=== PATIENT | male | born 1975 | race Caucasian/White ===

== ENCOUNTER 2020-05-19 11:57 | Inpatient (IN) | payer BC, OTHER ==
[~2020-05-19] VITALS: Ht 190.5 cm; Wt 108.8 kg
[2020-05-19 12:13] LABS: BASOPHILS # (AUTO) 0.1 10^3/uL (0.0-0.1); BASOPHILS % (AUTO) 1 % (0-10); EOSINOPHILS # (AUTO) 0.4 10^3/uL (0.0-0.3); EOSINOPHILS % (AUTO) 5 % (0-10); HEMATOCRIT 46 % (40-54); HEMOGLOBIN 15.9 G/DL (13.3-17.7); LYMPHOCYTES # (AUTO) 1.7 X 10^3 (1.0-4.0); LYMPHOCYTES % (AUTO) 18 % (12-44); MEAN CORPUSCULAR HEMOGLOBIN 30 PG (25-34); MEAN CORPUSCULAR HGB CONC 35 G/DL (32-36); MEAN CORPUSCULAR VOLUME 85 FL (80-99); MEAN PLATELET VOLUME 10.4 FL (7.4-10.4); MONOCYTES # (AUTO) 0.7 X 10^3 (0.0-1.0); MONOCYTES % (AUTO) 8 % (0-12); NEUTROPHILS # (AUTO) 6.2 X 10^3 (1.8-7.8); NEUTROPHILS % (AUTO) 68 % (42-75); PLATELET COUNT 309 10^3/uL (130-400); WHITE BLOOD COUNT 9.2 10^3/uL (4.3-11.0)
[2020-05-19 12:22] LABS: PROTHROMBIN TIME PATIENT 12.9 SEC (12.2-14.7)
--- NOTE | 2020-05-19 12:26 | Diagnostic Imaging Report ---
EXAMINATION: CT head without contrast. TECHNIQUE: Multiple contiguous axial images were obtained through the brain without the use of intravenous contrast. All CT scans use one or more of the following dose optimizing techniques: automated exposure control, MA and/or KvP adjustment based on a patient size and exam type, or iterative reconstruction. HISTORY: Left-sided weakness. Concern for stroke. COMPARISON: None available. FINDINGS: No large acute territorial ischemia, mass, or hemorrhage. No midline shift or mass effect. The ventricles, cortical sulci, and basilar cisterns are patent and unremarkable. The orbits are normal. Paranasal sinuses are normal. Mastoid air cells are clear. No soft tissue abnormality is seen. No osseus lesions or fractures are seen. IMPRESSION: 1. No large acute territorial ischemia, mass, or hemorrhage. 2. Pansinusitis. Dictated by: Dictated on workstation # [id number]
[2020-05-19 12:32] LABS: SODIUM 139 MMOL/L (135-145)
[2020-05-19 12:33] LABS: ALANINE AMINOTRANSFERASE 34 U/L (0-55); ALBUMIN 4.5 GM/DL (3.2-4.5); ALKALINE PHOSPHATASE 112 U/L (40-136); BILIRUBIN,TOTAL 0.4 MG/DL (0.1-1.0); BUN/CREATININE RATIO 10; CALCIUM 9.3 MG/DL (8.5-10.1); CARBON DIOXIDE 27 MMOL/L (21-32); CHLORIDE 104 MMOL/L (98-107); CREATININE SERUM 0.94 MG/DL (0.60-1.30); GFR ESTIMATED > 60; GLUCOSE 88 MG/DL (70-105); POTASSIUM 3.8 MMOL/L (3.6-5.0); TOTAL PROTEIN 7.6 GM/DL (6.4-8.2)
[2020-05-19] MEDS ORDERED: cloNIDine 0.2 MG (CATAPRES) TAB PO ONE (12:45)
--- NOTE | 2020-05-19 12:45 | Diagnostic Imaging Report ---
EXAMINATION: Chest radiograph, portable AP view. DATE: 05/19/2020 12:38 PM INDICATION: 44-year-old male, chest pain. COMPARISON: None. FINDINGS: Heart size and mediastinal contours are unremarkable. There is no identified pneumothorax. There is no large pleural effusion. There is no identified focal airspace consolidation. IMPRESSION: No identified acute cardiopulmonary abnormality. Dictated by: Dictated on workstation # [id number]
[2020-05-19] MEDS ORDERED: ASPIRIN 81 MG CHEW (CHILDREN'S ASA) PO ONE (14:00)
--- NOTE | 2020-05-19 14:08 | ED General ---
General Chief Complaint: Neuro-Stroke Like Symptoms Stated Complaint: STOKE-LIKE SYMPTOMS Nursing Triage Note: Patient reports sudden onset of left arm and leg tingling and weakness, bilateral lip numbness and tingling, headache, and difficulty swallowing at 10:30 am this morning. He reports he had one previous episode with similar symptoms in February 2020 that lasted approximately 5 minutes and resolved. Nursing Sepsis Screen: No Definite Risk Source of Information: Patient History of Present Illness Date Seen by Provider: May 19, 2020 Time Seen by Provider: 12:00 Initial Comments Patient is a 44-year-old male who is currently on Dr. Does not participated in primary care in over 20 years who presents with strokelike symptoms. Patient states he woke up this morning between 930 and 10 AM with tingling to his face, around his lips, and to his left upper and left lower extremity. He reports loss of fine motor control to his left arm. He does report ataxia and some difficulty swallowing. No change of vision, speech, or extremity weakness. Reports mild mild frontal headache with recent sinus infection symptoms. He denies chest pain palpitations, shortness of breath. No abdominal pain, nausea or vomiting. No extremity swelling or pain. No other acute symptoms or complaints. Patient took 800 mg of ibuprofen prior to ED arrival. Patient is is currently smokes 1 pack plus per day Timing/Duration: 1 Day Severity: Mild Modifying Factors: improves with Other Associated Systoms: Other Allergies and Home Medications Allergies Coded Allergies: naproxen (Verified Allergy, Unknown, 05/19/20) Patient Home Medication List Home Medication List Reviewed: Yes Review of Systems Review of Systems Constitutional: see HPI EENTM: see HPI Respiratory: see HPI Cardiovascular: see HPI Gastrointestinal: see HPI Genitourinary: see HPI Musculoskeletal: see HPI Skin: see HPI Psychiatric/Neurological: See HPI Hematologic/Lymphatic: See HPI Immunological/Allergic: see HPI All Other Systems Reviewed Negative Unless Noted: Yes Past Ktsguyw-Xfznhk-Nvoasz Hx Past Med/Social Hx: Reviewed Nursing Past Med/Soc Hx Patient Social History Alcohol Use: Denies Use Smoking Status: Current Everyday Smoker Type Used: Cigarettes 2nd Hand Smoke Exposure: No Recent Infectious Disease Expo: No Recent Hopitalizations: No Seasonal Allergies Seasonal Allergies: No Past Medical History Surgeries: Yes Orthopedic Respiratory: No Cardiac: No Neurological: No Genitourinary: No Gastrointestinal: No Musculoskeletal: No Endocrine: No HEENT: No Cancer: No Psychosocial: No Integumentary: No Physical Exam Vital Signs Vital Signs - First Documented 05/19/20 12:12 Temp 36.9 Pulse 90 Resp 21 B/P (MAP) 208/112 (144) Pulse Ox 98 O2 Delivery Room Air Capillary Refill : Less Than 3 Seconds Height, Weight, BMI Height: '" Weight: lbs. oz. kg; 29.00 BMI Method: General Appearance: No Apparent Distress, Anxious Eyes: Bilateral Eye Normal Inspection, Bilateral Eye PERRL, Bilateral Eye EOMI HEENT: PERRL/EOMI, Normal ENT Inspection, Pharynx Normal, Moist Mucous Membranes Neck: Non Tender, Supple Respiratory: Chest Non Tender, Lungs Clear Cardiovascular: Regular Rate, Rhythm Gastrointestinal: Soft Extremity: Normal Capillary Refill Neurologic/Psychiatric: Alert, Oriented x3, Other (Left-sided facial paresis, left arm, left leg drift, decreased sensation left side. NIH stroke score for Pirner strokes assessment.) Skin: Normal Color Focused Exam Sepsis Stage: Ruled Out Progress/Results/Core Measures Suspected Sepsis Recent Fever Within 48 Hours: No Infection Criteria Present: None New/Unexplained Altered Menta: No Sepsis Screen: No Definite Risk SIRS Temperature: Pulse: 90 Respiratory Rate: 21 Laboratory Tests 05/19/20 12:08: White Blood Count 9.2 Blood Pressure 208 /112 Mean: 144 Laboratory Tests 05/19/20 12:08: Creatinine 0.94, INR Comment 1.0, Platelet Count 309, Total Bilirubin 0.4 Results/Orders Lab Results Laboratory Tests Test 05/19/20 12:08 Range/Units White Blood Count 9.2 4.3-11.0 10^3/uL Red Blood Count 5.38 4.35-5.85 10^6/uL Hemoglobin 15.9 13.3-17.7 G/DL Hematocrit 46 40-54 % Mean Corpuscular Volume 85 80-99 FL Mean Corpuscular Hemoglobin 30 25-34 PG Mean Corpuscular Hemoglobin Concent 35 32-36 G/DL Red Cell Distribution Width 12.6 10.0-14.5 % Platelet Count 309 130-400 10^3/uL Mean Platelet Volume 10.4 7.4-10.4 FL Immature Granulocyte % (Auto) 0 % Neutrophils (%) (Auto) 68 42-75 % Lymphocytes (%) (Auto) 18 12-44 % Monocytes (%) (Auto) 8 0-12 % Eosinophils (%) (Auto) 5 0-10 % Basophils (%) (Auto) 1 0-10 % Neutrophils # (Auto) 6.2 1.8-7.8 X 10^3 Lymphocytes # (Auto) 1.7 1.0-4.0 X 10^3 Monocytes # (Auto) 0.7 0.0-1.0 X 10^3 Eosinophils # (Auto) 0.4 H 0.0-0.3 10^3/uL Basophils # (Auto) 0.1 0.0-0.1 10^3/uL Immature Granulocyte # (Auto) 0.0 0.0-0.1 10^3/uL Prothrombin Time 12.9 12.2-14.7 SEC INR Comment 1.0 0.8-1.4 Sodium Level 139 135-145 MMOL/L Potassium Level 3.8 3.6-5.0 MMOL/L Chloride Level 104 98-107 MMOL/L Carbon Dioxide Level 27 21-32 MMOL/L Anion Gap 8 5-14 MMOL/L Blood Urea Nitrogen 9 7-18 MG/DL Creatinine 0.94 0.60-1.30 MG/DL Estimat Glomerular Filtration Rate > 60 BUN/Creatinine Ratio 10 Glucose Level 88 70-105 MG/DL Calcium Level 9.3 8.5-10.1 MG/DL Corrected Calcium 8.9 8.5-10.1 MG/DL Magnesium Level 2.0 1.6-2.4 MG/DL Total Bilirubin 0.4 0.1-1.0 MG/DL Aspartate Amino Transf (AST/SGOT) 30 5-34 U/L Alanine Aminotransferase (ALT/SGPT) 34 0-55 U/L Alkaline Phosphatase 112 40-136 U/L Total Protein 7.6 6.4-8.2 GM/DL Albumin 4.5 3.2-4.5 GM/DL My Orders Orders - GAYLE LESTER DO Ct Head Wo (05/19/20 12:07) Cbc With Automated Diff (05/19/20 12:07) Comprehensive Metabolic Panel (05/19/20 12:07) Chest 1 View Ap/Pa Only (05/19/20 12:07) Protime With Inr (05/19/20 12:07) Continuous Ekg Monitoring (05/19/20 12:07) Magnesium (05/19/20 12:07) Clonidine Tablet (Catapres Tablet) (05/19/20 12:45) Ekg Tracing (05/19/20 13:36) Aspirin Chewable Tablet (Baby Aspirin Ch (05/19/20 14:00) Medications Given in ED Current Medications Medications Dose Ordered Sig/Emelina Route Start Time Stop Time Status Last Admin Dose Admin Clonidine HCl 0.2 mg ONCE ONCE PO 05/19/20 12:45 05/19/20 12:46 DC 05/19/20 13:21 0.2 MG Vital Signs/I&O 05/19/20 12:12 Temp 36.9 Pulse 90 Resp 21 B/P (MAP) 208/112 (144) Pulse Ox 98 O2 Delivery Room Air Capillary Refill : Less Than 3 Seconds Blood Pressure Mean: 144 Departure Communication (Admissions) CT head: Nonacute EKG: Normal sinus rhythm, no acute ST-T wave changes Patient with acute strokelike symptoms with last known normal greater than 14 hours prior to ED arrival. Patient woke with symptoms this morning and did not get up during the night. He is outside the window for TPA. Blood pressure noted to be elevated 180s over 90s. Sublingual clonidine and chewable aspirin given. Dr. Harmon accepts to [facility]. Impression Primary Impression: Ischemic stroke Disposition: ADMITTED INPATIENT Condition: Stable Admissions Decision to Admit Reason: Admit from ER (General) Decision to Admit/Date: May 19, 2020 Time/Decision to Admit Time: 13:45 Departure-Patient Inst. Referrals: NO,LOCAL PHYSICIAN (PCP/Family) Primary Care Physician GAYLE LESTER DO May 19, 2020 14:08
[2020-05-19 16:00] VITALS: BP 193/122
[2020-05-19] MEDS ORDERED: ONDANSETRON 4 MG (ZOFRAN) ORAL DISSOLVE TAB PO PRN (18:00)
[2020-05-19] MEDS ORDERED: ACETAMINOPHEN 325 MG TABLET PO PRN (18:00)
[2020-05-19] MEDS ORDERED: ANTACID SUSP 30 ML UDC (MYLANTA) PO PRN (18:00)
[2020-05-19] MEDS ORDERED: MELATONIN 3 MG TABLET PO PRN (18:00)
[2020-05-19] MEDS ORDERED: polyethylene glycoL POWDER 17 GM (MIRALAX) PACK PO PRN (18:00)
[2020-05-19] MEDS ORDERED: diphenhydrAMINE 25 MG TAB (BENADRYL) PO PRN (18:00)
[2020-05-19] MEDS ORDERED: ONDANSETRON 4 MG/2 ML (SDV) Z0FRAN IV PRN (18:00)
[2020-05-19 19:52] VITALS: BP 142/82
[2020-05-19] MEDS ORDERED: CATHETER FLUSH 10 ML SYR IV PRN (20:15)
[2020-05-19] MEDS: inSUlin ASPART (NovoLOG) 1 UNIT/0.01 ML (CHARGE PER UNIT) SC SCH (21:11)
[2020-05-19] MEDS: hydrALAZINE (APRESOLINE) 25 MG TAB PO SCH (21:16)
[2020-05-19] MEDS: CATHETER FLUSH 10 ML SYR IV SCH (21:17)
[2020-05-19] MEDS: ENOXAPARIN 40 MG/0.4 ML (LOVENOX) SYR SC SCH (21:17)
[2020-05-20] VITALS (7 sets, daily range): BP systolic 130–170; BP diastolic 68–104
[2020-05-20] MEDS: hydrALAZINE (APRESOLINE) 25 MG TAB PO SCH ×3 (06:04→22:44)
[2020-05-20] MEDS: CATHETER FLUSH 10 ML SYR IV SCH ×3 (06:05→20:29)
[2020-05-20] MEDS: inSUlin ASPART (NovoLOG) 1 UNIT/0.01 ML (CHARGE PER UNIT) SC SCH ×4 (06:17→20:24)
[2020-05-20 06:21] LABS: BASOPHILS # (AUTO) 0.1 10^3/uL (0.0-0.1); BASOPHILS % (AUTO) 1 % (0-10); EOSINOPHILS # (AUTO) 0.4 10^3/uL (0.0-0.3); EOSINOPHILS % (AUTO) 4 % (0-10); HEMATOCRIT 40 % (40-54); LYMPHOCYTES # (AUTO) 1.8 10^3/uL (1.0-4.0); LYMPHOCYTES % (AUTO) 19 % (12-44); MEAN CORPUSCULAR HEMOGLOBIN 30 pg (25-34); MEAN CORPUSCULAR HGB CONC 35 g/dL (32-36); MEAN CORPUSCULAR VOLUME 86 fL (80-99); MEAN PLATELET VOLUME 10.6 fL (9.0-12.2); MONOCYTES # (AUTO) 0.6 10^3/uL (0.0-1.0); MONOCYTES % (AUTO) 6 % (0-12); NEUTROPHILS # (AUTO) 6.6 10^3/uL (1.8-7.8); NEUTROPHILS % (AUTO) 69 % (42-75); PLATELET COUNT 267 10^3/uL (130-400); WHITE BLOOD COUNT 9.5 10^3/uL (4.3-11.0)
[2020-05-20 06:33] LABS: ALBUMIN 3.7 GM/DL (3.2-4.5); CHLORIDE 110 MMOL/L (98-107); POTASSIUM 3.7 MMOL/L (3.6-5.0); SODIUM 140 MMOL/L (135-145)
[2020-05-20 06:34] LABS: CALCIUM 8.5 MG/DL (8.5-10.1)
[2020-05-20 06:35] LABS: GLUCOSE 92 MG/DL (70-105); TOTAL PROTEIN 6.5 GM/DL (6.4-8.2); TRIGLYCERIDES 149 MG/DL (<150); VLDL CHOLESTEROL 30 MG/DL (5-40)
[2020-05-20 06:36] LABS: CARBON DIOXIDE 23 MMOL/L (21-32)
[2020-05-20 06:37] LABS: BILIRUBIN,TOTAL 0.7 MG/DL (0.1-1.0)
[2020-05-20 06:39] LABS: ALKALINE PHOSPHATASE 85 U/L (40-136); CREATININE SERUM 0.85 MG/DL (0.60-1.30); GFR ESTIMATED > 60
[2020-05-20 06:40] LABS: BUN/CREATININE RATIO 12; CHOLESTEROL 178 MG/DL (< 200)
[2020-05-20 06:41] LABS: HDL CHOLESTEROL 24 MG/DL (40-60)
[2020-05-20 06:42] LABS: ALANINE AMINOTRANSFERASE 33 U/L (0-55)
[2020-05-20] MEDS ORDERED: GADOBUTROL 15 MMOL/15 ML (GADAVIST) VIAL IV ONE (08:30)
--- NOTE | 2020-05-20 08:41 | Diagnostic Imaging Report ---
EXAMINATION: MR imaging brain with and without contrast. TECHNIQUE: Multiplanar, multisequence MR imaging of the brain was performed with and without contrast. HISTORY: Left-sided weakness COMPARISON: None available. FINDINGS: There is an acute right pontine infarct. There is diffusion restriction and T2 hyperintensity associated with the infarct but no contrast enhancement. No other infarct is seen. The omledo-white matter differentiation is normal. No mass effect or midline shift. The ventricles are normal in size and configuration. Basilar cisterns are patent. No hemorrhage is seen on the susceptibility weighted images. There are no intra- or extra-axial fluid collections. Upper cervical spinal cord signal intensity is normal. Thalamus and basal ganglia are normal. Normal flow voids are seen in the intracranial vasculature. The marrow signal in the calvarium is normal. The orbits are normal. There is right maxillary sinus mucosal disease. Mastoid air cells are clear. No soft tissue abnormality is seen. IMPRESSION: 1. Acute right pontine infarct. Dictated by: Dictated on workstation # [id number]
[2020-05-20] MEDS: hydrALAZINE (APESOLINE) 20 MG/ML VIAL IV PRN ×2 (08:55→14:27)
[2020-05-20] MEDS: amLODIPine 10 MG (NORVASC) TAB PO SCH (08:55)
[2020-05-20] MEDS: ASPIRIN 325 MG (5 GR) TABLET PO SCH (08:55)
[2020-05-20] MEDS ORDERED: IBUP-2185 PO (08:58)
--- NOTE | 2020-05-20 09:22 | History & Physical-Hospitalist ---
ANNANATASHA, 05/20/20 0922: History of Present Illness HPI/Chief Complaint Mr. Sanchez is a 45-year-old male who presented to the [facility] ED for stroke- like symptoms beginning at 0930 on 05/19. He noticed L arm tingling around that time but was hoping the symptoms would go away. He had similar symptoms around 2019 that lasted for about 5 minutes but eventually went away. This episode the symptoms did not stop, so he had his take him to the ER. Prior to his arrival, he took Advil for a headache but this did not help the symptoms he had. CT head in the ER was normal. Today, 05/20, he states he has had difficulty swallowing, slurred speech, left- sided paralysis and numbness/tingling on the left side as well. He denies any chest pain or shortness of breath unless in the imaging machines. He admits to dry throat, balance issues, and headaches. He also admits to fatigue following various testing that has been done thus far during his stay. Denies other ROS. Source: patient Exam Limitations: no limitations Date Seen 05/20/20 Time Seen by a Provider: 09:00 Attending Physician Angelique Harmon MD PCP No,Local Physician Referring Physician Date of Admission May 19, 2020 at 15:59 Home Medications & Allergies Home Medications Reviewed patient Home Medication Reconciliation performed by pharmacy medication reconciliations cnc technician and/or nursing. Patients Allergies have been reviewed. Allergies Allergies Coded Allergies naproxen (Verified Allergy, Unknown, 05/19/20) Past Sqiivgl-Gdfhtr-Hsccsw Hx Past Med/Social Hx: Reviewed Nursing Past Med/Soc Hx Patient Social History Marrital Status: Alcohol Use: Occasionally Uses Recreational Drug Use: No Smoking Status: Current Everyday Smoker (1ppd for 20 years) Type Used: Cigarettes 2nd Hand Smoke Exposure: No Recent Foreign Travel: No Contact w/other who traveled: No Recent Hopitalizations: No Recent Infectious Disease Expo: No Immunizations Up To Date Date of Influenza Vaccine: Jan 17, 2020 Seasonal Allergies Seasonal Allergies: No Past Medical History Surgeries: Orthopedic (L forearm, jaw) denies Family History Heart Disease (father - pacemaker, mother - CABG, stents), Diabetes Review of Systems Constitutional: see HPI EENTM: see HPI Respiratory: see HPI Cardiovascular: see HPI Gastrointestinal: see HPI Genitourinary: see HPI Musculoskeletal: see HPI Skin: see HPI Psychiatric/Neurological: See HPI Physical Exam Physical Exam Vital Signs Vital Signs - First Documented 05/19/20 12:12 Temp 36.9 Pulse 90 Resp 21 B/P (MAP) 208/112 (144) Pulse Ox 98 O2 Delivery Room Air Capillary Refill : Less Than 3 Seconds Height, Weight, BMI Height: '" Weight: lbs. oz. kg; 29.98 BMI Method: General Appearance: Anxious Eyes: Bilateral Eye PERRL, Bilateral Eye EOMI (pt states difficulty moving eyes toward left-side) HEENT: No Pale Conjunctivae (L), No Pale Conjunctivae (R) Neck: Non Tender, Supple Respiratory: Chest Non Tender, Lungs Clear Cardiovascular: Regular Rate, Rhythm, No Edema, Normal Peripheral Pulses Gastrointestinal: Normal Bowel Sounds, Non Tender, Soft Extremity: Normal Capillary Refill Neurologic/Psychiatric: Alert, Oriented x3, director school of nursing II-XII Norm as Tested, Facial Droop (left-sided), Motor Weakness (left-sided paralysis), Sensory Deficit (left-sided numbness/tingling), Other (slurred speech) Skin: Normal Color, Warm/Dry Lymphatic: No Adenopathy Results Results/Procedures Labs Laboratory Tests 05/19/20 12:08 05/20/20 06:10 Patient resulted labs reviewed. Imaging Head CT revealed no acute pathology. MRI brain revealed an acute right-sided rashmi zenobia infarct. Assessment/Plan Admission Diagnosis Right-sided pontine infarct * Pt is having left-sided facial droop, sensation deficit, paralysis since 0930 on 05/19 * Head CT normal * MRI brain revealed right-sided acute pontine infarct * Echo results pending * Carotid u/s revealed mild bilateral carotid atherosclerotic disease with no evidence of significant vascular stenosis * TRG 149, cholesterol 178, LDL 148, VLDL 30, HDL 24 * Will allow for permissive hypertension following acute CVA * Need rehab evaluation - consult web content & social media manager Diet: npo - pending swallow study -- recommended pureed foods PPx: lovenox FULL CODE Dispo: likely >2 midnights, will need rehab placement for residual symptoms Clinical Quality Measures Stroke: Date of last known well: May 19, 2020 SANG GILLIS MD 05/20/20 9936: Assessment/Plan Admission Diagnosis Pt admitted due to acute right sided pontine infarct with left sided weakness. He was outside of the window for TPA on presentation and was admitted for stroke work up and PT/OT. He reports that he has had no recovery of his strength thus far with his left upper extremity weakness but he is able to move his left leg some. Will start on statin and aspirin. Echo pending. Carotid doppler usg negative for significant disease. Monitor on telemetry, consider loop recorder if no a-fib in 48 hours. IRU consult placed. Admission Status: Inpatient Order (span 2 midnights) Reason for Inpatient Admission: see above Diagnosis/Problems Diagnosis/Problems (1) Essential (primary) hypertension (2) Tobacco abuse (3) Hyperlipidemia (4) Ischemic stroke Status: Acute Supervisory-Addendum Brief Verification & Attestation Participated in pt care: history, MDM, physical Personally performed: exam, history, MDM, supervision of care Care discussed with: Medical Student Procedures: n/a Results interpretation: Verified all documentation Verification and Attestation of Medical Student E/M Service A medical student performed and documented this service in my presence. I reviewed and verified all information documented by the medical student and made modifications to such information, when appropriate. I personally performed the physical exam and medical decision making. Sang Gillis, May 20, 2020,14:51 NATASHA CASTILLO, May 20, 2020 09:22 SANG GILLIS MD May 20, 2020 14:56
--- NOTE | 2020-05-20 09:53 | ST Dysphagia Evaluation ---
Speech Evaluation-General Medical Diagnosis Ischemic Stroke Onset Date: May 19, 2020 Therapy Diagnosis Therapy Diagnosis: Oropharyngeal Dysphagia Precautions Precautions: Aspiration Precautions/Isolations: Aspiration Referral Referring Physician: Dr. Harmon Medical History Reviewed History: Yes Social History Current Living Status: Spouse Speech PLF/Current-Dysphagia Prior Level of Function Patient lived in the home with his . Patient was independent for daily needs. Subjective Patient was pleasant and cooperative with the Bedside Dysphagia Evaluation. Oral Motor Skills Dentition: Edentalous Denture Type: Full- Upper & Lower Ability to Follow Directions: Good Patient had his dentures present but didn't want to put them in today. Oral Expression Ability: No Impairment Patient was NPO pending BDE Voice Voice Phonatory-Based Quality: Normal Voice Pitch: Normal Voice Loudness: Normal Face Facial Symmetry: Asymmetrical Mild left facial droop Oral-Facial Assessment Oral-Facial Dentition: Normal Smile: Droops Left Lingual Protrusion: Abnormal Lingual ROM: Abnormal Lingual Strength: Abnormal Pharynx Velopharyngeal Move.: Weak on Left Volitional Dry Swallow: Yes Voluntary Cough: Yes Can Clear Throat Volitionally: Yes Dysphagia Evaluation Consistencies Presented: Thin Liquid, Mechanical Soft, Pureed Oral Phase: Oral Residue Oral phase is within normal range of function for thin liquids and puree, mild oral residue with mechanical soft. Pharyngeal Phase: Decreased A/P Bolus Transit Pharyngeal phase is within normal range of function for thin liquids and puree, mild swallow delay with mechanical soft. Dietary Recommendations: Pureed Liquid Recommendations: Thin Swallowing Precautions: Alternate Liquids/Solids, Decreased Bolus 1/2 Tsp, Liquids from Straw, Liquids from Spoon, Small Bites and Sips, Sitting Upright 90 Degrees, Sitting 90 Degrees 30 Post Intake, Left Tongue Sweep Dysphagia Evaluation Summary Patient was admitted to the hospital on 05/19/2020 due to stroke like symptoms. Patient experienced left side weakness on his whole body. He completed the BDE this morning with left side facial weakness noted. He stated he had had pudding, applesauce and diced fruit. He was able to eat the fruit except for pineapple which he said was too "stringy". patient wears dentures, however he did not want to try to put them in today. He was noted to have mild oral residue with mechanical soft. Thin liquids and puree texture trials were all within normal range of swallow without residue. The patient is recommended for Dysphagia I diet level with thin liquids at this time. Patient will continue to receive ongoing assessment for denture use as he improves. Patient's nurse was informed as well as written on the white board in his room. Barriers to Learning None identified Speech Short Term Goals Short Term Goals Short Term Goals 1) Patient will tolerate least restrictive diet level without s/s of aspiration at 90% or greater. 2) Patient will utilize compensatory strategies for safe oral intake at 90% or greater. Speech District Loss Prevention Manager Goals Retirement Goals Patient will maintain adequate nutrition/hydration via safe effective swallow function. Speech-Plan Patient/Family Goals Patient/Family Goals: Patient plans to return to his home where he lives with his . Treatment Plan Speech Therapy Treatment Plan: Continue Plan of Care Treatment Duration: May 24, 2020 Frequency: 4 times per week Estimated Hrs Per Day: .25 hour per day Rehab Potential: Good Barriers to Learning: None identified Pt/Family Agrees to Plan: Yes Safety Risks/Education Teaching Recipient: Patient Teaching Methods: Discussion Response to Teaching: Verbalize Understanding Education Topics Provided: Diet level, safety strategies for oral intake. Time Speech Therapy Time In: 09:05 Speech Therapy Time Out: 09:25 Total Billed Time: 20 Billed Treatment Time 1, GURWINDER CHAPMAN [address] May 20, 2020 09:53
--- NOTE | 2020-05-20 09:59 | Diagnostic Imaging Report ---
CLINICAL INDICATION: Patient with stroke like symptoms, left-sided weakness. COMPARISON: None EXAM: Real-time carotid Doppler duplex imaging is performed bilaterally. Peak systolic velocity, ICA/CCA peak systolic ratio, spectral analysis, and vascular morphology are studied. FINDINGS: ARTERY VELOCITY Right Left CCA 1.04 m/s 1.15 m/s ICA 1.14 m/s 1.04 m/s ECA 1.42 m/s 0.69 m/s ICA/CCA 1.10 0.90 VERT.ART Antegrade Antegrade There is mild bilateral carotid artery atherosclerotic disease. IMPRESSION: 1: There is there is mild bilateral carotid artery atherosclerotic disease with no grayscale or Doppler evidence of significant vascular stenosis. Dictated by: Dictated on workstation # [id number]
--- NOTE | 2020-05-20 10:26 | Physical Therapy Evaluation ---
PT Evaluation-General Medical Diagnosis Admission Date May 19, 2020 at 15:59 Medical Diagnosis: Ischemic Stroke Onset Date: May 19, 2020 Therapy Diagnosis Therapy Diagnosis: generalized weakness/debility/left hemiparesis Precautions Precautions/Isolations: Aspiration Referral Physician: Eden Reason for Referral: Evaluation/Treatment Medical History Pertinent Medical History: Smoking Additional Medical History does not follow a physician prior to this admit Current History ER secondary to sudden onset of left UE and LE tingling, weakness, POWELL, difficulty swallowing. Reviewed History: Yes Social History Home: Single Level Current Living Status: Spouse Prior Prior Level of Function SCALE: Activities may be completed with or without assistive devices. 0-Ijbasboitu-udpbbrc completes the activity by him/herself with no assistance from a helper. 5-Set-up or Clean-up Assistance-helper sets up or cleans up; patient completes activity. [place] assists only prior to or following the activity. 4-Supervision or Touching Assistance-helper provides verbal cues and/or touching/steadying and/or contact guard assistance as patient completes activity. Assistance may be provided throughout the activity or intermittently. 3-Partial/Moderate Assistance-helper does LESS THAN HALF the effort. [place] lifts, holds or supports trunk or limbs, but provides less than half the effort. 2-Substantial/Maximal Assistance-helper does MORE THAN HALF the effort. [place] lifts or holds trunk or limbs and provides more than half the effort. 4-Mfqeukpyn-udfymn does ALL the effort. Patient does none of the effort to complete the activity. Or, the assistance of 2 or more helpers is required for the patient to complete the activity. If activity was not attempted, code reason: 7-Patient Refused. 9-Not Applicable-not attempted and the patient did not perform the activity before the current illness, exacerbation or injury. 10-Not Attempted due to Environmental Limitations-(lack of equipment, weather restraints, etc.). 88-Not Attempted due to Medical Conditions or Safety Concerns. Bed Mobility: 6 Transfers (B,C,W/C): 6 Gait: 6 Stairs: 6 Wheelchair Mobility: 9 Indoor Mobility (Ambulation): Independent Stairs: Independent Prior Devices Use: None works at [employer] PT Evaluation-Current Subjective Patient is very emotional and voices frustration with situation. Objective Patient Orientation: Normal For Age ROM/Strength ROM Lower Extremities bilateral LE WFL Strength Lower Extremities right LE 5/5 grossly all planes/left knee flexion 3-/5; extension 3/5; hip flexion 2/5; DF/PF 3-/5 Integumentary/Posture Integumentary refer to nursing notes Bowel Incontinence: No Bladder Incontinence: No Posture WFL Neuromuscular (Tone, Coordination, Reflexes) diminished left LE and UE with all ( noted rigidity left LE) Sensory Vision: Functional Hearing: Functional Sensation Right Lower Extremit: Intact Sensation Left Lower Extremity: Intact Transfers Roll Left to Right (QC): 3 Sit to Lying (QC): 3 Lying to Sitting/Side of Bed(Q: 3 Sit to Stand (QC): 2 Chair/Xrq-nb-Iinok Xfer(QC): 88 Toilet Transfer (QC): 88 Car Transfer (QC): 88 Gait Does the Patient Walk?: No and Walking Goal IS indicated Mode of Locomotion: Walk Anticipated Mode of Locomotion: Walk Gait Assistive Device: Walker Homer Comments/Gait Description side step to left with max assist x 3 steps Balance Sitting Static: Fair Sitting Dynamic: Fair Standing Static: Poor Standing Dynamic: Poor Picking up an Object (QC): 3 (seated position) Assessment/Needs 45 y.o. male, will benefit from skilled PT to address functional strength and mobility to improve current LOF. From a PT standpoint, patient would benefit from ARU for extensive therapies to regain function of left side. Rehab Potential: Fair PT Cmo Goals Cmo Goals PT Retirement Goals Time Frame: Jun 15, 2020 Roll Left & Right (QC): 6 Sit to Lying (QC): 6 Lying-Sitting on Side/Bed(QC): 6 Sit to Stand (QC): 5 Chair/Djw-ns-Xvizf Xfer(QC): 5 Toilet Transfer (QC): 5 Car Transfer (QC): 5 Does the Patient Walk: Yes Walk 10 feet (QC): 5 Walk 50ft with 2 Turns (QC): 5 Walk 150 ft (QC): 5 Walking 10ft on Uneven Surface: 5 1 Step (curb) (QC): 5 PT Plan Problem List Problem List: Activity Tolerance, Functional Strength, Safety, Balance, Gait, Transfer, Bed Mobility Treatment/Plan Treatment Plan: Continue Plan of Care Treatment Plan: Bed Mobility, Education, Functional Activity Rusty, Functional Strength, Gait, Safety, Therapeutic Exercise, Transfers Treatment Duration: Jun 15, 2020 Frequency: 11 times per week Estimated Hrs Per Day: .5 hour per day Patient and/or Family Agrees t: Yes Time/GCodes Time In: 925 Time Out: 943 Total Billed Treatment Time: 18 Total Billed Treatment 1 visit EVModC 18 min RUT GARCIA PT May 20, 2020 10:26
--- NOTE | 2020-05-20 11:58 | Occupational Therapy Eval ---
OT Evaluation-General/PLF Medical Diagnosis Admission Date May 19, 2020 at 15:59 Medical Diagnosis: Ischemic Stroke Onset Date: May 19, 2020 Therapy Diagnosis Therapy Diagnosis: decreased ADL Status, impaired functional use LUE Precautions Precautions/Isolations: Aspiration Referral Physician: Eden Dejesus Reason: Evaluation/Treatment Medical History Pertinent Medical History: Smoking Current History sudden onset L arm & leg tingling/weakness Social History Home: Single Level Current Living Status: Spouse Steps Into Home: 2 ADL-Prior Level of Function SCALE: Activities may be completed with or without assistive devices. 0-Fiohwbnkfa-zaprbzt completes the activity by him/herself with no assistance from a helper. 5-Set-up or Clean-up Assistance-helper sets up or cleans up; patient completes activity. [place] assists only prior to or following the activity. 4-Supervision or Touching Assistance-helper provides verbal cues and/or touching/steadying and/or contact guard assistance as patient completes activity. Assistance may be provided throughout the activity or intermittently. 3-Partial/Moderate Assistance-helper does LESS THAN HALF the effort. [place] lifts, holds or supports trunk or limbs, but provides less than half the effort. 2-Substantial/Maximal Assistance-helper does MORE THAN HALF the effort. [place] lifts or holds trunk or limbs and provides more than half the effort. 8-Qgukyebdz-vjvgwl does ALL the effort. Patient does none of the effort to complete the activity. Or, the assistance of 2 or more helpers is required for the patient to complete the activity. If activity was not attempted, code reason: 7-Patient Refused. 9-Not Applicable-not attempted and the patient did not perform the activity before the current illness, exacerbation or injury. 10-Not Attempted due to Environmental Limitations-(lack of equipment, weather restraints, etc.). 88-Not Attempted due to Medical Conditions or Safety Concerns. ADL PLOF Comments Pt reports independent at PLOF with functional mobility and ADLs, no AD/AE Self Care: Independent Functional Cognition: Independent DME/Equipment: Grab Bars, Tub/Shower Occupation: Works at [employer] Self: Yes OT Current Status Subjective Pt laying in bed, agreeable to OT evaluation and tx. Pt emotional throughout tx due to not being able to move L arm Mental Status/Objective Patient Orientation: Person, Place, Time, Situation Current Glasses/Contacts: Yes Hearing Aids: No Dentures/Partials: Yes Hand Dominance: Right Upper Extremity ROM RUE WFL, no movement noted LUE Upper Extremity Coordination RUE WFL, decreased LUE Upper Extremity Sensation tingling/numbness throughout LUE. Upper Extremity Strength RUE WFL, LUE 0/5 no movement palpated ADL-Treatment Eating (QC): 5 (Pt able to eat pureed food with set up assist for opening containers.) Other Treatments Pt laying in bed, agreeable to OT evaluation and tx. OT educated pt on purpose and benefit of OT tx, he verbalized understanding. Pt then provided information about PLOF and home set up, and participated in UE Screen. Pt became emotional and tearful, expressing worry about not being able to feel/move his L arm. OT educated pt on how OT can assist pt in regaining movement in his arms, and educate him on techniques of how to complete ADLs one handed, he verbalized understanding. Pt needed to scoot towards HOB, OT lowered head of bed, educating pt on hand placement to pull self up. Pt able to pull self up higher in bed using RUE and pushing through RLE. HOB elevated. Pt's lunch tray arrived at this time. Pt almost able to open milk carton independently, but required assistance to steady milk carton. He then was able to use utensils with his dominant R hand to scoop food and bring to mouth. Post tx, pt laying in bed with HOB elevated, call light in reach and all needs met. Education OT Patient Education: Correct positioning, Modified ADL techniques, Progress toward Goal/Update tx plan, Purpose of tx/functional activities, Rehab process Teaching Recipient: Patient Teaching Methods: Discussion Response to Teaching: Verbalize Understanding OT Fdc Goals Director Of Business Operations Goals Time Frame: May 31, 2020 Eating (QC): 6 Oral Hygiene (QC): 6 Toileting Hygiene (QC): 6 Shower/Bathe Self (QC): 6 Upper Body Dressing (QC): 6 Lower Body Dressing (QC): 6 On/Off Footwear (QC): 6 Additional Goals: 1-Demonstrate ADL Tasks, 2-Verbalize Understanding, 3- ImproveStrength/Rusty 1=Demonstrate adherence to instructed precautions during ADL tasks. 2=Patient will verbalize/demonstrate understanding of assistive devices/modifications for ADL. 3=Patient will improve strength/tolerance for activity to enable patient to perform ADL's. OT Education/Plan Problem List/Assessment Assessment: Decreased Activ Tolerance, Decreased UE Strength, Impaired Coordination, Impaired I ADL's, Impaired Self-Care Skills, Restricted Funct UE ROM Discharge Recommendations Plan/Recommendations: Continue POC Therapy Discharge Recommendati: Post Acute OT Treatment Plan/Plan of Care Patient would benefit from OT for education, treatment and training to promote independence in ADL's, mobility, safety and/or upper extremity function for ADL's. Plan of Care: ADL Retraining, Functional Mobility, UE Funct Exercise/Act Treatment Duration: May 31, 2020 Frequency: 5 times per week Estimated Hrs Per Day: .25 hour per day Rehab Potential: Good Time/GCodes Start Time: 11:34 Stop Time: 11:44 Total Time Billed (hr/min): 10 Billed Treatment Time 1, TRACIE OBREGON OT May 20, 2020 11:57
--- NOTE | 2020-05-20 13:53 | Physical Therapy Daily Note ---
PT Daily Note-Current Subjective Patient is in bed. Very emotional and voices fear and frustration. Mental Status Patient Orientation: Normal For Age Transfers SCALE: Activities may be completed with or without assistive devices. 7-Xfpbtmawvx-wcotnfz completes the activity by him/herself with no assistance from a helper. 5-Set-up or Clean-up Assistance-helper sets up or cleans up; patient completes activity. [place] assists only prior to or following the activity. 4-Supervision or Touching Assistance-helper provides verbal cues and/or touching/steadying and/or contact guard assistance as patient completes activity. Assistance may be provided throughout the activity or intermittently. 3-Partial/Moderate Assistance-helper does LESS THAN HALF the effort. [place] lifts, holds or supports trunk or limbs, but provides less than half the effort. 2-Substantial/Maximal Assistance-helper does MORE THAN HALF the effort. [place] lifts or holds trunk or limbs and provides more than half the effort. 9-Nmiospiin-nbhbbe does ALL the effort. Patient does none of the effort to complete the activity. Or, the assistance of 2 or more helpers is required for the patient to complete the activity. If activity was not attempted, code reason: 7-Patient Refused. 9-Not Applicable-not attempted and the patient did not perform the activity before the current illness, exacerbation or injury. 10-Not Attempted due to Environmental Limitations-(lack of equipment, weather restraints, etc.). 88-Not Attempted due to Medical Conditions or Safety Concerns. Sit to Lying (QC): 3 Lying to Sitting/Side of Bed(Q: 3 Sit to Stand (QC): 2 (x 3 sets to hemiwalker with 3 side steps PT blocking left knee) Gait Training Does the Patient Walk?: No and Walking Goal IS indicated Gait Assistive Device: Walker Homer Exercises Supine Ex: Ankle pumps, Heel Slides, Straight leg raise Supine Reps: 12 (AAROM left LE) Seated Therapy Exercises: Ankle pumps, Long arc quads, Hip flexion Seated Reps: 12 (AAROM left LE) Assessment Patient does hold breath during exercises and has increase c/o POWELL. PT educated patient on breathing techniques during exercises to prevent POWELL and strain. Patient requires VC's during session on breathing. Patient continues to be very emotional during session. PT Usp Goals Usp Goals PT Usp Goals Time Frame: Jun 15, 2020 Roll Left & Right (QC): 6 Sit to Lying (QC): 6 Lying-Sitting on Side/Bed(QC): 6 Sit to Stand (QC): 5 Chair/Trj-np-Mtvvt Xfer(QC): 5 Toilet Transfer (QC): 5 Car Transfer (QC): 5 Does the Patient Walk: Yes Walk 10 feet (QC): 5 Walk 50ft with 2 Turns (QC): 5 Walk 150 ft (QC): 5 Walking 10ft on Uneven Surface: 5 1 Step (curb) (QC): 5 PT Plan Treatment/Plan Treatment Plan: Continue Plan of Care Treatment Plan: Bed Mobility, Education, Functional Activity Rusty, Functional Strength, Gait, Safety, Therapeutic Exercise, Transfers Treatment Duration: Jun 15, 2020 Frequency: 11 times per week Estimated Hrs Per Day: .5 hour per day Patient and/or Family Agrees t: Yes Time/GCodes Time In: 1255 Time Out: 1318 Total Billed Treatment Time: 23 Total Billed Treatment 1 visit FA 9 min EX 14 min RUT GARCIA PT May 20, 2020 13:53
[2020-05-20] MEDS ORDERED: ATOR80TA76 PO (19:28)
[2020-05-20] MEDS ORDERED: ASPI-808 PO (19:28)
[2020-05-20] MEDS ORDERED: AMLO-251 PO (19:28)
[2020-05-20] MEDS: ENOXAPARIN 40 MG/0.4 ML (LOVENOX) SYR SC SCH (20:29)
[2020-05-21 03:54] VITALS: BP 127/58
[2020-05-21] MEDS: CATHETER FLUSH 10 ML SYR IV SCH (06:00)
[2020-05-21] MEDS: inSUlin ASPART (NovoLOG) 1 UNIT/0.01 ML (CHARGE PER UNIT) SC SCH (06:01)
[2020-05-21] MEDS: hydrALAZINE (APRESOLINE) 25 MG TAB PO SCH (06:01)
[2020-05-21 08:00] VITALS: BP 147/67
--- NOTE | 2020-05-21 08:26 | Discharge Summary ---
Diagnosis/Chief Complaint Date of Admission May 19, 2020 at 15:59 Date of Discharge Discharge Date: May 21, 2020 Admission Diagnosis Pt admitted due to acute right sided pontine infarct with left sided weakness. He was outside of the window for TPA on presentation and was admitted for stroke work up and PT/OT. He reports that he has had no recovery of his strength thus far with his left upper extremity weakness but he is able to move his left leg some. Will start on statin and aspirin. Echo pending. Carotid doppler usg negative for significant disease. Monitor on telemetry, consider loop recorder if no a-fib in 48 hours. IRU consult placed. Primary Care No,Local Physician Discharge Diagnosis (1) Essential (primary) hypertension (2) Tobacco abuse (3) Hyperlipidemia (4) Ischemic stroke Status: Acute Discharge Summary Discharge Physical Exam Allergies: Coded Allergies: naproxen (Verified Allergy, Unknown, 05/19/20) Vitals & I&Os Vital Signs Date Time Temp Pulse Resp B/P (MAP) Pulse Ox O2 Delivery O2 Flow Rate FiO2 05/21/20 06:39 67 05/21/20 03:54 36.6 18 127/58 (81) 97 Room Air Hospital Course Labs (last 24 hrs) Laboratory Tests 05/20/20 10:24: Glucometer 126H 05/20/20 15:14: Glucometer 103 05/20/20 20:13: Glucometer 158H 05/21/20 05:59: Glucometer 97 Patient resulted labs reviewed. Pending Labs Laboratory Tests 05/21/20 05:59: Glucometer 97 Discharge Home Medications: Active Scripts Active Reported Ibuprofen 200 Mg Capsule 400-600 Mg PO Q8H PRN Instructions to patient/family Please see electronic discharge instructions given to patient. Clinical Quality Measures Stroke: Date of last known well: May 19, 2020 SANG ISSA MD May 21, 2020 08:26
[2020-05-21] MEDS: amLODIPine 10 MG (NORVASC) TAB PO SCH (08:31)
[2020-05-21] MEDS: ASPIRIN 325 MG (5 GR) TABLET PO SCH (08:31)
== END 2020-05-21 09:45 | DRG 65 ==
LOC: EDBD 12:01 → ER FS 12:01 → 4TH 15:59
PROVIDERS: ADMIT Internal Medicine; ATTEND Internal Medicine
DX: I63.9 Cerebral infarction, unspecified (principal); G81.94 Hemiplegia, unspecified affecting left nondominant side; R29.810 Facial weakness; R47.81 Slurred speech; I65.23 Occlusion and stenosis of bilateral carotid arteries; I10 Essential (primary) hypertension; F17.210 Nicotine dependence, cigarettes, uncomplicated; E78.5 Hyperlipidemia, unspecified; Z88.6 Allergy status to analgesic agent; Z79.82 Long term (current) use of aspirin
CPT/HCPCS: 36415; 70450; 70553; 71045; 80053; 80061; 82962; 83735; 85025; 85610; 93005; 93306; 93880

== ENCOUNTER 2020-05-21 10:05 | Inpatient (IN) | payer BC ==
[~2020-05-21] VITALS: Ht 190.5 cm; Wt 109.4 kg
[2020-05-21 10:03] VITALS: BP 174/86
[~2020-05-21 10:05] MED LIST: ACETAMINOPHEN 500 MG TAB (TYLENOL) PO PRN; ALPRAZolam 0.25 MG (XANAX) TAB PO PRN; AMLO-251 PO; ASPI-808 PO; ATOR80TA76 PO; BISACODYL 10 MG SUPP (DULCOLAX) PR PRN; DOCUSATE SODIUM 100 MG (COLACE) CAP PO PRN; FLEET ENEMA ADULT 1 EA BTL PR PRN; IBUP-2185 PO; LACTULOSE SYRUP 10GM/15ML (ENULOSE) 30ML UDC PO PRN; LOPERAMIDE 2 MG (IMODIUM) TABLET PO PRN; MELATONIN 3 MG TABLET PO PRN; ONDANSETRON 4 MG (ZOFRAN) ORAL DISSOLVE TAB PO PRN; diphenhydrAMINE 25 MG TAB (BENADRYL) PO PRN; guaiFENesin/CODEINE (ROBITUSSIN AC) 10ML UDC PO PRN
[2020-05-21] MEDS ORDERED: ONDANSETRON 4 MG (ZOFRAN) ORAL DISSOLVE TAB ONE (10:22)
[2020-05-21] MEDS: DOCUSATE SODIUM 100 MG (COLACE) CAP PO SCH ×2 (10:32→21:34)
[2020-05-21] MEDS: polyethylene glycoL POWDER 17 GM (MIRALAX) PACK PO SCH ×2 (10:32→21:46)
[2020-05-21] MEDS: SENNA W/DOCUSATE (SENOKOT S) TABLET PO SCH ×2 (10:32→21:47)
--- NOTE | 2020-05-21 10:47 | Occupational Therapy Eval ---
OT Evaluation-General/PLF Medical Diagnosis Admission Date May 21, 2020 at 10:05 Medical Diagnosis: CVA Onset Date: May 19, 2020 Therapy Diagnosis Therapy Diagnosis: decreased ADL status, impaired LUE function Precautions Precautions/Isolations: Aspiration, Fall Prevention, Standard Precautions, Pressure Ulcer Referral Physician: Cristian Dejesus Reason: Evaluation/Treatment Medical History Pertinent Medical History: Smoking Current History sudden onset L arm & leg tingling/weakness, acute R sided pontine infarct Reviewed History: Yes Social History Home: Single Level Current Living Status: Significant Other Entry Into Home: Stairs Without Railing Steps Into Home: 4 ADL-Prior Level of Function SCALE: Activities may be completed with or without assistive devices. 4-Pjfteopzhp-wzgpity completes the activity by him/herself with no assistance from a helper. 5-Set-up or Clean-up Assistance-helper sets up or cleans up; patient completes activity. [place] assists only prior to or following the activity. 4-Supervision or Touching Assistance-helper provides verbal cues and/or touching/steadying and/or contact guard assistance as patient completes activity. Assistance may be provided throughout the activity or intermittently. 3-Partial/Moderate Assistance-helper does LESS THAN HALF the effort. [place] lifts, holds or supports trunk or limbs, but provides less than half the effort. 2-Substantial/Maximal Assistance-helper does MORE THAN HALF the effort. [place] lifts or holds trunk or limbs and provides more than half the effort. 9-Towagpwqk-nzegga does ALL the effort. Patient does none of the effort to complete the activity. Or, the assistance of 2 or more helpers is required for the patient to complete the activity. If activity was not attempted, code reason: 7-Patient Refused. 9-Not Applicable-not attempted and the patient did not perform the activity before the current illness, exacerbation or injury. 10-Not Attempted due to Environmental Limitations-(lack of equipment, weather restraints, etc.). 88-Not Attempted due to Medical Conditions or Safety Concerns. ADL PLOF Comments Pt reports independent at PLOF with functional mobility and ADLs, no AD/AE Self Care: Independent Functional Cognition: Independent DME/Equipment: Tub/Shower Occupation: Works at [employer] Self: Yes OT Current Status Subjective Pt agreeable to OT evaluation and tx, then OT/PT cotreat. present throughout tx. Pt slightly nauseous at one point in tx, nurse notified. Pt expresses frustration with his situation, and states he has had some difficulty with word finding. Mental Status/Objective Patient Orientation: Person, Place, Time, Situation Attachments: Telemetry Current Glasses/Contacts: Yes Hearing Aids: No Dentures/Partials: Yes Hand Dominance: Right Upper Extremity ROM RUE WFL, LUE decreased ROM. Pt able to slightly shrug L shoulder, no active movement elbow to fingers. Upper Extremity Coordination Decreased due to decreased motion LUE Upper Extremity Sensation tingling/numbness in LUE, RUE WFL Upper Extremity Strength decreased LUE due to decreased ROM, RUE WFL ADL-Treatment Eating (QC): 5 (Based on clinical judgement and discussion with pt, pt would require set up assist) Oral Hygiene (QC): 3 (ModA, pt able to brush dentures and apply adhesive with assistance to stabilize dentures due to flaccid arm) Shower/Bathe Self (QC): 3 (Min A required to wash RUE and raise LUE for pt to wash underneath. Assistance to wash buttocks while standing) Upper Body Dressing (QC): 2 (Pt able to pull affected arm (L) through and managed unaffected arm (R) with max assistance to set up and manage. OT assisted with fasteners) Lower Body Dressing (QC): 2 (MaxA, OT assisted with threading BLEs into pants, and assist with pant hike. Pt assisted with lifting legs up and pulling pants above the knee.) On/Off Footwear (QC): 2 (Pt able to doff R gripper sock, Assist doffing L, assist donning bilateral socks.) Toileting Hygiene (QC): 1 (Per clinical judgement, pt requires assistance with hygiene and clothing management due to impaired standing balance) Other Treatments [id number] OT evaluation complete. Pt began tx sitting EOB and transferred to w/c using SPT. Pt transferred to shower chair from w/c using SPT while OT doffed underwear. Pt began shower and required frequent short rest breaks due to feeling dizzy. [id number] OT/PT cotreat: PT/OT cotreat due to skill of 2 clinicians required which a clinical rehabilitation coordinator could not perform in order to coordinate UE/LEs, and due to pt's limitations in activity tolerance, mobility, dynamic balance, and to decrease fall risk. OT focused on ADLS, UE placement, cues for sequencing and safety, while PT focused on LE placement, gross overall movement, and standing balance. During shower, pt stated that he was feeling nauseous, nursing notified, pt did not throw up. Pt finished shower and donned underwear and transferred to / using SPT. Pt donned clothing in w/ and then performed oral care and hair grooming sitting at sink. Pt propelled self to therapy gym and transferred to mat. Pt performed bed mobility, and then transferred back to / and propelled to parallel bars. Pt ambulated through parallel bars 3x through with a rest break in between. Upon finishing, pt propelled self in / to common area to perform simulation car transfer. Upon finishing, pt propelled self back to therapy gym to complete peg board activity with 50 pegs using his R hand to place the pegs in the board. This activity is to increase his activity tolerance, dynamic standing balance, and functional reaching. Pt required 3 rest breaks during activity. Pt propelled self in w/c back to room and transferred to recliner. Pt in recliner, post tx, with call light in reach and all needs met. Pt's in room. Throughout tx, pt required minimal encouragement to continue through task and became emotional throughout tx. Education OT Patient Education: Correct positioning, Energy conservation, Modified ADL techniques, Progress toward Goal/Update tx plan, Purpose of tx/functional activities, Rehab process, Safety issues, Transfer techniques, W/C management Teaching Recipient: Patient Teaching Methods: Discussion Response to Teaching: Verbalize Understanding OT Short Term Goals Short Term Goals Time Frame: Jun 05, 2020 Shower/bathe self: 3 Lower body dressin Putting on/taking off footwear: 3 OT Hand Mold Maker Goals Hand Mold Maker Goals Time Frame: Jun 14, 2020 Eating (QC): 6 Oral Hygiene (QC): 6 Toileting Hygiene (QC): 6 Shower/Bathe Self (QC): 4 Upper Body Dressing (QC): 5 Lower Body Dressing (QC): 4 On/Off Footwear (QC): 5 Additional Goals: 1-Demonstrate ADL Tasks, 2-Verbalize Understanding, 3- ImproveStrength/Rusty 1=Demonstrate adherence to instructed precautions during ADL tasks. 2=Patient will verbalize/demonstrate understanding of assistive devices/modifications for ADL. 3=Patient will improve strength/tolerance for activity to enable patient to perform ADL's. OT Education/Plan Problem List/Assessment Assessment: Decreased Activ Tolerance, Decreased Safety Aware, Decreased UE Strength, Impaired Bed Mobility, Impaired Cognition, Impaired Funct Balance, Impaired I ADL's, Impaired Self-Care Skills Discharge Recommendations Plan/Recommendations: Continue POC Treatment Plan/Plan of Care Patient would benefit from OT for education, treatment and training to promote independence in ADL's, mobility, safety and/or upper extremity function for ADL's. Plan of Care: ADL Retraining, Functional Mobility, Group Exercise/Act as Ind, UE Funct Exercise/Act Treatment Duration: Jun 14, 2020 Frequency: At least 5 of 7 days/Wk (IRF) Estimated Hrs Per Day: 1.5 hours per day Rehab Potential: Fair Time/GCodes Start Time: 09:45 Stop Time: 11:30 Total Time Billed (hr/min): 95 Billed Treatment Time 9141-5313 OT eval/tx, 1092-7995 PT eval, 3001-5042 OT/PT cotreat 1, EVM (10'), ADL 2 (35'), FA 3 (50') TRACIE JAY OT May 21, 2020 10:47
--- NOTE | 2020-05-21 11:10 | PM&R Post Admission Assessment ---
PM&R HP Date of Visit: May 21, 2020 Time of Visit: 11:15 History of Present Illness CC: Stroke HPI: This is a 45yoWM who presented with left-sided weakness to inpatient rehab to gain recovery in ambulatory skills. He is currently and upon arrival after assessment he tried to get up to go to his bed with his in the room and suffered a fall without injury. He has significant deficit of the left side and will need close monitoring along with BP control and statin therapy and cardiology evaluation since echocardiogram was reviewed and carotid ultrasound showed some disease. 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 Past Anvemxa-Ozhsvn-Wobvsy Hx Past Med/Social Hx: Reviewed Nursing Past Med/Soc Hx, Reviewed and Corrections made Patient Social History Marrital Status: Employed/Student: employed ([employer]) Alcohol Use: Denies Use Smoking Status: Current Everyday Smoker Type Used: Cigarettes 2nd Hand Smoke Exposure: No Recent Hopitalizations: No Immunizations Up To Date Date of Influenza Vaccine: Dec 28, 2019 Seasonal Allergies Seasonal Allergies: No Past Medical History Surgeries: Orthopedic Neurological: Stroke (04/2020) Family History Heart Disease, Diabetes Self Care: Independent Functional Cognition: Independent Occupation: Works at [email or web address] Self: Yes Eatin (Based on clinical judgement and discussion with pt, pt would require set up assist) PM&R Allergy/Meds/Data Review Allergies Coded Allergies: naproxen (Verified Allergy, Unknown, 05/19/20) Home Medications Scheduled Amlodipine Besylate (Amlodipine Besylate), 10 MG PO DAILY Aspirin (Aspirin), 325 MG PO DAILY Atorvastatin Calcium (Atorvastatin Calcium), 80 MG PO HS Scheduled PRN Ibuprofen (Ibuprofen), 400-600 MG PO Q8H PRN for PAIN-MILD (1-4), (Reported) Current Medications Current Medications Reviewed Review of Systems Constitutional: see HPI, malaise, weakness EENTM: no symptoms reported Respiratory: no symptoms reported Cardiovascular: no symptoms reported Gastrointestinal: no symptoms reported Genitourinary: no symptoms reported Musculoskeletal: no symptoms reported Skin: no symptoms reported Psychiatric/Neurological: Depressed, Weakness Physical Exam Physical Exam Vital Signs Vital Signs - First Documented 05/21/20 10:03 Temp 36.8 Pulse 81 Resp 16 B/P (MAP) 174/86 (115) Pulse Ox 96 O2 Delivery Room Air Capillary Refill : Height, Weight, BMI Height: '" Weight: lbs. oz. kg; 29.98 BMI Method: General Appearance: No Apparent Distress, WD/WN, Chronically ill, Obese Eyes: Bilateral Eye Normal Inspection, Bilateral Eye PERRL HEENT: PERRL/EOMI, Normal ENT Inspection, Pharynx Normal Neck: Full Range of Motion, Normal Inspection, Non Tender, Supple, Carotid Bruit Respiratory: Chest Non Tender, Lungs Clear, Normal Breath Sounds, No Accessory Muscle Use, No Respiratory Distress Cardiovascular: Regular Rate, Rhythm, No Edema, No Gallop, No JVD, No Murmur, Normal Peripheral Pulses Gastrointestinal: Normal Bowel Sounds, No Organomegaly, No Pulsatile Mass, Non Tender, Soft Back: Normal Inspection, No CVA Tenderness, No Vertebral Tenderness Extremity: Normal Capillary Refill, Normal Inspection, Normal Range of Motion, Non Tender, No Calf Tenderness, No Pedal Edema Neurologic/Psychiatric: Alert, Oriented x3, Abnormal Gait, Depressed Affect, Motor Weakness (left sidded 1/5) Skin: Normal Color, Warm/Dry Lymphatic: No Adenopathy PM&R Medical Assessment & Plan REHAB/MEDICAL ASSESSMENT AND PLAN: REHAB IMPAIRMENT GROUP: CVA ETIOLOGIC DIAGNOSIS: CVA The comorbidities that impact the patients function and/or functional outcome by: frustration with new deficits, fall upon arrival to unit REHAB PLAN: The patient is being admitted to our comprehensive inpatient rehabilitation facility and can tolerate the intensity of service consisting of at least: 180 minutes of therapy a day, 5 out of 7 days a week Rehab treatment will consist of: PT OT will focus on regaining ambulatory function with use of AD and help increase independence in ADL's in order to return to independent living The patient/family has a good understanding of our discharge process and will be nefit from an interdisciplinary inpatient rehabilitation program. The patient has potential to make improvement and is in need of at least two of the following multidisciplinary therapies including but not limited to physical, occupational, speech, and prosthetics and orthotics. Additionally the patient will need services from respiratory, nutritional services, wound care, psychol ogy, etc. (Customize this to each patient). Given the patients complex condition and risk of further medical complications, rehabilitation services cannot be safely or effectively provided at a lower level of care such as a correction facility. BARRIERS TO DISCHARGE: Significant left sided weakness deficit ESTIMATED LOS: 14 days DISPOSITION: Home RELEVANT CHANGES SINCE PREADMISSION SCREENING: I have compared the patients medical and functional status at the time of the preadmission screening and there are: no changes PROGNOSIS: Good REHABILITATION GOALS: 1. PT OT will focus on regaining ambulatory function with use of AD and help increase independence in ADL's in order to return to independent living All the above goals were reviewed with the patient and he/she is in agreement. By signing this document, I acknowledge that I have personally performed a full physical examination on this patient within 24 hours of admission to this inpatient rehabilitation facility and have determined the patient to be able to tolerate the above course of treatment at an intensive level for a reasonable period of time. I will be completing a detailed individualized Plan of Care for this patient by day #4 of the patients stay based upon the Preadmission Screen, the Post-Admission Evaluation, and the therapy evaluations. 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
[2020-05-21] MEDS ORDERED: cloNIDine 0.1 MG (CATAPRES) TAB PO PRN (11:15)
[2020-05-21] MEDS ORDERED: ANTACID SUSP 30 ML UDC (MYLANTA) PO PRN (11:15)
[2020-05-21] MEDS ORDERED: ONDANSETRON 4 MG/2 ML (SDV) Z0FRAN IV PRN (11:15)
[2020-05-21] MEDS ORDERED: OLMESARTAN 20 MG (BENICAR) TABLET PO SCH (11:15)
[2020-05-21] MEDS ORDERED: polyethylene glycoL POWDER 17 GM (MIRALAX) PACK PO PRN (11:15)
[2020-05-21] MEDS ORDERED: diphenhydrAMINE 25 MG TAB (BENADRYL) PO PRN (11:15)
--- NOTE | 2020-05-21 11:39 | Physical Therapy Evaluation ---
PT Evaluation-General Medical Diagnosis Admission Date May 21, 2020 at 10:05 Medical Diagnosis: CVA Onset Date: May 19, 2020 Therapy Diagnosis Therapy Diagnosis: impaired mobility, strength, endurance, balance Precautions Precautions/Isolations: Aspiration, Fall Prevention, Standard Precautions, Pressure Ulcer Referral Physician: Adamaris Foster DO Reason for Referral: Evaluation/Treatment Medical History Pertinent Medical History: Smoking Reviewed History: Yes Social History Home: Single Level Current Living Status: Significant Other Entry Into Home: Stairs Without Railing PT Steps Into Home: 4 Prior Prior Level of Function SCALE: Activities may be completed with or without assistive devices. 8-Wmrfderdiy-pktmqoq completes the activity by him/herself with no assistance from a helper. 5-Set-up or Clean-up Assistance-helper sets up or cleans up; patient completes activity. [place] assists only prior to or following the activity. 4-Supervision or Touching Assistance-helper provides verbal cues and/or touching/steadying and/or contact guard assistance as patient completes activity. Assistance may be provided throughout the activity or intermittently. 3-Partial/Moderate Assistance-helper does LESS THAN HALF the effort. [place] lifts, holds or supports trunk or limbs, but provides less than half the effort. 2-Substantial/Maximal Assistance-helper does MORE THAN HALF the effort. [place] lifts or holds trunk or limbs and provides more than half the effort. 5-Jrwkjgmjo-cugobj does ALL the effort. Patient does none of the effort to complete the activity. Or, the assistance of 2 or more helpers is required for the patient to complete the activity. If activity was not attempted, code reason: 7-Patient Refused. 9-Not Applicable-not attempted and the patient did not perform the activity before the current illness, exacerbation or injury. 10-Not Attempted due to Environmental Limitations-(lack of equipment, weather restraints, etc.). 88-Not Attempted due to Medical Conditions or Safety Concerns. Bed Mobility: 6 Transfers (B,C,W/C): 6 Gait: 6 Stairs: 6 Indoor Mobility (Ambulation): Independent Stairs: Independent PT Evaluation-Current Subjective Patient in restroom pre tx, already working with OT, just got done with shower but still needs dressed, patient agrees to PT, has no complaints of pain. Will be co-treating with OT due to poor patient mobility, strength, endurance, left hemiparesis, coordinate UE and LE during activity, safety and reduce risk of falls. Pt/Family Goals to be independent at home Objective Patient Orientation: Person, Place, Situation ROM/Strength ROM Lower Extremities WNL Strength Lower Extremities LLE (hip flexion 2/5, knee flexion 1/5, knee extension 2/5, dorsiflexion 1/5), RLE 5/5 gross Neuromuscular (Tone, Coordination, Reflexes) Patient has intact peripheral vision bilaterally and good tracking bilaterally, doesn't seem to have left neglect Sensory Vision: Functional Hearing: Functional Hand Dominance: Right Sensation Right Lower Extremit: Intact Sensation Left Lower Extremity: Intact Sensation Lower Extremities Patient states he has some numbness in his left arm and leg but also seems to have intact light touch sensation in left leg. Transfers Roll Left & Right (QC): 3 Sit to Lying (QC): 3 Lying to Sitting/Side of Bed(Q: 3 Sit to Stand (QC): 3 Chair/Dgy-tz-Poycc Xfer(QC): 3 Toilet Transfer (QC): 3 Car Transfer (QC): 3 Patient performs bed mobility with min assist, supine <-> sit mod assist, sit <- > stand min assist, transfer min assist, car transfer mod assist. Patient needs more careful cues for positioning when performing a transfer to his weak side (left side) Gait Does the Patient Walk?: Yes Mode of Locomotion: Wheelchair Anticipated Mode of Locomotion: Both Walk 10 feet (QC): 88 Walk 50 ft with 2 Turns(QC): 88 Walk 150 ft (QC): 88 Walking 10ft/uneven surface-QC: 88 Distance: 6'x3 Gait Assistive Device: Parallel Bars Comments/Gait Description Patient can ambulate 6' in the parallel bars with min assist. Patient needs assist positioning his left foot after advancing it, his left leg scissors with advancement, his left knee needs blocking due to buckling with bearing weight but he does seem to be able to bear some weight. Wheelchair Training Does the Pt Use a Wheelchair?: Yes Distance: 120'x2 Wheel 50 ft with 2 turns (QC): 3 Wheel 150 ft (QC): 88 Type of Wheelchair: Manual min assist around tight spaces Stairs 1 Step (curb) (QC): 88 4 Steps (QC): 88 12 Steps (QC): 88 Balance Sitting Static: Fair Sitting Dynamic: Poor Standing Static: Poor Standing Dynamic: Poor Picking up an Object (QC): 88 Treatment standing in parallel bars working on balance while performing UE activity with right hand, no holding onto parallel bars x3. PT performed bed mobility and transfer training, ambulation, WC mobility, balance training, positioning and standing during dressing and ADL's, OT worked on dressing, ADL's, UE activity, UE positioning and safety during activity. Assessment/Needs Patient has impaired mobility, strength, endurance, balance. He has left hemiparesis. Patient in recliner post tx with nurse call, phone, tray, all needs met, family in the room. Patient doesn't seem to have neglect and does have some strength in his left leg. Rehab Potential: Fair PT Short Term Goals Short Term Goals Time Frame: May 28, 2020 Roll Left & Right: 6 Sit to lyin Lying to sitting on side of be: 3 Sit to stand: 4 Chair/yge-pp-pdgln transfer: 3 Walk 10 feet: 3 PT Fish Flipper Goals Fish Flipper Goals PT Fish Flipper Goals Time Frame: Jun 11, 2020 Roll Left & Right (QC): 6 Sit to Lying (QC): 6 Lying-Sitting on Side/Bed(QC): 6 Sit to Stand (QC): 5 Chair/Orv-jt-Kvuhr Xfer(QC): 4 Toilet Transfer (QC): 4 Car Transfer (QC): 4 Does the Patient Walk: Yes Walk 10 feet (QC): 4 Walk 50ft with 2 Turns (QC): 4 Walk 150 ft (QC): 88 Walking 10ft on Uneven Surface: 4 1 Step (curb) (QC): 3 4 Steps (QC): 3 12 Steps (QC): 88 Picking up an Object (QC): 3 Wheel 50 feet with 2 turns (QC: 6 Wheel 150 feet: 6 PT Plan Problem List Problem List: Activity Tolerance, Functional Strength, Safety, Balance, Gait, Transfer, Bed Mobility, ROM Treatment/Plan Treatment Plan: Continue Plan of Care Treatment Plan: Bed Mobility, Education, Functional Activity Rusty, Functional Strength, Group Therapy, Gait, Safety, Therapeutic Exercise, Transfers Treatment Duration: Jun 11, 2020 Frequency: At least 5 of 7 days/Wk (IRF) Estimated Hrs Per Day: 1.5 hours per day Patient and/or Family Agrees t: Yes Safety Risks/Education Patient Education: Gait Training, Transfer Techniques, Correct Positioning, W/C Management, Safety Issues Teaching Recipient: Patient Teaching Methods: Demonstration, Discussion Response to Teaching: Reinforcement Needed Discharge Recommendations Plan Patient will perform bed mobility and transfer training, balance and endurance training,functional strengthening, stair training, gait training, and education, to improve functional mobility and independence at home. Therapy Discharge Recommendati: Scheduled Assistance, Home & Family Time/GCodes Time In: 1015 Time Out: 1130 Total Billed Treatment Time: 75 Total Billed Treatment 1 visit EVM 10' NM 15' FA 50' PT eval from [id number], co-treat from [id number] (65min) IVY HYDE PT May 21, 2020 11:39
[2020-05-21 11:45] VITALS: BP 145/71
--- NOTE | 2020-05-21 12:58 | Consultation-Cardiology ---
HPI-Cardiology Cardiology Consultation Date of Consultation 05/21/20 Date of Admission Time Seen by Provider: 12:51 Indication: Cryptogenic stroke HPI Patient is a 45 y/o male with no significant PMH. Presented to the ER on 05/19/20 with left sided weakness and aphasia. Had acute CVA, was outside of window for tPA. Workup for source of stroke including 2D Echo and carotid duplex have been negative. Continues to have left sided weakness and difficulty word finding. Denies any chest pain or dyspnea. Home Medications & Allergies Allergies: Coded Allergies: naproxen (Verified Allergy, Unknown, 05/19/20) Home Medication List Reviewed: Yes XKP-Knpkqy-Qbeqle Hx Patient Social History Marital Status: Smoking Status: Current Everyday Smoker Type Used: Cigarettes 2nd Hand Smoke Exposure: No Recent Hopitalizations: No Have you traveled recently?: No Immunizations Up To Date Date of Influenza Vaccine: Dec 28, 2019 Family Medical History Significant Family History: Heart Disease, CAD Over 55 Years Old, Diabetes Review of Systems-General Review of Systems Constitutional: see HPI; No fever; malaise; No weakness EENTM: No blurred vision, No double vision, No vision loss Respiratory: see HPI; No cough, No dyspnea on exertion, No short of breath Cardiovascular: see HPI; No chest pain, No edema, No Hx of Intervention, No palpitations, No syncope, No vascular heart diseas Gastrointestinal: No abdominal pain, No constipation Genitourinary: No dysuria, No frequency Musculoskeletal: No back pain, No joint pain Skin: No lesions, No rash Psychiatric/Neurological: Weakness (left sided) ECG Impression ECG Initial ECG Rhythm: Normal Sinus Physical Exam Physical Exam Vital Signs Vital Signs - First Documented 05/21/20 10:03 Temp 36.8 Pulse 81 Resp 16 B/P (MAP) 174/86 (115) Pulse Ox 96 O2 Delivery Room Air Capillary Refill : Height, Weight, BMI Height: '" Weight: lbs. oz. kg; 29.89 BMI Method: General Appearance: No Apparent Distress, WD/WN HEENT: PERRL/EOMI Neck: Non Tender, Supple Respiratory: Chest Non Tender, Lungs Clear Cardiovascular: Regular Rate, Rhythm, No Edema, No Gallop, No JVD Gastrointestinal: Non Tender, Soft Back: No CVA Tenderness Extremity: Non Tender, No Calf Tenderness, No Pedal Edema Neurologic/Psychiatric: Alert, Oriented x3, Aphasia, Depressed Affect, Motor Weakness (Left sided) A/P-Cardiology Admission Diagnosis Cryptogenic CVA HTN HLP Tobaccoism Assessment/Plan Cryptogenic CVA with left sided weakness, on ASA. 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 Telemetry revealing sinus rhythm. Discussed the management plan with the patient, recommend LINq implantation for further monitoring for underlying arrhythmia. Planning to place loop recorder tomorrow. HTN- uncontrolled HTN on presentation. Blood pressure better controlled, continue to monitor. HLP- started on statin, continue to monitor. Tobaccoism, educated on the importance of smoking cessation Fam Hx CAD Thank you for allowing us to participate in the management of Mr. Sanchez. This is Abby Kent PA-C, as a scribe for Dr. Rios. Patient was seen and evaluated with Abby, examination performed, management plan was discussed, agree with the current scribed note, I made few changes to the note using Italic font Patient was seen at bedside laying down comfortably, events were reviewed, cryptogenic stroke, left atrial dilatation, possibly underlying atrial fibrillation. Planning to proceed with monitor implant Blood pressure was elevated on presentation, currently better, continue to monitor Patient was started on statin. ABBY REY May 21, 2020 12:58 LAURA RIOS MD May 21, 2020 14:45
[2020-05-21] MEDS: VALSARTAN 160 MG (DIOVAN) TABLET PO SCH (13:06)
--- NOTE | 2020-05-21 14:30 | Physical Therapy Daily Note ---
PT Daily Note-Current Subjective Patient in bed pre tx, agrees to PT, has no complaints of pain. Appearance Patient in bed post tx with nurse call, phone, tray, all needs met, in room. Mental Status Patient Orientation: Person, Place, Situation Transfers SCALE: Activities may be completed with or without assistive devices. 3-Iemdqlpugx-mxgcnky completes the activity by him/herself with no assistance from a helper. 5-Set-up or Clean-up Assistance-helper sets up or cleans up; patient completes activity. [place] assists only prior to or following the activity. 4-Supervision or Touching Assistance-helper provides verbal cues and/or touching/steadying and/or contact guard assistance as patient completes activity. Assistance may be provided throughout the activity or intermittently. 3-Partial/Moderate Assistance-helper does LESS THAN HALF the effort. [place] lifts, holds or supports trunk or limbs, but provides less than half the effort. 2-Substantial/Maximal Assistance-helper does MORE THAN HALF the effort. [place] lifts or holds trunk or limbs and provides more than half the effort. 0-Vwoskhqak-vhkbcv does ALL the effort. Patient does none of the effort to complete the activity. Or, the assistance of 2 or more helpers is required for the patient to complete the activity. If activity was not attempted, code reason: 7-Patient Refused. 9-Not Applicable-not attempted and the patient did not perform the activity before the current illness, exacerbation or injury. 10-Not Attempted due to Environmental Limitations-(lack of equipment, weather restraints, etc.). 88-Not Attempted due to Medical Conditions or Safety Concerns. Exercises Supine Ex: Ankle pumps, Quad Set, Glut sets, Heel Slides, Short Arc Quads, Straight leg raise, Hip abd/add Supine Reps: 20 (AAROM) LLE hamstring, gastroc, and adductor stretching Treatments LLE stretching and ROM Assessment Current Status: Fair Progress Patient has increased muscle tone in LLE, he is very frustrated at his condition. PT Short Term Goals Short Term Goals Time Frame: May 28, 2020 Roll Left & Right: 6 Sit to lyin Lying to sitting on side of be: 3 Sit to stand: 4 Chair/vbv-kf-vwaxe transfer: 3 Walk 10 feet: 3 PT Snf Goals Snf Goals PT Library Science Instructor Goals Time Frame: Jun 11, 2020 Roll Left & Right (QC): 6 Sit to Lying (QC): 6 Lying-Sitting on Side/Bed(QC): 6 Sit to Stand (QC): 5 Chair/Isx-uo-Fjjrj Xfer(QC): 4 Toilet Transfer (QC): 4 Car Transfer (QC): 4 Does the Patient Walk: Yes Walk 10 feet (QC): 4 Walk 50ft with 2 Turns (QC): 4 Walk 150 ft (QC): 88 Walking 10ft on Uneven Surface: 4 1 Step (curb) (QC): 3 4 Steps (QC): 3 12 Steps (QC): 88 Picking up an Object (QC): 3 Wheel 50 feet with 2 turns (QC: 6 Wheel 150 feet: 6 PT Plan Problem List Problem List: Activity Tolerance, Functional Strength, Safety, Balance, Gait, Transfer, Bed Mobility, ROM Treatment/Plan Treatment Plan: Continue Plan of Care Treatment Plan: Bed Mobility, Education, Functional Activity Rusty, Functional Strength, Group Therapy, Gait, Safety, Therapeutic Exercise, Transfers Treatment Duration: Jun 11, 2020 Frequency: At least 5 of 7 days/Wk (IRF) Estimated Hrs Per Day: 1.5 hours per day Patient and/or Family Agrees t: Yes Safety Risks/Education Patient Education: Correct Positioning, Safety Issues Teaching Recipient: Patient Teaching Methods: Demonstration, Discussion Response to Teaching: Reinforcement Needed Time/GCodes Time In: 1415 Time Out: 142 Total Billed Treatment Time: 10 Total Billed Treatment 1 visit EX Gilberto' IVY HYDE PT May 21, 2020 14:30
[2020-05-21] MEDS: hydrALAZINE (APRESOLINE) 25 MG TAB PO SCH ×2 (15:07→21:34)
[2020-05-21] MEDS: CATHETER FLUSH 10 ML SYR IV SCH ×2 (15:07→21:35)
[2020-05-21] MEDS: ACETAMINOPHEN 325 MG TABLET PO PRN (15:16)
[2020-05-21 15:17] VITALS: BP 135/75
[2020-05-21 16:18] VITALS: BP 139/70
[2020-05-21] MEDS: ENOXAPARIN 40 MG/0.4 ML (LOVENOX) SYR SC SCH (21:35)
[2020-05-22 05:19] VITALS: BP 105/58
[2020-05-22 05:29] LABS: BASOPHILS # (AUTO) 0.1 10^3/uL (0.0-0.1); BASOPHILS % (AUTO) 1 % (0-10); EOSINOPHILS # (AUTO) 0.3 10^3/uL (0.0-0.3); EOSINOPHILS % (AUTO) 4 % (0-10); HEMATOCRIT 42 % (40-54); HEMOGLOBIN 14.5 g/dL (13.3-17.7); LYMPHOCYTES # (AUTO) 1.9 10^3/uL (1.0-4.0); LYMPHOCYTES % (AUTO) 22 % (12-44); MEAN CORPUSCULAR HEMOGLOBIN 29 pg (25-34); MEAN CORPUSCULAR HGB CONC 34 g/dL (32-36); MEAN CORPUSCULAR VOLUME 86 fL (80-99); MEAN PLATELET VOLUME 10.5 fL (9.0-12.2); MONOCYTES # (AUTO) 0.9 10^3/uL (0.0-1.0); MONOCYTES % (AUTO) 10 % (0-12); NEUTROPHILS # (AUTO) 5.6 10^3/uL (1.8-7.8); NEUTROPHILS % (AUTO) 64 % (42-75); PLATELET COUNT 255 10^3/uL (130-400); WHITE BLOOD COUNT 8.8 10^3/uL (4.3-11.0)
[2020-05-22 05:45] LABS: ALBUMIN 3.9 GM/DL (3.2-4.5); CHLORIDE 111 MMOL/L (98-107); POTASSIUM 3.9 MMOL/L (3.6-5.0); SODIUM 139 MMOL/L (135-145)
[2020-05-22 05:47] LABS: CALCIUM 8.6 MG/DL (8.5-10.1)
[2020-05-22 05:48] LABS: GLUCOSE 91 MG/DL (70-105); TOTAL PROTEIN 6.8 GM/DL (6.4-8.2)
[2020-05-22 05:49] LABS: CARBON DIOXIDE 21 MMOL/L (21-32)
[2020-05-22 05:50] LABS: BILIRUBIN,TOTAL 0.7 MG/DL (0.1-1.0)
[2020-05-22 05:51] LABS: ALKALINE PHOSPHATASE 84 U/L (40-136); CREATININE SERUM 0.85 MG/DL (0.60-1.30); GFR ESTIMATED > 60
[2020-05-22 05:52] LABS: BUN/CREATININE RATIO 15
[2020-05-22 05:54] LABS: ALANINE AMINOTRANSFERASE 39 U/L (0-55)
[2020-05-22] MEDS: hydrALAZINE (APRESOLINE) 25 MG TAB PO SCH ×3 (06:02→22:18)
[2020-05-22] MEDS: CATHETER FLUSH 10 ML SYR IV SCH ×3 (06:14→22:19)
[2020-05-22] MEDS: SENNA W/DOCUSATE (SENOKOT S) TABLET PO SCH ×2 (08:21→20:31)
[2020-05-22] MEDS: amLODIPine 5 MG (NORVASC) TAB PO SCH (08:21)
[2020-05-22] MEDS: VALSARTAN 160 MG (DIOVAN) TABLET PO SCH (08:21)
[2020-05-22] MEDS: polyethylene glycoL POWDER 17 GM (MIRALAX) PACK PO SCH ×2 (08:21→21:00)
[2020-05-22] MEDS: ASPIRIN 325 MG (5 GR) TABLET PO SCH (08:21)
[2020-05-22] MEDS: DOCUSATE SODIUM 100 MG (COLACE) CAP PO SCH ×2 (08:21→20:31)
[2020-05-22] MEDS ORDERED: amLODIPine 10 MG (NORVASC) TAB PO SCH (09:00)
--- NOTE | 2020-05-22 09:02 | Physical Therapy Daily Note ---
PT Daily Note-Current Subjective Pt. agrees to co Rx PT OT session. Pt. emotional and asks many questions. Pt. was educated on many facets of CVA and recovery and what to expect with rehab path. Pain Location: No Pain Reported Mental Status Patient Orientation: Normal For Age Transfers SCALE: Activities may be completed with or without assistive devices. 1-Jvzkukntga-hehpjxu completes the activity by him/herself with no assistance from a helper. 5-Set-up or Clean-up Assistance-helper sets up or cleans up; patient completes activity. [place] assists only prior to or following the activity. 4-Supervision or Touching Assistance-helper provides verbal cues and/or touching/steadying and/or contact guard assistance as patient completes a ctivity. Assistance may be provided throughout the activity or intermittently. 3-Partial/Moderate Assistance-helper does LESS THAN HALF the effort. [place] lifts, holds or supports trunk or limbs, but provides less than half the effort. 2-Substantial/Maximal Assistance-helper does MORE THAN HALF the effort. [place] lifts or holds trunk or limbs and provides more than half the effort. 6-Pwismcjmb-pdlvno does ALL the effort. Patient does none of the effort to complete the activity. Or, the assistance of 2 or more helpers is required for the patient to complete the activity. If activity was not attempted, code reason: 7-Patient Refused. 9-Not Applicable-not attempted and the patient did not perform the activity before the current illness, exacerbation or injury. 10-Not Attempted due to Environmental Limitations-(lack of equipment, weather restraints, etc.). 88-Not Attempted due to Medical Conditions or Safety Concerns. Roll Left & Right (QC): 4 Sit to Lying (QC): 3 Lying to Sitting/Side of Bed(Q: 3 Sit to Stand (QC): 4 Chair/Bqr-iu-Tnutm Xfer(QC): 4 Gait Training Does the Patient Walk?: Yes Gait Persons Needed: 2 Gait Assistive Device: Parallel Bars 7ft x 2 with improved abduction and left foot placement. Mirror feedback used for alignment, PT instructing in LLE placement and knee ext as OT instructs with LUE hand and elbow etc, gait is taxing and frustrating for pt. Wheelchair Training Does the Pt Use a Wheelchair?: Yes Wheel 50 ft with 2 turns (QC): 4 Type of Wheelchair: Manual needs assist for some braking and to manage L rest for leg Exercises Supine Ex: Bridging, Ankle pumps (HC stretches), Rolling, Heel Slides, Short Arc Quads, Scooting, D1 F/E UE (LLE), Hip abd/add Supine Reps: 15 Treatments wt shift left to right in stance, balance in stance PT OT co Rx as pt requires 2 skilled therapists Assessment Current Status: Good Progress PT Short Term Goals Short Term Goals Time Frame: May 28, 2020 Roll Left & Right: 6 Sit to lyin Lying to sitting on side of be: 3 Sit to stand: 4 Chair/uge-sh-ieqdt transfer: 3 Walk 10 feet: 3 PT Maintenance Representative Goals Intermediate Goals PT Intermediate Goals Time Frame: Jun 11, 2020 Roll Left & Right (QC): 6 Sit to Lying (QC): 6 Lying-Sitting on Side/Bed(QC): 6 Sit to Stand (QC): 5 Chair/Cfm-rv-Zpokc Xfer(QC): 4 Toilet Transfer (QC): 4 Car Transfer (QC): 4 Does the Patient Walk: Yes Walk 10 feet (QC): 4 Walk 50ft with 2 Turns (QC): 4 Walk 150 ft (QC): 88 Walking 10ft on Uneven Surface: 4 1 Step (curb) (QC): 3 4 Steps (QC): 3 12 Steps (QC): 88 Picking up an Object (QC): 3 Wheel 50 feet with 2 turns (QC: 6 Wheel 150 feet: 6 PT Plan Treatment/Plan Treatment Plan: Continue Plan of Care Treatment Plan: Bed Mobility, Education, Functional Activity Rusty, Functional Strength, Group Therapy, Gait, Safety, Therapeutic Exercise, Transfers Treatment Duration: Jun 11, 2020 Frequency: At least 5 of 7 days/Wk (IRF) Estimated Hrs Per Day: 1.5 hours per day Patient and/or Family Agrees t: Yes Safety Risks/Education Patient Education: Gait Training, Transfer Techniques, Correct Positioning, W/C Management, Safety Issues Teaching Recipient: Patient Teaching Methods: Demonstration, Discussion Response to Teaching: Verbalize Understanding, Return Demonstration, Reinforcement Needed Time/GCodes Time In: 800 Time Out: 900 Total Billed Treatment Time: 60 Total Billed Treatment 1,GT15m,EX35m,FA10m DONA GUERRA BAR GAUGER AND LUBRICATOR TENDER May 22, 2020 09:02
--- NOTE | 2020-05-22 09:15 | Occupational Ther Daily Note ---
OT Current Status-Daily Note Subjective Pt reports no pain, but it very emotional at times when attempting to move LLE and LUE Mental Status/Objective Patient Orientation: Person, Place, Time, Situation Attachments: Telemetry ADL-Treatment Therapy Code Descriptions/Definitions Functional [place] Measure: 0=Not Assessed/NA 4=Minimal Assistance 1=Total Assistance 5=Supervision or Setup 2=Maximal Assistance 6=Modified [place] 3=Moderate Assistance 7=Complete IndependenceSCALE: Activities may be completed with or without assistive devices. 0-Mfygculmcm-egrzssd completes the activity by him/herself with no assistance from a helper. 5-Set-up or Clean-up Assistance-helper sets up or cleans up; patient completes activity. [place] assists only prior to or following the activity. 4-Supervision or Touching Assistance-helper provides verbal cues and/or touching/steadying and/or contact guard assistance as patient completes activity. Assistance may be provided throughout the activity or intermittently. 3-Partial/Moderate Assistance-helper does LESS THAN HALF the effort. [place] lifts, holds or supports trunk or limbs, but provides less than half the effort. 2-Substantial/Maximal Assistance-helper does MORE THAN HALF the effort. [place] lifts or holds trunk or limbs and provides more than half the effort. 6-Eihqkylbg-jaqexu does ALL the effort. Patient does none of the effort to complete the activity. Or, the assistance of 2 or more helpers is required for the patient to complete the activity. If activity was not attempted, code reason: 7-Patient Refused. 9-Not Applicable-not attempted and the patient did not perform the activity before the current illness, exacerbation or injury. 10-Not Attempted due to Environmental Limitations-(lack of equipment, weather restraints, etc.). 88-Not Attempted due to Medical Conditions or Safety Concerns. On/Off Footwear: 1 (assistance for all parts, doffing and donning socks and shoes) Other Treatment PT/OT cotreat ([id number]) due to skill of 2 clinicians required which a rehabilitation worker could not perform in order to coordinate UE/LEs, and due to pt's limitations in activity tolerance, mobility, dynamic balance, and to decrease fall risk. OT focused on ADLS, UE placement, cues for sequencing and safety, while PT focused on LE placement, gross overall movement, and standing balance. Pt began tx supine in bed. pt transferred to EOB sitting and OT doffed and paramjit ed footwear then transferred to w/c with SPT. Pt propelled self to therapy gym and transferred to mat using SPT. On mat, pt participated in weight bearing activity, putting weight on his L arm at his wrist and then on his forearm. Pt stated no pain, but described his concern for not being able to feel his L arm. OT reassured pt about his stroke and the progression he has made and will make throughout his rehab stay. pt then transferred back to / with SPT and propelled to the parallel bars. In parallel bars, pt stood and performed nut and bolt activity with his R hand while OT assisted with holding the other bolt. Pt stood and completed 4 bolt before sitting and taking a break. Pt ambulated in parallel bars 2x through. Pt sat in w/ and propelled self to room with cues to watch his L side. OT tx ([id number]) Pt propelled into bathroom and shaved face and brushed hair sitting at sink, set up assist. Upon finishing, pt transferred from w/c to recliner using SPT. Pt in recliner, call light in reach and all needs met. Pt was educated on using the call light if he needed to get up and use restroom or do anything else, pt agrees to use call light. Education OT Patient Education: Correct positioning, Disease process, Modified ADL amari hniques, Progress toward Goal/Update tx plan, Purpose of tx/functional activities, Reviewed precautions, Rehab process, Safety issues, Transfer techniques, W/C management Teaching Recipient: Patient Teaching Methods: Discussion Response to Teaching: Verbalize Understanding, Reinforcement Needed OT Short Term Goals Short Term Goals Time Frame: Jun 05, 2020 Shower/bathe self: 3 Lower body dressin Putting on/taking off footwear: 3 OT Fpc Goals Digital Publishing Specialist Goals Time Frame: Jun 14, 2020 Eating (QC): 6 Oral Hygiene (QC): 6 Toileting Hygiene (QC): 6 Shower/Bathe Self (QC): 4 Upper Body Dressing (QC): 5 Lower Body Dressing (QC): 4 On/Off Footwear (QC): 5 Additional Goals: 1-Demonstrate ADL Tasks, 2-Verbalize Understanding, 3-ImproveStrength/Rusty 1=Demonstrate adherence to instructed precautions during ADL tasks. 2=Patient will verbalize/demonstrate understanding of assistive devices/modifications for ADL. 3=Patient will improve strength/tolerance for activity to enable patient to perform ADL's. OT Education/Plan Problem List/Assessment Assessment: Decreased Activ Tolerance, Decreased Safety Aware, Decreased UE Strength, Impaired Bed Mobility, Impaired Cognition, Impaired Funct Balance, Impaired I ADL's, Impaired Self-Care Skills Discharge Recommendations Plan/Recommendations: Continue POC Treatment Plan/Plan of Care Patient would benefit from OT for education, treatment and training to promote independence in ADL's, mobility, safety and/or upper extremity function for ADL's. Plan of Care: ADL Retraining, Functional Mobility, Group Exercise/Act as Ind, UE Funct Exercise/Act Treatment Duration: Jun 14, 2020 Frequency: At least 5 of 7 days/Wk (IRF) Estimated Hrs Per Day: 1.5 hours per day Rehab Potential: Fair Time/GCodes Start Time: 08:00 Stop Time: 09:15 Total Time Billed (hr/min): 75 Billed Treatment Time OT/PT cotreat ([id number]) OT tx ([id number]) 1, ADL (15'), FA 4 (60') TRACIE JAY OT May 22, 2020 09:15
[2020-05-22 09:31] VITALS: BP 152/68
--- NOTE | 2020-05-22 11:16 | Progress Note ---
RITESH DIOP,[employer] STUDEN 05/22/20 1116: Progress Note NEUROLOGICAL EXAM Mental Status: -A&O x3 -Fluency, comprehension, repetition intact Cranial Nerves -III, IV, : EOMI with contralateral beating nystagmus on lateral gaze bilaterally -V: paresthesias on the Lt in the V1 and V2 distributions, Lt V3 spared; sensation intact on V1-3 on Rt; describes constant tingling of the lips -VII: asymmetric smile with moderate facial drooping on the left; eyebrow elevation intact bilaterally -VIII: intact -IX, X: symmetric palate elevation -XI: intact -XII: tongue midline without fasciculation, normal ROM Reflexes -Biceps: Lt 2+, Rt 3+ -Brachioradialis: Lt 2+, Rt 3+ -Triceps: Lt 2+, Rt difficult to assess -Patellar: 2+/2+ -Achilles: Difficult to assess Motor -Shoulder abduction: Rt 5/5, Lt 1/5 -Arm flexion: Rt 5/5, Lt 2/5 -Arm extension: Rt 5/5, Lt 2/5 -Wrist flexion: Rt 5/5, Lt 1/5 -Wrist extension: Rt 5/5, Lt 1/5 -Finger abduction: Rt 5/5, Lt 0/5 -Hip flexion: Rt 5/5, Lt 3/5 -Knee flexion: Rt 5/5, Lt 2/5 -Knee extension: Rt 5/5, Lt 3/5 -Ankle plantarflexion/dorsiflexion: Rt 5/5, Lt 1/5 Sensory -Upper Extremities: -Rt: sensation to light touch is intact -Lt: sensation to light touch decreases from proximal to distal, with paresthesias following the same distribution -Lower Extremities: -Rt: sensation to light touch is intact -Lt: sensation to light touch decreases from proximal to distal, with paresthesias following the same distribution Cerebellum -Rt: finger tapping, rapid alternating movements intact -Lt: unable to assess d/t weakness Gait - deferred ADAMARIS COPPOLA DO 05/23/20 0453: Supervisory-Addendum Brief Verification & Attestation Participated in pt care: history, MDM, physical Personally performed: exam, history, MDM, supervision of care Care discussed with: Medical Student Procedures: n/a Results interpretation: Verified all documentation Verification and Attestation of Medical Student E/M Service A medical student performed and documented this service in my presence. I reviewed and verified all information documented by the medical student and made modifications to such information, when appropriate. I personally performed the physical exam and medical decision making. Adamaris Coppola, May 23, 2020,04:53 RITESH DIOP,MED STUD May 22, 2020 11:16 ADAMARIS COPPOLA DO May 23, 2020 04:53
--- NOTE | 2020-05-22 11:56 | PM&R Progress Note ---
Subjective HPI/CC On Admission Date Seen by Provider: May 22, 2020 Time Seen by Provider: 11:00 Subjective/Events-last exam 05/22/20: Loop recorder was placed today by Dr. Rios BP 152/68 Swelling in his left hand, will get his wedding ring off today Very tearful at times Bowels moved four days ago so will initiate laxatives Review of Systems General: Fatigue Neurological: Weakness, Incoordination, Change in speech Objective Exam Vital Signs Vital Signs Date Time Temp Pulse Resp B/P (MAP) Pulse Ox O2 Delivery O2 Flow Rate FiO2 05/22/20 22:00 70 141/70 (93) 05/22/20 21:00 Room Air 05/22/20 17:04 36.4 20 97 Capillary Refill : General Appearance: No Apparent Distress, WD/WN, Chronically ill, Obese HEENT: PERRL/EOMI, Normal ENT Inspection, Pharynx Normal Neck: Full Range of Motion, Normal Inspection, Non Tender, Supple, Carotid Bruit Respiratory: Chest Non Tender, Lungs Clear, Normal Breath Sounds, No Accessory Muscle Use, No Respiratory Distress Cardiovascular: Regular Rate, Rhythm, No Edema, No Gallop, No JVD, No Murmur, Normal Peripheral Pulses Gastrointestinal: Normal Bowel Sounds, No Organomegaly, No Pulsatile Mass, Non Tender, Soft Back: Normal Inspection, No CVA Tenderness, No Vertebral Tenderness Extremity: Normal Capillary Refill, Normal Inspection, Normal Range of Motion, Non Tender, No Calf Tenderness, No Pedal Edema Neurologic/Psychiatric: Alert, Oriented x3, Abnormal Gait, Depressed Affect, Motor Weakness (left sidded 1/5) Skin: Normal Color, Warm/Dry Lymphatic: No Adenopathy Results/Procedures Lab Patient resulted labs reviewed. FIM Transfers Therapy Code Descriptions/Definitions Functional [place] Measure: 0=Not Assessed/NA 4=Minimal Assistance 1=Total Assistance 5=Supervision or Setup 2=Maximal Assistance 6=Modified [place] 3=Moderate Assistance 7=Complete IndependenceSCALE: Activities may be completed with or without assistive devices. 9-Zlnhvnqtkv-dhribwn completes the activity by him/herself with no assistance from a helper. 5-Set-up or Clean-up Assistance-helper sets up or cleans up; patient completes activity. [place] assists only prior to or following the activity. 4-Supervision or Touching Assistance-helper provides verbal cues and/or touching/steadying and/or contact guard assistance as patient completes activity. Assistance may be provided throughout the activity or intermittently. 3-Partial/Moderate Assistance-helper does LESS THAN HALF the effort. [place] l ifts, holds or supports trunk or limbs, but provides less than half the effort. 2-Substantial/Maximal Assistance-helper does MORE THAN HALF the effort. [place] lifts or holds trunk or limbs and provides more than half the effort. 9-Ukwbzcpaf-tmkuch does ALL the effort. Patient does none of the effort to complete the activity. Or, the assistance of 2 or more helpers is required for t he patient to complete the activity. If activity was not attempted, code reason: 7-Patient Refused. 9-Not Applicable-not attempted and the patient did not perform the activity before the current illness, exacerbation or injury. 10-Not Attempted due to Environmental Limitations-(lack of equipment, weather restraints, etc.). 88-Not Attempted due to Medical Conditions or Safety Concerns. Roll Left to Right (QC): 4 Sit to Lying (QC): 3 Sit to Stand (QC): 4 Chair/Twj-il-Fxqnk Xfer(QC): 4 Car Transfer (QC): 3 Gait Training Does the Patient Walk?: Yes Walk 10 feet (QC): 88 Walk 50 ft with 2 Turns(QC): 88 Walk 150 ft (QC): 88 Walking 10ft/uneven surface-QC: 88 Gait Persons Needed: 2 Gait Assistive Device: Parallel Bars Wheelchair Training Does the Pt Use a Wheelchair?: Yes Distance: 120'x2 Wheel 50 ft with 2 turns (QC): 4 Wheel 150 ft (QC): 88 Type of Wheelchair: Manual Stair Training 1 Step (curb) (QC): 88 4 Steps (QC): 88 12 Steps (QC): 88 Balance Picking up an Object (QC): 88 ADL-Treatment Eating (QC): 5 (Based on clinical judgement and discussion with pt, pt would require set up assist) Oral Hygiene (QC): 3 (ModA, pt able to brush dentures and apply adhesive with assistance to stabilize dentures due to flaccid arm) Shower/Bathe Self (QC): 3 (Min A required to wash RUE and raise LUE for pt to wash underneath. Assistance to wash buttocks while standing) Upper Body Dressing (QC): 2 (Pt able to pull affected arm (L) through and managed unaffected arm (R) with max assistance to set up and manage. OT assisted with fasteners) Lower Body Dressing (QC): 2 (MaxA, OT assisted with threading BLEs into pants, and assist with pant hike. 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
--- NOTE | 2020-05-22 11:56 | Individualized Plan of Care ---
Individualized Plan of Care Rehab Nursing IPOC Order Admission Date May 21, 2020 at 10:05 Current Orders Orders Admission Order(Inpt,Obs,Sdc) (05/21/20 06:01) Vital Signs: Per Unit Policy ( 08,16,00 (05/21/20 06:01) Nayan Booth (05/21/20 06:01) Sequential Compression Device Q4H (05/21/20 06:01) Coil Assembler-Inpt Rehab Con (05/21/20 06:01) Rehab Nursing Orders-Ipoc (05/21/20 06:01) Physical Therapy Rehab Orders (05/21/20 06:01) Occupational Therapy Rehab Ord (05/21/20 06:01) Speech Therapy Rehab Orders (05/21/20 06:01) Cbc With Automated Diff (05/22/20 06:00) Comprehensive Metabolic Panel (05/22/20 06:00) Intake & Output 06,14,22 (05/21/20 06:01) Precautions (Aru) (05/21/20 06:01) Weekly Weight WEEK (05/21/20 06:01) Rehab-Intensity Of Therapy (05/21/20 06:01) Initiate Admission Nursing Pro .admission (05/21/20 06:01) Acetaminophen Tablet (Tylenol Tablet) (05/21/20 06:15) Alprazolam Tablet (Xanax Tablet) (05/21/20 06:15) Calcium Carbonate Chew Tablet (Antacid C (05/21/20 06:15) Diphenhydramine Tablet (Benadryl Tablet) (05/21/20 06:15) Docusate Sodium Capsule (Colace Capsule) (05/21/20 09:00) Docusate Sodium Capsule (Colace Capsule) (05/21/20 06:15) Bisacodyl Suppository (Dulcolax Supposit (05/21/20 06:15) Lactulose Oral Solution (Enulose Oral So (05/21/20 06:15) Na Phos/Na Biphos Enema (Fleet Enema Ga (05/21/20 06:15) Guaifenesin/Codeine Syrup (Robitussin Ac (05/21/20 06:15) Loperamide Tablet (Imodium Tablet) (05/21/20 06:15) Melatonin Tablet (Melatonin Tablet) (05/21/20 06:15) Polyethylene Glycol Powder Pkt (Miralax (05/21/20 09:00) Ondansetron Oral Dissolve Tab (Zofran (05/21/20 06:15) Senna S Tablet (Senokot S Tablet) (05/21/20 09:00) Code/Resuscitation (05/21/20 06:01) Admission Arrival Bed Request (05/21/20 10:05) Ondansetron Oral Dissolve Tab (Zofran (05/21/20 10:22) Code/Resuscitation (05/21/20 11:06) Sequential Compression Device Q4H (05/21/20 11:06) Telemetry (05/21/20 11:06) Vital Signs: Every 4 Hours (Or (05/21/20 11:06) Weight Bearing As Tolerated (05/21/20 11:06) Aspirin Tablet (Aspirin Tablet) (05/22/20 09:00) Atorvastatin Tablet (Lipitor Tablet) (05/21/20 21:00) Diphenhydramine Tablet (Benadryl Tablet) (05/21/20 11:15) Enoxaparin Injection (Lovenox Injection) (05/21/20 21:00) Melatonin Tablet (Melatonin Tablet) (05/21/20 11:15) Polyethylene Glycol Powder Pkt (Miralax (05/21/20 11:15) Antacid Suspension (Mylanta Suspension (05/21/20 11:15) Sodium Chloride Flush (Catheter Flush Sy (05/21/20 14:00) Acetaminophen Tablet/Caplet (Tylenol T (05/21/20 11:15) Ondansetron Injection (Zofran Injectio (05/21/20 11:15) Amlodipine Tablet (Norvasc Tablet) (05/22/20 09:00) Hydralazine Tablet (Apresoline Tablet) (05/21/20 14:00) Oxycodone Immediate Rel Tablet (Oxyir Ta (05/21/20 11:15) Telemetry Nursing Assessment ( (05/21/20 11:06) Consult Cardiology (05/21/20 11:06) Olmesartan Tab (Non-Formulary) (Benicar (05/21/20 11:15) Clonidine Tablet (Catapres Tablet) (05/21/20 11:15) Valsartan Tablet (Diovan Tablet) (05/21/20 12:15) Patient Visit (05/21/20 ) Pt Eval Moderate Complexity (05/21/20 ) Ex Neuromuscular, Ea 15 Min (05/21/20 ) Functional Activities, Ea 15 (05/21/20 ) Patient Visit (05/21/20 ) Exercise Therap, Ea 15 Min (05/21/20 ) Amlodipine Tablet (Norvasc Tablet) (05/22/20 09:00) Consent-Obtain Consent For (05/22/20 08:28) Preop Checklist (05/22/20 08:28) General/Regular (05/22/20 Lunch) Patient Visit (05/22/20 ) Gait Training, Ea 15 Min (05/22/20 ) Functional Activities, Ea 15 (05/22/20 ) Exercise Therap, Ea 15 Min (05/22/20 ) Patient Visit (05/22/20 ) Speech Sound Lang Comp (05/22/20 ) Treat. Speech/Lang/Voice (05/22/20 ) Dysphagia Evaluation Std (05/22/20 ) Dysphagia Therapy (05/22/20 ) Rehab Nursing Orders: Ongoing Assess. of Function Status, Bladder Management, Bladder Training, Bowel Management, Disease Management & Educaiton, DVT Prop hylaxis, Fall Prevention, Fluid/Electrolyte/Nutrition Mgmt, Infection Prevention, Medication Management & Education, Management of Risks & Complications, Management of Skin Intergrity, Nutrition Management, Pain Management, Patient/Family Support, Safety Management, Swallow Precautions Intensity of Therapy to be met Patient to be seen: Min.3h per day/5 of 7d PT IPOC Problem List: Activity Tolerance, Functional Strength, Safety, Balance, Gait, Transfer, Bed Mobility, ROM Treatment Plan: Continue Plan of Care Bed Mobility, Education, Functional Activity Rusty, Functional Strength, Group Therapy, Gait, Safety, Therapeutic Exercise, Transfers Treatment Duration: Jun 11, 2020 Frequency: At least 5 of 7 days/Wk (IRF) Estimated Hrs Per Day: 1.5 hours per day OT IPOC Problems: Decreased Activ Tolerance, Decreased Safety Aware, Decreased UE Strength, Impaired Bed Mobility, Impaired Cognition, Impaired Funct Balance, Impaired I ADL's, Impaired Self-Care Skills OT Treatment, Training and Edu: Yes Plan of Care: ADL Retraining, Functional Mobility, Group Exercise/Act as Ind, UE Funct Exercise/Act Treatment Duration: Jun 14, 2020 Frequency: At least 5 of 7 days/Wk (IRF) Estimated Hrs Per Day: 1.[address] IPOC Speech Therapy Treatment Plan: Modify Plan, See Comments Treatment Duration: May 22, 2020 Frequency: Modified Program (IRF) Estimated Hrs Per Day: Other Coil Assembler/Case Mgmt Coil Assembler/Case Managemen: Discharge Planning Dietitian/Svp Business Development Dietitian/Svp Business Development to monitor nutritional status and make changes and/or recommendations as needed and work with speech pathology on dietary upgrades as the occur. Physician IPOC Medical Issues being managed closely and that require the 24 hour availability of a physician: Recent catastrophic CVA with left sided weakness and significant BP labile status will need close monitoring for extension of CVA Medical Issues: Bowel/Bladder Function, DVT Prophylaxis, Falls Precautions, Fluid/Electrolyte/Nutrition Balance, Infection Protection, Pain Management, Voice Protection Brief Synthesis of Preadmission Screen, Post-Admission Evaluation, and Therapy Evaluations: PT OT will focus on regaining strength of left sided weakness and increase the use of AD and ST to focus on regaining speech and facial droop Medical Prognosis: Good Anticipated Length of Stay: 14 days RADHA COPPOLA DO May 22, 2020 11:56
--- NOTE | 2020-05-22 11:56 | Cardiology Progress Note ---
Subjective Date Seen by Provider: May 22, 2020 Time Seen by Provider: 11:53 Subjective/Events-last exam Patient down in heart center, denies any chest pain or dyspnea. Objective-Cardiology Exam Last Set of Vital Signs Vital Signs 05/22/20 09:31 Temp 35.8 Pulse 86 Resp 18 B/P (MAP) 152/68 (96) Pulse Ox 96 O2 Delivery Room Air Capillary Refill : I&O Intake and Output 05/22/20 00:00 Intake Total 640 ml Output Total 400 ml Balance 240 ml Intake Oral 640 ml Output Urine Total 400 ml Daily Weight Change No General: Alert, Oriented X3, Cooperative HEENT: Atraumatic, PERRLA Neck: Supple, No JVD, No Thyromegaly Lungs: Clear to Auscultation, Normal Air Movement Heart: Regular Rate, Normal S1, Normal S2, No Murmurs Abdomen: Normal Bowel Sounds, Soft, No Tenderness, No Hepatosplenomegaly, No Masses Extremities: No Clubbing, No Cyanosis, No Edema, Normal Pulses, No Tenderness/Swelling Skin: No Rashes, No Breakdown, No Significant Lesion Neuro: Normal Gait, Normal Speech, Strength at 5/5 X4 Ext, Normal Tone, Sensation Intact Psych/Mental Status: Mental Status NL, Mood NL Results Lab Laboratory Tests 05/22/20 05:15 A/P-Cardiology Admission Diagnosis Cryptogenic CVA HTN HLP Tobaccoism Assessment/Plan Cryptogenic CVA with left sided weakness, on ASA. 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 Telemetry revealing sinus rhythm. Discussed the management plan with the patient, recommend LINq implantation for further monitoring for underlying arrhythmia. Planning to place loop recorder tomorrow. HTN- uncontrolled HTN on presentation. Blood pressure better controlled, continue to monitor. HLP- started on statin, continue to monitor. Tobaccoism, educated on the importance of smoking cessation Fam Hx CAD Patient was seen and evaluated with Abby, examination performed, management plan was discussed, agree with the current scribed note, I made few changes to the note using Italic font Patient underwent loop monitor implantation without any complication He is doing well. Continue with physical therapy Monitor blood pressure and lipids. ABBY REY May 22, 2020 11:56 am LAURA ORLANDO MD May 22, 2020 1:10 pm
[2020-05-22 13:12] VITALS: BP 154/75
--- NOTE | 2020-05-22 13:23 | Physical Therapy Daily Note ---
PT Daily Note-Current Subjective Pt.agrees to Rx, disappointed his lunch wasnt upgraded to regular consistency. Comments again in the tone he experiences with active movement Pain Location: No Pain Reported Mental Status Patient Orientation: Normal For Age Transfers SCALE: Activities may be completed with or without assistive devices. 4-Aiolslvzbn-bcarzyi completes the activity by him/herself with no assistance from a helper. 5-Set-up or Clean-up Assistance-helper sets up or cleans up; patient completes activity. [place] assists only prior to or following the activity. 4-Supervision or Touching Assistance-helper provides verbal cues and/or touching/steadying and/or contact guard assistance as patient completes activity. Assistance may be provided throughout the activity or intermittently. 3-Partial/Moderate Assistance-helper does LESS THAN HALF the effort. [place] lifts, holds or supports trunk or limbs, but provides less than half the effort. 2-Substantial/Maximal Assistance-helper does MORE THAN HALF the effort. [place] lifts or holds trunk or limbs and provides more than half the effort. 2-Mubjzufjg-ckwpeb does ALL the effort. Patient does none of the effort to complete the activity. Or, the assistance of 2 or more helpers is required for the patient to complete the activity. If activity was not attempted, code reason: 7-Patient Refused. 9-Not Applicable-not attempted and the patient did not perform the activity before the current illness, exacerbation or injury. 10-Not Attempted due to Environmental Limitations-(lack of equipment, weather restraints, etc.). 88-Not Attempted due to Medical Conditions or Safety Concerns. Roll Left & Right (QC): 5 Exercises Supine Ex: Bridging, Ankle pumps, Rolling, Heel Slides, Short Arc Quads, Scooting, Straight leg raise, Hip abd/add Supine Reps: 15 Assessment Current Status: Good Progress PT Short Term Goals Short Term Goals Time Frame: May 28, 2020 Roll Left & Right: 6 Sit to lyin Lying to sitting on side of be: 3 Sit to stand: 4 Chair/ita-tf-vwenw transfer: 3 Walk 10 feet: 3 PT Usp Goals Usp Goals PT Usp Goals Time Frame: Jun 11, 2020 Roll Left & Right (QC): 6 Sit to Lying (QC): 6 Lying-Sitting on Side/Bed(QC): 6 Sit to Stand (QC): 5 Chair/Qzr-zj-Kkdkb Xfer(QC): 4 Toilet Transfer (QC): 4 Car Transfer (QC): 4 Does the Patient Walk: Yes Walk 10 feet (QC): 4 Walk 50ft with 2 Turns (QC): 4 Walk 150 ft (QC): 88 Walking 10ft on Uneven Surface: 4 1 Step (curb) (QC): 3 4 Steps (QC): 3 12 Steps (QC): 88 Picking up an Object (QC): 3 Wheel 50 feet with 2 turns (QC: 6 Wheel 150 feet: 6 PT Plan Treatment/Plan Treatment Plan: Continue Plan of Care Treatment Plan: Bed Mobility, Education, Functional Activity Rusty, Functional Strength, Group Therapy, Gait, Safety, Therapeutic Exercise, Transfers Treatment Duration: Jun 11, 2020 Frequency: At least 5 of 7 days/Wk (IRF) Estimated Hrs Per Day: 1.5 hours per day Patient and/or Family Agrees t: Yes Safety Risks/Education Patient Education: Correct Positioning Time/GCodes Time In: 1310 Time Out: 1325 Total Billed Treatment Time: 15 Total Billed Treatment 1,EX15m DONA GUERRA [employer] May 22, 2020 13:23
--- NOTE | 2020-05-22 13:34 | ST Cognitive Linguistic Eval ---
Speech Evaluation-General Medical Diagnosis CVA Onset Date: May 19, 2020 Therapy Diagnosis Therapy Diagnosis: Cognitive-communication Precautions Precautions/Isolations: Fall Prevention, Standard Precautions Referral Referring Physician: Dr. Foster Medical History Pertinent Medical History: Smoking Reviewed History: Yes Social History Current Living Status: Spouse Speech PLF-Current Status Prior Level of Function Patient plans on returning to his home where he lives with his and two daughters. Subjective Patient was pleasant and cooperative with the cognitive assessment. Language Eval: Auditory Comprehends Simple Yes/No Ques: Functional Indent/Objects Multiple [place]: Functional Ident/Pics in Multiple [place]: Functional Follows 1-Step Commands: Functional Follows Complex Directions: Functional Follows General Conversations: Functional Language Eval: Verbal Language Completes Spontaneous Greeting: Functional Produces Auto, Serial Info: Functional Imitates Simple Words/Phrases: Functional Word Finding: Functional Requests Basic Needs: Functional States Basic Personal Info: Functional Expresses Complex Ideas: Functional Objective Cognitive Domain Attention: WNL Memory: WNL Problem Solving: Functional Executive Functions: WNL Visuospatial Skills: WNL Composite Severity Rating: WNL Clock Drawing Severity Rating: WNL Objective Formal/Standardized Tests [facility] Status ([facility]) Results 28/30, within normal limits for cognitive function Oral Motor/Speech Production Patient exhibits slightly slurred speech, although it is 90% intelligible. He did not have his dentures in, however with them in his speech is ever clearer to the listener. Impression Patient is a pleasant 45 y/o man who was admitted to the ARU s/p CVA. The patient was given the SLUMS with a score of 28/30 obtained. This score is within the normal range of function and does not require further ST in the cognitive area. He will receive skilled dysphagia therapy and OM therapy to address his swallow and speech deficit. Speech Patient Assess Expression of Ideas/Wants: Expression (4) Understanding Verbal Content: Understands (4) Brief Interview-Mental Status: Yes Repetition of Three Words: Three (3) Temporal Orientation: Year: Correct (3) Temporal Orientation: Month: Accurate within 5 days(2) Temporal Orientation: Day: Correct (1) Recall : Wear to say "Sock": Yes,after cueing (1) Recall : Color: Yes, no cue required (2) Recall : Bed: Yes, no cue required (2) Memory/Recall Ability: Current season, Location of own room, That he or she is in a hsp/hsp unit Speech-Plan Patient/Family Goals Patient/Family Goals: Patient plans on returning to his home where he lives with his and two daughters. Treatment Plan Speech Therapy Treatment Plan: Continue Plan of Care Treatment Duration: Jun 05, 2020 Frequency: 4 times per week (Patient will receive skilled ST 4-5x per week) Estimated Hrs Per Day: .5 hour per day Rehab Potential: Fair Barriers to Learning: Patient's recent CVA Pt/Family Agrees to Plan: Yes Safety Risks/Education Teaching Recipient: Patient Teaching Methods: Discussion Response to Teaching: Verbalize Understanding Education Topics Provided: Safety within his room and communication of wants/needs Time Speech Therapy Time In: 11:00 Speech Therapy Time Out: 11:30 Total Billed Time: 30 Billed Treatment Time 1, TATUM BECKMAN [address] [facility] May 22, 2020 13:34
--- NOTE | 2020-05-22 13:43 | ST Dysphagia Evaluation ---
Speech Evaluation-General Medical Diagnosis CVA Onset Date: May 19, 2020 Therapy Diagnosis Therapy Diagnosis: Oropharyngeal Dysphagia Precautions Precautions: Aspiration Precautions/Isolations: Aspiration Referral Referring Physician: Dr. Foster Medical History Pertinent Medical History: Smoking Reviewed History: Yes Social History Current Living Status: Children Speech PLF/Current-Dysphagia Prior Level of Function Patient lived in the home with his and two daughters where he was independent with his daily needs. 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 Subjective Patient was pleasant and cooperative with the Bedside Dysphagia Evaluation. Cognitive Status Patient Orientation: Person, Place, Situation Oral Motor Skills Dentition: Edentalous Denture Type: Full- Upper & Lower Current Food Consistancy: Pureed, Thin Liquids Ability to Follow Directions: Good Patient was placed on Dysphagia I initially due to medical status. Patient is we aring his dentures now and is able to eat anything. Oral Expression Ability: Mild Impairment Patient has a mild slur since the CVA, left side droop Voice Voice Phonatory-Based Quality: Normal Voice Pitch: Normal Voice Loudness: Normal Face Facial Symmetry: Asymmetrical Oral-Facial Assessment Oral-Facial Dentition: Normal Labial Seal Description: Droops Left, Poor Coordination Smile: Droops Left Puff Cheeks: Reduced Strength Lingual Protrusion: Abnormal Lingual ROM: Abnormal Lingual Strength: Abnormal Pharynx Velopharyngeal Move.: Weak on Left Volitional Dry Swallow: Yes Can Clear Throat Volitionally: Yes Dysphagia Evaluation Consistencies Presented: Regular, Thin Liquid, Mechanical Soft, Pureed Oral phase is within normal range for all consistences.Very mild pocketing (left) side with solids. Pharyngeal phase is within normal range for all consistences.Very mild residue (left) side with solids. Dietary Recommendations: Regular Liquid Recommendations: Thin Swallowing Precautions: Alternate Liquids/Solids, Chin Tuck, Double Swallow, Liquids from Straw, Small Bites and Sips, Sitting Upright 90 Degrees, Sitting 90 Degrees 30 Post Intake, Left Tongue Sweep Dysphagia Evaluation Summary Patient is a 45 y/o male who suffered a CVA on 12/17/2020. Patient was seen by ST on 05/20/2020 for diet modifications and safe intake strategies. The patient was re-evaluated on the ARU with substance trials of thin: 1/2 tsp thin liquids x3, small sips via straw without difficulty . Presentations of puree, mechanical soft and regular were also given by 1/2 tsp bite size without difficulty. Patient did exhibit very mild oral residue and swallow onset delay with clearing noted and no s/s of aspiration. The patient is recommended for regular consistency and thin liquids. This information was provided to his nurse as well as written on the white board in his room. Patient will receive skilled services based on BDE results and speech tasks. Speech Short Term Goals Short Term Goals Short Term Goals 1) Patient will tolerate least restrictive diet level per physician's order at 90% or greater. 2) Patient/caregiver will utilize compensatory strategies as trained for safe oral intake at 90% or greater without cues. 3) Patient will complete OME as directed 4-5x per week. Speech Penitentiary Goals [employer] Goals Patient will improve swallowing and speech abilities to communicate better/easier with others. Speech-Plan Patient/Family Goals Patient/Family Goals: Patient plans on returning to his home where he lives with his daughters and , Treatment Plan Speech Therapy Treatment Plan: Continue Plan of Care Treatment Duration: Jun 05, 2020 Frequency: 4 times per week (Patient will receive skilled ST 4-5x per week) Estimated Hrs Per Day: .5 hour per day Rehab Potential: Fair Barriers to Learning: Patient's recent CVA Pt/Family Agrees to Plan: Yes Safety Risks/Education Teaching Recipient: Patient Teaching Methods: Discussion Response to Teaching: Verbalize Understanding Education Topics Provided: Safety with oral intake and diet level Time Speech Therapy Time In: 11:00 Speech Therapy Time Out: 11:30 Total Billed Time: 30 Billed Treatment Time 1, GURWINDER CHAPMAN [address] May 22, 2020 13:43
[2020-05-22 17:04] VITALS: BP 147/69
[2020-05-22] MEDS: ENOXAPARIN 40 MG/0.4 ML (LOVENOX) SYR SC SCH (20:31)
[2020-05-22 22:00] VITALS: BP 141/70
[2020-05-23] MEDS: hydrALAZINE (APRESOLINE) 25 MG TAB PO SCH ×3 (05:17→20:52)
[2020-05-23 05:27] VITALS: BP 139/77
--- NOTE | 2020-05-23 08:01 | Cardiology Progress Note ---
Subjective Date Seen by Provider: May 23, 2020 Time Seen by Provider: 08:00 Subjective/Events-last exam No new complaints, denies any chest pain or dyspnea. Objective-Cardiology Exam Last Set of Vital Signs Vital Signs 05/23/20 05:27 Temp 36.6 Pulse 74 Resp 20 B/P (MAP) 139/77 (97) Pulse Ox 97 O2 Delivery Room Air Capillary Refill : I&O Intake and Output 05/23/20 00:00 Intake Total 800 ml Output Total 725 ml Balance 75 ml Intake Oral 800 ml Output Urine Total 725 ml General: Alert, Oriented X3, Cooperative HEENT: Atraumatic, PERRLA Neck: Supple, No JVD, No Thyromegaly Lungs: Clear to Auscultation, Normal Air Movement Heart: Regular Rate, Normal S1, Normal S2, No Murmurs Abdomen: Normal Bowel Sounds, Soft, No Tenderness, No Hepatosplenomegaly, No Masses Extremities: No Clubbing, No Cyanosis, No Edema, Normal Pulses, No Tenderness/Swelling Skin: No Rashes, No Breakdown, No Significant Lesion Neuro: Normal Gait, Normal Speech, Strength at 5/5 X4 Ext, Normal Tone, Sensation Intact Psych/Mental Status: Mental Status NL, Mood NL A/P-Cardiology Admission Diagnosis Cryptogenic CVA HTN HLP Tobaccoism Assessment/Plan Cryptogenic CVA with left sided weakness, on ASA. 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 Telemetry revealing sinus rhythm. s/p LINq implantation for further monitoring for underlying arrhythmia. HTN- uncontrolled on presentation. Blood pressure better controlled, continue to monitor. HLP- started on statin, continue to monitor. Tobaccoism, educated on the importance of smoking cessation Fam Hx CAD Patient was seen and evaluated with Abby, examination performed, management plan was discussed, agree with the current scribed note, I made few changes to the note using Italic font Patient was seen at bedside sitting up, eating breakfast, feeling the same, no new complaint Loop monitor implantation site appeared to be healing well, no bleeding Blood pressure is better, continue to monitor ABBY REY May 23, 2020 08:01 LAURA ORLANDO MD May 23, 2020 09:13
--- NOTE | 2020-05-23 08:58 | Physical Therapy Daily Note ---
PT Daily Note-Current Subjective Patient in bed pre tx, agrees to PT, has no complaints of pain. Will be co- treating with OT due to poor patient mobility, strength, endurance, left hemiparesis, coordinate UE and LE during activity, safety and reduce risk of falls. Appearance Patient in therapy gym post tx with OT. Mental Status Patient Orientation: Person, Place, Situation Transfers SCALE: Activities may be completed with or without assistive devices. 7-Yzzbkdtjqq-tuwsbno completes the activity by him/herself with no assistance from a helper. 5-Set-up or Clean-up Assistance-helper sets up or cleans up; patient completes activity. [place] assists only prior to or following the activity. 4-Supervision or Touching Assistance-helper provides verbal cues and/or touching/steadying and/or contact guard assistance as patient completes activity. Assistance may be provided throughout the activity or intermittently. 3-Partial/Moderate Assistance-helper does LESS THAN HALF the effort. [place] lifts, holds or supports trunk or limbs, but provides less than half the effort. 2-Substantial/Maximal Assistance-helper does MORE THAN HALF the effort. [place] lifts or holds trunk or limbs and provides more than half the effort. 5-Myfmmhgwi-lferai does ALL the effort. Patient does none of the effort to complete the activity. Or, the assistance of 2 or more helpers is required for the patient to complete the activity. If activity was not attempted, code reason: 7-Patient Refused. 9-Not Applicable-not attempted and the patient did not perform the activity before the current illness, exacerbation or injury. 10-Not Attempted due to Environmental Limitations-(lack of equipment, weather restraints, etc.). 88-Not Attempted due to Medical Conditions or Safety Concerns. Roll Left & Right (QC): 6 Lying to Sitting/Side of Bed(Q: 3 Sit to Stand (QC): 4 Chair/Jba-ng-Crgxf Xfer(QC): 4 Patient sat on the side of the bed and performed shoes and socks, put an AFO on the left foot. Gait Training Distance: 20'x3 Walk 10 feet (QC): 3 Gait Assistive Device: Walker [place] Patient ambulated 20'x3 with min assist using a hemiwalker and WC follow, patient needs assist with balance and cues for sequencing but he can advance his left leg without assist but is very uncoordinated. Wheelchair Training Does the Pt Use a Wheelchair?: Yes Wheel 50 ft with 2 turns (QC): 4 Type of Wheelchair: Manual 120' Neuromuscular standing balance exercise reaching for rings and clipping paperclips in different directions Treatments PT performed bed mobility and transfers, ambulation, WC mobility, standing balance training, OT performed standing balance activity, dressing, UE positioning and safety during activity. Assessment Current Status: Fair Progress improved ambulation, he is able to bear weight on left leg but has to concentrate PT Short Term Goals Short Term Goals Time Frame: May 28, 2020 Roll Left & Right: 6 Sit to lyin Lying to sitting on side of be: 3 Sit to stand: 4 Chair/gez-oz-mopcp transfer: 3 Walk 10 feet: 3 PT Group Home Goals [place] Machine Goals PT Group Home Goals Time Frame: Jun 11, 2020 Roll Left & Right (QC): 6 Sit to Lying (QC): 6 Lying-Sitting on Side/Bed(QC): 6 Sit to Stand (QC): 5 Chair/Bey-cy-Zaffu Xfer(QC): 4 Toilet Transfer (QC): 4 Car Transfer (QC): 4 Does the Patient Walk: Yes Walk 10 feet (QC): 4 Walk 50ft with 2 Turns (QC): 4 Walk 150 ft (QC): 88 Walking 10ft on Uneven Surface: 4 1 Step (curb) (QC): 3 4 Steps (QC): 3 12 Steps (QC): 88 Picking up an Object (QC): 3 Wheel 50 feet with 2 turns (QC: 6 Wheel 150 feet: 6 PT Plan Problem List Problem List: Activity Tolerance, Functional Strength, Safety, Balance, Gait, Transfer, Bed Mobility, ROM Treatment/Plan Treatment Plan: Continue Plan of Care Treatment Plan: Bed Mobility, Education, Functional Activity Rusty, Functional Strength, Group Therapy, Gait, Safety, Therapeutic Exercise, Transfers Treatment Duration: Jun 11, 2020 Frequency: At least 5 of 7 days/Wk (IRF) Estimated Hrs Per Day: 1.5 hours per day Patient and/or Family Agrees t: Yes Safety Risks/Education Patient Education: Gait Training, Transfer Techniques, Correct Positioning, W/C Management, Safety Issues Teaching Recipient: Patient Teaching Methods: Demonstration, Discussion Response to Teaching: Reinforcement Needed Time/GCodes Time In: 0800 Time Out: 0900 Total Billed Treatment Time: 60 Total Billed Treatment 1 visit GT 30' FA 15' NM 15' co-treated for 60' MARY ELLEN,IVY PT May 23, 2020 08:58
[2020-05-23 09:17] VITALS: BP 126/82
[2020-05-23] MEDS: ASPIRIN 325 MG (5 GR) TABLET PO SCH (09:19)
[2020-05-23] MEDS: amLODIPine 5 MG (NORVASC) TAB PO SCH (09:19)
[2020-05-23] MEDS: VALSARTAN 160 MG (DIOVAN) TABLET PO SCH (09:19)
[2020-05-23] MEDS: polyethylene glycoL POWDER 17 GM (MIRALAX) PACK PO SCH ×2 (09:20→20:53)
[2020-05-23] MEDS: DOCUSATE SODIUM 100 MG (COLACE) CAP PO SCH ×2 (09:20→20:53)
[2020-05-23] MEDS: SENNA W/DOCUSATE (SENOKOT S) TABLET PO SCH ×2 (09:21→20:54)
--- NOTE | 2020-05-23 10:33 | Occupational Ther Daily Note ---
OT Current Status-Daily Note Subjective Pt reported no pain, but stated that he feels as though he may be able to move his fingers at times, and some of the numbing sensation has decreased. Pt agreeable to OT/PT cotreat. Mental Status/Objective Patient Orientation: Person, Place, Time, Situation ADL-Treatment Therapy Code Descriptions/Definitions Functional [place] Measure: 0=Not Assessed/NA 4=Minimal Assistance 1=Total Assistance 5=Supervision or Setup 2=Maximal Assistance 6=Modified [place] 3=Moderate Assistance 7=Complete IndependenceSCALE: Activities may be completed with or without assistive devices. 3-Zgiqmitufd-csousdw completes the activity by him/herself with no assistance from a helper. 5-Set-up or Clean-up Assistance-helper sets up or cleans up; patient completes activity. [place] assists only prior to or following the activity. 4-Supervision or Touching Assistance-helper provides verbal cues and/or touching/steadying and/or contact guard assistance as patient completes activity. Assistance may be provided throughout the activity or intermittently. 3-Partial/Moderate Assistance-helper does LESS THAN HALF the effort. [place] lifts, holds or supports trunk or limbs, but provides less than half the effort. 2-Substantial/Maximal Assistance-helper does MORE THAN HALF the effort. [place] lifts or holds trunk or limbs and provides more than half the effort. 6-Sxwquvage-plvysc does ALL the effort. Patient does none of the effort to complete the activity. Or, the assistance of 2 or more helpers is required for the patient to complete the activity. If activity was not attempted, code reason: 7-Patient Refused. 9-Not Applicable-not attempted and the patient did not perform the activity before the current illness, exacerbation or injury. 10-Not Attempted due to Environmental Limitations-(lack of equipment, weather restraints, etc.). 88-Not Attempted due to Medical Conditions or Safety Concerns. Oral Hygiene (QC): 4 (SBA, pt able to stabilize dentures on wash cloth to apply adhesive) On/Off Footwear: 3 (ModA, pt able to doff socks sitting EOB, then donned socks supine in bed. Pt able to don shoes with Michele on L side due to AFO. Assist to don AFO.) Toileting Hygiene (QC): 3 (Michele, pt able to perform hygiene while sitting with supervision, but overall Michele to perform clothing management for decrease standing balance) Toilet Transfer (QC): 3 (Min A on/off toilet using grab bars.) Other Treatment PT/OT cotreat ([id number]) due to skill of 2 clinicians required which a workplace rehabilitation officer could not perform in order to coordinate UE/LEs, and due to pt's limitations in activity tolerance, mobility, dynamic balance, and to decrease fall risk. OT focused on ADLS, UE placement, cues for sequencing and safety, while PT focused on LE placement, gross overall movement, and standing balance. Pt began tx supine in bed and transferred to EOB sitting to doff socks. Then transferred sit to supine to don socks. Pt then transferred back to EOB sitting and PT donned AFO to prevent foot drop when walking, and pt donned shoes. Pt then transferred to w/c with SPT and propelled self to therapy room. In therapy room, pt ambulated across therapy gym 3x through with kiana walker and w/c follow. pt required a rest break in between and required frequent self cues to move walker first then affected leg then unaffected. pt stood at parallel bars and participated in ring arch activity and moved rings with his R hand over to one side and then back again, across midline, after taking a rest break. This activity is to increase dynamic standing balance and activity tolerance. Pt then completed clip activity to increase dynamic standing balance and activity tolerance. Pt placed weight clips (1-5lb) on and then took them off with R hand with a rest break in between. OT tx ([id number]) OT replaced pt's shoe laces with elastic laces so pt could more easily don and doff footwear, with pt's permission. OT donned and doffed L shoe due to orthosis and pt donned and doffed R. Pt then propelled self to room in w/c and transferred to toilet and performed hygiene upon finishing and required Michele for standing balance while managing clothing. pt then transferred back to w/c to perform oral hygiene and hair brushing at sink. Pt then transferred to bed, doffed footwear and transferred to supine. Pt supine in bed, post tx with call light in reach and all needs met. Education OT Patient Education: Correct positioning, Energy conservation, Modified ADL techniques, Progress toward Goal/Update tx plan, Purpose of tx/functional activities, Reviewed precautions, Rehab process, Safety issues, Transfer techniques, W/C management Teaching Recipient: Patient Teaching Methods: Discussion Response to Teaching: Verbalize Understanding OT Short Term Goals Short Term Goals Time Frame: Jun 05, 2020 Shower/bathe self: 3 Lower body dressin Putting on/taking off footwear: 3 OT Usp Goals Usp Goals Time Frame: Jun 14, 2020 Eating (QC): 6 Oral Hygiene (QC): 6 Toileting Hygiene (QC): 6 Shower/Bathe Self (QC): 4 Upper Body Dressing (QC): 5 Lower Body Dressing (QC): 4 On/Off Footwear (QC): 5 Additional Goals: 1-Demonstrate ADL Tasks, 2-Verbalize Understanding, 3- ImproveStrength/Rusty 1=Demonstrate adherence to instructed precautions during ADL tasks. 2=Patient will verbalize/demonstrate understanding of assistive devices/modifications for ADL. 3=Patient will improve strength/tolerance for activity to enable patient to perform ADL's. OT Education/Plan Problem List/Assessment Assessment: Decreased Activ Tolerance, Decreased Safety Aware, Decreased UE Strength, Impaired Bed Mobility, Impaired Coordination, Impaired Funct Balance, Impaired I ADL's, Impaired Self-Care Skills, Restricted Funct UE ROM Discharge Recommendations Plan/Recommendations: Continue POC Treatment Plan/Plan of Care Patient would benefit from OT for education, treatment and training to promote independence in ADL's, mobility, safety and/or upper extremity function for ADL's. Plan of Care: ADL Retraining, Functional Mobility, Group Exercise/Act as Ind, UE Funct Exercise/Act Treatment Duration: Jun 14, 2020 Frequency: At least 5 of 7 days/Wk (IRF) Estimated Hrs Per Day: 1.5 hours per day Rehab Potential: Fair Time/GCodes Start Time: 08:00 Stop Time: 09:15 Total Time Billed (hr/min): 75 Billed Treatment Time PT/OT cotreat [id number] OT tx [id number] 1, ADL 2 (30'), FA 3 (45) TRACIE JAY OT May 23, 2020 10:33
--- NOTE | 2020-05-23 11:36 | PM&R Progress Note ---
Subjective HPI/CC On Admission Date Seen by Provider: May 23, 2020 Time Seen by Provider: 12:00 Subjective/Events-last exam 05/23/20: Tearful at times Sore from loop recorder yesterday Wedding ring will be removed today by nursing machine assembler supervisor Labs stable BP ok 05/22/20: Loop recorder was placed today by Dr. Rios BP 152/68 Swelling in his left hand, will get his wedding ring off today Very tearful at times Bowels moved four days ago so will initiate laxatives Review of Systems General: Fatigue Neurological: Weakness, Incoordination Objective Exam Vital Signs Vital Signs Date Time Temp Pulse Resp B/P (MAP) Pulse Ox O2 Delivery O2 Flow Rate FiO2 05/23/20 20:10 Room Air 05/23/20 16:23 36.6 69 16 128/60 (82) 97 Capillary Refill : General Appearance: No Apparent Distress, WD/WN, Chronically ill, Obese HEENT: PERRL/EOMI, Normal ENT Inspection, Pharynx Normal Neck: Full Range of Motion, Normal Inspection, Non Tender, Supple, Carotid Bruit Respiratory: Chest Non Tender, Lungs Clear, Normal Breath Sounds, No Accessory Muscle Use, No Respiratory Distress Cardiovascular: Regular Rate, Rhythm, No Edema, No Gallop, No JVD, No Murmur, Normal Peripheral Pulses Gastrointestinal: Normal Bowel Sounds, No Organomegaly, No Pulsatile Mass, Non Tender, Soft Back: Normal Inspection, No CVA Tenderness, No Vertebral Tenderness Extremity: Normal Capillary Refill, Normal Inspection, Normal Range of Motion, Non Tender, No Calf Tenderness, No Pedal Edema Neurologic/Psychiatric: Alert, Oriented x3, Abnormal Gait, Depressed Affect, Motor Weakness (left sidded 1/5) Skin: Normal Color, Warm/Dry Lymphatic: No Adenopathy Results/Procedures Lab Patient resulted labs reviewed. FIM Transfers Therapy Code Descriptions/Definitions Functional [place] Measure: 0=Not Assessed/NA 4=Minimal Assistance 1=Total Assistance 5=Supervision or Setup 2=Maximal Assistance 6=Modified [place] 3=Moderate Assistance 7=Complete IndependenceSCALE: Activities may be completed with or without assistive devices. 5-Kgctyivxtg-onobvlk completes the activity by him/herself with no assistance from a helper. 5-Set-up or Clean-up Assistance-helper sets up or cleans up; patient completes activity. [place] assists only prior to or following the activity. 4-Supervision or Touching Assistance-helper provides verbal cues and/or touching/steadying and/or contact guard assistance as patient completes activity. Assistance may be provided throughout the activity or intermittently. 3-Partial/Moderate Assistance-helper does LESS THAN HALF the effort. [place] lifts, holds or supports trunk or limbs, but provides less than half the effort. 2-Substantial/Maximal Assistance-helper does MORE THAN HALF the effort. [place] lifts or holds trunk or limbs and provides more than half the effort. 7-Eflezntis-vbzndv does ALL the effort. Patient does none of the effort to complete the activity. Or, the assistance of 2 or more helpers is required for the patient to complete the activity. If activity was not attempted, code reason: 7-Patient Refused. 9-Not Applicable-not attempted and the patient did not perform the activity before the current illness, exacerbation or injury. 10-Not Attempted due to Environmental Limitations-(lack of equipment, weather restraints, etc.). 88-Not Attempted due to Medical Conditions or Safety Concerns. Roll Left to Right (QC): 6 Sit to Lying (QC): 3 Sit to Stand (QC): 4 Chair/Zau-vx-Uftgz Xfer(QC): 4 Car Transfer (QC): 3 Gait Training Does the Patient Walk?: Yes Distance: 20'x3 Walk 10 feet (QC): 3 Walk 50 ft with 2 Turns(QC): 88 Walk 150 ft (QC): 88 Walking 10ft/uneven surface-QC: 88 Gait Persons Needed: 2 Gait Assistive Device: Walker [place] Wheelchair Training Does the Pt Use a Wheelchair?: Yes Distance: 120'x2 Wheel 50 ft with 2 turns (QC): 4 Wheel 150 ft (QC): 88 Type of Wheelchair: Manual Stair Training 1 Step (curb) (QC): 88 4 Steps (QC): 88 12 Steps (QC): 88 Balance Picking up an Object (QC): 88 ADL-Treatment Eating (QC): 5 (Based on clinical judgement and discussion with pt, pt would require set up assist) Oral Hygiene (QC): 4 (SBA, pt able to stabilize dentures on wash cloth to apply adhesive) Shower/Bathe Self (QC): 3 (Min A required to wash RUE and raise LUE for pt to wash underneath. Assistance to wash buttocks while standing) Upper Body Dressing (QC): 2 (Pt able to pull affected arm (L) through and managed unaffected arm (R) with max assistance to set up and manage. OT assisted with fasteners) Lower Body Dressing (QC): 2 (MaxA, OT assisted with threading BLEs into pants, and assist with pant hike. Pt assisted with lifting legs up and pulling pants above the knee.) On/Off Footwear (QC): 3 (ModA, pt able to doff socks sitting EOB, then donned socks supine in bed. Pt able to don shoes with Michele on L side due to AFO. 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
--- NOTE | 2020-05-23 13:23 | Physical Therapy Daily Note ---
PT Daily Note-Current Subjective Patient in bed pre tx, agrees to PT, has no complaints of pain, states he has been working on LLE exercises on his own also. Appearance Patient in bed post tx with nurse call, phone, tray, all needs met. Mental Status Patient Orientation: Person, Place, Situation Transfers SCALE: Activities may be completed with or without assistive devices. 6-Djtajtfelt-dzlyefp completes the activity by him/herself with no assistance from a helper. 5-Set-up or Clean-up Assistance-helper sets up or cleans up; patient completes activity. [place] assists only prior to or following the activity. 4-Supervision or Touching Assistance-helper provides verbal cues and/or touching/steadying and/or contact guard assistance as patient completes activity . Assistance may be provided throughout the activity or intermittently. 3-Partial/Moderate Assistance-helper does LESS THAN HALF the effort. [place] lifts, holds or supports trunk or limbs, but provides less than half the effort. 2-Substantial/Maximal Assistance-helper does MORE THAN HALF the effort. [place] lifts or holds trunk or limbs and provides more than half the effort. 7-Oguckavaq-fqsfwx does ALL the effort. Patient does none of the effort to complete the activity. Or, the assistance of 2 or more helpers is required for the patient to complete the activity. If activity was not attempted, code reason: 7-Patient Refused. 9-Not Applicable-not attempted and the patient did not perform the activity before the current illness, exacerbation or injury. 10-Not Attempted due to Environmental Limitations-(lack of equipment, weather restraints, etc.). 88-Not Attempted due to Medical Conditions or Safety Concerns. Exercises Supine Ex: Quad Set, Glut sets, Heel Slides, Short Arc Quads, Straight leg raise, Hip abd/add Supine Reps: 20 (LLE, AAROM on heel slides, hip abd, SAQ) LLE gastroc and hamstring stretching Treatments LE exercise, stretching Assessment Current Status: Fair Progress improved AROM PT Short Term Goals Short Term Goals Time Frame: May 28, 2020 Roll Left & Right: 6 Sit to lyin Lying to sitting on side of be: 3 Sit to stand: 4 Chair/xky-rw-zxzim transfer: 3 Walk 10 feet: 3 PT Prison Goals Tester Armature Or Fields Goals PT Tester Armature Or Fields Goals Time Frame: Jun 11, 2020 Roll Left & Right (QC): 6 Sit to Lying (QC): 6 Lying-Sitting on Side/Bed(QC): 6 Sit to Stand (QC): 5 Chair/Uxz-jg-Rigla Xfer(QC): 4 Toilet Transfer (QC): 4 Car Transfer (QC): 4 Does the Patient Walk: Yes Walk 10 feet (QC): 4 Walk 50ft with 2 Turns (QC): 4 Walk 150 ft (QC): 88 Walking 10ft on Uneven Surface: 4 1 Step (curb) (QC): 3 4 Steps (QC): 3 12 Steps (QC): 88 Picking up an Object (QC): 3 Wheel 50 feet with 2 turns (QC: 6 Wheel 150 feet: 6 PT Plan Problem List Problem List: Activity Tolerance, Functional Strength, Safety, Balance, Gait, Transfer, Bed Mobility, ROM Treatment/Plan Treatment Plan: Continue Plan of Care Treatment Plan: Bed Mobility, Education, Functional Activity Rusty, Functional Strength, Group Therapy, Gait, Safety, Therapeutic Exercise, Transfers Treatment Duration: Jun 11, 2020 Frequency: At least 5 of 7 days/Wk (IRF) Estimated Hrs Per Day: 1.5 hours per day Patient and/or Family Agrees t: Yes Safety Risks/Education Patient Education: Correct Positioning, Safety Issues Teaching Recipient: Patient Teaching Methods: Demonstration, Discussion Response to Teaching: Reinforcement Needed Time/GCodes Time In: 1300 Time Out: 1315 Total Billed Treatment Time: 15 Total Billed Treatment 1 visit EX 15' IVY HYDE PT May 23, 2020 13:23
--- NOTE | 2020-05-23 13:27 | Speech Therapy Daily Note ---
Speech Daily Progress Note Subjective Date Seen by Provider: May 23, 2020 Time Seen by Provider: 00:30 Patient was resting in his bed following his PT session. Objective Patient completed 25 minutes of OM stimulation to the buccal area for regeneration of nerve impulses at 4.0 level. Assessment Assessment Current Status: Good Progress Treatment Plan Continue Plan of Care Speech Short Term Goals Short Term Goals Short Term Goals 1) Patient will tolerate least restrictive diet level per physician's order at 90% or greater. 2) Patient/caregiver will utilize compensatory strategies as trained for safe oral intake at 90% or greater without cues. 3) Patient will complete OME as directed 4-5x per week. Speech Fpc Goals Airport Traffic Controller Goals Patient will improve swallowing and speech abilities to communicate better/easier with others. Speech-Plan Patient/Family Goals Patient/Family Goals: Patient plans on returning to his home where he lives with his and children. Treatment Plan Speech Therapy Treatment Plan: Continue Plan of Care Treatment Duration: May 22, 2020 Frequency: 4 times per week (Patient receives skilled ST 4-5x per week) Estimated Hrs Per Day: .5 hour per day Rehab Potential: Fair Barriers to Learning: Patient's recent CVA Safety Risks/Education Teaching Recipient: Patient Teaching Methods: Demonstration, Discussion Response to Teaching: Verbalize Understanding, Return Demonstration Education Topics Provided: Continued safety with oral intake and within his room Time Speech Therapy Time In: 10:00 Speech Therapy Time Out: 10:30 Total Billed Time: 30 Billed Treatment Time GURWINDER [facility] No [place], [address] May 23, 2020 13:27
[2020-05-23 14:21] VITALS: BP 124/60
[2020-05-23 16:23] VITALS: BP 128/60
[2020-05-23] MEDS: ENOXAPARIN 40 MG/0.4 ML (LOVENOX) SYR SC SCH (20:52)
[2020-05-24 05:55] VITALS: BP 129/71
[2020-05-24] MEDS: hydrALAZINE (APRESOLINE) 25 MG TAB PO SCH ×3 (06:02→21:32)
[2020-05-24] MEDS: ACETAMINOPHEN 325 MG TABLET PO PRN (06:43)
[2020-05-24 08:30] VITALS: BP 155/81
[2020-05-24] MEDS: VALSARTAN 160 MG (DIOVAN) TABLET PO SCH (08:30)
[2020-05-24] MEDS: ASPIRIN 325 MG (5 GR) TABLET PO SCH (08:30)
[2020-05-24] MEDS: amLODIPine 5 MG (NORVASC) TAB PO SCH (08:30)
--- NOTE | 2020-05-24 09:00 | Occupational Ther Daily Note ---
OT Current Status-Daily Note Subjective Pt agreeable to OT/PT cotreat with focus on ADLs, does not report any pain. Mental Status/Objective Patient Orientation: Person, Place, Time, Situation ADL-Treatment Therapy Code Descriptions/Definitions Functional [place] Measure: 0=Not Assessed/NA 4=Minimal Assistance 1=Total Assistance 5=Supervision or Setup 2=Maximal Assistance 6=Modified [place] 3=Moderate Assistance 7=Complete IndependenceSCALE: Activities may be completed with or without assistive devices. 8-Nxxsmqoldc-grzcyyj completes the activity by him/herself with no assistance from a helper. 5-Set-up or Clean-up Assistance-helper sets up or cleans up; patient completes activity. [place] assists only prior to or following the activity. 4-Supervision or Touching Assistance-helper provides verbal cues and/or touching/steadying and/or contact guard assistance as patient completes activity. Assistance may be provided throughout the activity or intermittently. 3-Partial/Moderate Assistance-helper does LESS THAN HALF the effort. [place] lifts, holds or supports trunk or limbs, but provides less than half the effort. 2-Substantial/Maximal Assistance-helper does MORE THAN HALF the effort. [place] lifts or holds trunk or limbs and provides more than half the effort. 2-Fxnbiuwff-hrzqpn does ALL the effort. Patient does none of the effort to complete the activity. Or, the assistance of 2 or more helpers is required for the patient to complete the activity. If activity was not attempted, code reason: 7-Patient Refused. 9-Not Applicable-not attempted and the patient did not perform the activity before the current illness, exacerbation or injury. 10-Not Attempted due to Environmental Limitations-(lack of equipment, weather restraints, etc.). 88-Not Attempted due to Medical Conditions or Safety Concerns. Oral Hygiene (QC): 5 (Set up, used wash cloth to stabilize dentures to apply adhesive) Shower/Bathe Self (QC): 3 (Assist to thoroughly wash RUE, assist with buttocks. Pt able to wash all other parts seated.) Upper Body Dressing (QC): 3 (Cues to thread affected arm first. Pt required min A with managing shirt down trunk.) Lower Body Dressing (QC): 3 (Pt required CGA in order to maintain figure 4 position to thread LLE, pt able to thread RLE. Assist adjusting L side after pant hike.) On/Off Footwear: 2 (Pt able to doff footwear, required assistance with donning LLE sock/AFO/shoe, pt able to don RLE sock/shoe.) Other Treatment OT/PT cotreat due to skill of 2 clinicians required which a director rehabilitation program could not perform in order to coordinate UE/LEs with tasks, and due to pt's limitations in strength, functional mobility, activity tolerance,and to decrease fall risk. OT focused on ADLs, UE placement, cues for sequencing and safety, while PT focused on LE placement, ambulation, transfers, and overall gross movements. Pt used kiana walker to ambulate from recliner into bathroom and onto SC. Pt doffed clothing, then completed showering. Pt transferred to w/c via SPT using GBs, then completed dressing. Pt propelled self to therapy gym and in gym, pt ambulated with kiana walker 1 time across the therapy gym and ambulated again to his room with one rest break in between. [id number] OT tx: Pt then sat in w/c and propelled self to sink and performed oral care, hair brushing and shaving at set up assist. Upon finishing pt transferred to EOB sitting and transferred to supine with no assistance. Pt supine in bed, with call light in reach and all needs met. Education OT Patient Education: Correct positioning, Energy conservation, Modified ADL techniques, Progress toward Goal/Update tx plan, Purpose of tx/functional activities, Safety issues, Transfer techniques, Use of adapted equipment, W/C m anagement Teaching Recipient: Patient Teaching Methods: Discussion Response to Teaching: Verbalize Understanding OT Short Term Goals Short Term Goals Time Frame: Jun 05, 2020 Shower/bathe self: 3 Lower body dressin Putting on/taking off footwear: 3 OT Inspector Soldering Goals Usp Goals Time Frame: Jun 14, 2020 Eating (QC): 6 Oral Hygiene (QC): 6 Toileting Hygiene (QC): 6 Shower/Bathe Self (QC): 4 Upper Body Dressing (QC): 5 Lower Body Dressing (QC): 4 On/Off Footwear (QC): 5 Additional Goals: 1-Demonstrate ADL Tasks, 2-Verbalize Understanding, 3- ImproveStrength/Rusty 1=Demonstrate adherence to instructed precautions during ADL tasks. 2=Patient will verbalize/demonstrate understanding of assistive devices/modifications for ADL. 3=Patient will improve strength/tolerance for activity to enable patient to perform ADL's. OT Education/Plan Problem List/Assessment Assessment: Decreased Activ Tolerance, Decreased UE Strength, Impaired Bed Mobility, Impaired Funct Balance, Impaired I ADL's, Impaired Self-Care Skills, Restricted Funct UE ROM Discharge Recommendations Plan/Recommendations: Continue POC Treatment Plan/Plan of Care Patient would benefit from OT for education, treatment and training to promote independence in ADL's, mobility, safety and/or upper extremity function for ADL's. Plan of Care: ADL Retraining, Functional Mobility, Group Exercise/Act as Ind, UE Funct Exercise/Act Treatment Duration: Jun 14, 2020 Frequency: At least 5 of 7 days/Wk (IRF) Estimated Hrs Per Day: 1.5 hours per day Rehab Potential: Fair Time/GCodes Start Time: 08:00 Stop Time: 09:15 Total Time Billed (hr/min): 75 Billed Treatment Time OT/PT cotreat ([id number]) OT tx ([id number]) 1, ADL 3 (45'), FA 2 (30') TRACIE JAY OT May 24, 2020 09:00
--- NOTE | 2020-05-24 09:00 | Physical Therapy Daily Note ---
PT Daily Note-Current Subjective Patient in recliner pre tx, agrees to PT, has no complaints of pain, will be co- treating with OT due to poor patient mobility, strength, endurance, left hemiparesis, the need to coordinate UE and LE during activity, safety and reduce risk of falls. Appearance Patient in WC post tx will continue with OT for grooming and ADL's Mental Status Patient Orientation: Normal For Age Transfers SCALE: Activities may be completed with or without assistive devices. 5-Tdclmnabrz-kijrpgd completes the activity by him/herself with no assistance from a helper. 5-Set-up or Clean-up Assistance-helper sets up or cleans up; patient completes activity. [place] assists only prior to or following the activity. 4-Supervision or Touching Assistance-helper provides verbal cues and/or touching/steadying and/or contact guard assistance as patient completes activity. Assistance may be provided throughout the activity or intermittently. 3-Partial/Moderate Assistance-helper does LESS THAN HALF the effort. [place] lifts, holds or supports trunk or limbs, but provides less than half the effort. 2-Substantial/Maximal Assistance-helper does MORE THAN HALF the effort. [place] lifts or holds trunk or limbs and provides more than half the effort. 8-Spoiqlkkp-iqourm does ALL the effort. Patient does none of the effort to complete the activity. Or, the assistance of 2 or more helpers is required for the patient to complete the activity. If activity was not attempted, code reason: 7-Patient Refused. 9-Not Applicable-not attempted and the patient did not perform the activity before the current illness, exacerbation or injury. 10-Not Attempted due to Environmental Limitations-(lack of equipment, weather restraints, etc.). 88-Not Attempted due to Medical Conditions or Safety Concerns. Sit to Stand (QC): 4 Chair/Thr-uq-Naksi Xfer(QC): 4 Patient ambulates to the restroom for shower, has to stand to undress and sit for shower, when done has to stand again for dressing and transfers to , finishes dressing and propels to therapy gym for ambulation Gait Training Distance: 10', 20', 25', 30' Walk 10 feet (QC): 4 Gait Assistive Device: Walker Homer CGA, patient is just past min assist, did not need actual assist to maintain balance but barely. Patient uses a left AFO. Decreased foot clearance on the left side. Wheelchair Training Does the Pt Use a Wheelchair?: Yes Wheel 50 ft with 2 turns (QC): 4 Type of Wheelchair: Manual 120' SBA Treatments PT worked on transfers, ambulation, WC mobility, positioning and safety during dressing and bathing, OT worked on dressing, bathing, UE positioning and safety during activity. Assessment Current Status: Fair Progress improving balance and ambulation PT Short Term Goals Short Term Goals Time Frame: May 28, 2020 Roll Left & Right: 6 Sit to lyin Lying to sitting on side of be: 3 Sit to stand: 4 Chair/zxj-ys-vlqel transfer: 3 Walk 10 feet: 3 PT Mcc Goals Mcc Goals PT [employer] Goals Time Frame: Jun 11, 2020 Roll Left & Right (QC): 6 Sit to Lying (QC): 6 Lying-Sitting on Side/Bed(QC): 6 Sit to Stand (QC): 5 Chair/Tzv-ym-Ibiwg Xfer(QC): 4 Toilet Transfer (QC): 4 Car Transfer (QC): 4 Does the Patient Walk: Yes Walk 10 feet (QC): 4 Walk 50ft with 2 Turns (QC): 4 Walk 150 ft (QC): 88 Walking 10ft on Uneven Surface: 4 1 Step (curb) (QC): 3 4 Steps (QC): 3 12 Steps (QC): 88 Picking up an Object (QC): 3 Wheel 50 feet with 2 turns (QC: 6 Wheel 150 feet: 6 PT Plan Problem List Problem List: Activity Tolerance, Functional Strength, Safety, Balance, Gait, Transfer, Bed Mobility, ROM Treatment/Plan Treatment Plan: Continue Plan of Care Treatment Plan: Bed Mobility, Education, Functional Activity Rusty, Functional Strength, Group Therapy, Gait, Safety, Therapeutic Exercise, Transfers Treatment Duration: Jun 11, 2020 Frequency: At least 5 of 7 days/Wk (IRF) Estimated Hrs Per Day: 1.5 hours per day Patient and/or Family Agrees t: Yes Safety Risks/Education Patient Education: Gait Training, Transfer Techniques, Correct Positioning, W/C Management, Safety Issues Teaching Recipient: Patient Teaching Methods: Demonstration, Discussion Response to Teaching: Reinforcement Needed Time/GCodes Time In: 0800 Time Out: 0900 Total Billed Treatment Time: 60 Total Billed Treatment 1 visit FA 60' co-treated for 60' KRTEK,IVY PT May 24, 2020 08:59
[2020-05-24] MEDS: polyethylene glycoL POWDER 17 GM (MIRALAX) PACK PO SCH ×2 (09:11→21:24)
[2020-05-24] MEDS: SENNA W/DOCUSATE (SENOKOT S) TABLET PO SCH ×2 (09:11→21:24)
[2020-05-24] MEDS: DOCUSATE SODIUM 100 MG (COLACE) CAP PO SCH ×2 (09:11→21:24)
--- NOTE | 2020-05-24 10:08 | PM&R Progress Note ---
Subjective HPI/CC On Admission Date Seen by Provider: May 24, 2020 Time Seen by Provider: 10:00 Subjective/Events-last exam 05/24/20: Patient in better mood Tearful at times BM+ Slight elevated in LFT's SCD's refused by patient Showered today 05/23/20: Tearful at times Sore from loop recorder yesterday Wedding ring will be removed today by nursing mail clerks supervisor Labs stable BP ok 05/22/20: Loop recorder was placed today by Dr. Rios BP 152/68 Swelling in his left hand, will get his wedding ring off today Very tearful at times Bowels moved four days ago so will initiate laxatives Review of Systems General: Fatigue, Malaise Neurological: Weakness, Incoordination Objective Exam Vital Signs Vital Signs Date Time Temp Pulse Resp B/P (MAP) Pulse Ox O2 Delivery O2 Flow Rate FiO2 05/25/20 05:49 36.4 71 18 164/82 (109) 96 Room Air Capillary Refill : General Appearance: No Apparent Distress, WD/WN, Chronically ill, Obese HEENT: PERRL/EOMI, Normal ENT Inspection, Pharynx Normal Neck: Full Range of Motion, Normal Inspection, Non Tender, Supple, Carotid Bruit Respiratory: Chest Non Tender, Lungs Clear, Normal Breath Sounds, No Accessory Muscle Use, No Respiratory Distress Cardiovascular: Regular Rate, Rhythm, No Edema, No Gallop, No JVD, No Murmur, Normal Peripheral Pulses Gastrointestinal: Normal Bowel Sounds, No Organomegaly, No Pulsatile Mass, Non Tender, Soft Back: Normal Inspection, No CVA Tenderness, No Vertebral Tenderness Extremity: Normal Capillary Refill, Normal Inspection, Normal Range of Motion, Non Tender, No Calf Tenderness, No Pedal Edema Neurologic/Psychiatric: Alert, Oriented x3, Abnormal Gait, Depressed Affect, Motor Weakness (left sidded 1/5) Skin: Normal Color, Warm/Dry Lymphatic: No Adenopathy Results/Procedures Lab Patient resulted labs reviewed. FIM Transfers Therapy Code Descriptions/Definitions Functional [place] Measure: 0=Not Assessed/NA 4=Minimal Assistance 1=Total Assistance 5=Supervision or Setup 2=Maximal Assistance 6=Modified [place] 3=Moderate Assistance 7=Complete IndependenceSCALE: Activities may be completed with or without assistive devices. 5-Xwojqnyqcl-nbegibz completes the activity by him/herself with no assistance from a helper. 5-Set-up or Clean-up Assistance-helper sets up or cleans up; patient completes activity. [place] assists only prior to or following the activity. 4-Supervision or Touching Assistance-helper provides verbal cues and/or touching/steadying and/or contact guard assistance as patient completes activity. Assistance may be provided throughout the activity or intermittently. 3-Partial/Moderate Assistance-helper does LESS THAN HALF the effort. [place] lifts, holds or supports trunk or limbs, but provides less than half the effort. 2-Substantial/Maximal Assistance-helper does MORE THAN HALF the effort. [place] lifts or holds trunk or limbs and provides more than half the effort. 3-Pzyxqryec-setlui does ALL the effort. Patient does none of the effort to complete the activity. Or, the assistance of 2 or more helpers is required for the patient to complete the activity. If activity was not attempted, code reason: 7-Patient Refused. 9-Not Applicable-not attempted and the patient did not perform the activity b efore the current illness, exacerbation or injury. 10-Not Attempted due to Environmental Limitations-(lack of equipment, weather restraints, etc.). 88-Not Attempted due to Medical Conditions or Safety Concerns. Roll Left to Right (QC): 6 Sit to Lying (QC): 3 Sit to Stand (QC): 4 Chair/Upc-kd-Hfmhq Xfer(QC): 4 Car Transfer (QC): 3 Gait Training Does the Patient Walk?: Yes Distance: 10', 20', 25', 30' Walk 10 feet (QC): 4 Walk 50 ft with 2 Turns(QC): 88 Walk 150 ft (QC): 88 Walking 10ft/uneven surface-QC: 88 Gait Persons Needed: 2 Gait Assistive Device: Walker [place] Wheelchair Training Does the Pt Use a Wheelchair?: Yes Distance: 120'x2 Wheel 50 ft with 2 turns (QC): 4 Wheel 150 ft (QC): 88 Type of Wheelchair: Manual Stair Training 1 Step (curb) (QC): 88 4 Steps (QC): 88 12 Steps (QC): 88 Balance Picking up an Object (QC): 88 ADL-Treatment Eating (QC): 5 (Based on clinical judgement and discussion with pt, pt would require set up assist) Oral Hygiene (QC): 5 (Set up, used wash cloth to stabilize dentures to apply adhesive) Shower/Bathe Self (QC): 3 (Assist to thoroughly wash RUE, assist with buttocks. Pt able to wash all other parts seated.) Upper Body Dressing (QC): 3 (Cues to thread affected arm first. Pt required min A with managing shirt down trunk.) Lower Body Dressing (QC): 3 (Pt required CGA in order to maintain figure 4 position to thread LLE, pt able to thread RLE. 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
--- NOTE | 2020-05-24 12:39 | Cardiology Progress Note ---
Subjective Date Seen by Provider: May 24, 2020 Time Seen by Provider: 12:38 Subjective/Events-last exam Patient is laying down in bed, eating lunch, feeling well. No new complaint Review of Systems General: No Chills, No Night Sweats, No Fatigue, No Malaise, No Appetite, No Other HEENT: No Head Aches, No Visual Changes, No Eye Pain, No Ear Pain, No Dysphasia, No Sinus Congestion, No Post Nasal Drip, No Sore Throat, No Other Pulmonary: No Dyspnea, No Cough, No Pleuritic Chest Pain, No Other Cardiovascular: No: Chest Pain, Palpitations, Orthopnea, Paroxysmal Noc. Dyspnea, Edema, Lt Headedness, Other Objective-Cardiology Exam Last Set of Vital Signs Vital Signs 05/24/20 05/24/20 05/24/20 05:55 08:30 09:00 Temp 36.3 Pulse 63 Resp 17 B/P (MAP) 155/81 (105) Pulse Ox 98 O2 Delivery Room Air Capillary Refill : I&O Intake and Output 05/24/20 00:00 Intake Total 1900 ml Output Total 300 ml Balance 1600 ml Intake Oral 1900 ml Output Urine Total 300 ml # Voids 3 # Bowel Movements 2 General: Alert, Oriented X3, Cooperative HEENT: Atraumatic, PERRLA Neck: Supple, No JVD, No Thyromegaly Lungs: Clear to Auscultation, Normal Air Movement Heart: Regular Rate, Normal S1, Normal S2, No Murmurs Abdomen: Normal Bowel Sounds, Soft, No Tenderness, No Hepatosplenomegaly, No Masses Extremities: No Clubbing, No Cyanosis, No Edema, Normal Pulses, No Tenderness/Swelling Skin: No Rashes, No Breakdown, No Significant Lesion Neuro: Sensation Intact Psych/Mental Status: Other (depressed mood) A/P-Cardiology Admission Diagnosis Cryptogenic CVA HTN HLP Tobaccoism Assessment/Plan Cryptogenic CVA with left sided weakness, on ASA. 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 Telemetry revealing sinus rhythm. s/p LINq implantation for further monitoring for underlying arrhythmia. Hypertension, better controlled, occasional elevated readings but he maintained good blood pressure control usually HLP- started on statin, continue to monitor. Tobaccoism, educated on the importance of smoking cessation Fam Hx CAD LAURA ORLANDO MD May 24, 2020 12:39 pm
--- NOTE | 2020-05-24 13:24 | Speech Therapy Daily Note ---
Speech Daily Progress Note Subjective Date Seen by Provider: May 24, 2020 Time Seen by Provider: 00:30 Patient was resting in his bed with his mother present. Objective Patient completed 25 minutes of OM stimulation at 5.0 level intensity. Assessment Assessment Current Status: Good Progress Treatment Plan Continue Plan of Care Speech Short Term Goals Short Term Goals Short Term Goals 1) Patient will tolerate least restrictive diet level per physician's order at 90% or greater. 2) Patient/caregiver will utilize compensatory strategies as trained for safe oral intake at 90% or greater without cues. 3) Patient will complete OME as directed 4-5x per week. Speech Jail Goals Jail Goals Patient will improve swallowing and speech abilities to communicate better/easier with others. Speech-Plan Patient/Family Goals Patient/Family Goals: Patient plans on returning to his home where he lives with his and 3 children. Treatment Plan Speech Therapy Treatment Plan: Continue Plan of Care Treatment Duration: May 22, 2020 Frequency: 4 times per week (Patient receives skilled ST 4-5x per week) Estimated Hrs Per Day: .5 hour per day Rehab Potential: Fair Barriers to Learning: Patient's recent CVA Pt/Family Agrees to Plan: Yes Safety Risks/Education Teaching Recipient: Patient Teaching Methods: Demonstration, Discussion Response to Teaching: Verbalize Understanding, Return Demonstration Education Topics Provided: Continued safety with oral intake and within his room Time Speech Therapy Time In: 10:00 Speech Therapy Time Out: 10:30 Total Billed Time: 30 Billed Treatment Time GURWINDER [facility]man [facility] No [place], [address] May 24, 2020 13:24
--- NOTE | 2020-05-24 14:33 | Physical Therapy Daily Note ---
PT Daily Note-Current Subjective Patient in bed pre tx, agrees to PT, has no complaints of pain Appearance patient in bed post tx with nurse call, phone, tray, all needs met. Mental Status Patient Orientation: Person, Place, Situation Transfers SCALE: Activities may be completed with or without assistive devices. 7-Hvrztpqpfx-diwsoau completes the activity by him/herself with no assistance from a helper. 5-Set-up or Clean-up Assistance-helper sets up or cleans up; patient completes activity. [place] assists only prior to or following the activity. 4-Supervision or Touching Assistance-helper provides verbal cues and/or touching/steadying and/or contact guard assistance as patient completes activity. Assistance may be provided throughout the activity or intermittently. 3-Partial/Moderate Assistance-helper does LESS THAN HALF the effort. [place] lifts, holds or supports trunk or limbs, but provides less than half the effort. 2-Substantial/Maximal Assistance-helper does MORE THAN HALF the effort. [place] lifts or holds trunk or limbs and provides more than half the effort. 8-Ojhbjpgrq-fmmnbm does ALL the effort. Patient does none of the effort to complete the activity. Or, the assistance of 2 or more helpers is required for the patient to complete the activity. If activity was not attempted, code reason: 7-Patient Refused. 9-Not Applicable-not attempted and the patient did not perform the activity before the current illness, exacerbation or injury. 10-Not Attempted due to Environmental Limitations-(lack of equipment, weather restraints, etc.). 88-Not Attempted due to Medical Conditions or Safety Concerns. Exercises Supine Ex: Quad Set, Glut sets, Heel Slides, Short Arc Quads, Straight leg raise, Hip abd/add Supine Reps: 20 (AAROM with SLR, hip abd, HS) LLE hamstring stretching Treatments LE exercise Assessment Current Status: Fair Progress slowly improving AROM PT Short Term Goals Short Term Goals Time Frame: May 28, 2020 Roll Left & Right: 6 Sit to lyin Lying to sitting on side of be: 3 Sit to stand: 4 Chair/uun-xo-mppwj transfer: 3 Walk 10 feet: 3 PT Halfway Goals Control Panel Tester Goals PT Control Panel Tester Goals Time Frame: Jun 11, 2020 Roll Left & Right (QC): 6 Sit to Lying (QC): 6 Lying-Sitting on Side/Bed(QC): 6 Sit to Stand (QC): 5 Chair/Qiq-yl-Mpxwp Xfer(QC): 4 Toilet Transfer (QC): 4 Car Transfer (QC): 4 Does the Patient Walk: Yes Walk 10 feet (QC): 4 Walk 50ft with 2 Turns (QC): 4 Walk 150 ft (QC): 88 Walking 10ft on Uneven Surface: 4 1 Step (curb) (QC): 3 4 Steps (QC): 3 12 Steps (QC): 88 Picking up an Object (QC): 3 Wheel 50 feet with 2 turns (QC: 6 Wheel 150 feet: 6 PT Plan Problem List Problem List: Activity Tolerance, Functional Strength, Safety, Balance, Gait, Transfer, Bed Mobility, ROM Treatment/Plan Treatment Plan: Continue Plan of Care Treatment Plan: Bed Mobility, Education, Functional Activity Rusty, Functional Strength, Group Therapy, Gait, Safety, Therapeutic Exercise, Transfers Treatment Duration: Jun 11, 2020 Frequency: At least 5 of 7 days/Wk (IRF) Estimated Hrs Per Day: 1.5 hours per day Patient and/or Family Agrees t: Yes Safety Risks/Education Patient Education: Correct Positioning, Safety Issues Teaching Recipient: Patient Teaching Methods: Demonstration, Discussion Response to Teaching: Reinforcement Needed Time/GCodes Time In: 1415 Time Out: 1430 Total Billed Treatment Time: 15 Total Billed Treatment 1 visit EX 15' IVY HYDE PT May 24, 2020 14:33
[2020-05-24 14:34] VITALS: BP 135/77
[2020-05-24 17:03] VITALS: BP 141/78
[2020-05-24] MEDS: ENOXAPARIN 40 MG/0.4 ML (LOVENOX) SYR SC SCH (21:32)
[2020-05-24 21:40] VITALS: BP 161/79
[2020-05-25 05:49] VITALS: BP 164/82
[2020-05-25] MEDS: hydrALAZINE (APRESOLINE) 25 MG TAB PO SCH ×3 (06:38→21:04)
--- NOTE | 2020-05-25 07:25 | PM&R Progress Note ---
Subjective HPI/CC On Admission Date Seen by Provider: May 25, 2020 Time Seen by Provider: 12:15 Subjective/Events-last exam 05/25/20: Left arm remains flaccid Walked to the gym and did well patient tearful at times or on the verge when he talks about his arm BM today No pain reported Tendency for somatic issues 05/24/20: Patient in better mood Tearful at times BM+ Slight elevated in LFT's SCD's refused by patient Showered today 05/23/20: Tearful at times Sore from loop recorder yesterday Wedding ring will be removed today by nursing salvage supervisor Labs stable BP ok 05/22/20: Loop recorder was placed today by Dr. Rios BP 152/68 Swelling in his left hand, will get his wedding ring off today Very tearful at times Bowels moved four days ago so will initiate laxatives Review of Systems Neurological: Weakness, Incoordination Objective Exam Vital Signs Vital Signs Date Time Temp Pulse Resp B/P (MAP) Pulse Ox O2 Delivery O2 Flow Rate FiO2 05/25/20 16:00 36.6 71 16 128/63 (84) 97 Room Air Capillary Refill : General Appearance: No Apparent Distress, WD/WN, Chronically ill, Obese HEENT: PERRL/EOMI, Normal ENT Inspection, Pharynx Normal Neck: Full Range of Motion, Normal Inspection, Non Tender, Supple, Carotid Bruit Respiratory: Chest Non Tender, Lungs Clear, Normal Breath Sounds, No Accessory Muscle Use, No Respiratory Distress Cardiovascular: Regular Rate, Rhythm, No Edema, No Gallop, No JVD, No Murmur, Normal Peripheral Pulses Gastrointestinal: Normal Bowel Sounds, No Organomegaly, No Pulsatile Mass, Non Tender, Soft Back: Normal Inspection, No CVA Tenderness, No Vertebral Tenderness Extremity: Normal Capillary Refill, Normal Inspection, Normal Range of Motion, Non Tender, No Calf Tenderness, No Pedal Edema Neurologic/Psychiatric: Alert, Oriented x3, Abnormal Gait, Depressed Affect, Motor Weakness (left sidded 1/5) Skin: Normal Color, Warm/Dry Lymphatic: No Adenopathy Results/Procedures Lab Patient resulted labs reviewed. FIM Transfers Therapy Code Descriptions/Definitions Functional [place] Measure: 0=Not Assessed/NA 4=Minimal Assistance 1=Total Assistance 5=Supervision or Setup 2=Maximal Assistance 6=Modified [place] 3=Moderate Assistance 7=Complete IndependenceSCALE: Activities may be completed with or without assistive devices. 8-Fochsytvkz-pigsqco completes the activity by him/herself with no assistance from a helper. 5-Set-up or Clean-up Assistance-helper sets up or cleans up; patient completes activity. [place] assists only prior to or following the activity. 4-Supervision or Touching Assistance-helper provides verbal cues and/or touching/steadying and/or contact guard assistance as patient completes activity. Assistance may be provided throughout the activity or intermittently. 3-Partial/Moderate Assistance-helper does LESS THAN HALF the effort. [place] lifts, holds or supports trunk or limbs, but provides less than half the effort. 2-Substantial/Maximal Assistance-helper does MORE THAN HALF the effort. [place] lifts or holds trunk or limbs and provides more than half the effort. 3-Tvrfsgpwk-gopkbo does ALL the effort. Patient does none of the effort to complete the activity. Or, the assistance of 2 or more helpers is required for the patient to complete the activity. If activity was not attempted, code reason: 7-Patient Refused. 9-Not Applicable-not attempted and the patient did not perform the activity before the current illness, exacerbation or injury. 10-Not Attempted due to Environmental Limitations-(lack of equipment, weather restraints, etc.). 88-Not Attempted due to Medical Conditions or Safety Concerns. Roll Left to Right (QC): 6 Sit to Lying (QC): 3 Sit to Stand (QC): 4 Chair/Bev-oj-Jhlwm Xfer(QC): 4 Car Transfer (QC): 3 Gait Training Does the Patient Walk?: Yes Distance: 10', 20', 25', 30' Walk 10 feet (QC): 4 Walk 50 ft with 2 Turns(QC): 88 Walk 150 ft (QC): 88 Walking 10ft/uneven surface-QC: 88 Gait Persons Needed: 2 Gait Assistive Device: Walker [place] Wheelchair Training Does the Pt Use a Wheelchair?: Yes Distance: 120'x2 Wheel 50 ft with 2 turns (QC): 4 Wheel 150 ft (QC): 88 Type of Wheelchair: Manual Stair Training 1 Step (curb) (QC): 88 4 Steps (QC): 88 12 Steps (QC): 88 Balance Picking up an Object (QC): 88 ADL-Treatment Eating (QC): 5 (Based on clinical judgement and discussion with pt, pt would require set up assist) Oral Hygiene (QC): 5 (Set up, used wash cloth to stabilize dentures to apply adhesive) Shower/Bathe Self (QC): 3 (Assist to thoroughly wash RUE, assist with buttocks. Pt able to wash all other parts seated.) Upper Body Dressing (QC): 3 (Cues to thread affected arm first. Pt required min A with managing shirt down trunk.) Lower Body Dressing (QC): 3 (Pt required CGA in order to maintain figure 4 position to thread LLE, pt able to thread RLE. 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
[2020-05-25] MEDS: VALSARTAN 160 MG (DIOVAN) TABLET PO SCH (09:06)
[2020-05-25] MEDS: ASPIRIN 325 MG (5 GR) TABLET PO SCH (09:06)
[2020-05-25] MEDS: DOCUSATE SODIUM 100 MG (COLACE) CAP PO SCH ×2 (09:06→21:01)
[2020-05-25] MEDS: amLODIPine 10 MG (NORVASC) TAB PO SCH (09:08)
[2020-05-25] MEDS: SENNA W/DOCUSATE (SENOKOT S) TABLET PO SCH ×2 (09:08→21:01)
[2020-05-25] MEDS: polyethylene glycoL POWDER 17 GM (MIRALAX) PACK PO SCH ×2 (09:10→21:01)
[2020-05-25] MEDS: ACETAMINOPHEN 325 MG TABLET PO PRN (09:34)
--- NOTE | 2020-05-25 11:45 | Cardiology Progress Note ---
Subjective Date Seen by Provider: May 25, 2020 Time Seen by Provider: 11:44 Subjective/Events-last exam Patient was seen at bedside, feeling better, no new complaint Review of Systems General: No Chills, No Night Sweats, No Fatigue, No Malaise, No Appetite, No Other HEENT: No Head Aches, No Visual Changes, No Eye Pain, No Ear Pain, No Dysphasia, No Sinus Congestion, No Post Nasal Drip, No Sore Throat, No Other Pulmonary: No Dyspnea, No Cough, No Pleuritic Chest Pain, No Other Cardiovascular: No: Chest Pain, Palpitations, Orthopnea, Paroxysmal Noc. Dyspnea, Edema, Lt Headedness, Other Objective-Cardiology Exam Last Set of Vital Signs Vital Signs 05/25/20 05/25/20 05:49 09:00 Temp 36.4 Pulse 71 Resp 18 B/P (MAP) 164/82 (109) Pulse Ox 96 O2 Delivery Room Air Capillary Refill : I&O Intake and Output 05/25/20 00:00 Intake Total 1450 ml Output Total 1275 ml Balance 175 ml Intake Oral 1450 ml Output Urine Total 1275 ml General: Alert, Oriented X3, Cooperative HEENT: Atraumatic, PERRLA Neck: Supple, No JVD, No Thyromegaly Lungs: Clear to Auscultation, Normal Air Movement Heart: Regular Rate, Normal S1, Normal S2, No Murmurs Abdomen: Normal Bowel Sounds, Soft, No Tenderness, No Hepatosplenomegaly, No Masses Extremities: No Clubbing, No Cyanosis, No Edema, Normal Pulses, No Tender ness/Swelling Skin: No Rashes, No Breakdown, No Significant Lesion Neuro: Sensation Intact Psych/Mental Status: Other (depressed mood) A/P-Cardiology Admission Diagnosis Cryptogenic CVA HTN HLP Tobaccoism Assessment/Plan Cryptogenic CVA with left sided weakness, on ASA. 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 Telemetry revealing sinus rhythm. s/p Loop implantation for monitoring for underlying arrhythmia. Hypertension, better controlled, occasional elevated readings but he maintained good blood pressure control usually HLP- started on statin, continue to monitor. Tobaccoism, educated on the importance of smoking cessation Fam Hx CAD LAURA ORLANDO MD May 25, 2020 11:45 am
--- NOTE | 2020-05-25 11:48 | Physical Therapy Daily Note ---
PT Daily Note-Current Subjective Pt in bed, motivated to participate. "I just can't believe how much it takes out of me to do simple things". Mental Status Patient Orientation: Person, Place, Time, Situation Transfers SCALE: Activities may be completed with or without assistive devices. 1-Eesqqyiqrp-bfbieqm completes the activity by him/herself with no assistance from a helper. 5-Set-up or Clean-up Assistance-helper sets up or cleans up; patient completes activity. [place] assists only prior to or following the activity. 4-Supervision or Touching Assistance-helper provides verbal cues and/or touching/steadying and/or contact guard assistance as patient completes activity. Assistance may be provided throughout the activity or intermittently. 3-Partial/Moderate Assistance-helper does LESS THAN HALF the effort. [place] lifts, holds or supports trunk or limbs, but provides less than half the effort. 2-Substantial/Maximal Assistance-helper does MORE THAN HALF the effort. [place] lifts or holds trunk or limbs and provides more than half the effort. 6-Yqtnrxvdy-iusila does ALL the effort. Patient does none of the effort to complete the activity. Or, the assistance of 2 or more helpers is required for the patient to complete the activity. If activity was not attempted, code reason: 7-Patient Refused. 9-Not Applicable-not attempted and the patient did not perform the activity before the current illness, exacerbation or injury. 10-Not Attempted due to Environmental Limitations-(lack of equipment, weather restraints, etc.). 88-Not Attempted due to Medical Conditions or Safety Concerns. Lying to Sitting/Side of Bed(Q: 5 Sit to Stand (QC): 4 Chair/Cup-wz-Bkhpw Xfer(QC): 4 Toilet Transfer (QC): 4 SPT [facility]<->bed with min A x 1 with (L) AFO in place. CGA for balance with toilet transfer; Pt able to manage donning/doffing pants and pericare. Set-up in BR for cleaning dentures, washing face. Weight Bearing Right Lower Extremity: Right Full Weight Bearing Left Lower Extremity: Left Weight Bearing/Tolerated Gait Training Does the Patient Walk?: Yes Distance: 25 Walk 10 feet (QC): 4 Walk 50 ft with 2 Turns(QC): 88 Walk 150 ft (QC): 88 Walking 10ft/uneven surface-QC: 88 Gait Persons Needed: 1 Gait Assistive Device: Walker Homer 25' x 2 with homer-walker, min A x 1 for balance. Seated recovery breaks in between trials. Pt ambulates with decreased proprioception on (L), narrow CARMELA but no episode of LOB or buckling. Max A to don (L) AFO Wheelchair Training Does the Pt Use a Wheelchair?: Yes Wheel 50 ft with 2 turns (QC): 2 Type of Wheelchair: Manual Min A to manage brakes, max A to manage leg rest Exercises NuStep Minutes: 8 NuStep Workload: 4 Treatments Gait training with homer-walker, transfer training, NuStep for (B) reciprocal integration (no L UE used this date). Returned to sitting EOB with nursing present. Assessment Current Status: Good Progress Pt tolerated well. Poor functional activity tolerance but very motivated. No LOB or buckling with gait this date. PT Short Term Goals Short Term Goals Time Frame: May 28, 2020 Roll Left & Right: 6 Sit to lyin Lying to sitting on side of be: 3 Sit to stand: 4 Chair/gfu-ip-xyrys transfer: 3 Walk 10 feet: 3 PT C[employer]ker Goals Shelter Goals PT Shelter Goals Time Frame: Jun 11, 2020 Roll Left & Right (QC): 6 Sit to Lying (QC): 6 Lying-Sitting on Side/Bed(QC): 6 Sit to Stand (QC): 5 Chair/Hkq-je-Jtddv Xfer(QC): 4 Toilet Transfer (QC): 4 Car Transfer (QC): 4 Does the Patient Walk: Yes Walk 10 feet (QC): 4 Walk 50ft with 2 Turns (QC): 4 Walk 150 ft (QC): 88 Walking 10ft on Uneven Surface: 4 1 Step (curb) (QC): 3 4 Steps (QC): 3 12 Steps (QC): 88 Picking up an Object (QC): 3 Wheel 50 feet with 2 turns (QC: 6 Wheel 150 feet: 6 PT Plan Problem List Problem List: Activity Tolerance, Functional Strength, Safety, Balance, Gait, Transfer, Bed Mobility, ROM Treatment/Plan Treatment Plan: Continue Plan of Care Treatment Plan: Bed Mobility, Education, Functional Activity Rusty, Functional Strength, Group Therapy, Gait, Safety, Therapeutic Exercise, Transfers Treatment Duration: Jun 11, 2020 Frequency: At least 5 of 7 days/Wk (IRF) Estimated Hrs Per Day: 1.5 hours per day Patient and/or Family Agrees t: Yes Time/GCodes Time In: 834 Time Out: 927 Total Billed Treatment Time: 53 Total Billed Treatment 1, GT x 25', Ex x 8', FA x 20' GEORGE STEWART DPT May 25, 2020 11:48
[2020-05-25 14:53] VITALS: BP 151/73
[2020-05-25 16:00] VITALS: BP 128/63
[2020-05-25 21:00] VITALS: BP 184/94
[2020-05-25] MEDS: ENOXAPARIN 40 MG/0.4 ML (LOVENOX) SYR SC SCH (21:01)
[2020-05-26 05:03] VITALS: BP 178/69
[2020-05-26] MEDS: hydrALAZINE (APRESOLINE) 25 MG TAB PO SCH ×3 (05:20→22:00)
[2020-05-26] MEDS: SENNA W/DOCUSATE (SENOKOT S) TABLET PO SCH ×2 (08:08→21:11)
[2020-05-26] MEDS: DOCUSATE SODIUM 100 MG (COLACE) CAP PO SCH ×2 (08:08→21:11)
[2020-05-26] MEDS: ASPIRIN 325 MG (5 GR) TABLET PO SCH (08:08)
[2020-05-26] MEDS: VALSARTAN 160 MG (DIOVAN) TABLET PO SCH (08:08)
[2020-05-26] MEDS: amLODIPine 10 MG (NORVASC) TAB PO SCH (08:08)
[2020-05-26] MEDS: LOSARTAN 50 MG (COZAAR) TAB PO SCH (08:13)
[2020-05-26] MEDS: polyethylene glycoL POWDER 17 GM (MIRALAX) PACK PO SCH ×2 (08:13→21:11)
--- NOTE | 2020-05-26 10:06 | Cardiology Progress Note ---
Subjective Date Seen by Provider: May 26, 2020 Time Seen by Provider: 10:04 Subjective/Events-last exam Patient is sitting in a chair, feeling better, no new complaint Review of Systems General: No Chills, No Night Sweats, No Fatigue, No Malaise, No Appetite, No Other HEENT: No Head Aches, No Visual Changes, No Eye Pain, No Ear Pain, No Dysphasia, No Sinus Congestion, No Post Nasal Drip, No Sore Throat, No Other Pulmonary: No Dyspnea, No Cough, No Pleuritic Chest Pain, No Other Objective-Cardiology Exam Last Set of Vital Signs Vital Signs 05/26/20 05:03 Temp 36.2 Pulse 69 Resp 16 B/P (MAP) 178/69 (105) Pulse Ox 94 O2 Delivery Room Air Capillary Refill : I&O Intake and Output 05/26/20 00:00 Intake Total 700 ml Output Total 1150 ml Balance -450 ml Intake Oral 700 ml Output Urine Total 1150 ml # Bowel Movements 1 General: Alert, Oriented X3, Cooperative HEENT: Atraumatic, PERRLA Neck: Supple, No JVD, No Thyromegaly Lungs: Clear to Auscultation, Normal Air Movement Heart: Regular Rate, Normal S1, Normal S2, No Murmurs Abdomen: Normal Bowel Sounds, Soft, No Tenderness, No Hepatosplenomegaly, No Masses Extremities: No Clubbing, No Cyanosis, No Edema, Normal Pulses, No Tendern ess/Swelling Skin: No Rashes, No Breakdown, No Significant Lesion Neuro: Sensation Intact Psych/Mental Status: Other (depressed mood) A/P-Cardiology Admission Diagnosis Cryptogenic CVA HTN HLP Tobaccoism Assessment/Plan Cryptogenic CVA with left sided weakness, on ASA. 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 Telemetry revealing sinus rhythm. Loop monitor implantation done on 07/20/2020, site is healing well. Hypertension, elevated today, adding losartan and monitor blood pressure response HLP- started on statin, continue to monitor. Tobaccoism, educated on the importance of smoking cessation Fam Hx CAD LAURA ORLANDO MD May 26, 2020 10:06 am
[2020-05-26 10:22] VITALS: BP 134/62
--- NOTE | 2020-05-26 12:45 | PM&R Progress Note ---
Subjective HPI/CC On Admission Date Seen by Provider: May 26, 2020 Time Seen by Provider: 12:45 Subjective/Events-last exam 05/26/20: Patient doing well Frustrated with his situation but we can only support him so he can adjust at bedside today TC 178 Pivoting is improved 05/25/20: Left arm remains flaccid Walked to the gym and did well patient tearful at times or on the verge when he talks about his arm BM today No pain reported Tendency for somatic issues 05/24/20: Patient in better mood Tearful at times BM+ Slight elevated in LFT's SCD's refused by patient Showered today 05/23/20: Tearful at times Sore from loop recorder yesterday Wedding ring will be removed today by nursing 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 Rios BP 152/68 Swelling in his left hand, will get his wedding ring off today Very tearful at times Bowels moved four days ago so will initiate laxatives Review of Systems General: Fatigue, Malaise Neurological: Weakness, Incoordination Objective Exam Vital Signs Vital Signs Date Time Temp Pulse Resp B/P (MAP) Pulse Ox O2 Delivery O2 Flow Rate FiO2 05/26/20 15:19 142/74 (96) 05/26/20 10:22 75 95 Room Air 05/26/20 05:03 36.2 16 Capillary Refill : General Appearance: No Apparent Distress, WD/WN, Chronically ill, Obese HEENT: PERRL/EOMI, Normal ENT Inspection, Pharynx Normal Neck: Full Range of Motion, Normal Inspection, Non Tender, Supple, Carotid Bruit Respiratory: Chest Non Tender, Lungs Clear, Normal Breath Sounds, No Accessory Muscle Use, No Respiratory Distress Cardiovascular: Regular Rate, Rhythm, No Edema, No Gallop, No JVD, No Murmur, Normal Peripheral Pulses Gastrointestinal: Normal Bowel Sounds, No Organomegaly, No Pulsatile Mass, Non Tender, Soft Back: Normal Inspection, No CVA Tenderness, No Vertebral Tenderness Extremity: Normal Capillary Refill, Normal Inspection, Normal Range of Motion, Non Tender, No Calf Tenderness, No Pedal Edema Neurologic/Psychiatric: Alert, Oriented x3, Abnormal Gait, Depressed Affect, Motor Weakness (left sidded 1/5) Skin: Normal Color, Warm/Dry Lymphatic: No Adenopathy Results/Procedures Lab Patient resulted labs reviewed. FIM Transfers Therapy Code Descriptions/Definitions Functional [place]comb Measure: 0=Not Assessed/NA 4=Minimal Assistance 1=Total Assistance 5=Supervision or Setup 2=Maximal Assistance 6=Modified [place]comb 3=Moderate Assistance 7=Complete IndependenceSCALE: Activities may be completed with or without assistive devices. 1-Ispvvobgao-mkfimvi completes the activity by him/herself with no assistance from a helper. 5-Set-up or Clean-up Assistance-helper sets up or cleans up; patient completes activity. [place] assists only prior to or following the activity. 4-Supervision or Touching Assistance-helper provides verbal cues and/or touching/steadying and/or contact guard assistance as patient completes activity. Assistance may be provided throughout the activity or intermittently. 3-Partial/Moderate Assistance-helper does LESS THAN HALF the effort. [place] lifts, holds or supports trunk or limbs, but provides less than half the effort. 2-Substantial/Maximal Assistance-helper does MORE THAN HALF the effort. [place] lifts or holds trunk or limbs and provides more than half the effort. 6-Onvbyvnvc-nvwpka does ALL the effort. Patient does none of the effort to complete the activity. Or, the assistance of 2 or more helpers is required for the patient to complete the activity. If activity was not attempted, code reason: 7-Patient Refused. 9-Not Applicable-not attempted and the patient did not perform the activity before the current illness, exacerbation or injury. 10-Not Attempted due to Environmental Limitations-(lack of equipment, weather restraints, etc.). 88-Not Attempted due to Medical Conditions or Safety Concerns. Roll Left to Right (QC): 6 Sit to Lying (QC): 3 Sit to Stand (QC): 4 Chair/Rde-ru-Mebwh Xfer(QC): 4 Car Transfer (QC): 3 Gait Training Does the Patient Walk?: Yes Distance: 25 Walk 10 feet (QC): 4 Walk 50 ft with 2 Turns(QC): 88 Walk 150 ft (QC): 88 Walking 10ft/uneven surface-QC: 88 Gait Persons Needed: 1 Gait Assistive Device: Walker Homer Wheelchair Training Does the Pt Use a Wheelchair?: Yes Distance: 120'x2 Wheel 50 ft with 2 turns (QC): 2 Wheel 150 ft (QC): 88 Type of Wheelchair: Manual Stair Training 1 Step (curb) (QC): 88 4 Steps (QC): 88 12 Steps (QC): 88 Balance Picking up an Object (QC): 88 ADL-Treatment Eating (QC): 5 (Based on clinical judgement and discussion with pt, pt would require set up assist) Oral Hygiene (QC): 5 (Set up, used wash cloth to stabilize dentures to apply adhesive) Shower/Bathe Self (QC): 3 (Assist to thoroughly wash RUE, assist with buttocks. Pt able to wash all other parts seated.) Upper Body Dressing (QC): 3 (Cues to thread affected arm first. Pt required min A with managing shirt down trunk.) Lower Body Dressing (QC): 3 (Pt required CGA in order to maintain figure 4 position to thread LLE, pt able to thread RLE. Assist adjusting L side after pant hike.) On/Off Footwear (QC): 2 (Pt able to doff footwear, required assistance with donning LLE sock/AFO/shoe, pt able to don RLE sock/shoe.) Toileting Hygiene (QC): 3 (Michele, pt able to perform hygiene while sitting with supervision, but overall Michele to perform clothing management for decrease standing balance) Toilet Transfer (QC): 3 (Min A on/off toilet using grab bars.) Assessment/Plan Assessment and Plan Assess & Plan/Chief Complaint Assessment: 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 s/p loop recorder 05/22/20 Smoker New onset HTN HLP Fall upon arrival to unit with in room Plan: PT OT Statin ASA Lovenox Monitor closely IRF protocol 05/22/20: Remove wedding ring left finger OT for edema management of the left hand Loop recorder 05/23/20: Wedding ring removed OT PT Monitor BP 05/24/20: Patient refuses SCD's Monitor BP Fall risk 05/25/20: Monitor closely Ambulating well with homer-cane Loop recorder 05/26/20: Statin BP control Monitor closely (1) CVA (cerebral vascular accident) (2) Essential (primary) hypertension (3) Tobacco abuse (4) Hyperlipidemia RADHA COPPOLA DO May 26, 2020 12:45
[2020-05-26 15:19] VITALS: BP 142/74
[2020-05-26 17:04] VITALS: BP 141/71
[2020-05-26] MEDS: ENOXAPARIN 40 MG/0.4 ML (LOVENOX) SYR SC SCH (21:11)
[2020-05-26 22:00] VITALS: BP 121/58
[2020-05-27 05:34] LABS: BASOPHILS # (AUTO) 0.1 10^3/uL (0.0-0.1); BASOPHILS % (AUTO) 1 % (0-10); EOSINOPHILS # (AUTO) 0.3 10^3/uL (0.0-0.3); EOSINOPHILS % (AUTO) 3 % (0-10); HEMATOCRIT 41 % (40-54); HEMOGLOBIN 13.8 g/dL (13.3-17.7); LYMPHOCYTES # (AUTO) 1.7 10^3/uL (1.0-4.0); LYMPHOCYTES % (AUTO) 17 % (12-44); MEAN CORPUSCULAR HEMOGLOBIN 30 pg (25-34); MEAN CORPUSCULAR HGB CONC 34 g/dL (32-36); MEAN CORPUSCULAR VOLUME 87 fL (80-99); MEAN PLATELET VOLUME 11.3 fL (9.0-12.2); MONOCYTES # (AUTO) 0.9 10^3/uL (0.0-1.0); MONOCYTES % (AUTO) 9 % (0-12); NEUTROPHILS # (AUTO) 6.7 10^3/uL (1.8-7.8); NEUTROPHILS % (AUTO) 70 % (42-75); PLATELET COUNT 246 10^3/uL (130-400); WHITE BLOOD COUNT 9.6 10^3/uL (4.3-11.0)
[2020-05-27 05:46] VITALS: BP 129/74
[2020-05-27] MEDS: hydrALAZINE (APRESOLINE) 25 MG TAB PO SCH (05:54)
[2020-05-27 06:05] LABS: ALANINE AMINOTRANSFERASE 128 U/L (0-55); ALBUMIN 3.8 GM/DL (3.2-4.5); ALKALINE PHOSPHATASE 84 U/L (40-136); BILIRUBIN,TOTAL 0.4 MG/DL (0.1-1.0); BUN/CREATININE RATIO 18; CALCIUM 8.5 MG/DL (8.5-10.1); CARBON DIOXIDE 19 MMOL/L (21-32); CHLORIDE 111 MMOL/L (98-107); CREATININE SERUM 0.83 MG/DL (0.60-1.30); GFR ESTIMATED > 60; GLUCOSE 91 MG/DL (70-105); POTASSIUM 4.3 MMOL/L (3.6-5.0); SODIUM 139 MMOL/L (135-145); TOTAL PROTEIN 6.2 GM/DL (6.4-8.2)
[2020-05-27 07:35] VITALS: BP 141/75
[2020-05-27] MEDS: ASPIRIN 325 MG (5 GR) TABLET PO SCH (07:37)
[2020-05-27] MEDS: VALSARTAN 160 MG (DIOVAN) TABLET PO SCH (07:38)
[2020-05-27] MEDS: amLODIPine 10 MG (NORVASC) TAB PO SCH (07:38)
[2020-05-27] MEDS: LOSARTAN 50 MG (COZAAR) TAB PO SCH (07:38)
--- NOTE | 2020-05-27 08:21 | Cardiology Progress Note ---
Subjective Date Seen by Provider: May 27, 2020 Time Seen by Provider: 08:05 Subjective/Events-last exam Patient is with PT, denies any chest pain or dyspnea. Review of Systems General: No Chills, No Night Sweats, No Fatigue, No Malaise, No Appetite, No Other HEENT: No Head Aches, No Visual Changes, No Eye Pain, No Ear Pain, No Dysphasia, No Sinus Congestion, No Post Nasal Drip, No Sore Throat, No Other Pulmonary: No Dyspnea, No Cough, No Pleuritic Chest Pain, No Other Cardiovascular: No: Chest Pain, Palpitations, Orthopnea, Paroxysmal Noc. Dyspnea, Edema, Lt Headedness, Other Objective-Cardiology Exam Last Set of Vital Signs Vital Signs 05/27/20 05/27/20 05/27/20 05:46 07:35 09:20 Temp 36.7 Pulse 74 Resp 16 B/P (MAP) 141/75 (97) Pulse Ox 96 O2 Delivery Room Air Capillary Refill : I&O Intake and Output 05/26/20 23:59 Intake Total 2050 ml Output Total 1350 ml Balance 700 ml Intake Oral 2050 ml Output Urine Total 1350 ml # Bowel Movements 1 General: Alert, Oriented X3, Cooperative HEENT: Atraumatic, PERRLA Neck: Supple, No JVD, No Thyromegaly Lungs: Clear to Auscultation, Normal Air Movement Heart: Regular Rate, Normal S1, Normal S2, No Murmurs Abdomen: Normal Bowel Sounds, Soft, No Tenderness, No Hepatosplenomegaly, No Masses Extremities: No Clubbing, No Cyanosis, No Edema, Normal Pulses, No Tenderness/Swelling Skin: No Rashes, No Breakdown, No Significant Lesion Neuro: Sensation Intact Psych/Mental Status: Other (depressed mood) Results Lab Laboratory Tests 05/27/20 05:25 A/P-Cardiology Admission Diagnosis Cryptogenic CVA HTN HLP Tobaccoism Assessment/Plan Cryptogenic CVA with left sided weakness, on ASA. Carotid duplex done showing nonobstuctive disease bilaterally, 2D Echo done showing grade 2 diastolic dysfu nction with EF 55, left atrial dilatation 4.5cm. Telemetry revealing sinus rhythm. Loop monitor implantation done on 07/20/2020, site is healing well. Hypertension, added metoprolol. Monitor tolerance and response HLP- Lipitor on hold secondary to elevated LFTs Elevated LFTs, planning for US later today Tobaccoism, educated on the importance of smoking cessation Fam Hx CAD Patient was seen and evaluated with Abby, examination performed, management plan was discussed, agree with the current scribed note, I made few changes to the note using Italic font Patient was seen at bedside, blood pressure is poorly controlled. I added metoprolol, monitor tolerance and response Patient has when necessary doses of hydralazine and clonidine, did not require any doses recently, I will discontinue these medication ABBY REY May 27, 2020 8:21 am LAURA ORLANDO MD May 27, 2020 11:59 am
[2020-05-27] MEDS: polyethylene glycoL POWDER 17 GM (MIRALAX) PACK PO SCH ×2 (08:26→20:51)
[2020-05-27] MEDS: SENNA W/DOCUSATE (SENOKOT S) TABLET PO SCH ×2 (08:26→20:51)
[2020-05-27] MEDS: DOCUSATE SODIUM 100 MG (COLACE) CAP PO SCH ×2 (08:26→20:51)
--- NOTE | 2020-05-27 08:58 | Physical Therapy Daily Note ---
PT Daily Note-Current Subjective Patient in WC pre tx, agrees to PT, has no complaints of pain. Appearance Patient in WC post tx with nurse call, phone, tray, all needs met, has OT right after PT. Mental Status Patient Orientation: Normal For Age Transfers SCALE: Activities may be completed with or without assistive devices. 7-Htkdbyrvdy-ecjsfsl completes the activity by him/herself with no assistance from a helper. 5-Set-up or Clean-up Assistance-helper sets up or cleans up; patient completes activity. [place] assists only prior to or following the activity. 4-Supervision or Touching Assistance-helper provides verbal cues and/or to uching/steadying and/or contact guard assistance as patient completes activity. Assistance may be provided throughout the activity or intermittently. 3-Partial/Moderate Assistance-helper does LESS THAN HALF the effort. [place] lifts, holds or supports trunk or limbs, but provides less than half the effort. 2-Substantial/Maximal Assistance-helper does MORE THAN HALF the effort. [place] lifts or holds trunk or limbs and provides more than half the effort. 5-Iudxrkony-euasti does ALL the effort. Patient does none of the effort to complete the activity. Or, the assistance of 2 or more helpers is required for the patient to complete the activity. If activity was not attempted, code reason: 7-Patient Refused. 9-Not Applicable-not attempted and the patient did not perform the activity before the current illness, exacerbation or injury. 10-Not Attempted due to Environmental Limitations-(lack of equipment, weather restraints, etc.). 88-Not Attempted due to Medical Conditions or Safety Concerns. Sit to Stand (QC): 4 Chair/Rdl-wj-Rtsfm Xfer(QC): 4 occasional cues for positioning and safety Weight Bearing Right Lower Extremity: Right Full Weight Bearing Left Lower Extremity: Left Weight Bearing/Tolerated Gait Training Distance: 120'x2 Walk 10 feet (QC): 4 Walk 50 ft with 2 Turns(QC): 4 Gait Persons Needed: 1 Gait Assistive Device: Walker Homer slow, slight left knee hyperextension, able to advance left leg but often with difficulty, uses left AFO Exercises Standing: Step-ups Standing Reps: 10 sidestepping in parallel bars to the end and back x3, lunges x2 with left leg for 30 sec, toe taps with left foot on step x10 NuStep Minutes: 15 NuStep Workload: 4 Treatments transfers, ambulation, functional strengthening Assessment Current Status: Fair Progress improving functional mobility PT Short Term Goals Short Term Goals Time Frame: May 28, 2020 Roll Left & Right: 6 Sit to lyin Lying to sitting on side of be: 3 Sit to stand: 4 Chair/wmv-ok-dhxmp transfer: 3 Walk 10 feet: 3 PT Residential Goals Machine Stuffer Goals PT Machine Stuffer Goals Time Frame: Jun 11, 2020 Roll Left & Right (QC): 6 Sit to Lying (QC): 6 Lying-Sitting on Side/Bed(QC): 6 Sit to Stand (QC): 5 Chair/Nph-bx-Fnjhv Xfer(QC): 4 Toilet Transfer (QC): 4 Car Transfer (QC): 4 Does the Patient Walk: Yes Walk 10 feet (QC): 4 Walk 50ft with 2 Turns (QC): 4 Walk 150 ft (QC): 88 Walking 10ft on Uneven Surface: 4 1 Step (curb) (QC): 3 4 Steps (QC): 3 12 Steps (QC): 88 Picking up an Object (QC): 3 Wheel 50 feet with 2 turns (QC: 6 Wheel 150 feet: 6 PT Plan Problem List Problem List: Activity Tolerance, Functional Strength, Safety, Balance, Gait, Transfer, Bed Mobility, ROM Treatment/Plan Treatment Plan: Continue Plan of Care Treatment Plan: Bed Mobility, Education, Functional Activity Rusty, Functional Strength, Group Therapy, Gait, Safety, Therapeutic Exercise, Transfers Treatment Duration: Jun 11, 2020 Frequency: At least 5 of 7 days/Wk (IRF) Estimated Hrs Per Day: 1.5 hours per day Patient and/or Family Agrees t: Yes Safety Risks/Education Patient Education: Gait Training, Transfer Techniques, Correct Positioning, Safety Issues Teaching Recipient: Patient Teaching Methods: Demonstration, Discussion Response to Teaching: Reinforcement Needed Time/GCodes Time In: 0800 Time Out: 0900 Total Billed Treatment Time: 60 Total Billed Treatment 1 visit GT 15' FA 15' EX 30' IVY HYDE PT May 27, 2020 08:58
--- NOTE | 2020-05-27 09:56 | Occupational Ther Daily Note ---
OT Current Status-Daily Note Subjective Pt seated in w/c, agreeable to OT tx. Pt does not report any pain. ADL-Treatment Therapy Code Descriptions/Definitions Functional [place] Measure: 0=Not Assessed/NA 4=Minimal Assistance 1=Total Assistance 5=Supervision or Setup 2=Maximal Assistance 6=Modified [place] 3=Moderate Assistance 7=Complete IndependenceSCALE: Activities may be completed with or without assistive devices. 2-Bbytpojcmr-oxslijg completes the activity by him/herself with no assistance from a helper. 5-Set-up or Clean-up Assistance-helper sets up or cleans up; patient completes activity. [place] assists only prior to or following the activity. 4-Supervision or Touching Assistance-helper provides verbal cues and/or to uching/steadying and/or contact guard assistance as patient completes activity. Assistance may be provided throughout the activity or intermittently. 3-Partial/Moderate Assistance-helper does LESS THAN HALF the effort. [place] lifts, holds or supports trunk or limbs, but provides less than half the effort. 2-Substantial/Maximal Assistance-helper does MORE THAN HALF the effort. [place] lifts or holds trunk or limbs and provides more than half the effort. 1-Emhmmlnrr-lysluh does ALL the effort. Patient does none of the effort to complete the activity. Or, the assistance of 2 or more helpers is required for the patient to complete the activity. If activity was not attempted, code reason: 7-Patient Refused. 9-Not Applicable-not attempted and the patient did not perform the activity before the current illness, exacerbation or injury. 10-Not Attempted due to Environmental Limitations-(lack of equipment, weather restraints, etc.). 88-Not Attempted due to Medical Conditions or Safety Concerns. Oral Hygiene (QC): 6 (Per pt report, pt completed at w/c level prior to tx.) Bathing Location: L Arm, R Arm, L Upper Leg, R Upper Leg, L Lower Leg (including foot), Chest, Abdomen, Buttocks, Perineal Area Shower/Bathe Self (QC): 4 (SBA, pt able to wash all parts seated on SC. OT educated pt on using long handled sponge in order to wash RUE, back, and LLE.) Upper Body Dressing (QC): 3 (Pt doffed shirt SBA, min A with donning LUE. Pt threaded LUE first, but hand slipped out while donning overhead. Assist to manage shirt down trunk.) Lower Body Dressing (QC): 4 (Pt able to doff/don pants with CGA in stand at GBs. Min verbal cues for sequencing.) On/Off Footwear: 3 (Pt able to doff socks/shoes/AFO, assist with undoing velcro of AFO. Pt then able to don socks/R shoe using dycem and figure 4 method, assist donning L shoe/AFO/TedHose.) Other Treatment Pt seated in w/c, used hemiwalker to ambulate into bathroom and onto GA, CGA. Pt doffed clothes and completed shower. OT educated pt on using long handled sponge in order to wash RUE, back, and L lower leg/foot. Pt then able to shower with SBA. Pt transferred to w/c to don clothes. He sat at sink to complete hair brushing independently. Pt transferred to bed via SPT, SBA. Post tx, pt laying in bed, call light in reach and all needs met. Education OT Patient Education: Correct positioning, Energy conservation, Modified ADL techniques, Progress toward Goal/Update tx plan, Purpose of tx/functional activities, Use of adapted equipment Teaching Recipient: Patient Teaching Methods: Discussion Response to Teaching: Verbalize Understanding OT Short Term Goals Short Term Goals Time Frame: Jun 05, 2020 Shower/bathe self: 3 Lower body dressin Putting on/taking off footwear: 3 OT [facility] Goals [facility] Goals Time Frame: Jun 14, 2020 Eating (QC): 6 Oral Hygiene (QC): 6 Toileting Hygiene (QC): 6 Shower/Bathe Self (QC): 4 Upper Body Dressing (QC): 5 Lower Body Dressing (QC): 4 On/Off Footwear (QC): 5 Additional Goals: 1-Demonstrate ADL Tasks, 2-Verbalize Understanding, 3- ImproveStrength/Rusty 1=Demonstrate adherence to instructed precautions during ADL tasks. 2=Patient will verbalize/demonstrate understanding of assistive devices/modifications for ADL. 3=Patient will improve strength/tolerance for activity to enable patient to perform ADL's. OT Education/Plan Problem List/Assessment Assessment: Decreased Activ Tolerance, Decreased UE Strength Discharge Recommendations Plan/Recommendations: Continue POC Treatment Plan/Plan of Care Patient would benefit from OT for education, treatment and training to promote independence in ADL's, mobility, safety and/or upper extremity function for ADL's. Plan of Care: ADL Retraining, Functional Mobility, Group Exercise/Act as Ind, UE Funct Exercise/Act Treatment Duration: Jun 14, 2020 Frequency: At least 5 of 7 days/Wk (IRF) Estimated Hrs Per Day: 1.5 hours per day Rehab Potential: Fair Time/GCodes Start Time: 09:00 Stop Time: 10:00 Total Time Billed (hr/min): 60 Billed Treatment Time 1, ADL 4 TRACIE JAY OT May 27, 2020 09:56
--- NOTE | 2020-05-27 10:36 | PM&R Progress Note ---
Subjective HPI/CC On Admission Date Seen by Provider: May 27, 2020 Time Seen by Provider: 10:30 Subjective/Events-last exam 05/27/20: Pt doing very well Baclofen will be given for the left arm muscle spasms Elevated liver enzymes prompting abdominal ultrasound, ordered by Dr. Rios Overall doing pretty well otherwise 05/26/20: Patient doing well Frustrated with his situation but we can only support him so he can adjust at bedside today TC 178 Pivoting is improved 05/25/20: Left arm remains flaccid Walked to the gym and did well patient tearful at times or on the verge when he talks about his arm BM today No pain reported Tendency for somatic issues 05/24/20: Patient in better mood Tearful at times BM+ Slight elevated in LFT's SCD's refused by patient Showered today 05/23/20: Tearful at times Sore from loop recorder yesterday Wedding ring will be removed today by nursing radio time sales supervisor Labs stable BP ok 05/22/20: Loop recorder was placed today by Dr. Rios BP 152/68 Swelling in his left hand, will get his wedding ring off today Very tearful at times Bowels moved four days ago so will initiate laxatives Review of Systems General: Fatigue, Malaise Neurological: Weakness, Incoordination Objective Exam Vital Signs Vital Signs Date Time Temp Pulse Resp B/P (MAP) Pulse Ox O2 Delivery O2 Flow Rate FiO2 05/27/20 21:00 Room Air 05/27/20 18:00 37.0 77 18 144/72 (96) 97 Capillary Refill : General Appearance: No Apparent Distress, WD/WN, Chronically ill, Obese HEENT: PERRL/EOMI, Normal ENT Inspection, Pharynx Normal Neck: Full Range of Motion, Normal Inspection, Non Tender, Supple, Carotid Bruit Respiratory: Chest Non Tender, Lungs Clear, Normal Breath Sounds, No Accessory Muscle Use, No Respiratory Distress Cardiovascular: Regular Rate, Rhythm, No Edema, No Gallop, No JVD, No Murmur, Normal Peripheral Pulses Gastrointestinal: Normal Bowel Sounds, No Organomegaly, No Pulsatile Mass, Non Tender, Soft Back: Normal Inspection, No CVA Tenderness, No Vertebral Tenderness Extremity: Normal Capillary Refill, Normal Inspection, Normal Range of Motion, Non Tender, No Calf Tenderness, No Pedal Edema Neurologic/Psychiatric: Alert, Oriented x3, Abnormal Gait, Depressed Affect, Motor Weakness (left sidded 04/02) Skin: Normal Color, Warm/Dry Lymphatic: No Adenopathy Results/Procedures Lab Patient resulted labs reviewed. FIM Transfers Therapy Code Descriptions/Definitions Functional [place] Measure: 0=Not Assessed/NA 4=Minimal Assistance 1=Total Assistance 5=Supervision or Setup 2=Maximal Assistance 6=Modified [place] 3=Moderate Assistance 7=Complete IndependenceSCALE: Activities may be completed with or without assistive devices. 0-Hpzfzzvhzm-vdvcpkb completes the activity by him/herself with no assistance from a helper. 5-Set-up or Clean-up Assistance-helper sets up or cleans up; patient completes a ctivity. [place] assists only prior to or following the activity. 4-Supervision or Touching Assistance-helper provides verbal cues and/or touching/steadying and/or contact guard assistance as patient completes activity. Assistance may be provided throughout the activity or intermittently. 3-Partial/Moderate Assistance-helper does LESS THAN HALF the effort. [place] lifts, holds or supports trunk or limbs, but provides less than half the effort. 2-Substantial/Maximal Assistance-helper does MORE THAN HALF the effort. [place] lifts or holds trunk or limbs and provides more than half the effort. 2-Tyglikdoc-behaxx does ALL the effort. Patient does none of the effort to complete the activity. Or, the assistance of 2 or more helpers is required for the patient to complete the activity. If activity was not attempted, code reason: 7-Patient Refused. 9-Not Applicable-not attempted and the patient did not perform the activity before the current illness, exacerbation or injury. 10-Not Attempted due to Environmental Limitations-(lack of equipment, weather restraints, etc.). 88-Not Attempted due to Medical Conditions or Safety Concerns. Roll Left to Right (QC): 6 Sit to Lying (QC): 3 Sit to Stand (QC): 4 Chair/Ntq-pl-Xuarg Xfer(QC): 4 Car Transfer (QC): 3 Gait Training Does the Patient Walk?: Yes Distance: 120'x2 Walk 10 feet (QC): 4 Walk 50 ft with 2 Turns(QC): 4 Walk 150 ft (QC): 88 Walking 10ft/uneven surface-QC: 88 Gait Persons Needed: 1 Gait Assistive Device: Walker [place] Wheelchair Training Does the Pt Use a Wheelchair?: Yes Distance: 120'x2 Wheel 50 ft with 2 turns (QC): 2 Wheel 150 ft (QC): 88 Type of Wheelchair: Manual Stair Training 1 Step (curb) (QC): 88 4 Steps (QC): 88 12 Steps (QC): 88 Balance Picking up an Object (QC): 88 ADL-Treatment Eating (QC): 5 (Based on clinical judgement and discussion with pt, pt would require set up assist) Oral Hygiene (QC): 6 (Per pt report, pt completed at w/c level prior to tx.) Bathing Location: L Arm, R Arm, L Upper Leg, R Upper Leg, L Lower Leg (including foot), Chest, Abdomen, Buttocks, Perineal Area Shower/Bathe Self (QC): 4 (SBA, pt able to wash all parts seated on SC. OT educated pt on using long handled sponge in order to wash RUE, back, and LLE.) Upper Body Dressing (QC): 3 (Pt doffed shirt SBA, min A with donning LUE. Pt threaded LUE first, but hand slipped out while donning overhead. Assist to manage shirt down trunk.) Lower Body Dressing (QC): 4 (Pt able to doff/don pants with CGA in stand at GBs. Min verbal cues for sequencing.) On/Off Footwear (QC): 3 (Pt able to doff socks/shoes/AFO, assist with undoing velcro of AFO. 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 s/p loop recorder 05/22/20 Smoker New onset HTN HLP Fall upon arrival to unit with in room Elevated LFT's with normal liver USG Plan: PT OT Statin ASA Lovenox Monitor closely IRF protocol 05/22/20: Remove wedding ring left finger OT for edema management of the left hand Loop recorder 05/23/20: Wedding ring removed OT PT Monitor BP 05/24/20: Patient refuses SCD's Monitor BP Fall risk 05/25/20: Monitor closely Ambulating well with homer-cane Loop recorder 05/26/20: Statin BP control Monitor closely 05/27/20: USG liver Elevated LFT's will be monitored DC monster drinks and soda (1) CVA (cerebral vascular accident) (2) Essential (primary) hypertension (3) Tobacco abuse (4) Hyperlipidemia RADHA COPPOLA DO May 27, 2020 10:36
--- NOTE | 2020-05-27 11:08 | Speech Therapy Daily Note ---
Speech Daily Progress Note Subjective Date Seen by Provider: May 27, 2020 Time Seen by Provider: 00:30 Patient was alert and resting in his bed upon my arrival. Objective Patient completed 25 minutes of 5.5 vital stimulation with OME sets with good response. Assessment Assessment Current Status: Good Progress Treatment Plan Continue Plan of Care Speech Short Term Goals Short Term Goals Short Term Goals 1) Patient will tolerate least restrictive diet level per physician's order at 90% or greater. 2) Patient/caregiver will utilize compensatory strategies as trained for safe oral intake at 90% or greater without cues. 3) Patient will complete OME as directed 4-5x per week. Speech Watch And Clock Repairer Goals Watch And Clock Repairer Goals Patient will improve swallowing and speech abilities to communicate better/easier with others. Speech-Plan Patient/Family Goals Patient/Family Goals: Patient plans on returning to his home where he lives with his and three children. Treatment Plan Speech Therapy Treatment Plan: Continue Plan of Care Patient is having a liver test this afternoon. Treatment Duration: Jun 07, 2020 Frequency: 4 times per week (Patient receives skilled ST 4-5x per week) Estimated Hrs Per Day: .5 hour per day Rehab Potential: Fair Barriers to Learning: Patient's recent CVA, although no cognitive deficits at this time Pt/Family Agrees to Plan: Yes Safety Risks/Education Teaching Recipient: Patient Teaching Methods: Demonstration, Discussion Response to Teaching: Verbalize Understanding, Return Demonstration Education Topics Provided: Vital stimulation placement, patient concerned that he is unable to swish on one side, explained the anatomy and crossover deficit of CVA Time Speech Therapy Time In: 10:00 Speech Therapy Time Out: 10:30 Total Billed Time: 30 Billed Treatment Time 1, TATUM, DYST GAVI Limon May 27, 2020 11:08
--- NOTE | 2020-05-27 11:29 | Occupational Ther Daily Note ---
OT Current Status-Daily Note Subjective Pt laying in bed, agreeable to OT Tx. Mental Status/Objective Patient Orientation: Person, Place, Time, Situation ADL-Treatment Therapy Code Descriptions/Definitions Functional [place] Measure: 0=Not Assessed/NA 4=Minimal Assistance 1=Total Assistance 5=Supervision or Setup 2=Maximal Assistance 6=Modified [place] 3=Moderate Assistance 7=Complete IndependenceSCALE: Activities may be completed with or without assistive devices. 5-Qsxfsannnt-erdjzdt completes the activity by him/herself with no assistance from a helper. 5-Set-up or Clean-up Assistance-helper sets up or cleans up; patient completes activity. [place] assists only prior to or following the activity. 4-Supervision or Touching Assistance-helper provides verbal cues and/or touching/steadying and/or contact guard assistance as patient completes activity. Assistance may be provided throughout the activity or intermittently. 3-Partial/Moderate Assistance-helper does LESS THAN HALF the effort. [place] lifts, holds or supports trunk or limbs, but provides less than half the effort. 2-Substantial/Maximal Assistance-helper does MORE THAN HALF the effort. [place] lifts or holds trunk or limbs and provides more than half the effort. 8-Ncjtupcsf-ytjbep does ALL the effort. Patient does none of the effort to complete the activity. Or, the assistance of 2 or more helpers is required for the patient to complete the activity. If activity was not attempted, code reason: 7-Patient Refused. 9-Not Applicable-not attempted and the patient did not perform the activity before the current illness, exacerbation or injury. 10-Not Attempted due to Environmental Limitations-(lack of equipment, weather restraints, etc.). 88-Not Attempted due to Medical Conditions or Safety Concerns. Other Treatment Pt laying in bed. Pt performed x10 reps AAROM LUE scapular elevation/depression, and protraction/retraction. Noted slight movement with motions, but pt fatigues quickly. OT then performed x10 reps LUE PROM elbow flexion/extension, wrist flexion/extension, wrist ulnar/radial deviation, and finger flexion/extension. Pt reports slight pain in L bicep with elbow flexion. OT educated pt to complete exercises throughout the day, educating him on how to complete elbow flexion self-PROM, he demo'd understanding. Post tx, pt laying in bed, call light in reach and all needs met. Education OT Patient Education: Correct positioning, Exercise program, Modified ADL techniques, Progress toward Goal/Update tx plan, Purpose of tx/functional activities Teaching Recipient: Patient Teaching Methods: Discussion Response to Teaching: Verbalize Understanding OT Short Term Goals Short Term Goals Time Frame: Jun 05, 2020 Shower/bathe self: 3 Lower body dressin Putting on/taking off footwear: 3 OT Area Intelligence Technician Goals Area Intelligence Technician Goals Time Frame: Jun 14, 2020 Eating (QC): 6 Oral Hygiene (QC): 6 Toileting Hygiene (QC): 6 Shower/Bathe Self (QC): 4 Upper Body Dressing (QC): 5 Lower Body Dressing (QC): 4 On/Off Footwear (QC): 5 Additional Goals: 1-Demonstrate ADL Tasks, 2-Verbalize Understanding, 3- ImproveStrength/Rusty 1=Demonstrate adherence to instructed precautions during ADL tasks. 2=Patient will verbalize/demonstrate understanding of assistive devices/modifications for ADL. 3=Patient will improve strength/tolerance for activity to enable patient to perform ADL's. OT Education/Plan Problem List/Assessment Assessment: Decreased Activ Tolerance, Decreased UE Strength, Impaired I ADL's, Impaired Self-Care Skills, Restricted Funct UE ROM Discharge Recommendations Plan/Recommendations: Continue POC Treatment Plan/Plan of Care Patient would benefit from OT for education, treatment and training to promote independence in ADL's, mobility, safety and/or upper extremity function for ADL's. Plan of Care: ADL Retraining, Functional Mobility, Group Exercise/Act as Ind, UE Funct Exercise/Act Treatment Duration: Jun 14, 2020 Frequency: At least 5 of 7 days/Wk (IRF) Estimated Hrs Per Day: 1.5 hours per day Rehab Potential: Fair Time/GCodes Start Time: 11:00 Stop Time: 11:15 Total Time Billed (hr/min): 15 Billed Treatment Time 1, EX TRACIE JAY OT May 27, 2020 11:29
--- NOTE | 2020-05-27 14:15 | Physical Therapy Daily Note ---
PT Daily Note-Current Subjective Patient in bed pre tx, agrees to PT, has no complaints of pain. Appearance Patient in bed post tx with nurse call, phone, tray, all needs met. Mental Status Patient Orientation: Person, Place, Situation, Normal For Age Transfers SCALE: Activities may be completed with or without assistive devices. 2-Ryeigkffit-lkdokys completes the activity by him/herself with no assistance from a helper. 5-Set-up or Clean-up Assistance-helper sets up or cleans up; patient completes activity. [place] assists only prior to or following the activity. 4-Supervision or Touching Assistance-helper provides verbal cues and/or touching/steadying and/or contact guard assistance as patient completes activity. Assistance may be provided throughout the activity or intermittently. 3-Partial/Moderate Assistance-helper does LESS THAN HALF the effort. [place] lifts, holds or supports trunk or limbs, but provides less than half the effort. 2-Substantial/Maximal Assistance-helper does MORE THAN HALF the effort. [place] lifts or holds trunk or limbs and provides more than half the effort. 5-Sebrfoymh-zgmhmw does ALL the effort. Patient does none of the effort to complete the activity. Or, the assistance of 2 or more helpers is required for the patient to complete the activity. If activity was not attempted, code reason: 7-Patient Refused. 9-Not Applicable-not attempted and the patient did not perform the activity before the current illness, exacerbation or injury. 10-Not Attempted due to Environmental Limitations-(lack of equipment, weather restraints, etc.). 88-Not Attempted due to Medical Conditions or Safety Concerns. Weight Bearing Right Lower Extremity: Right Full Weight Bearing Left Lower Extremity: Left Weight Bearing/Tolerated Exercises Supine Ex: Quad Set, Glut sets, Heel Slides (AAROM), Short Arc Quads, Straight leg raise, Hip abd/add (AAROM) Supine Reps: 20 left hamstring stretching Treatments LLE stretching and ROM Assessment Current Status: Fair Progress improving active movement of left leg PT Short Term Goals Short Term Goals Time Frame: May 28, 2020 Roll Left & Right: 6 Sit to lyin Lying to sitting on side of be: 3 Sit to stand: 4 Chair/fql-ke-znkrn transfer: 3 Walk 10 feet: 3 PT [facility] Goals [facility] Goals PT Print Graphic Designer Goals Time Frame: Jun 11, 2020 Roll Left & Right (QC): 6 Sit to Lying (QC): 6 Lying-Sitting on Side/Bed(QC): 6 Sit to Stand (QC): 5 Chair/Ovx-jl-Rwbiw Xfer(QC): 4 Toilet Transfer (QC): 4 Car Transfer (QC): 4 Does the Patient Walk: Yes Walk 10 feet (QC): 4 Walk 50ft with 2 Turns (QC): 4 Walk 150 ft (QC): 88 Walking 10ft on Uneven Surface: 4 1 Step (curb) (QC): 3 4 Steps (QC): 3 12 Steps (QC): 88 Picking up an Object (QC): 3 Wheel 50 feet with 2 turns (QC: 6 Wheel 150 feet: 6 PT Plan Problem List Problem List: Activity Tolerance, Functional Strength, Safety, Balance, Gait, Transfer, Bed Mobility, ROM Treatment/Plan Treatment Plan: Continue Plan of Care Treatment Plan: Bed Mobility, Education, Functional Activity Rusty, Functional Strength, Group Therapy, Gait, Safety, Therapeutic Exercise, Transfers Treatment Duration: Jun 11, 2020 Frequency: At least 5 of 7 days/Wk (IRF) Estimated Hrs Per Day: 1.5 hours per day Patient and/or Family Agrees t: Yes Safety Risks/Education Patient Education: Correct Positioning, Safety Issues Teaching Recipient: Patient Teaching Methods: Demonstration, Discussion Response to Teaching: Reinforcement Needed Time/GCodes Time In: 1330 Time Out: 1345 Total Billed Treatment Time: 15 Total Billed Treatment 1 visit EX 15' IVY HYDE PT May 27, 2020 14:15
--- NOTE | 2020-05-27 16:48 | Diagnostic Imaging Report ---
PROCEDURE: US Hepatic (Liver). TECHNIQUE: Multiple real-time grayscale images were obtained over the right upper quadrant in various projections. INDICATION: Elevated liver enzymes. Liver parenchyma is homogeneous with normal echotexture. There is a 12 mm cyst on the anterior surface of the right lobe of the liver. The portal vein is patent with hepatopetal flow. The gallbladder is clear with no stones or wall thickening. The common duct is obscured by bowel gas. Pancreas is obscured by bowel gas. Aorta and IVC appear grossly normal. Right kidney measures 12.2 cm in length and appears normal. There is no ascites. IMPRESSION: Liver and gallbladder appear grossly normal. Dictated by: Dictated on workstation # [id number]
[2020-05-27 18:00] VITALS: BP 144/72
[2020-05-27] MEDS: BACLOFEN 10 MG (LIORESAL) TAB PO PRN (20:50)
[2020-05-27] MEDS: ENOXAPARIN 40 MG/0.4 ML (LOVENOX) SYR SC SCH (20:50)
[2020-05-28 06:20] VITALS: BP 119/56
[2020-05-28] MEDS: amLODIPine 10 MG (NORVASC) TAB PO SCH (08:48)
[2020-05-28] MEDS: VALSARTAN 160 MG (DIOVAN) TABLET PO SCH (08:48)
[2020-05-28] MEDS: ASPIRIN 325 MG (5 GR) TABLET PO SCH (08:48)
[2020-05-28] MEDS: SENNA W/DOCUSATE (SENOKOT S) TABLET PO SCH ×2 (08:49→21:35)
[2020-05-28] MEDS: polyethylene glycoL POWDER 17 GM (MIRALAX) PACK PO SCH ×2 (08:49→22:32)
[2020-05-28] MEDS: DOCUSATE SODIUM 100 MG (COLACE) CAP PO SCH ×2 (08:49→21:35)
--- NOTE | 2020-05-28 08:49 | Cardiology Progress Note ---
Subjective Date Seen by Provider: May 28, 2020 Time Seen by Provider: 08:00 Subjective/Events-last exam Patient with PT, no new complaints. Denies any chest pain. Review of Systems General: No Chills, No Night Sweats, No Fatigue, No Malaise, No Appetite, No Other HEENT: No Head Aches, No Visual Changes, No Eye Pain, No Ear Pain, No Dysphasia, No Sinus Congestion, No Post Nasal Drip, No Sore Throat, No Other Pulmonary: No Dyspnea, No Cough, No Pleuritic Chest Pain, No Other Cardiovascular: No: Chest Pain, Palpitations, Orthopnea, Paroxysmal Noc. Dyspnea, Edema, Lt Headedness, Other Objective-Cardiology Exam Last Set of Vital Signs Vital Signs 05/28/20 05/28/20 06:20 09:41 Temp 36.6 Pulse 68 Resp 18 B/P (MAP) 119/56 (77) Pulse Ox 98 O2 Delivery Room Air Capillary Refill : I&O Intake and Output 05/28/20 00:00 Intake Total 1460 ml Output Total 1550 ml Balance -90 ml Intake Oral 1460 ml Output Urine Total 1550 ml General: Alert, Oriented X3, Cooperative HEENT: Atraumatic, PERRLA Neck: Supple, No JVD, No Thyromegaly Lungs: Clear to Auscultation, Normal Air Movement Heart: Regular Rate, Normal S1, Normal S2, No Murmurs Abdomen: Normal Bowel Sounds, Soft, No Tenderness, No Hepatosplenomegaly, No Masses Extremities: No Clubbing, No Cyanosis, No Edema, Normal Pulses, No Tenderness/Swelling Skin: No Rashes, No Breakdown, No Significant Lesion Neuro: Sensation Intact Psych/Mental Status: Other (depressed mood) A/P-Cardiology Admission Diagnosis Cryptogenic CVA HTN HLP Tobaccoism Assessment/Plan Cryptogenic CVA with left sided weakness, on ASA. 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 Telemetry revealing sinus rhythm. Loop monitor implantation done on 07/20/2020, site is healing well. Hypertension, well controlled on current medications, continue to monitor. HLP- Lipitor on hold secondary to elevated LFTs. Liver US WNL Tobaccoism, educated on the importance of smoking cessation Fam Hx CAD Patient was seen and evaluated with Abby, examination performed, management plan was discussed, agree with the current scribed note, I made few changes to the note using Italic font Patient was seen during physical therapy, doing well, no new complaint Blood pressure is better controlled Loop monitor site is healing well ABBY REY May 28, 2020 08:49 LAURA ORLANDO MD May 28, 2020 12:43
--- NOTE | 2020-05-28 08:53 | Physical Therapy Daily Note ---
PT Daily Note-Current Subjective Patient in WC pre tx, agrees to PT, has no complaints of pain. Appearance Patient in WC at bedside post tx with nurse call, phone, tray, all needs met. Mental Status Patient Orientation: Normal For Age Transfers SCALE: Activities may be completed with or without assistive devices. 4-Ffimnozfaj-qejnuwg completes the activity by him/herself with no assistance from a helper. 5-Set-up or Clean-up Assistance-helper sets up or cleans up; patient completes activity. [place] assists only prior to or following the activity. 4-Supervision or Touching Assistance-helper provides verbal cues and/or touching/steadying and/or contact guard assistance as patient completes activity. Assistance may be provided throughout the activity or intermittently. 3-Partial/Moderate Assistance-helper does LESS THAN HALF the effort. [place] lifts, holds or supports trunk or limbs, but provides less than half the effort. 2-Substantial/Maximal Assistance-helper does MORE THAN HALF the effort. [place] lifts or holds trunk or limbs and provides more than half the effort. 7-Kkwmnjsem-umkzvw does ALL the effort. Patient does none of the effort to complete the activity. Or, the assistance of 2 or more helpers is required for the patient to complete the activity. If activity was not attempted, code reason: 7-Patient Refused. 9-Not Applicable-not attempted and the patient did not perform the activity before the current illness, exacerbation or injury. 10-Not Attempted due to Environmental Limitations-(lack of equipment, weather restraints, etc.). 88-Not Attempted due to Medical Conditions or Safety Concerns. Sit to Stand (QC): 4 Chair/Ecy-mm-Vzfav Xfer(QC): 4 Patient puts on his own sock but needs assist with the shoe that has the AFO Weight Bearing Right Lower Extremity: Right Full Weight Bearing Left Lower Extremity: Left Weight Bearing/Tolerated Gait Training Distance: 150', 120' Walk 10 feet (QC): 4 Walk 50 ft with 2 Turns(QC): 4 Walk 150 ft (QC): 4 Gait Assistive Device: Cane Large Base Quad slow, CGA, minor occasional hyperextension of the left knee Exercises sit to stands 2 sets of 10, LAQ left side for 5 min NuStep Minutes: 15 NuStep Workload: 4 Treatments transfers, ambulation, functional strengthening Assessment Current Status: Fair Progress improved balance during ambulation, now uses a quad cane PT Short Term Goals Short Term Goals Time Frame: May 28, 2020 Roll Left & Right: 6 Sit to lyin Lying to sitting on side of be: 3 Sit to stand: 4 Chair/cfi-hi-fesmn transfer: 3 Walk 10 feet: 3 PT Vice President Investor Relations Goals Vice President Investor Relations Goals PT Vice President Investor Relations Goals Time Frame: Jun 11, 2020 Roll Left & Right (QC): 6 Sit to Lying (QC): 6 Lying-Sitting on Side/Bed(QC): 6 Sit to Stand (QC): 5 Chair/Dhx-de-Ltmow Xfer(QC): 4 Toilet Transfer (QC): 4 Car Transfer (QC): 4 Does the Patient Walk: Yes Walk 10 feet (QC): 4 Walk 50ft with 2 Turns (QC): 4 Walk 150 ft (QC): 88 Walking 10ft on Uneven Surface: 4 1 Step (curb) (QC): 3 4 Steps (QC): 3 12 Steps (QC): 88 Picking up an Object (QC): 3 Wheel 50 feet with 2 turns (QC: 6 Wheel 150 feet: 6 PT Plan Problem List Problem List: Activity Tolerance, Functional Strength, Safety, Balance, Gait, Transfer, Bed Mobility, ROM Treatment/Plan Treatment Plan: Continue Plan of Care Treatment Plan: Bed Mobility, Education, Functional Activity Rusty, Functional Strength, Group Therapy, Gait, Safety, Therapeutic Exercise, Transfers Treatment Duration: Jun 11, 2020 Frequency: At least 5 of 7 days/Wk (IRF) Estimated Hrs Per Day: 1.5 hours per day Patient and/or Family Agrees t: Yes Safety Risks/Education Patient Education: Gait Training, Transfer Techniques, Correct Positioning, Safety Issues Teaching Recipient: Patient Teaching Methods: Demonstration, Discussion Response to Teaching: Reinforcement Needed Time/GCodes Time In: 0800 Time Out: 0900 Total Billed Treatment Time: 60 Total Billed Treatment 1 visit EX 30' GT 30' IVY HYDE PT May 28, 2020 08:53
--- NOTE | 2020-05-28 10:00 | Occupational Ther Daily Note ---
OT Current Status-Daily Note Subjective Pt seated in w/c, agreeable to OT tx. Pt states worn out after PT tx. Mental Status/Objective Patient Orientation: Person, Place, Time, Situation ADL-Treatment Therapy Code Descriptions/Definitions Functional [place] Measure: 0=Not Assessed/NA 4=Minimal Assistance 1=Total Assistance 5=Supervision or Setup 2=Maximal Assistance 6=Modified [place] 3=Moderate Assistance 7=Complete IndependenceSCALE: Activities may be completed with or without assistive devices. 3-Uegwqmdabs-gwanzrj completes the activity by him/herself with no assistance from a helper. 5-Set-up or Clean-up Assistance-helper sets up or cleans up; patient completes activity. [place] assists only prior to or following the activity. 4-Supervision or Touching Assistance-helper provides verbal cues and/or touching/steadying and/or contact guard assistance as patient completes activity. Assistance may be provided throughout the activity or intermittently. 3-Partial/Moderate Assistance-helper does LESS THAN HALF the effort. [place] lifts, holds or supports trunk or limbs, but provides less than half the effort. 2-Substantial/Maximal Assistance-helper does MORE THAN HALF the effort. [place] lifts or holds trunk or limbs and provides more than half the effort. 1-Ioklfxvxn-ugsydg does ALL the effort. Patient does none of the effort to complete the activity. Or, the assistance of 2 or more helpers is required for the patient to complete the activity. If activity was not attempted, code reason: 7-Patient Refused. 9-Not Applicable-not attempted and the patient did not perform the activity before the current illness, exacerbation or injury. 10-Not Attempted due to Environmental Limitations-(lack of equipment, weather restraints, etc.). 88-Not Attempted due to Medical Conditions or Safety Concerns. Oral Hygiene (QC): 7 Shower/Bathe Self (QC): 7 Upper Body Dressing (QC): 7 Lower Body Dressing (QC): 7 Other Treatment Pt seated in w/c, used quad cane to ambulate to therapy gym, slow pace with slight balance assist at times. OT tx focused on neuromuscular reeducation of LUE, increasing dynamic standing balance. OT sat on mat, performing weight bearing through LUE, extended elbow x5, and on forearm with bent elbow x5. Pt expresses fear of falling forward and not trusting his LUE, no LOB noted with activity. Pt then stood at parallel bars, OT placed LUE on bar. Clothespins placed around pt's waist on his clothes to promote standing balance with ADLs. Pt then removed clothespins. Task performed x2. He then stood at parallel bars, weight bearing through LUE as he placed/removed graded clothes pins with RUE, x2. Pt sat in w/c, self-propelling w/c back to his room, then transferred to bed, SPT CGA. Post tx, pt in bed, call light in reach and all needs met. Education OT Patient Education: Correct positioning, Modified ADL techniques, Progress toward Goal/Update tx plan, Purpose of tx/functional activities Teaching Recipient: Patient Teaching Methods: Discussion Response to Teaching: Verbalize Understanding OT Short Term Goals Short Term Goals Time Frame: Jun 05, 2020 Shower/bathe self: 3 Lower body dressin Putting on/taking off footwear: 3 OT Residential Goals Information Security Director Goals Time Frame: Jun 14, 2020 Eating (QC): 6 Oral Hygiene (QC): 6 Toileting Hygiene (QC): 6 Shower/Bathe Self (QC): 4 Upper Body Dressing (QC): 5 Lower Body Dressing (QC): 4 On/Off Footwear (QC): 5 Additional Goals: 1-Demonstrate ADL Tasks, 2-Verbalize Understanding, 3- ImproveStrength/Rusty 1=Demonstrate adherence to instructed precautions during ADL tasks. 2=Patient will verbalize/demonstrate understanding of assistive devices/modifications for ADL. 3=Patient will improve strength/tolerance for activity to enable patient to perform ADL's. OT Education/Plan Problem List/Assessment Assessment: Decreased Activ Tolerance, Decreased UE Strength, Impaired Funct Balance, Impaired I ADL's, Impaired Self-Care Skills, Restricted Funct UE ROM Discharge Recommendations Plan/Recommendations: Continue POC Treatment Plan/Plan of Care Patient would benefit from OT for education, treatment and training to promote independence in ADL's, mobility, safety and/or upper extremity function for ADL's. Plan of Care: ADL Retraining, Functional Mobility, Group Exercise/Act as Ind, UE Funct Exercise/Act Treatment Duration: Jun 14, 2020 Frequency: At least 5 of 7 days/Wk (IRF) Estimated Hrs Per Day: 1.5 hours per day Rehab Potential: Fair Time/GCodes Start Time: 09:00 Stop Time: 10:00 Total Time Billed (hr/min): 60 Billed Treatment Time 1, FA 4 TRACIE JAY OT May 28, 2020 10:00
--- NOTE | 2020-05-28 10:40 | PM&R Progress Note ---
Subjective HPI/CC On Admission Date Seen by Provider: May 28, 2020 Time Seen by Provider: 10:30 Subjective/Events-last exam 05/28/20: Lipitor stopped by Dr. Rios due to elevated liver enzymes Behavioral note will be evaluated Baclofen taken last night, doesnt know if it worked or not so maintain that and evaluate further Bowels moved yesterday 05/27/20: Pt doing very well Baclofen will be given for the left arm muscle spasms Elevated liver enzymes prompting abdominal ultrasound, ordered by Dr. 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 Rios BP 152/68 Swelling in his left hand, will get his wedding ring off today Very tearful at times Bowels moved four days ago so will initiate laxatives Review of Systems Neurological: Weakness, Incoordination Objective Exam Vital Signs Vital Signs Date Time Temp Pulse Resp B/P (MAP) Pulse Ox O2 Delivery O2 Flow Rate FiO2 05/28/20 20:10 Room Air 05/28/20 16:00 37.0 78 16 131/73 (92) 97 Capillary Refill : General Appearance: No Apparent Distress, WD/WN, Chronically ill, Obese HEENT: PERRL/EOMI, Normal ENT Inspection, Pharynx Normal Neck: Full Range of Motion, Normal Inspection, Non Tender, Supple, Carotid Bruit Respiratory: Chest Non Tender, Lungs Clear, Normal Breath Sounds, No Accessory Muscle Use, No Respiratory Distress Cardiovascular: Regular Rate, Rhythm, No Edema, No Gallop, No JVD, No Murmur, Normal Peripheral Pulses Gastrointestinal: Normal Bowel Sounds, No Organomegaly, No Pulsatile Mass, Non Tender, Soft Back: Normal Inspection, No CVA Tenderness, No Vertebral Tenderness Extremity: Normal Capillary Refill, Normal Inspection, Normal Range of Motion, Non Tender, No Calf Tenderness, No Pedal Edema Neurologic/Psychiatric: Alert, Oriented x3, Abnormal Gait, Depressed Affect, Motor Weakness (left sidded 1/) Skin: Normal Color, Warm/Dry Lymphatic: No Adenopathy Results/Procedures Lab Patient resulted labs reviewed. FIM Transfers Therapy Code Descriptions/Definitions Functional [place] Measure: 0=Not Assessed/NA 4=Minimal Assistance 1=Total Assistance 5=Supervision or Setup 2=Maximal Assistance 6=Modified [place] 3=Moderate Assistance 7=Complete IndependenceSCALE: Activities may be completed with or without assistive devices. 8-Fuuhnoaqvd-gswctam completes the activity by him/herself with no assistance from a helper. 5-Set-up or Clean-up Assistance-helper sets up or cleans up; patient completes activity. [place] assists only prior to or following the activity. 4-Supervision or Touching Assistance-helper provides verbal cues and/or touching/steadying and/or contact guard assistance as patient completes activity. Assistance may be provided throughout the activity or intermittently. 3-Partial/Moderate Assistance-helper does LESS THAN HALF the effort. [place] lifts, holds or supports trunk or limbs, but provides less than half the effort. 2-Substantial/Maximal Assistance-helper does MORE THAN HALF the effort. [place] lifts or holds trunk or limbs and provides more than half the effort. 7-Vxtzkwztb-pfcqqp does ALL the effort. Patient does none of the effort to complete the activity. Or, the assistance of 2 or more helpers is required for the patient to complete the activity. If activity was not attempted, code reason: 7-Patient Refused. 9-Not Applicable-not attempted and the patient did not perform the activity before the current illness, exacerbation or injury. 10-Not Attempted due to Environmental Limitations-(lack of equipment, weather restraints, etc.). 88-Not Attempted due to Medical Conditions or Safety Concerns. Roll Left to Right (QC): 6 Sit to Lying (QC): 3 Sit to Stand (QC): 4 Chair/Zof-cq-Retbb Xfer(QC): 4 Car Transfer (QC): 3 Gait Training Does the Patient Walk?: Yes Distance: 150', 120' Walk 10 feet (QC): 4 Walk 50 ft with 2 Turns(QC): 4 Walk 150 ft (QC): 4 Walking 10ft/uneven surface-QC: 88 Gait Persons Needed: 1 Gait Assistive Device: Cane Large Base Quad Wheelchair Training Does the Pt Use a Wheelchair?: Yes Distance: 120'x2 Wheel 50 ft with 2 turns (QC): 2 Wheel 150 ft (QC): 88 Type of Wheelchair: Manual Stair Training 1 Step (curb) (QC): 88 4 Steps (QC): 88 12 Steps (QC): 88 Balance Picking up an Object (QC): 88 ADL-Treatment Eating (QC): 5 (Based on clinical judgement and discussion with pt, pt would require set up assist) Oral Hygiene (QC): 7 Bathing Location: L Arm, R Arm, L Upper Leg, R Upper Leg, L Lower Leg (including foot), Chest, Abdomen, Buttocks, Perineal Area Shower/Bathe Self (QC): 7 Upper Body Dressing (QC): 7 Lower Body Dressing (QC): 7 On/Off Footwear (QC): 3 (Pt able to doff socks/shoes/AFO, assist with undoing velcro of AFO. 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 s/p loop recorder 05/22/20 Smoker New onset HTN HLP Fall upon arrival to unit with in room Elevated LFT's with normal liver USG Plan: PT OT Statin ASA Lovenox Monitor closely IRF protocol 05/22/20: Remove wedding ring left finger OT for edema management of the left hand Loop recorder 05/23/20: Wedding ring removed OT PT Monitor BP 05/24/20: Patient refuses SCD's Monitor BP Fall risk 05/25/20: Monitor closely Ambulating well with kiana-cane Loop recorder 05/26/20: Statin BP control Monitor closely 05/27/20: USG liver Elevated LFT's will be monitored DC monster drinks and soda 05/28/20: Hold statin due to elevated LFT's Monitor closely IRF protocol (1) CVA (cerebral vascular accident) (2) Essential (primary) hypertension (3) Tobacco abuse (4) Hyperlipidemia RADHA COPPOLA DO May 28, 2020 10:40
--- NOTE | 2020-05-28 13:04 | Speech Therapy Daily Note ---
Speech Daily Progress Note Subjective Date Seen by Provider: May 28, 2020 Time Seen by Provider: 00:30 Patient said he really got a work out today with OT and PT. Objective Patient completed 25 minutes of OM stimulation at 6.0 with good response. Assessment Assessment Current Status: Good Progress Treatment Plan Continue Plan of Care Speech Short Term Goals Short Term Goals Short Term Goals 1) Patient will tolerate least restrictive diet level per physician's order at 90% or greater. 2) Patient/caregiver will utilize compensatory strategies as trained for safe oral intake at 90% or greater without cues. 3) Patient will complete OME as directed 4-5x per week. Speech Crystal Cutter Goals Residential Goals Patient will improve swallowing and speech abilities to communicate better/easier with others. Speech-Plan Patient/Family Goals Patient/Family Goals: Patient plans on returning to his home upon discharge. He lives in the home with his and 3 children. Treatment Plan Speech Therapy Treatment Plan: Continue Plan of Care Treatment Duration: Jun 07, 2020 Frequency: 4 times per week (Patient receives skilled ST 4-5x per week) Estimated Hrs Per Day: .5 hour per day Rehab Potential: Fair Barriers to Learning: Patient's recent CVA, however he does not exhibit cognitive deficits Pt/Family Agrees to Plan: Yes Safety Risks/Education Teaching Recipient: Patient Teaching Methods: Demonstration, Discussion Response to Teaching: Verbalize Understanding, Return Demonstration Education Topics Provided: Continued safety within his room and with oral intake Time Speech Therapy Time In: 10:00 Speech Therapy Time Out: 10:30 Total Billed Time: 30 Billed Treatment Time 1, DYST, SLGAVI Muñiz May 28, 2020 13:04
--- NOTE | 2020-05-28 14:22 | Occupational Ther Daily Note ---
OT Current Status-Daily Note Subjective Pt seated at EOB, present. Pt agreeable to OT tx. ADL-Treatment Therapy Code Descriptions/Definitions Functional [place] Measure: 0=Not Assessed/NA 4=Minimal Assistance 1=Total Assistance 5=Supervision or Setup 2=Maximal Assistance 6=Modified [place] 3=Moderate Assistance 7=Complete IndependenceSCALE: Activities may be completed with or without assistive devices. 6-Ggyvjyuipp-fojypqu completes the activity by him/herself with no assistance from a helper. 5-Set-up or Clean-up Assistance-helper sets up or cleans up; patient completes activity. [place] assists only prior to or following the activity. 4-Supervision or Touching Assistance-helper provides verbal cues and/or touching/steadying and/or contact guard assistance as patient completes activity. Assistance may be provided throughout the activity or intermittently. 3-Partial/Moderate Assistance-helper does LESS THAN HALF the effort. [place] lifts, holds or supports trunk or limbs, but provides less than half the effort. 2-Substantial/Maximal Assistance-helper does MORE THAN HALF the effort. [place] lifts or holds trunk or limbs and provides more than half the effort. 4-Ntcrlbprg-wwpcwc does ALL the effort. Patient does none of the effort to complete the activity. Or, the assistance of 2 or more helpers is required for the patient to complete the activity. If activity was not attempted, code reason: 7-Patient Refused. 9-Not Applicable-not attempted and the patient did not perform the activity before the current illness, exacerbation or injury. 10-Not Attempted due to Environmental Limitations-(lack of equipment, weather restraints, etc.). 88-Not Attempted due to Medical Conditions or Safety Concerns. Other Treatment Pt transferred EOB to w/c via SPT, CGA towards L side. OT educated pt on performing self ROM to L hemiplegic UE. OT provided pt with written HEP, pt able to follow HEP and perform self range for the following motions: shoulder flexion, elbow flexion/extension, forearm pronation/supination, wrist flexion/extension, ulnar/radial deviation, finger flexion/extension, thumb abduction and opposition. Pt completed each exercise x5 reps. Post tx pt seated upright in w/c, call light in reach and all needs met. Education OT Patient Education: Correct positioning, Modified ADL techniques, Progress toward Goal/Update tx plan, Purpose of tx/functional activities Teaching Recipient: Patient Teaching Methods: Discussion Response to Teaching: Verbalize Understanding OT Short Term Goals Short Term Goals Time Frame: Jun 05, 2020 Shower/bathe self: 3 Lower body dressin Putting on/taking off footwear: 3 OT Jail Goals Manufacturing Laborer Goals Time Frame: Jun 14, 2020 Eating (QC): 6 Oral Hygiene (QC): 6 Toileting Hygiene (QC): 6 Shower/Bathe Self (QC): 4 Upper Body Dressing (QC): 5 Lower Body Dressing (QC): 4 On/Off Footwear (QC): 5 Additional Goals: 1-Demonstrate ADL Tasks, 2-Verbalize Understanding, 3-ImproveStrength/Rusty 1=Demonstrate adherence to instructed precautions during ADL tasks. 2=Patient will verbalize/demonstrate understanding of assistive devices/modifications for ADL. 3=Patient will improve strength/tolerance for activity to enable patient to perform ADL's. OT Education/Plan Problem List/Assessment Assessment: Decreased Activ Tolerance, Decreased UE Strength, Impaired I ADL's, Impaired Self-Care Skills, Restricted Funct UE ROM Discharge Recommendations Plan/Recommendations: Continue POC Treatment Plan/Plan of Care Patient would benefit from OT for education, treatment and training to promote independence in ADL's, mobility, safety and/or upper extremity function for ADL's. Plan of Care: ADL Retraining, Functional Mobility, Group Exercise/Act as Ind, UE Funct Exercise/Act Treatment Duration: Jun 14, 2020 Frequency: At least 5 of 7 days/Wk (IRF) Estimated Hrs Per Day: 1.5 hours per day Rehab Potential: Fair Time/GCodes Start Time: 13:15 Stop Time: 13:30 Total Time Billed (hr/min): 15 Billed Treatment Time 1, EX TRACIE JAY OT May 28, 2020 14:22
--- NOTE | 2020-05-28 14:32 | Physical Therapy Daily Note ---
PT Daily Note-Current Subjective Patient in WC pre tx, agrees to PT, has no complaints of pain. Appearance Patient in WC post tx with nurse call, phone, tray, all needs met, in room. Mental Status Patient Orientation: Person, Place, Situation Transfers SCALE: Activities may be completed with or without assistive devices. 4-Eyjjkuwjfe-htrsmjz completes the activity by him/herself with no assistance from a helper. 5-Set-up or Clean-up Assistance-helper sets up or cleans up; patient completes activity. [place] assists only prior to or following the activity. 4-Supervision or Touching Assistance-helper provides verbal cues and/or t ouching/steadying and/or contact guard assistance as patient completes activity. Assistance may be provided throughout the activity or intermittently. 3-Partial/Moderate Assistance-helper does LESS THAN HALF the effort. [place] lifts, holds or supports trunk or limbs, but provides less than half the effort. 2-Substantial/Maximal Assistance-helper does MORE THAN HALF the effort. [place] lifts or holds trunk or limbs and provides more than half the effort. 6-Uaiwmtgjj-gnftau does ALL the effort. Patient does none of the effort to complete the activity. Or, the assistance of 2 or more helpers is required for the patient to complete the activity. If activity was not attempted, code reason: 7-Patient Refused. 9-Not Applicable-not attempted and the patient did not perform the activity before the current illness, exacerbation or injury. 10-Not Attempted due to Environmental Limitations-(lack of equipment, weather restraints, etc.). 88-Not Attempted due to Medical Conditions or Safety Concerns. Sit to Stand (QC): 4 Chair/Afm-hs-Qjhdd Xfer(QC): 4 Weight Bearing Right Lower Extremity: Right Full Weight Bearing Left Lower Extremity: Left Weight Bearing/Tolerated Gait Training Distance: 120'x2 Walk 10 feet (QC): 4 Walk 50 ft with 2 Turns(QC): 4 Gait Persons Needed: 1 Gait Assistive Device: Cane Large Base Quad AFO on left side, CGA, occasional cues for positioning and safety Treatments transfers, ambulation Assessment Current Status: Fair Progress improving balance during ambulation PT Short Term Goals Short Term Goals Time Frame: May 28, 2020 Roll Left & Right: 6 Sit to lyin Lying to sitting on side of be: 3 Sit to stand: 4 Chair/mzl-fr-frluc transfer: 3 Walk 10 feet: 3 PT Snf Goals Snf Goals PT Circuit Judge Goals Time Frame: Jun 11, 2020 Roll Left & Right (QC): 6 Sit to Lying (QC): 6 Lying-Sitting on Side/Bed(QC): 6 Sit to Stand (QC): 5 Chair/Szg-zr-Thkuq Xfer(QC): 4 Toilet Transfer (QC): 4 Car Transfer (QC): 4 Does the Patient Walk: Yes Walk 10 feet (QC): 4 Walk 50ft with 2 Turns (QC): 4 Walk 150 ft (QC): 88 Walking 10ft on Uneven Surface: 4 1 Step (curb) (QC): 3 4 Steps (QC): 3 12 Steps (QC): 88 Picking up an Object (QC): 3 Wheel 50 feet with 2 turns (QC: 6 Wheel 150 feet: 6 PT Plan Problem List Problem List: Activity Tolerance, Functional Strength, Safety, Balance, Gait, Transfer, Bed Mobility, ROM Treatment/Plan Treatment Plan: Continue Plan of Care Treatment Plan: Bed Mobility, Education, Functional Activity Rusty, Functional Strength, Group Therapy, Gait, Safety, Therapeutic Exercise, Transfers Treatment Duration: Jun 11, 2020 Frequency: At least 5 of 7 days/Wk (IRF) Estimated Hrs Per Day: 1.5 hours per day Patient and/or Family Agrees t: Yes Safety Risks/Education Patient Education: Gait Training, Transfer Techniques, Correct Positioning, Safety Issues Teaching Recipient: Patient Teaching Methods: Demonstration, Discussion Response to Teaching: Reinforcement Needed Time/GCodes Time In: 1330 Time Out: 1345 Total Billed Treatment Time: 15 Total Billed Treatment 1 visit GT 15' IVY HYDE PT May 28, 2020 14:32
[2020-05-28] MEDS: CALCIUM CARBONATE 500 MG (TUMS) TAB.CHEW PO PRN (15:54)
[2020-05-28 16:00] VITALS: BP 131/73
[2020-05-28] MEDS: ENOXAPARIN 40 MG/0.4 ML (LOVENOX) SYR SC SCH (21:35)
[2020-05-28] MEDS: BACLOFEN 10 MG (LIORESAL) TAB PO PRN (22:24)
[2020-05-29 05:51] VITALS: BP 166/83
[2020-05-29 08:10] VITALS: BP 156/73
[2020-05-29] MEDS: VALSARTAN 160 MG (DIOVAN) TABLET PO SCH (08:11)
[2020-05-29] MEDS: amLODIPine 10 MG (NORVASC) TAB PO SCH (08:11)
[2020-05-29] MEDS: ASPIRIN 325 MG (5 GR) TABLET PO SCH (08:11)
--- NOTE | 2020-05-29 08:39 | Cardiology Progress Note ---
Subjective Date Seen by Provider: May 29, 2020 Time Seen by Provider: 08:20 Subjective/Events-last exam Pt doing well, with PT. No new complaints. Asked pt about elevated BP today, he states his blood pressure was taken after he had been active. Review of Systems General: No Chills, No Night Sweats; Fatigue; No Malaise, No Appetite, No Other HEENT: No Head Aches, No Visual Changes, No Eye Pain, No Ear Pain, No Dysphasia, No Sinus Congestion, No Post Nasal Drip, No Sore Throat, No Other Pulmonary: No Dyspnea, No Cough, No Pleuritic Chest Pain, No Other Cardiovascular: No: Chest Pain, Palpitations, Orthopnea, Paroxysmal Noc. Dyspnea, Edema, Lt Headedness, Other Objective-Cardiology Exam Last Set of Vital Signs Vital Signs 05/29/20 05/29/20 05/29/20 05:51 08:10 09:00 Temp 37.2 Pulse 77 Resp 17 B/P (MAP) 156/73 (100) Pulse Ox 96 O2 Delivery Room Air Capillary Refill : I&O Intake and Output 05/29/20 00:00 Intake Total 1150 ml Output Total 1300 ml Balance -150 ml Intake Oral 1150 ml Output Urine Total 1300 ml General: Alert, Oriented X3, Cooperative HEENT: Atraumatic, PERRLA Neck: Supple, No JVD, No Thyromegaly Lungs: Clear to Auscultation, Normal Air Movement Heart: Regular Rate, Normal S1, Normal S2, No Murmurs Abdomen: Normal Bowel Sounds, Soft, No Tenderness, No Hepatosplenomegaly, No Masses Extremities: No Clubbing, No Cyanosis, No Edema, Normal Pulses, No Tenderness/Swelling Skin: No Rashes, No Breakdown, No Significant Lesion Neuro: Sensation Intact, Other (left-sided deficit d/t stroke) Psych/Mental Status: Mood NL A/P-Cardiology Admission Diagnosis Cryptogenic CVA HTN HLP Tobaccoism Assessment/Plan 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 Telemetry revealing sinus rhythm. Loop monitor implantation done on 05/22/2020, site is healing well. Hypertension, slightly elevated today at 156/73, repeat blood pressure measurement showed better controlled. Continue to monitor no changes recommended HLP- Lipitor on hold secondary to elevated LFTs. Liver US WNL Tobaccoism, educated on the importance of smoking cessation Fam Hx CAD Supervisory-Addendum Brief Supervisory Addendum Participated in pt care: history, MDM, physical Personally performed: exam, history, MDM Care discussed with: ARUN Notes: Patient was seen at bedside sitting comfortably, denied any chest pain Blood pressure evaluation initially was elevated of peak blood pressure measu rement showed good control Loop monitor site is healing well. Continue on current medication no changes are recommended Verification and Attestation of Medical Student E/M Service A medical student performed and documented this service in my presence. I reviewed and verified all information documented by the medical student and made modifications to such information, when appropriate. I personally performed the physical exam and medical decision making. Laura Rios, May 29, 2020,12:30 KIRILL GLASER MED STUDENT May 29, 2020 08:39 LAURA RIOS MD May 29, 2020 12:30
--- NOTE | 2020-05-29 09:13 | PM&R Progress Note ---
Subjective HPI/CC On Admission Date Seen by Provider: May 29, 2020 Time Seen by Provider: 09:15 Subjective/Events-last exam 05/29/20: Pt having no issues Psych evaluation will be at 1 PM Baclofen taken at night for muscle spasms in the left arm Overall doing well and eating and drinking well with no dysphasia 05/28/20: Lipitor stopped by Dr. Rios due to elevated liver enzymes Behavioral note will be evaluated Baclofen taken last night, doesnt know if it worked or not so maintain that and evaluate further Bowels moved yesterday 05/27/20: Pt doing very well Baclofen will be given for the left arm muscle spasms Elevated liver enzymes prompting abdominal ultrasound, ordered by Dr. Rios Overall doing pretty well otherwise 05/26/20: Patient doing well Frustrated with his situation but we can only support him so he can adjust at bedside today TC 178 Pivoting is improved 05/25/20: Left arm remains flaccid Walked to the gym and did well patient tearful at times or on the verge when he talks about his arm BM today No pain reported Tendency for somatic issues 05/24/20: Patient in better mood Tearful at times BM+ Slight elevated in LFT's SCD's refused by patient Showered today 05/23/20: Tearful at times Sore from loop recorder yesterday Wedding ring will be removed today by nursing supervisor rolling room Labs stable BP ok 05/22/20: Loop recorder was placed today by Dr. Rios BP 152/68 Swelling in his left hand, will get his wedding ring off today Very tearful at times Bowels moved four days ago so will initiate laxatives Review of Systems Musculoskeletal: arm pain Neurological: Weakness, Incoordination Objective Exam Vital Signs Vital Signs Date Time Temp Pulse Resp B/P (MAP) Pulse Ox O2 Delivery O2 Flow Rate FiO2 05/29/20 20:15 97 Room Air 05/29/20 17:55 36.8 69 16 127/77 (94) Capillary Refill : General Appearance: No Apparent Distress, WD/WN, Chronically ill, Obese HEENT: PERRL/EOMI, Normal ENT Inspection, Pharynx Normal Neck: Full Range of Motion, Normal Inspection, Non Tender, Supple, Carotid Bruit Respiratory: Chest Non Tender, Lungs Clear, Normal Breath Sounds, No Accessory Muscle Use, No Respiratory Distress Cardiovascular: Regular Rate, Rhythm, No Edema, No Gallop, No JVD, No Murmur, Normal Peripheral Pulses Gastrointestinal: Normal Bowel Sounds, No Organomegaly, No Pulsatile Mass, Non Tender, Soft Back: Normal Inspection, No CVA Tenderness, No Vertebral Tenderness Extremity: Normal Capillary Refill, Normal Inspection, Normal Range of Motion, Non Tender, No Calf Tenderness, No Pedal Edema Neurologic/Psychiatric: Alert, Oriented x3, Abnormal Gait, Depressed Affect, Motor Weakness (left sidded 1/) Skin: Normal Color, Warm/Dry Lymphatic: No Adenopathy Results/Procedures Lab Patient resulted labs reviewed. FIM Transfers Therapy Code Descriptions/Definitions Functional [place] Measure: 0=Not Assessed/NA 4=Minimal Assistance 1=Total Assistance 5=Supervision or Setup 2=Maximal Assistance 6=Modified [place] 3=Moderate Assistance 7=Complete IndependenceSCALE: Activities may be completed with or without assistive devices. 8-Jdckmehahb-aykjbio completes the activity by him/herself with no assistance from a helper. 5-Set-up or Clean-up Assistance-helper sets up or cleans up; patient completes activity. [place] assists only prior to or following the activity. 4-Supervision or Touching Assistance-helper provides verbal cues and/or touching/steadying and/or contact guard assistance as patient completes activity. Assistance may be provided throughout the activity or intermittently. 3-Partial/Moderate Assistance-helper does LESS THAN HALF the effort. [place] lifts, holds or supports trunk or limbs, but provides less than half the effort. 2-Substantial/Maximal Assistance-helper does MORE THAN HALF the effort. [place] lifts or holds trunk or limbs and provides more than half the effort. 2-Qsdreudhf-ujyqyv does ALL the effort. Patient does none of the effort to complete the activity. Or, the assistance of 2 or more helpers is required for the patient to complete the activity. If activity was not attempted, code reason: 7-Patient Refused. 9-Not Applicable-not attempted and the patient did not perform the activity before the current illness, exacerbation or injury. 10-Not Attempted due to Environmental Limitations-(lack of equipment, weather restraints, etc.). 88-Not Attempted due to Medical Conditions or Safety Concerns. Roll Left to Right (QC): 6 Sit to Lying (QC): 3 Sit to Stand (QC): 4 Chair/Xhj-zj-Eueep Xfer(QC): 4 Car Transfer (QC): 3 Gait Training Does the Patient Walk?: Yes Distance: 120'x2 Walk 10 feet (QC): 4 Walk 50 ft with 2 Turns(QC): 4 Walk 150 ft (QC): 4 Walking 10ft/uneven surface-QC: 88 Gait Persons Needed: 1 Gait Assistive Device: Cane Large Base Quad Wheelchair Training Does the Pt Use a Wheelchair?: Yes Distance: 120'x2 Wheel 50 ft with 2 turns (QC): 2 Wheel 150 ft (QC): 88 Type of Wheelchair: Manual Stair Training 1 Step (curb) (QC): 88 4 Steps (QC): 88 12 Steps (QC): 88 Balance Picking up an Object (QC): 88 ADL-Treatment Eating (QC): 5 (Based on clinical judgement and discussion with pt, pt would require set up assist) Oral Hygiene (QC): 7 Bathing Location: L Arm, R Arm, L Upper Leg, R Upper Leg, L Lower Leg (including foot), Chest, Abdomen, Buttocks, Perineal Area Shower/Bathe Self (QC): 7 Upper Body Dressing (QC): 7 Lower Body Dressing (QC): 7 On/Off Footwear (QC): 3 (Pt able to doff socks/shoes/AFO, assist with undoing velcro of AFO. 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 s/p loop recorder 05/22/20 Smoker New onset HTN HLP Fall upon arrival to unit with in room Elevated LFT's with normal liver USG Plan: PT OT Statin ASA Lovenox Monitor closely IRF protocol 05/22/20: Remove wedding ring left finger OT for edema management of the left hand Loop recorder 05/23/20: Wedding ring removed OT PT Monitor BP 05/24/20: Patient refuses SCD's Monitor BP Fall risk 05/25/20: Monitor closely Ambulating well with kiana-cane Loop recorder 05/26/20: Statin BP control Monitor closely 05/27/20: USG liver Elevated LFT's will be monitored DC monster drinks and soda 05/28/20: Hold statin due to elevated LFT's Monitor closely IRF protocol 05/29/20: Baclofen HS Monitor for falls Hold statin (1) CVA (cerebral vascular accident) (2) Essential (primary) hypertension (3) Tobacco abuse (4) Hyperlipidemia RADHA COPPOLA DO May 29, 2020 09:13
--- NOTE | 2020-05-29 09:20 | Physical Therapy Daily Note ---
PT Daily Note-Current Subjective Pt. agrees to Rx, states he has made progress. Says he will not be able to use a w/c at home, "no room". Pt. wants to do a lot of walking today. Says his family will be home "most of the time' . Discussed probability of family training Pain Location: No Pain Reported Mental Status Patient Orientation: Normal For Age Transfers SCALE: Activities may be completed with or without assistive devices. 2-Kppwuleksr-uzkoswo completes the activity by him/herself with no assistance from a helper. 5-Set-up or Clean-up Assistance-helper sets up or cleans up; patient completes activity. [place] assists only prior to or following the activity. 4-Supervision or Touching Assistance-helper provides verbal cues and/or touching/steadying and/or contact guard assistance as patient completes activity. Assistance may be provided throughout the activity or intermittently. 3-Partial/Moderate Assistance-helper does LESS THAN HALF the effort. [place] lifts, holds or supports trunk or limbs, but provides less than half the effort. 2-Substantial/Maximal Assistance-helper does MORE THAN HALF the effort. [place] lifts or holds trunk or limbs and provides more than half the effort. 9-Kgheurozo-imkjud does ALL the effort. Patient does none of the effort to complete the activity. Or, the assistance of 2 or more helpers is required for the patient to complete the activity. If activity was not attempted, code reason: 7-Patient Refused. 9-Not Applicable-not attempted and the patient did not perform the activity before the current illness, exacerbation or injury. 10-Not Attempted due to Environmental Limitations-(lack of equipment, weather restraints, etc.). 88-Not Attempted due to Medical Conditions or Safety Concerns. Roll Left & Right (QC): 6 Sit to Lying (QC): 5 Lying to Sitting/Side of Bed(Q: 6 Sit to Stand (QC): 4 Chair/Ffm-gq-Gpiec Xfer(QC): 4 much instruction and practice on sit to stand with forward wt shift using arm of chair instead of pulling on rail or using cane. Pt. greatly improved with this Weight Bearing Right Lower Extremity: Right Full Weight Bearing Left Lower Extremity: Left Weight Bearing/Tolerated Gait Training Does the Patient Walk?: Yes Walk 10 feet (QC): 4 Walk 50 ft with 2 Turns(QC): 4 Gait Persons Needed: 1 Gait Assistive Device: Cane Large Base Quad emphasis on broadening CARMELA as well as care to protect LLE from bumping objects and causing him to be off balance. Also more instruction regarding approaching a chair as pt. is abandoning the cane and reaches to chair unsafely, while not close to chair or surface yet. Pt. ambulated 100ft, 75ft, 60 ft min assist and much instruction Wheelchair Training Does the Pt Use a Wheelchair?: Yes Wheel 50 ft with 2 turns (QC): 5 Exercises Supine Ex: Bridging, Ankle pumps, Quad Set, Rolling, Heel Slides, Short Arc Quads, Scooting, Straight leg raise, Hip abd/add Supine Reps: 20 Seated Therapy Exercises: Sit to stand, Hip flexion Seated Reps: 12 Standing: Hip Abduction, Side steps, Step-ups Standing Reps: 15 Assessment Current Status: Good Progress PT Short Term Goals Short Term Goals Time Frame: May 28, 2020 Roll Left & Right: 6 Sit to lyin Lying to sitting on side of be: 3 Sit to stand: 4 Chair/dsh-uw-xullv transfer: 3 Walk 10 feet: 3 PT Hospital Director Goals Hospital Director Goals PT Hospital Director Goals Time Frame: Jun 11, 2020 Roll Left & Right (QC): 6 Sit to Lying (QC): 6 Lying-Sitting on Side/Bed(QC): 6 Sit to Stand (QC): 5 Chair/Ulr-md-Ttxtr Xfer(QC): 4 Toilet Transfer (QC): 4 Car Transfer (QC): 4 Does the Patient Walk: Yes Walk 10 feet (QC): 4 Walk 50ft with 2 Turns (QC): 4 Walk 150 ft (QC): 88 Walking 10ft on Uneven Surface: 4 1 Step (curb) (QC): 3 4 Steps (QC): 3 12 Steps (QC): 88 Picking up an Object (QC): 3 Wheel 50 feet with 2 turns (QC: 6 Wheel 150 feet: 6 PT Plan Treatment/Plan Treatment Plan: Continue Plan of Care Treatment Plan: Bed Mobility, Education, Functional Activity Rusty, Functional Strength, Group Therapy, Gait, Safety, Therapeutic Exercise, Transfers Treatment Duration: Jun 11, 2020 Frequency: At least 5 of 7 days/Wk (IRF) Estimated Hrs Per Day: 1.5 hours per day Patient and/or Family Agrees t: Yes Safety Risks/Education Patient Education: Gait Training, Transfer Techniques, Correct Positioning, W/C Management, Disease Process, Safety Issues Teaching Recipient: Patient Teaching Methods: Demonstration, Discussion Response to Teaching: Verbalize Understanding, Return Demonstration, Reinforcement Needed Time/GCodes Time In: 820 Time Out: 920 Total Billed Treatment Time: 60 Total Billed Treatment 1,GT25m,FA15m,EX20m DONA GUERRA PTA May 29, 2020 09:20
--- NOTE | 2020-05-29 09:25 | Occupational Ther Daily Note ---
OT Current Status-Daily Note Subjective Pt in gym with PT, agreeable to OT/PT cotreat, then OT tx with focus on ADLs. Mental Status/Objective Patient Orientation: Person, Place, Time, Situation ADL-Treatment Therapy Code Descriptions/Definitions Functional [place] Measure: 0=Not Assessed/NA 4=Minimal Assistance 1=Total Assistance 5=Supervision or Setup 2=Maximal Assistance 6=Modified [place] 3=Moderate Assistance 7=Complete IndependenceSCALE: Activities may be completed with or without assistive devices. 4-Kxwhowepfr-zuhobai completes the activity by him/herself with no assistance from a helper. 5-Set-up or Clean-up Assistance-helper sets up or cleans up; patient completes activity. [place] assists only prior to or following the activity. 4-Supervision or Touching Assistance-helper provides verbal cues and/or touching/steadying and/or contact guard assistance as patient completes activity. Assistance may be provided throughout the activity or intermittently. 3-Partial/Moderate Assistance-helper does LESS THAN HALF the effort. [place] lifts, holds or supports trunk or limbs, but provides less than half the effort. 2-Substantial/Maximal Assistance-helper does MORE THAN HALF the effort. [place] lifts or holds trunk or limbs and provides more than half the effort. 2-Hzvvhbavm-tjslld does ALL the effort. Patient does none of the effort to complete the activity. Or, the assistance of 2 or more helpers is required for the patient to complete the activity. If activity was not attempted, code reason: 7-Patient Refused. 9-Not Applicable-not attempted and the patient did not perform the activity before the current illness, exacerbation or injury. 10-Not Attempted due to Environmental Limitations-(lack of equipment, weather restraints, etc.). 88-Not Attempted due to Medical Conditions or Safety Concerns. Eating (QC): 6 (IND per pt report, able to cut food, bring to mouth, and eat.) Oral Hygiene (QC): 6 (IND) Shower/Bathe Self (QC): 4 (CGA in stand to wash buttocks., pt able to wash/dry all other parts seated on SC.) Upper Body Dressing (QC): 5 (set up, pt doffed/donned machine puller and laster shirt.) Lower Body Dressing (QC): 4 (CGA in stand, pt able to don/doff pants/brief.) On/Off Footwear: 6 (Pt doffed socks/shoes/AFO independently. Able to don with increased time, using dycem as needed.) Toileting Hygiene (QC): 4 (CGA in stand, pt able to manage clothes and perform hygiene.) Toilet Transfer (QC): 4 (CGA on/off toilet.) Other Treatment [id number] OT/PT cotreat due to skill of 2 clinicians required which a rehabilitation inspector could not perform in order to coordinate UE/LEs with tasks, and due to pt's limitations in strength, activity tolerance, and to decrease fall risk. OT focused on UE placement, cues for sequencing and safety, PT focused on LE placement, transfers and ambulation. Pt stood at [facility], ambulating towards his room with w/c follow. Pt reports fatigue after PT tx. Pt sat in w/c, requiring cues for UE placement to reach back and make sure chair is behind him. Pt then propelled w/c into room. [id number] OT tx: Pt transferred from w/c to toilet, completed toileting, then transferred back to w/c before transferring to SC. Pt doffed clothes, completed shower, then transferred to w/c to don clothes. Pt sat at sink to brush hair and put on deodorant independently. OT reviewed self ROM HEP with pt, he was able to complete x5 reps each with minimal skilled verbal cues. OT added AROM shoulder elevation/depression and protraction/retraction to pt's HEP. Pt attempted shoulder AROM at this time, but unable to complete due to fatigue. Post tx, pt seated up in w/c, call light in reach and all need met. Education OT Patient Education: Correct positioning, Modified ADL techniques, Progress toward Goal/Update tx plan, Purpose of tx/functional activities Teaching Recipient: Patient Teaching Methods: Discussion Response to Teaching: Verbalize Understanding OT Short Term Goals Short Term Goals Time Frame: Jun 05, 2020 Shower/bathe self: 3 Lower body dressin Putting on/taking off footwear: 3 OT [facility] Goals Parts Sales Associate Goals Time Frame: Jun 14, 2020 Eating (QC): 6 Oral Hygiene (QC): 6 Toileting Hygiene (QC): 6 Shower/Bathe Self (QC): 4 Upper Body Dressing (QC): 5 Lower Body Dressing (QC): 4 On/Off Footwear (QC): 5 Additional Goals: 1-Demonstrate ADL Tasks, 2-Verbalize Understanding, 3- ImproveStrength/Rusty 1=Demonstrate adherence to instructed precautions during ADL tasks. 2=Patient will verbalize/demonstrate understanding of assistive devices/modifications for ADL. 3=Patient will improve strength/tolerance for activity to enable patient to perform ADL's. OT Education/Plan Problem List/Assessment Assessment: Decreased Activ Tolerance, Decreased UE Strength, Impaired I ADL's, Impaired Self-Care Skills, Restricted Funct UE ROM Discharge Recommendations Plan/Recommendations: Continue POC Treatment Plan/Plan of Care Patient would benefit from OT for education, treatment and training to promote independence in ADL's, mobility, safety and/or upper extremity function for ADL's. Plan of Care: ADL Retraining, Functional Mobility, Group Exercise/Act as Ind, UE Funct Exercise/Act Treatment Duration: Jun 14, 2020 Frequency: At least 5 of 7 days/Wk (IRF) Estimated Hrs Per Day: 1.5 hours per day Rehab Potential: Fair Time/GCodes Start Time: 09:00 Stop Time: 10:15 Total Time Billed (hr/min): 75 Billed Treatment Time [id number] OT/PT harini, [id number] OT tx 1, FA (10'), ADL 3 (50'), EX (15') TRACIE JAY OT May 29, 2020 09:25
[2020-05-29] MEDS: DOCUSATE SODIUM 100 MG (COLACE) CAP PO SCH ×2 (09:35→21:22)
[2020-05-29] MEDS: SENNA W/DOCUSATE (SENOKOT S) TABLET PO SCH ×2 (09:35→21:22)
[2020-05-29] MEDS: polyethylene glycoL POWDER 17 GM (MIRALAX) PACK PO SCH ×2 (09:35→21:00)
--- NOTE | 2020-05-29 11:12 | Speech Therapy Daily Note ---
Speech Daily Progress Note Subjective Date Seen by Provider: May 29, 2020 Time Seen by Provider: 00:30 Patient was sitting up in his wc following his other therapies which he stated was brutal today. Objective Patient completed 25 minutes of vital stim at 6.5 with good response. Assessment Assessment Current Status: Good Progress Treatment Plan Continue Plan of Care Speech Short Term Goals Short Term Goals Short Term Goals 1) Patient will tolerate least restrictive diet level per physician's order at 90% or greater. 2) Patient/caregiver will utilize compensatory strategies as trained for safe oral intake at 90% or greater without cues. 3) Patient will complete OME as directed 4-5x per week. Speech Senior Living Goals Senior Living Goals Patient will improve swallowing and speech abilities to communicate better/easier with others. Speech-Plan Patient/Family Goals Patient/Family Goals: Patient plans on returning to his home where he lives with his family. Treatment Plan Speech Therapy Treatment Plan: Continue Plan of Care Treatment Duration: Jun 07, 2020 Frequency: 4 times per week (Patient receives skilled ST 4-5x per week) Estimated Hrs Per Day: .5 hour per day Rehab Potential: Fair Barriers to Learning: Patient's recent CVA and debility Pt/Family Agrees to Plan: Yes Safety Risks/Education Teaching Recipient: Patient Teaching Methods: Demonstration, Discussion Response to Teaching: Verbalize Understanding, Return Demonstration Education Topics Provided: Continued safety with oral intake and OME Time Speech Therapy Time In: 10:30 Speech Therapy Time Out: 11:00 Total Billed Time: 30 Billed Treatment Time 1, TATUM, GAVI Claudio May 29, 2020 11:12
--- NOTE | 2020-05-29 14:23 | Physical Therapy Daily Note ---
PT Daily Note-Current Subjective Pt and present. Pt. agrees to Rx. States he is tired today, states AM Rx was taxing Pain Location: No Pain Reported Mental Status Patient Orientation: Normal For Age Attachments: Other-See Comments (AFO left foot) Transfers SCALE: Activities may be completed with or without assistive devices. 7-Gjrkxwzvnq-savxfbn completes the activity by him/herself with no assistance from a helper. 5-Set-up or Clean-up Assistance-helper sets up or cleans up; patient completes activity. [place] assists only prior to or following the activity. 4-Supervision or Touching Assistance-helper provides verbal cues and/or touching/steadying and/or contact guard assistance as patient completes acti vity. Assistance may be provided throughout the activity or intermittently. 3-Partial/Moderate Assistance-helper does LESS THAN HALF the effort. [place] lifts, holds or supports trunk or limbs, but provides less than half the effort. 2-Substantial/Maximal Assistance-helper does MORE THAN HALF the effort. [place] lifts or holds trunk or limbs and provides more than half the effort. 9-Ghbzutxkk-gbqgwr does ALL the effort. Patient does none of the effort to complete the activity. Or, the assistance of 2 or more helpers is required for the patient to complete the activity. If activity was not attempted, code reason: 7-Patient Refused. 9-Not Applicable-not attempted and the patient did not perform the activity before the current illness, exacerbation or injury. 10-Not Attempted due to Environmental Limitations-(lack of equipment, weather restraints, etc.). 88-Not Attempted due to Medical Conditions or Safety Concerns. sit to stands all improved using arm of chair with good form, safer Weight Bearing Right Lower Extremity: Right Full Weight Bearing Left Lower Extremity: Left Weight Bearing/Tolerated Gait Training Does the Patient Walk?: Yes Gait Assistive Device: Cane Large Base Quad emphasis on chair approaches , turning safely , sitting safely, pt. safer and more efficient turning toward left at chair, this improved with practice and education Wheelchair Training Does the Pt Use a Wheelchair?: Yes Type of Wheelchair: Manual left hip flexion emphasized for w/c mob with LEs Exercises Seated Therapy Exercises: Ankle pumps Seated Reps: 15 Assessment Current Status: Good Progress PT Short Term Goals Short Term Goals Time Frame: May 28, 2020 Roll Left & Right: 6 Sit to lyin Lying to sitting on side of be: 3 Sit to stand: 4 Chair/ffx-sf-skgyp transfer: 3 Walk 10 feet: 3 PT Longterm Goals Longterm Goals PT Gis Programmer Goals Time Frame: Jun 11, 2020 Roll Left & Right (QC): 6 Sit to Lying (QC): 6 Lying-Sitting on Side/Bed(QC): 6 Sit to Stand (QC): 5 Chair/Wpo-xf-Csofs Xfer(QC): 4 Toilet Transfer (QC): 4 Car Transfer (QC): 4 Does the Patient Walk: Yes Walk 10 feet (QC): 4 Walk 50ft with 2 Turns (QC): 4 Walk 150 ft (QC): 88 Walking 10ft on Uneven Surface: 4 1 Step (curb) (QC): 3 4 Steps (QC): 3 12 Steps (QC): 88 Picking up an Object (QC): 3 Wheel 50 feet with 2 turns (QC: 6 Wheel 150 feet: 6 PT Plan Treatment/Plan Treatment Plan: Continue Plan of Care Treatment Plan: Bed Mobility, Education, Functional Activity Rusty, Functional Strength, Group Therapy, Gait, Safety, Therapeutic Exercise, Transfers Treatment Duration: Jun 11, 2020 Frequency: At least 5 of 7 days/Wk (IRF) Estimated Hrs Per Day: 1.5 hours per day Patient and/or Family Agrees t: Yes Safety Risks/Education Patient Education: Gait Training, Transfer Techniques, Correct Positioning, Disease Process, Safety Issues Teaching Recipient: Patient Teaching Methods: Demonstration, Discussion Response to Teaching: Verbalize Understanding, Return Demonstration, Reinforcement Needed Time/GCodes Time In: 1400 Time Out: 1420 Total Billed Treatment Time: 20 Total Billed Treatment 1,GT20m DONA GUERRA PTA May 29, 2020 14:23
[2020-05-29 17:55] VITALS: BP 127/77
[2020-05-29] MEDS: ENOXAPARIN 40 MG/0.4 ML (LOVENOX) SYR SC SCH (21:22)
[2020-05-30 05:27] VITALS: BP 106/53
--- NOTE | 2020-05-30 08:41 | Cardiology Progress Note ---
Subjective Date Seen by Provider: May 30, 2020 Time Seen by Provider: 08:38 Subjective/Events-last exam Patient is with PT, no new complaints. Denies any chest pain. Review of Systems General: No Chills, No Night Sweats; Fatigue; No Malaise, No Appetite, No Other HEENT: No Head Aches, No Visual Changes, No Eye Pain, No Ear Pain, No Dysphasia, No Sinus Congestion, No Post Nasal Drip, No Sore Throat, No Other Pulmonary: No Dyspnea, No Cough, No Pleuritic Chest Pain, No Other Cardiovascular: No: Chest Pain, Palpitations, Orthopnea, Paroxysmal Noc. Dyspnea, Edema, Lt Headedness, Other Objective-Cardiology Exam Last Set of Vital Signs Vital Signs 05/30/20 05/30/20 05:27 09:00 Temp 37.0 Pulse 68 Resp 18 B/P (MAP) 106/53 (70) Pulse Ox 98 O2 Delivery Room Air Capillary Refill : I&O Intake and Output 05/30/20 00:00 Intake Total 2370 ml Output Total 1120 ml Balance 1250 ml Intake Oral 2370 ml Output Urine Total 1120 ml # Voids 1 # Bowel Movements 2 General: Alert, Oriented X3, Cooperative HEENT: Atraumatic, PERRLA Neck: Supple, No JVD, No Thyromegaly Lungs: Clear to Auscultation, Normal Air Movement Heart: Regular Rate, Normal S1, Normal S2, No Murmurs Abdomen: Normal Bowel Sounds, Soft, No Tenderness, No Hepatosplenomegaly, No Masses Extremities: No Clubbing, No Cyanosis, No Edema, Normal Pulses, No Tenderness/Swelling Skin: No Rashes, No Breakdown, No Significant Lesion Neuro: Sensation Intact, Other (left-sided deficit d/t stroke) Psych/Mental Status: Mood NL A/P-Cardiology Admission Diagnosis Cryptogenic CVA HTN HLP Tobaccoism Assessment/Plan 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 Telemetry revealing sinus rhythm. Loop monitor implantation done on 05/22/2020, site is healing well. Hypertension, controlled, continue on current medications and continue to monitor. HLP- Lipitor on hold secondary to elevated LFTs. Liver US WNL Tobaccoism, educated on the importance of smoking cessation Fam Hx CAD Patient was seen and evaluated with Abby, examination performed, management plan was discussed, agree with the current scribed note, I made few changes to the note using Italic font Patient had mild oozing at the low insertion site, no active bleeding Feeling better. Blood pressure better controlled. Continue with physical therapy. ABBY REY May 30, 2020 08:41 LAURA ORLANDO MD May 30, 2020 10:43
[2020-05-30] MEDS: VALSARTAN 160 MG (DIOVAN) TABLET PO SCH (08:47)
[2020-05-30] MEDS: ASPIRIN 325 MG (5 GR) TABLET PO SCH (08:50)
[2020-05-30] MEDS: amLODIPine 10 MG (NORVASC) TAB PO SCH (08:50)
[2020-05-30] MEDS: DOCUSATE SODIUM 100 MG (COLACE) CAP PO SCH ×2 (08:52→20:38)
[2020-05-30] MEDS: SENNA W/DOCUSATE (SENOKOT S) TABLET PO SCH ×2 (08:52→20:37)
[2020-05-30] MEDS: polyethylene glycoL POWDER 17 GM (MIRALAX) PACK PO SCH ×2 (08:52→20:40)
--- NOTE | 2020-05-30 08:55 | Physical Therapy Daily Note ---
PT Daily Note-Current Subjective Patient in WC pre tx, agrees to PT, has no complaints of pain, already has his AFO on, he says he put it on himself. Appearance Patient in at bedside post tx with nurse call, phone, tray, all needs met. Mental Status Patient Orientation: Normal For Age Transfers SCALE: Activities may be completed with or without assistive devices. 6-Pvzjtbulrw-tahheex completes the activity by him/herself with no assistance from a helper. 5-Set-up or Clean-up Assistance-helper sets up or cleans up; patient completes activity. [place] assists only prior to or following the activity. 4-Supervision or Touching Assistance-helper provides verbal cues and/or touching/steadying and/or contact guard assistance as patient completes activity. Assistance may be provided throughout the activity or intermittently. 3-Partial/Moderate Assistance-helper does LESS THAN HALF the effort. [place] lifts, holds or supports trunk or limbs, but provides less than half the effort. 2-Substantial/Maximal Assistance-helper does MORE THAN HALF the effort. [place] lifts or holds trunk or limbs and provides more than half the effort. 1-Nqhmwqeds-mhekvi does ALL the effort. Patient does none of the effort to complete the activity. Or, the assistance of 2 or more helpers is required for the patient to complete the activity. If activity was not attempted, code reason: 7-Patient Refused. 9-Not Applicable-not attempted and the patient did not perform the activity before the current illness, exacerbation or injury. 10-Not Attempted due to Environmental Limitations-(lack of equipment, weather restraints, etc.). 88-Not Attempted due to Medical Conditions or Safety Concerns. Sit to Stand (QC): 4 Chair/Uyj-dr-Tefkj Xfer(QC): 4 CGA Weight Bearing Right Lower Extremity: Right Full Weight Bearing Left Lower Extremity: Left Weight Bearing/Tolerated Gait Training Distance: 150', 120' Walk 10 feet (QC): 4 Walk 50 ft with 2 Turns(QC): 4 Walk 150 ft (QC): 4 Gait Persons Needed: 1 Gait Assistive Device: Cane Large Base Quad left AFO, slightly better step through and clearance on the left side, better balance and weight shifting Exercises side stepping in parallel bars 6'x6, SLS for approx 15 seconds each time 5 reps with knee in full extension and 5 reps with knee slightly bent NuStep Minutes: 15 NuStep Workload: 4 Treatments transfers, ambulation, functional strengthening Assessment Current Status: Fair Progress improving LLE strength and control PT Short Term Goals Short Term Goals Time Frame: May 28, 2020 Roll Left & Right: 6 Sit to lyin Lying to sitting on side of be: 3 Sit to stand: 4 Chair/fyn-sy-etmih transfer: 3 Walk 10 feet: 3 PT Paint Line Operator Goals Senior Living Goals PT Senior Living Goals Time Frame: Jun 11, 2020 Roll Left & Right (QC): 6 Sit to Lying (QC): 6 Lying-Sitting on Side/Bed(QC): 6 Sit to Stand (QC): 5 Chair/Ndk-hx-Akrnf Xfer(QC): 4 Toilet Transfer (QC): 4 Car Transfer (QC): 4 Does the Patient Walk: Yes Walk 10 feet (QC): 4 Walk 50ft with 2 Turns (QC): 4 Walk 150 ft (QC): 88 Walking 10ft on Uneven Surface: 4 1 Step (curb) (QC): 3 4 Steps (QC): 3 12 Steps (QC): 88 Picking up an Object (QC): 3 Wheel 50 feet with 2 turns (QC: 6 Wheel 150 feet: 6 PT Plan Problem List Problem List: Activity Tolerance, Functional Strength, Safety, Balance, Gait, Transfer, Bed Mobility, ROM Treatment/Plan Treatment Plan: Continue Plan of Care Treatment Plan: Bed Mobility, Education, Functional Activity Rusty, Functional Strength, Group Therapy, Gait, Safety, Therapeutic Exercise, Transfers Treatment Duration: Jun 11, 2020 Frequency: At least 5 of 7 days/Wk (IRF) Estimated Hrs Per Day: 1.5 hours per day Patient and/or Family Agrees t: Yes Safety Risks/Education Patient Education: Gait Training, Transfer Techniques, Correct Positioning, Safety Issues Teaching Recipient: Patient Teaching Methods: Demonstration, Discussion Response to Teaching: Reinforcement Needed Time/GCodes Time In: 0800 Time Out: 0900 Total Billed Treatment Time: 60 Total Billed Treatment 1 visit EX 30' GT 30' IVY HYDE PT May 30, 2020 08:55
[2020-05-30] MEDS: CALCIUM CARBONATE 500 MG (TUMS) TAB.CHEW PO PRN (10:22)
--- NOTE | 2020-05-30 10:23 | Occupational Ther Daily Note ---
OT Current Status-Daily Note Subjective Pt seated upright in w/c, agreeable to OT Tx. Pt reports some fatigue after PT tx. ADL-Treatment Therapy Code Descriptions/Definitions Functional [place] Measure: 0=Not Assessed/NA 4=Minimal Assistance 1=Total Assistance 5=Supervision or Setup 2=Maximal Assistance 6=Modified [place] 3=Moderate Assistance 7=Complete IndependenceSCALE: Activities may be completed with or without assistive devices. 4-Mpolqkfskf-lbocaii completes the activity by him/herself with no assistance from a helper. 5-Set-up or Clean-up Assistance-helper sets up or cleans up; patient completes activity. [place] assists only prior to or following the activity. 4-Supervision or Touching Assistance-helper provides verbal cues and/or touching/steadying and/or contact guard assistance as patient completes activity. Assistance may be provided throughout the activity or intermittently. 3-Partial/Moderate Assistance-helper does LESS THAN HALF the effort. [place] lifts, holds or supports trunk or limbs, but provides less than half the effort. 2-Substantial/Maximal Assistance-helper does MORE THAN HALF the effort. [place] lifts or holds trunk or limbs and provides more than half the effort. 4-Lfbjkloes-csxwhw does ALL the effort. Patient does none of the effort to complete the activity. Or, the assistance of 2 or more helpers is required for the patient to complete the activity. If activity was not attempted, code reason: 7-Patient Refused. 9-Not Applicable-not attempted and the patient did not perform the activity before the current illness, exacerbation or injury. 10-Not Attempted due to Environmental Limitations-(lack of equipment, weather restraints, etc.). 88-Not Attempted due to Medical Conditions or Safety Concerns. Other Treatment Pt seated in recliner, states he would like to do laundry today. Pt able to gather clothes from closet, seated in w/c. He then used quad cane to ambulate to laundry room, [facility]. Pt emptied clothes into washer, then followed instructions to start washer. Pt then sits in w/c to rest. Pt attempted to stand at quad cane to ambulate towards gym, but states fatigue when standing, requests to sit back down. Pt instead self-propels w/c to therapy gym. In gym, pt transferred to mat where he performed weight bearing through LUE extended elbow and onto forearm, with focus of neuromuscular reeducation of LUE. Pt reports he doesn't feel like he is going to fall forward like he has in the past with this task, but fatigues quickly with weightbearing, holding each position ~10 seconds. Pt went to parallel bars, performed standing fine motor task in order to increase dynamic standing balance, standing tolerance, and activity tolerance. Pt performed weight bearing through LUE while completing task with RUE, OT supported pt's L elbow with task. He completed peg activity and light resistance theraputty activity using R hand, seated rest break between tasks. OT performed PROM to L shoulder for flexion, abduction, and external rotation. Pt indicates he has been completing his self ROM HEP, but unable to go through full range with shoulder movements. Pt completed x10 shoulder shrugs BUEs, limited movement. Pt ambulated back towards his room using quad cane, making it about half way before reque sting to sit. Then propels w/c the rest of the way. Post tx, pt seated in w/c, call light in reach and all needs met. Education OT Patient Education: Correct positioning, Exercise program, Modified ADL techniques, Progress toward Goal/Update tx plan, Purpose of tx/functional activities Teaching Recipient: Patient Teaching Methods: Discussion Response to Teaching: Verbalize Understanding OT Short Term Goals Short Term Goals Time Frame: Jun 05, 2020 Shower/bathe self: 3 Lower body dressin Putting on/taking off footwear: 3 OT Ore Puncher Goals Ore Puncher Goals Time Frame: Jun 14, 2020 Eating (QC): 6 Oral Hygiene (QC): 6 Toileting Hygiene (QC): 6 Shower/Bathe Self (QC): 4 Upper Body Dressing (QC): 5 Lower Body Dressing (QC): 4 On/Off Footwear (QC): 5 Additional Goals: 1-Demonstrate ADL Tasks, 2-Verbalize Understanding, 3-ImproveStrength/Rusty 1=Demonstrate adherence to instructed precautions during ADL tasks. 2=Patient will verbalize/demonstrate understanding of assistive devices/modifications for ADL. 3=Patient will improve strength/tolerance for activity to enable patient to perform ADL's. OT Education/Plan Problem List/Assessment Assessment: Decreased Activ Tolerance, Decreased UE Strength, Impaired Funct Balance, Impaired I ADL's, Impaired Self-Care Skills, Restricted Funct UE ROM Discharge Recommendations Plan/Recommendations: Continue POC Treatment Plan/Plan of Care Patient would benefit from OT for education, treatment and training to promote independence in ADL's, mobility, safety and/or upper extremity function for ADL's. Plan of Care: ADL Retraining, Functional Mobility, Group Exercise/Act as Ind, UE Funct Exercise/Act Treatment Duration: Jun 14, 2020 Frequency: At least 5 of 7 days/Wk (IRF) Estimated Hrs Per Day: 1.5 hours per day Rehab Potential: Fair Time/GCodes Start Time: 09:00 Stop Time: 10:15 Total Time Billed (hr/min): 75 Billed Treatment Time 1, ADL (15'), EX (15'), FA 3 (45') TRACIE JAY OT May 30, 2020 10:23
--- NOTE | 2020-05-30 11:14 | Speech Therapy Daily Note ---
Speech Daily Progress Note Subjective Date Seen by Provider: May 30, 2020 Time Seen by Provider: 00:30 Patient was resting in his wc when I entered his room. He states he feels more sensation in his cheek area. Objective Patient completed 25 minutes of vital stim at 7.0 while completing OME with minimal cuing. Treatment Plan Continue Plan of Care Speech Short Term Goals Short Term Goals Short Term Goals 1) Patient will tolerate least restrictive diet level per physician's order at 90% or greater. 2) Patient/caregiver will utilize compensatory strategies as trained for safe oral intake at 90% or greater without cues. 3) Patient will complete OME as directed 4-5x per week. Speech Ceramic Plater Goals Ceramic Plater Goals Patient will improve swallowing and speech abilities to communicate better/easier with others. Speech-Plan Patient/Family Goals Patient/Family Goals: Patient plans on returning to his home where he lives with his and three children. Treatment Plan Speech Therapy Treatment Plan: Continue Plan of Care Treatment Duration: Jun 07, 2020 Frequency: 4 times per week (Patient receives skilled ST 4-5x per week) Estimated Hrs Per Day: .5 hour per day Rehab Potential: Fair Barriers to Learning: Patient's recent CVA, although he doesn't have cognitive issues. Pt/Family Agrees to Plan: Yes Safety Risks/Education Teaching Recipient: Patient Teaching Methods: Demonstration, Discussion Response to Teaching: Verbalize Understanding, Return Demonstration Education Topics Provided: Safety of oral intake, safety within his room Time Speech Therapy Time In: 10:30 Speech Therapy Time Out: 11:00 Total Billed Time: 30 Billed Treatment Time 1, GURWINDER, GAVI Steele May 30, 2020 11:14
--- NOTE | 2020-05-30 12:02 | PM&R Progress Note ---
Subjective HPI/CC On Admission Date Seen by Provider: May 30, 2020 Time Seen by Provider: 11:45 Subjective/Events-last exam 05/30/20: Pt doing very well Tens unit has really helped his left side of his face and arm Will fit him for an isotoner glove for edema Will DC Lovenox since it bothers him and he is ambulatory 05/29/20: Pt having no issues Psych evaluation will be at 1 PM Baclofen taken at night for muscle spasms in the left arm Overall doing well and eating and drinking well with no dysphasia 05/28/20: Lipitor stopped by Dr. Rios due to elevated liver enzymes Behavioral note will be evaluated Baclofen taken last night, doesnt know if it worked or not so maintain that and evaluate further Bowels moved yesterday 05/27/20: Pt doing very well Baclofen will be given for the left arm muscle spasms Elevated liver enzymes prompting abdominal ultrasound, ordered by Dr. Rios Overall doing pretty well otherwise 05/26/20: Patient doing well Frustrated with his situation but we can only support him so he can adjust at bedside today TC 178 Pivoting is improved 05/25/20: Left arm remains flaccid Walked to the gym and did well patient tearful at times or on the verge when he talks about his arm BM today No pain reported Tendency for somatic issues 05/24/20: Patient in better mood Tearful at times BM+ Slight elevated in LFT's SCD's refused by patient Showered today 05/23/20: Tearful at times Sore from loop recorder yesterday Wedding ring will be removed today by nursing supervisor abattoir Labs stable BP ok 05/22/20: Loop recorder was placed today by Dr. Rios BP 152/68 Swelling in his left hand, will get his wedding ring off today Very tearful at times Bowels moved four days ago so will initiate laxatives Review of Systems Neurological: Weakness, Incoordination Objective Exam Vital Signs Vital Signs Date Time Temp Pulse Resp B/P (MAP) Pulse Ox O2 Delivery O2 Flow Rate FiO2 05/30/20 20:30 Room Air 05/30/20 16:00 36.6 67 16 127/77 (94) 96 Capillary Refill : General Appearance: No Apparent Distress, WD/WN, Chronically ill, Obese HEENT: PERRL/EOMI, Normal ENT Inspection, Pharynx Normal Neck: Full Range of Motion, Normal Inspection, Non Tender, Supple, Carotid Bruit Respiratory: Chest Non Tender, Lungs Clear, Normal Breath Sounds, No Accessory Muscle Use, No Respiratory Distress Cardiovascular: Regular Rate, Rhythm, No Edema, No Gallop, No JVD, No Murmur, Normal Peripheral Pulses Gastrointestinal: Normal Bowel Sounds, No Organomegaly, No Pulsatile Mass, Non Tender, Soft Back: Normal Inspection, No CVA Tenderness, No Vertebral Tenderness Extremity: Normal Capillary Refill, Normal Inspection, Normal Range of Motion, Non Tender, No Calf Tenderness, No Pedal Edema Neurologic/Psychiatric: Alert, Oriented x3, Abnormal Gait, Depressed Affect, Motor Weakness (left sidded 1/) Skin: Normal Color, Warm/Dry Lymphatic: No Adenopathy Results/Procedures Lab Patient resulted labs reviewed. FIM Transfers Therapy Code Descriptions/Definitions Functional [place] Measure: 0=Not Assessed/NA 4=Minimal Assistance 1=Total Assistance 5=Supervision or Setup 2=Maximal Assistance 6=Modified [place] 3=Moderate Assistance 7=Complete IndependenceSCALE: Activities may be completed with or without assistive devices. 7-Tdjkdgrxaq-hugsunp completes the activity by him/herself with no assistance from a helper. 5-Set-up or Clean-up Assistance-helper sets up or cleans up; patient completes activity. [place] assists only prior to or following the activity. 4-Supervision or Touching Assistance-helper provides verbal cues and/or touching/steadying and/or contact guard assistance as patient completes activity. Assistance may be provided throughout the activity or intermittently. 3-Partial/Moderate Assistance-helper does LESS THAN HALF the effort. [place] lifts, holds or supports trunk or limbs, but provides less than half the effort. 2-Substantial/Maximal Assistance-helper does MORE THAN HALF the effort. [place] lifts or holds trunk or limbs and provides more than half the effort. 2-Funyztvcv-mzjzzb does ALL the effort. Patient does none of the effort to complete the activity. Or, the assistance of 2 or more helpers is required for the patient to complete the activity. If activity was not attempted, code reason: 7-Patient Refused. 9-Not Applicable-not attempted and the patient did not perform the activity before the current illness, exacerbation or injury. 10-Not Attempted due to Environmental Limitations-(lack of equipment, weather restraints, etc.). 88-Not Attempted due to Medical Conditions or Safety Concerns. Roll Left to Right (QC): 6 Sit to Lying (QC): 5 Sit to Stand (QC): 4 Chair/Zsb-ii-Nouwj Xfer(QC): 4 Car Transfer (QC): 3 Gait Training Does the Patient Walk?: Yes Distance: 150', 120' Walk 10 feet (QC): 4 Walk 50 ft with 2 Turns(QC): 4 Walk 150 ft (QC): 4 Walking 10ft/uneven surface-QC: 88 Gait Persons Needed: 1 Gait Assistive Device: Cane Large Base Quad Wheelchair Training Does the Pt Use a Wheelchair?: Yes Distance: 120'x2 Wheel 50 ft with 2 turns (QC): 5 Wheel 150 ft (QC): 88 Type of Wheelchair: Manual Stair Training 1 Step (curb) (QC): 88 4 Steps (QC): 88 12 Steps (QC): 88 Balance Picking up an Object (QC): 88 ADL-Treatment Eating (QC): 6 (IND per pt report, able to cut food, bring to mouth, and eat.) Oral Hygiene (QC): 6 (IND) Bathing Location: L Arm, R Arm, L Upper Leg, R Upper Leg, L Lower Leg (including foot), Chest, Abdomen, Buttocks, Perineal Area Shower/Bathe Self (QC): 4 (CGA in stand to wash buttocks., pt able to wash/dry all other parts seated on SC.) Upper Body Dressing (QC): 5 (set up, pt doffed/donned pullman clerk shirt.) Lower Body Dressing (QC): 4 (CGA in stand, pt able to don/doff pants/brief.) On/Off Footwear (QC): 6 (Pt doffed socks/shoes/AFO independently. 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 s/p loop recorder 05/22/20 Smoker New onset HTN HLP Fall upon arrival to unit with in room Elevated LFT's with normal liver USG Plan: PT OT Statin ASA Lovenox Monitor closely IRF protocol 05/22/20: Remove wedding ring left finger OT for edema management of the left hand Loop recorder 05/23/20: Wedding ring removed OT PT Monitor BP 05/24/20: Patient refuses SCD's Monitor BP Fall risk 05/25/20: Monitor closely Ambulating well with kiana-cane Loop recorder 05/26/20: Statin BP control Monitor closely 05/27/20: USG liver Elevated LFT's will be monitored DC monster drinks and soda 05/28/20: Hold statin due to elevated LFT's Monitor closely IRF protocol 05/29/20: Baclofen HS Monitor for falls Hold statin 05/30/20: Hold statin DC Lovenox (1) CVA (cerebral vascular accident) (2) Essential (primary) hypertension (3) Tobacco abuse (4) Hyperlipidemia RADHA COPPOLA DO May 30, 2020 12:02
--- NOTE | 2020-05-30 13:49 | Physical Therapy Daily Note ---
PT Daily Note-Current Subjective Patient in bed pre tx, agrees to PT, has no complaints of pain. Appearance Patient in bed post tx with nurse call, phone, tray, all needs met. Mental Status Patient Orientation: Normal For Age Transfers SCALE: Activities may be completed with or without assistive devices. 0-Regeftumio-uqhivsf completes the activity by him/herself with no assistance from a helper. 5-Set-up or Clean-up Assistance-helper sets up or cleans up; patient completes activity. [place] assists only prior to or following the activity. 4-Supervision or Touching Assistance-helper provides verbal cues and/or touching/steadying and/or contact guard assistance as patient completes activity. Assistance may be provided throughout the activity or intermittently. 3-Partial/Moderate Assistance-helper does LESS THAN HALF the effort. [place] lifts, holds or supports trunk or limbs, but provides less than half the effort. 2-Substantial/Maximal Assistance-helper does MORE THAN HALF the effort. [place] lifts or holds trunk or limbs and provides more than half the effort. 8-Orgntasah-xcpnud does ALL the effort. Patient does none of the effort to complete the activity. Or, the assistance of 2 or more helpers is required for the patient to complete the activity. If activity was not attempted, code reason: 7-Patient Refused. 9-Not Applicable-not attempted and the patient did not perform the activity before the current illness, exacerbation or injury. 10-Not Attempted due to Environmental Limitations-(lack of equipment, weather restraints, etc.). 88-Not Attempted due to Medical Conditions or Safety Concerns. Roll Left & Right (QC): 6 Sit to Lying (QC): 6 Lying to Sitting/Side of Bed(Q: 6 Sit to Stand (QC): 4 Chair/Qay-du-Anzoy Xfer(QC): 4 Weight Bearing Right Lower Extremity: Right Full Weight Bearing Left Lower Extremity: Left Weight Bearing/Tolerated Gait Training Distance: 150'x2 Walk 10 feet (QC): 4 Walk 50 ft with 2 Turns(QC): 4 Walk 150 ft (QC): 4 Gait Persons Needed: 1 Gait Assistive Device: Cane Large Base Quad CGA, left AFO, starting some slight circumduction Treatments transfers, and ambulation Assessment Current Status: Fair Progress improving ambulation quality and endurance PT Short Term Goals Short Term Goals Time Frame: May 28, 2020 Roll Left & Right: 6 Sit to lyin Lying to sitting on side of be: 3 Sit to stand: 4 Chair/hgm-xj-inkle transfer: 3 Walk 10 feet: 3 PT Mcfp Goals Tailor Women'S Garment Alteration Goals PT Tailor Women'S Garment Alteration Goals Time Frame: Jun 11, 2020 Roll Left & Right (QC): 6 Sit to Lying (QC): 6 Lying-Sitting on Side/Bed(QC): 6 Sit to Stand (QC): 5 Chair/Drq-rs-Kmysi Xfer(QC): 4 Toilet Transfer (QC): 4 Car Transfer (QC): 4 Does the Patient Walk: Yes Walk 10 feet (QC): 4 Walk 50ft with 2 Turns (QC): 4 Walk 150 ft (QC): 88 Walking 10ft on Uneven Surface: 4 1 Step (curb) (QC): 3 4 Steps (QC): 3 12 Steps (QC): 88 Picking up an Object (QC): 3 Wheel 50 feet with 2 turns (QC: 6 Wheel 150 feet: 6 PT Plan Problem List Problem List: Activity Tolerance, Functional Strength, Safety, Balance, Gait, Transfer, Bed Mobility, ROM Treatment/Plan Treatment Plan: Continue Plan of Care Treatment Plan: Bed Mobility, Education, Functional Activity Rusty, Functional Strength, Group Therapy, Gait, Safety, Therapeutic Exercise, Transfers Treatment Duration: Jun 11, 2020 Frequency: At least 5 of 7 days/Wk (IRF) Estimated Hrs Per Day: 1.5 hours per day Patient and/or Family Agrees t: Yes Safety Risks/Education Patient Education: Gait Training, Transfer Techniques, Correct Positioning, Saf ety Issues Teaching Recipient: Patient Teaching Methods: Demonstration, Discussion Response to Teaching: Reinforcement Needed Time/GCodes Time In: 1330 Time Out: 1345 Total Billed Treatment Time: 15 Total Billed Treatment 1 visit GT 15' IVY HYDE PT May 30, 2020 13:49
[2020-05-30 16:00] VITALS: BP 127/77
[2020-05-30] MEDS: BACLOFEN 10 MG (LIORESAL) TAB PO PRN (20:37)
[2020-05-31 05:46] VITALS: BP 130/74
[2020-05-31 08:00] VITALS: BP 153/75
[2020-05-31] MEDS: VALSARTAN 160 MG (DIOVAN) TABLET PO SCH (08:01)
[2020-05-31] MEDS: ACETAMINOPHEN 325 MG TABLET PO PRN (08:01)
[2020-05-31] MEDS: amLODIPine 10 MG (NORVASC) TAB PO SCH (08:01)
[2020-05-31] MEDS: ASPIRIN 325 MG (5 GR) TABLET PO SCH (08:01)
--- NOTE | 2020-05-31 08:54 | Physical Therapy Daily Note ---
PT Daily Note-Current Subjective Patient in WC pre tx, agrees to PT, has no complaints of pain. Appearance Patient in WC at bedside post tx with nurse call, phone, tray, all needs met. Mental Status Patient Orientation: Normal For Age Transfers SCALE: Activities may be completed with or without assistive devices. 8-Ogictnraur-ttblggs completes the activity by him/herself with no assistance from a helper. 5-Set-up or Clean-up Assistance-helper sets up or cleans up; patient completes activity. [place] assists only prior to or following the activity. 4-Supervision or Touching Assistance-helper provides verbal cues and/or touching/steadying and/or contact guard assistance as patient completes activity. Assistance may be provided throughout the activity or intermittently. 3-Partial/Moderate Assistance-helper does LESS THAN HALF the effort. [place] lifts, holds or supports trunk or limbs, but provides less than half the effort. 2-Substantial/Maximal Assistance-helper does MORE THAN HALF the effort. [place] lifts or holds trunk or limbs and provides more than half the effort. 1-Popssxilg-ojihhm does ALL the effort. Patient does none of the effort to complete the activity. Or, the assistance of 2 or more helpers is required for the patient to complete the activity. If activity was not attempted, code reason: 7-Patient Refused. 9-Not Applicable-not attempted and the patient did not perform the activity before the current illness, exacerbation or injury. 10-Not Attempted due to Environmental Limitations-(lack of equipment, weather restraints, etc.). 88-Not Attempted due to Medical Conditions or Safety Concerns. Sit to Stand (QC): 4 Chair/Pmj-pn-Ehmyp Xfer(QC): 4 CGA Weight Bearing Right Lower Extremity: Right Full Weight Bearing Left Lower Extremity: Left Weight Bearing/Tolerated Gait Training Distance: 150', 120' Walk 10 feet (QC): 4 Walk 50 ft with 2 Turns(QC): 4 Walk 150 ft (QC): 4 Gait Persons Needed: 1 Gait Assistive Device: Cane Large Base Quad CGA, improving balance during ambulation, still moments of unsteadiness but becoming less and less, uses left AFO Stair Training Stair Training: Handrails/: 1 handrail #of Steps: 12 1 Step (curb) (QC): 4 4 Steps (QC): 4 12 Steps (QC): 4 Stairs: Pattern: Step to close CGA, cues for foot placement Exercises SLS x10 in parallel bars with slightly flexed left knee NuStep Minutes: 15 NuStep Workload: 4 Treatments transfers, ambulation, stairs, functional strengthening Assessment Current Status: Fair Progress improving functional mobility and stairs PT Short Term Goals Short Term Goals Time Frame: May 28, 2020 Roll Left & Right: 6 Sit to lyin Lying to sitting on side of be: 3 Sit to stand: 4 Chair/yom-ux-actbh transfer: 3 Walk 10 feet: 3 PT [employer] Expediter Goals Senior Care Goals PT [employer] Expediter Goals Time Frame: Jun 11, 2020 Roll Left & Right (QC): 6 Sit to Lying (QC): 6 Lying-Sitting on Side/Bed(QC): 6 Sit to Stand (QC): 5 Chair/Fbh-hv-Lyshc Xfer(QC): 4 Toilet Transfer (QC): 4 Car Transfer (QC): 4 Does the Patient Walk: Yes Walk 10 feet (QC): 4 Walk 50ft with 2 Turns (QC): 4 Walk 150 ft (QC): 88 Walking 10ft on Uneven Surface: 4 1 Step (curb) (QC): 3 4 Steps (QC): 3 12 Steps (QC): 88 Picking up an Object (QC): 3 Wheel 50 feet with 2 turns (QC: 6 Wheel 150 feet: 6 PT Plan Problem List Problem List: Activity Tolerance, Functional Strength, Safety, Balance, Gait, Transfer, Bed Mobility, ROM Treatment/Plan Treatment Plan: Continue Plan of Care Treatment Plan: Bed Mobility, Education, Functional Activity Rusty, Functional Strength, Group Therapy, Gait, Safety, Therapeutic Exercise, Transfers Treatment Duration: Jun 11, 2020 Frequency: At least 5 of 7 days/Wk (IRF) Estimated Hrs Per Day: 1.5 hours per day Patient and/or Family Agrees t: Yes Safety Risks/Education Patient Education: Gait Training, Transfer Techniques, Steps, Correct Positioning, Safety Issues Teaching Recipient: Patient Teaching Methods: Demonstration, Discussion Response to Teaching: Reinforcement Needed Time/GCodes Time In: 0800 Time Out: 0900 Total Billed Treatment Time: 60 Total Billed Treatment 1 visit EX 20' FA 40' IVY HYDE PT May 31, 2020 08:54
--- NOTE | 2020-05-31 09:21 | Occupational Ther Daily Note ---
OT Current Status-Daily Note Subjective Pt seated upright in w/c, agreeable to OT Tx with focus on ADLs. Pt has been completing self-ROM in room of LUE shoulder, elbow, wrist, fingers in order to decrease edema of LUE and to maintain ROM LUE. Mental Status/Objective Patient Orientation: Person, Place, Time, Situation ADL-Treatment Therapy Code Descriptions/Definitions Functional Marcus Measure: 0=Not Assessed/NA 4=Minimal Assistance 1=Total Assistance 5=Supervision or Setup 2=Maximal Assistance 6=Modified Marcus 3=Moderate Assistance 7=Complete IndependenceSCALE: Activities may be completed with or without assistive devices. 8-Utmbudeqnc-vbrylws completes the activity by him/herself with no assistance from a helper. 5-Set-up or Clean-up Assistance-helper sets up or cleans up; patient completes activity. [place] assists only prior to or following the activity. 4-Supervision or Touching Assistance-helper provides verbal cues and/or touching/steadying and/or contact guard assistance as patient completes activity. Assistance may be provided throughout the activity or intermittently. 3-Partial/Moderate Assistance-helper does LESS THAN HALF the effort. [place] lifts, holds or supports trunk or limbs, but provides less than half the effort. 2-Substantial/Maximal Assistance-helper does MORE THAN HALF the effort. [place] l ifts or holds trunk or limbs and provides more than half the effort. 9-Csqiyyijt-zhrxah does ALL the effort. Patient does none of the effort to complete the activity. Or, the assistance of 2 or more helpers is required for the patient to complete the activity. If activity was not attempted, code reason: 7-Patient Refused. 9-Not Applicable-not attempted and the patient did not perform the activity before the current illness, exacerbation or injury. 10-Not Attempted due to Environmental Limitations-(lack of equipment, weather restraints, etc.). 88-Not Attempted due to Medical Conditions or Safety Concerns. Shower/Bathe Self (QC): 4 (CGA in stand at grab bars. Pt able to wash/dry all parts using LH sponge.) Upper Body Dressing (QC): 4 (SBA, pt able to unbutton shirt 1 handed, required cue to doff RUE first. Pt able to don tie puller shirt with set up assist.) Lower Body Dressing (QC): 4 (CGA in stand at GBs) On/Off Footwear: 6 (Pt able to doff/don socks/shoes/AFO with increased time) Other Treatment Pt seated in w/, transferred to [place] via [facility] where he doffed clothes and completed showering. Pt then transferred to / to don clothes. Pt required increased time with donning AFO/shoe onto LLE. OT provided pt with LH shoe horn, but pt able to don shoe/AFO without. Pt propelled w/c to therapy gym, transferring to mat. Pt completed weight bearing on LUE, extended elbow, and onto forearm with bent elbow, in order to increase proprioceptive input to LUE, and to focus on neuromuscular reeducation. Pt transferred back to /, propelled self back to room.Post tx, pt seated in recliner, call light in reach and all needs met. Education OT Patient Education: Correct positioning, Modified ADL techniques, Progress toward Goal/Update tx plan, Purpose of tx/functional activities Teaching Recipient: Patient Teaching Methods: Discussion Response to Teaching: Verbalize Understanding OT Short Term Goals Short Term Goals Time Frame: Jun 05, 2020 Shower/bathe self: 3 Lower body dressin Putting on/taking off footwear: 3 OT Long-Term Goals Long-Term Goals Time Frame: Jun 14, 2020 Eating (QC): 6 Oral Hygiene (QC): 6 Toileting Hygiene (QC): 6 Shower/Bathe Self (QC): 4 Upper Body Dressing (QC): 5 Lower Body Dressing (QC): 4 On/Off Footwear (QC): 5 Additional Goals: 1-Demonstrate ADL Tasks, 2-Verbalize Understanding, 3- ImproveStrength/Rusty 1=Demonstrate adherence to instructed precautions during ADL tasks. 2=Patient will verbalize/demonstrate understanding of assistive devices/modifications for ADL. 3=Patient will improve strength/tolerance for activity to enable patient to perform ADL's. OT Education/Plan Problem List/Assessment Assessment: Decreased Activ Tolerance, Decreased Safety Aware, Decreased UE Strength, Impaired I ADL's, Impaired Self-Care Skills, Restricted Funct UE ROM Discharge Recommendations Plan/Recommendations: Continue POC Treatment Plan/Plan of Care Patient would benefit from OT for education, treatment and training to promote independence in ADL's, mobility, safety and/or upper extremity function for ADL's. Plan of Care: ADL Retraining, Functional Mobility, Group Exercise/Act as Ind, UE Funct Exercise/Act Treatment Duration: Jun 14, 2020 Frequency: At least 5 of 7 days/Wk (IRF) Estimated Hrs Per Day: 1.5 hours per day Rehab Potential: Fair Time/GCodes Start Time: 09:00 Stop Time: 10:15 Total Time Billed (hr/min): 75 Billed Treatment Time 1, ADL 4 (60'), FA (15') TRACIE JAY OT May 31, 2020 09:21
[2020-05-31] MEDS: polyethylene glycoL POWDER 17 GM (MIRALAX) PACK PO SCH ×2 (09:33→21:27)
[2020-05-31] MEDS: SENNA W/DOCUSATE (SENOKOT S) TABLET PO SCH ×2 (09:33→21:25)
[2020-05-31] MEDS: DOCUSATE SODIUM 100 MG (COLACE) CAP PO SCH ×2 (09:33→21:25)
--- NOTE | 2020-05-31 11:34 | PM&R Progress Note ---
Subjective HPI/CC On Admission Date Seen by Provider: May 31, 2020 Time Seen by Provider: 11:45 Subjective/Events-last exam 05/31/20: Patient doing well Balance is better Worked stairs today No falls 05/30/20: Pt doing very well Tens unit has really helped his left side of his face and arm Will fit him for an isotoner glove for edema Will DC Lovenox since it bothers him and he is ambulatory 05/29/20: Pt having no issues Psych evaluation will be at 1 PM Baclofen taken at night for muscle spasms in the left arm Overall doing well and eating and drinking well with no dysphasia 05/28/20: Lipitor stopped by Dr. Rios due to elevated liver enzymes Behavioral note will be evaluated Baclofen taken last night, doesnt know if it worked or not so maintain that and evaluate further Bowels moved yesterday 05/27/20: Pt doing very well Baclofen will be given for the left arm muscle spasms Elevated liver enzymes prompting abdominal ultrasound, ordered by Dr. 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 Rios BP 152/68 Swelling in his left hand, will get his wedding ring off today Very tearful at times Bowels moved four days ago so will initiate laxatives Review of Systems General: Fatigue, Malaise Neurological: Weakness, Incoordination Objective Exam Vital Signs Vital Signs Date Time Temp Pulse Resp B/P (MAP) Pulse Ox O2 Delivery O2 Flow Rate FiO2 06/01/20 05:49 36.6 75 16 147/80 (102) 96 05/31/20 20:10 Room Air Capillary Refill : General Appearance: No Apparent Distress, WD/WN, Chronically ill, Obese HEENT: PERRL/EOMI, Normal ENT Inspection, Pharynx Normal Neck: Full Range of Motion, Normal Inspection, Non Tender, Supple, Carotid Bruit Respiratory: Chest Non Tender, Lungs Clear, Normal Breath Sounds, No Accessory Muscle Use, No Respiratory Distress Cardiovascular: Regular Rate, Rhythm, No Edema, No Gallop, No JVD, No Murmur, Normal Peripheral Pulses Gastrointestinal: Normal Bowel Sounds, No Organomegaly, No Pulsatile Mass, Non Tender, Soft Back: Normal Inspection, No CVA Tenderness, No Vertebral Tenderness Extremity: Normal Capillary Refill, Normal Inspection, Normal Range of Motion, Non Tender, No Calf Tenderness, No Pedal Edema Neurologic/Psychiatric: Alert, Oriented x3, Abnormal Gait, Depressed Affect, Motor Weakness (left sidded 1/5) Skin: Normal Color, Warm/Dry Lymphatic: No Adenopathy Results/Procedures Lab Patient resulted labs reviewed. FIM Transfers Therapy Code Descriptions/Definitions Functional [place] Measure: 0=Not Assessed/NA 4=Minimal Assistance 1=Total Assistance 5=Supervision or Setup 2=Maximal Assistance 6=Modified [place] 3=Moderate Assistance 7=Complete IndependenceSCALE: Activities may be completed with or without assistive devices. 9-Qdgcsiuvxq-xarxeop completes the activity by him/herself with no assistance from a helper. 5-Set-up or Clean-up Assistance-helper sets up or cleans up; patient completes activity. [place] assists only prior to or following the activity. 4-Supervision or Touching Assistance-helper provides verbal cues and/or touching/steadying and/or contact guard assistance as patient completes activity. Assistance may be provided throughout the activity or intermittently. 3-Partial/Moderate Assistance-helper does LESS THAN HALF the effort. [place] lifts, holds or supports trunk or limbs, but provides less than half the effort. 2-Substantial/Maximal Assistance-helper does MORE THAN HALF the effort. [place] lifts or holds trunk or limbs and provides more than half the effort. 4-Hqorxzayp-kwhrkq does ALL the effort. Patient does none of the effort to complete the activity. Or, the assistance of 2 or more helpers is required for the patient to complete the activity. If activity was not attempted, code reason: 7-Patient Refused. 9-Not Applicable-not attempted and the patient did not perform the activity before the current illness, exacerbation or injury. 10-Not Attempted due to Environmental Limitations-(lack of equipment, weather restraints, etc.). 88-Not Attempted due to Medical Conditions or Safety Concerns. Roll Left to Right (QC): 6 Sit to Lying (QC): 6 Sit to Stand (QC): 4 Chair/Gzu-lf-Ucvfk Xfer(QC): 4 Car Transfer (QC): 3 Gait Training Does the Patient Walk?: Yes Distance: 150', 120' Walk 10 feet (QC): 4 Walk 50 ft with 2 Turns(QC): 4 Walk 150 ft (QC): 4 Walking 10ft/uneven surface-QC: 88 Gait Persons Needed: 1 Gait Assistive Device: Cane Large Base Quad Wheelchair Training Does the Pt Use a Wheelchair?: Yes Distance: 120'x2 Wheel 50 ft with 2 turns (QC): 5 Wheel 150 ft (QC): 88 Type of Wheelchair: Manual Stair Training Stair Training: Handrails/: 1 handrail #of Steps: 12 1 Step (curb) (QC): 4 4 Steps (QC): 4 12 Steps (QC): 4 Stairs: Pattern: Step to Balance Picking up an Object (QC): 88 ADL-Treatment Eating (QC): 6 (IND per pt report, able to cut food, bring to mouth, and eat.) Oral Hygiene (QC): 6 (IND) Bathing Location: L Arm, R Arm, L Upper Leg, R Upper Leg, L Lower Leg (including foot), Chest, Abdomen, Buttocks, Perineal Area Shower/Bathe Self (QC): 4 (CGA in stand at grab bars. Pt able to wash/dry all parts using LH sponge.) Upper Body Dressing (QC): 4 (SBA, pt able to unbutton shirt 1 handed, required cue to doff RUE first. 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 s/p loop recorder 05/22/20 Smoker New onset HTN HLP Fall upon arrival to unit with in room Elevated LFT's with normal liver USG Plan: PT OT Statin ASA Lovenox Monitor closely IRF protocol 05/22/20: Remove wedding ring left finger OT for edema management of the left hand Loop recorder 05/23/20: Wedding ring removed OT PT Monitor BP 05/24/20: Patient refuses SCD's Monitor BP Fall risk 05/25/20: Monitor closely Ambulating well with kiana-cane Loop recorder 05/26/20: Statin BP control Monitor closely 05/27/20: USG liver Elevated LFT's will be monitored DC monster drinks and soda 05/28/20: Hold statin due to elevated LFT's Monitor closely IRF protocol 05/29/20: Baclofen HS Monitor for falls Hold statin 05/30/20: Hold statin DC Lovenox 05/31/20: Monitor for falls Works on stairs (1) CVA (cerebral vascular accident) (2) Essential (primary) hypertension (3) Tobacco abuse (4) Hyperlipidemia RADHA COPPOLA DO May 31, 2020 11:33
--- NOTE | 2020-05-31 11:42 | Speech Therapy Daily Note ---
Speech Daily Progress Note Subjective Date Seen by Provider: May 31, 2020 Time Seen by Provider: 00:30 Patient was sitting up in his wc playing on his phone when I entered his room. Objective Patient completed 25 minutes of vital stim at 8.0 while completing OME with good response. Assessment Assessment Current Status: Good Progress Treatment Plan Continue Plan of Care Speech Short Term Goals Short Term Goals Short Term Goals 1) Patient will tolerate least restrictive diet level per physician's order at 90% or greater. 2) Patient/caregiver will utilize compensatory strategies as trained for safe oral intake at 90% or greater without cues. 3) Patient will complete OME as directed 4-5x per week. Speech Preventive Medicine Specialist Goals [facility] Goals Patient will improve swallowing and speech abilities to communicate better/easier with others. Speech-Plan Patient/Family Goals Patient/Family Goals: Patient plans on returning to his home where he lives with his and children. Treatment Plan Speech Therapy Treatment Plan: Continue Plan of Care Treatment Duration: Jun 07, 2020 Frequency: 4 times per week (Patient receives skilled ST 4-5x per week) Estimated Hrs Per Day: .5 hour per day Rehab Potential: Fair Barriers to Learning: Patient's recent CVA, although he doesn't have cognitive deficits Pt/Family Agrees to Plan: Yes Safety Risks/Education Teaching Recipient: Patient Teaching Methods: Demonstration, Discussion Response to Teaching: Verbalize Understanding, Return Demonstration Education Topics Provided: Continued safety within his room and with oral intake Time Speech Therapy Time In: 11:00 Speech Therapy Time Out: 11:30 Total Billed Time: 30 Billed Treatment Time 1, GURWINDER, GAVI Steele May 31, 2020 11:42
--- NOTE | 2020-05-31 13:41 | Physical Therapy Daily Note ---
PT Daily Note-Current Subjective Patient in WC at bedside pre tx, agrees to PT, has no complaints of pain Appearance Patient in WC at bedside post tx with nurse call, phone, tray, all needs met. Mental Status Patient Orientation: Normal For Age Transfers SCALE: Activities may be completed with or without assistive devices. 1-Anrrazfvmr-eeyutrx completes the activity by him/herself with no assistance from a helper. 5-Set-up or Clean-up Assistance-helper sets up or cleans up; patient completes activity. [place] assists only prior to or following the activity. 4-Supervision or Touching Assistance-helper provides verbal cues and/or touc tammy/steadying and/or contact guard assistance as patient completes activity. Assistance may be provided throughout the activity or intermittently. 3-Partial/Moderate Assistance-helper does LESS THAN HALF the effort. [place] lifts, holds or supports trunk or limbs, but provides less than half the effort. 2-Substantial/Maximal Assistance-helper does MORE THAN HALF the effort. [place] lifts or holds trunk or limbs and provides more than half the effort. 7-Uurjjruxn-kfzgvv does ALL the effort. Patient does none of the effort to complete the activity. Or, the assistance of 2 or more helpers is required for the patient to complete the activity. If activity was not attempted, code reason: 7-Patient Refused. 9-Not Applicable-not attempted and the patient did not perform the activity before the current illness, exacerbation or injury. 10-Not Attempted due to Environmental Limitations-(lack of equipment, weather restraints, etc.). 88-Not Attempted due to Medical Conditions or Safety Concerns. Sit to Stand (QC): 4 Chair/Qyq-gi-Bkfip Xfer(QC): 4 CGA Weight Bearing Right Lower Extremity: Right Full Weight Bearing Left Lower Extremity: Left Weight Bearing/Tolerated Gait Training Distance: 120'x2 Walk 10 feet (QC): 4 Walk 50 ft with 2 Turns(QC): 4 Gait Persons Needed: 1 Gait Assistive Device: Cane Single Point Patient uses a left side AFO. Patient is more unsteady using a SPC, needed to make more adjustments to balance during ambulation but he was able to do it without assist from therapist. Treatments gait training Assessment Current Status: Fair Progress improving balance and ambulation, used SPC for ambulation PT Short Term Goals Short Term Goals Time Frame: May 28, 2020 Roll Left & Right: 6 Sit to lyin Lying to sitting on side of be: 3 Sit to stand: 4 Chair/ype-vj-ritky transfer: 3 Walk 10 feet: 3 PT Custom Designer Goals [facility] Goals PT [facility] Goals Time Frame: Jun 11, 2020 Roll Left & Right (QC): 6 Sit to Lying (QC): 6 Lying-Sitting on Side/Bed(QC): 6 Sit to Stand (QC): 5 Chair/Irw-cw-Nlqmv Xfer(QC): 4 Toilet Transfer (QC): 4 Car Transfer (QC): 4 Does the Patient Walk: Yes Walk 10 feet (QC): 4 Walk 50ft with 2 Turns (QC): 4 Walk 150 ft (QC): 88 Walking 10ft on Uneven Surface: 4 1 Step (curb) (QC): 3 4 Steps (QC): 3 12 Steps (QC): 88 Picking up an Object (QC): 3 Wheel 50 feet with 2 turns (QC: 6 Wheel 150 feet: 6 PT Plan Problem List Problem List: Activity Tolerance, Functional Strength, Safety, Balance, Gait, Transfer, Bed Mobility, ROM Treatment/Plan Treatment Plan: Continue Plan of Care Treatment Plan: Bed Mobility, Education, Functional Activity Rusty, Functional Strength, Group Therapy, Gait, Safety, Therapeutic Exercise, Transfers Treatment Duration: Jun 11, 2020 Frequency: At least 5 of 7 days/Wk (IRF) Estimated Hrs Per Day: 1.5 hours per day Patient and/or Family Agrees t: Yes Safety Risks/Education Patient Education: Gait Training, Transfer Techniques, Correct Positioning, Safety Issues Teaching Recipient: Patient Teaching Methods: Demonstration, Discussion Response to Teaching: Reinforcement Needed Time/GCodes Time In: 1325 Time Out: 1340 Total Billed Treatment Time: 15 Total Billed Treatment 1 visit GT 15' IVY HYDE PT May 31, 2020 13:41
--- NOTE | 2020-05-31 14:57 | Occ Therapy Progress Note ---
Therapy Progress Note OT provided pt with written HEP and education on retrograde massage for edema management of LUE. Pt verbalized and demo'd understanding. Pt indicates he does not feel like his L hand is as swollen today as it has been, and he is not concerned with any swelling at this time. OT informed pt to perform retrograde massage and self-ROM to help with edema if pt notices swelling, he verbalize understanding. [id number] 1, visit TRACIE JAY OT May 31, 2020 14:57
[2020-05-31 16:05] VITALS: BP 111/59
[2020-05-31] MEDS: BACLOFEN 10 MG (LIORESAL) TAB PO PRN (21:25)
[2020-06-01] MEDS: ACETAMINOPHEN 325 MG TABLET PO PRN (05:47)
[2020-06-01 05:49] VITALS: BP 147/80
--- NOTE | 2020-06-01 07:33 | PM&R Progress Note ---
Subjective HPI/CC On Admission Date Seen by Provider: Jun 01, 2020 Time Seen by Provider: 09:40 Subjective/Events-last exam 06/01/20: Patient doing well Left hand improved BM+ Slept hard and was stiff this morning 05/31/20: Patient doing well Balance is better Worked stairs today No falls 05/30/20: Pt doing very well Tens unit has really helped his left side of his face and arm Will fit him for an isotoner glove for edema Will DC Lovenox since it bothers him and he is ambulatory 05/29/20: Pt having no issues Psych evaluation will be at 1 PM Baclofen taken at night for muscle spasms in the left arm Overall doing well and eating and drinking well with no dysphasia 05/28/20: Lipitor stopped by Dr. Rios due to elevated liver enzymes Behavioral note will be evaluated Baclofen taken last night, doesnt know if it worked or not so maintain that and evaluate further Bowels moved yesterday 05/27/20: Pt doing very well Baclofen will be given for the left arm muscle spasms Elevated liver enzymes prompting abdominal ultrasound, ordered by Dr. Rios Overall doing pretty well otherwise 05/26/20: Patient doing well Frustrated with his situation but we can only support him so he can adjust at bedside today TC 178 Pivoting is improved 05/25/20: Left arm remains flaccid Walked to the gym and did well patient tearful at times or on the verge when he talks about his arm BM today No pain reported Tendency for somatic issues 05/24/20: Patient in better mood Tearful at times BM+ Slight elevated in LFT's SCD's refused by patient Showered today 05/23/20: Tearful at times Sore from loop recorder yesterday Wedding ring will be removed today by nursing paper testing supervisor Labs stable BP ok 05/22/20: Loop recorder was placed today by Dr. Rios BP 152/68 Swelling in his left hand, will get his wedding ring off today Very tearful at times Bowels moved four days ago so will initiate laxatives Review of Systems General: Fatigue Neurological: Weakness, Incoordination Objective Exam Vital Signs Vital Signs Date Time Temp Pulse Resp B/P (MAP) Pulse Ox O2 Delivery O2 Flow Rate FiO2 06/01/20 17:03 37.0 76 18 138/75 (96) 97 Room Air Capillary Refill : General Appearance: No Apparent Distress, WD/WN, Chronically ill, Obese HEENT: PERRL/EOMI, Normal ENT Inspection, Pharynx Normal Neck: Full Range of Motion, Normal Inspection, Non Tender, Supple, Carotid Bruit Respiratory: Chest Non Tender, Lungs Clear, Normal Breath Sounds, No Accessory Muscle Use, No Respiratory Distress Cardiovascular: Regular Rate, Rhythm, No Edema, No Gallop, No JVD, No Murmur, Normal Peripheral Pulses Gastrointestinal: Normal Bowel Sounds, No Organomegaly, No Pulsatile Mass, Non Tender, Soft Back: Normal Inspection, No CVA Tenderness, No Vertebral Tenderness Extremity: Normal Capillary Refill, Normal Inspection, Normal Range of Motion, Non Tender, No Calf Tenderness, No Pedal Edema Neurologic/Psychiatric: Alert, Oriented x3, Abnormal Gait, Depressed Affect, Motor Weakness (left sidded 1/5) Skin: Normal Color, Warm/Dry Lymphatic: No Adenopathy Results/Procedures Lab Patient resulted labs reviewed. FIM Transfers Therapy Code Descriptions/Definitions Functional [place] Measure: 0=Not Assessed/NA 4=Minimal Assistance 1=Total Assistance 5=Supervision or Setup 2=Maximal Assistance 6=Modified [place] 3=Moderate Assistance 7=Complete IndependenceSCALE: Activities may be completed with or without assistive devices. 6-Ghboykqxfw-ytixvfi completes the activity by him/herself with no assistance from a helper. 5-Set-up or Clean-up Assistance-helper sets up or cleans up; patient completes activity. [place] assists only prior to or following the activity. 4-Supervision or Touching Assistance-helper provides verbal cues and/or touching/steadying and/or contact guard assistance as patient completes activity. Assistance may be provided throughout the activity or intermittently. 3-Partial/Moderate Assistance-helper does LESS THAN HALF the effort. [place] lifts, holds or supports trunk or limbs, but provides less than half the effort. 2-Substantial/Maximal Assistance-helper does MORE THAN HALF the effort. [place] lifts or holds trunk or limbs and provides more than half the effort. 1-Kiiebenyx-ajjtyo does ALL the effort. Patient does none of the effort to complete the activity. Or, the assistance of 2 or more helpers is required for the patient to complete the activity. If activity was not attempted, code reason: 7-Patient Refused. 9-Not Applicable-not attempted and the patient did not perform the activity before the current illness, exacerbation or injury. 10-Not Attempted due to Environmental Limitations-(lack of equipment, weather restraints, etc.). 88-Not Attempted due to Medical Conditions or Safety Concerns. Roll Left to Right (QC): 6 Sit to Lying (QC): 6 Sit to Stand (QC): 4 Chair/Bgd-lz-Qkjgj Xfer(QC): 4 Car Transfer (QC): 3 Gait Training Does the Patient Walk?: Yes Distance: 120'x2 Walk 10 feet (QC): 4 Walk 50 ft with 2 Turns(QC): 4 Walk 150 ft (QC): 4 Walking 10ft/uneven surface-QC: 88 Gait Persons Needed: 1 Gait Assistive Device: Cane Single Point Wheelchair Training Does the Pt Use a Wheelchair?: Yes Distance: 120'x2 Wheel 50 ft with 2 turns (QC): 5 Wheel 150 ft (QC): 88 Type of Wheelchair: Manual Stair Training Stair Training: Handrails/: 1 handrail #of Steps: 12 1 Step (curb) (QC): 4 4 Steps (QC): 4 12 Steps (QC): 4 Stairs: Pattern: Step to Balance Picking up an Object (QC): 88 ADL-Treatment Eating (QC): 6 (IND per pt report, able to cut food, bring to mouth, and eat.) Oral Hygiene (QC): 6 (IND) Bathing Location: L Arm, R Arm, L Upper Leg, R Upper Leg, L Lower Leg (including foot), Chest, Abdomen, Buttocks, Perineal Area Shower/Bathe Self (QC): 4 (CGA in stand at grab bars. Pt able to wash/dry all parts using LH sponge.) Upper Body Dressing (QC): 4 (SBA, pt able to unbutton shirt 1 handed, required cue to doff RUE first. 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 s/p loop recorder 05/22/20 Left arm muscle spasms responded to Baclofen Smoker New onset HTN HLP Fall upon arrival to unit with in room Elevated LFT's with normal liver USG Plan: PT OT Statin ASA Lovenox Monitor closely IRF protocol 05/22/20: Remove wedding ring left finger OT for edema management of the left hand Loop recorder 05/23/20: Wedding ring removed OT PT Monitor BP 05/24/20: Patient refuses SCD's Monitor BP Fall risk 05/25/20: Monitor closely Ambulating well with kiana-cane Loop recorder 05/26/20: Statin BP control Monitor closely 05/27/20: USG liver Elevated LFT's will be monitored DC monster drinks and soda 05/28/20: Hold statin due to elevated LFT's Monitor closely IRF protocol 05/29/20: Baclofen HS Monitor for falls Hold statin 05/30/20: Hold statin DC Lovenox 05/31/20: Monitor for falls Works on stairs 06/01/20: Improved edema left hand Doing really well with therapy (1) CVA (cerebral vascular accident) (2) Essential (primary) hypertension (3) Tobacco abuse (4) Hyperlipidemia RADHA COPPOLA DO Jun 01, 2020 07:32
[2020-06-01] MEDS: ASPIRIN 325 MG (5 GR) TABLET PO SCH (07:58)
[2020-06-01] MEDS: amLODIPine 10 MG (NORVASC) TAB PO SCH (07:58)
[2020-06-01] MEDS: VALSARTAN 160 MG (DIOVAN) TABLET PO SCH (07:58)
[2020-06-01] MEDS: DOCUSATE SODIUM 100 MG (COLACE) CAP PO SCH ×2 (09:18→20:33)
[2020-06-01] MEDS: polyethylene glycoL POWDER 17 GM (MIRALAX) PACK PO SCH ×2 (09:19→20:34)
[2020-06-01] MEDS: SENNA W/DOCUSATE (SENOKOT S) TABLET PO SCH ×2 (09:20→20:33)
--- NOTE | 2020-06-01 11:34 | Physical Therapy Daily Note ---
PT Daily Note-Current Subjective Reports he feels he is getting stronger; reports decreased tingling in left LE. Reports difficulty with flexion of the left knee during gait. Transfers SCALE: Activities may be completed with or without assistive devices. 2-Hzxujzrknz-ebvhvdv completes the activity by him/herself with no assistance from a helper. 5-Set-up or Clean-up Assistance-helper sets up or cleans up; patient completes activity. [place] assists only prior to or following the activity. 4-Supervision or Touching Assistance-helper provides verbal cues and/or t ouching/steadying and/or contact guard assistance as patient completes activity. Assistance may be provided throughout the activity or intermittently. 3-Partial/Moderate Assistance-helper does LESS THAN HALF the effort. [place] lifts, holds or supports trunk or limbs, but provides less than half the effort. 2-Substantial/Maximal Assistance-helper does MORE THAN HALF the effort. [place] lifts or holds trunk or limbs and provides more than half the effort. 1-Vtftpxabw-gvamzt does ALL the effort. Patient does none of the effort to complete the activity. Or, the assistance of 2 or more helpers is required for the patient to complete the activity. If activity was not attempted, code reason: 7-Patient Refused. 9-Not Applicable-not attempted and the patient did not perform the activity before the current illness, exacerbation or injury. 10-Not Attempted due to Environmental Limitations-(lack of equipment, weather restraints, etc.). 88-Not Attempted due to Medical Conditions or Safety Concerns. Sit to Stand (QC): 4 (CGA for safety; correct hand placment and sequencing. ) Chair/Jpb-ny-Nnkdn Xfer(QC): 4 Weight Bearing Right Lower Extremity: Right Full Weight Bearing Left Lower Extremity: Left Weight Bearing/Tolerated Gait Training Walk 150 ft (QC): 4 (CGA x 3 reps and then x 125 ft. ) Gait Assistive Device: Cane Large Base Quad AFO in place left LE; tends to grossly advance left LE with difficulty knee flexion for swing through; 1 LOB at the end of treatment with min assist to recover. Assessment Current Status: Good Progress Progressing well. PT Short Term Goals Short Term Goals Time Frame: May 28, 2020 Roll Left & Right: 6 Sit to lyin Lying to sitting on side of be: 3 Sit to stand: 4 (met) Chair/tpk-sd-dzwxb transfer: 3 Walk 10 feet: 3 (met) PT Dray Driver Goals Dray Driver Goals PT Senior Living Goals Time Frame: Jun 11, 2020 Roll Left & Right (QC): 6 Sit to Lying (QC): 6 Lying-Sitting on Side/Bed(QC): 6 Sit to Stand (QC): 5 Chair/Joo-fg-Gwiiu Xfer(QC): 4 Toilet Transfer (QC): 4 Car Transfer (QC): 4 Does the Patient Walk: Yes Walk 10 feet (QC): 4 Walk 50ft with 2 Turns (QC): 4 Walk 150 ft (QC): 88 Walking 10ft on Uneven Surface: 4 1 Step (curb) (QC): 3 4 Steps (QC): 3 12 Steps (QC): 88 Picking up an Object (QC): 3 Wheel 50 feet with 2 turns (QC: 6 Wheel 150 feet: 6 PT Plan Problem List Problem List: Activity Tolerance, Functional Strength, Safety, Balance, Gait, Transfer, Bed Mobility Treatment/Plan Treatment Plan: Continue Plan of Care Treatment Plan: Bed Mobility, Education, Functional Activity Rusty, Functional Strength, Group Therapy, Gait, Safety, Therapeutic Exercise, Transfers Treatment Duration: Jun 11, 2020 Frequency: At least 5 of 7 days/Wk (IRF) Estimated Hrs Per Day: 1.5 hours per day Patient and/or Family Agrees t: Yes Safety Risks/Education Patient Education: Gait Training Teaching Recipient: Patient Teaching Methods: Demonstration, Discussion Response to Teaching: Verbalize Understanding, Return Demonstration Time/GCodes Time In: 1100 Time Out: 1125 Total Billed Treatment Time: 25 Total Billed Treatment visit GT 25 EVELINE BAUER PT Jun 01, 2020 11:34
[2020-06-01 17:03] VITALS: BP 138/75
[2020-06-01] MEDS: BACLOFEN 10 MG (LIORESAL) TAB PO PRN (20:33)
[2020-06-01] MEDS: MELATONIN 3 MG TABLET PO PRN (20:33)
[2020-06-02 05:54] VITALS: BP 121/71
[2020-06-02] MEDS: VALSARTAN 160 MG (DIOVAN) TABLET PO SCH (08:00)
[2020-06-02] MEDS: ASPIRIN 325 MG (5 GR) TABLET PO SCH (08:01)
[2020-06-02] MEDS: amLODIPine 10 MG (NORVASC) TAB PO SCH (08:01)
--- NOTE | 2020-06-02 09:32 | PM&R Progress Note ---
Subjective HPI/CC On Admission Date Seen by Provider: Jun 02, 2020 Time Seen by Provider: 11:00 Subjective/Events-last exam 06/02/20: Patient doing well BM+ Tingling in arm at times reported BP ok Tired today 06/01/20: Patient doing well Left hand improved BM+ Slept hard and was stiff this morning 05/31/20: Patient doing well Balance is better Worked stairs today No falls 05/30/20: Pt doing very well Tens unit has really helped his left side of his face and arm Will fit him for an isotoner glove for edema Will DC Lovenox since it bothers him and he is ambulatory 05/29/20: Pt having no issues Psych evaluation will be at 1 PM Baclofen taken at night for muscle spasms in the left arm Overall doing well and eating and drinking well with no dysphasia 05/28/20: Lipitor stopped by Dr. Rios due to elevated liver enzymes Behavioral note will be evaluated Baclofen taken last night, doesnt know if it worked or not so maintain that and evaluate further Bowels moved yesterday 05/27/20: Pt doing very well Baclofen will be given for the left arm muscle spasms Elevated liver enzymes prompting abdominal ultrasound, ordered by Dr. Rios Overall doing pretty well otherwise 05/26/20: Patient doing well Frustrated with his situation but we can only support him so he can adjust at bedside today TC 178 Pivoting is improved 05/25/20: Left arm remains flaccid Walked to the gym and did well patient tearful at times or on the verge when he talks about his arm BM today No pain reported Tendency for somatic issues 05/24/20: Patient in better mood Tearful at times BM+ Slight elevated in LFT's SCD's refused by patient Showered today 05/23/20: Tearful at times Sore from loop recorder yesterday Wedding ring will be removed today by nursing building insulation supervisor Labs stable BP ok 05/22/20: Loop recorder was placed today by Dr. Rios BP 152/68 Swelling in his left hand, will get his wedding ring off today Very tearful at times Bowels moved four days ago so will initiate laxatives Review of Systems General: Fatigue, Malaise Neurological: Weakness Objective Exam Vital Signs Vital Signs Date Time Temp Pulse Resp B/P (MAP) Pulse Ox O2 Delivery O2 Flow Rate FiO2 06/02/20 17:08 37.1 71 18 133/66 (88) 95 Room Air Capillary Refill : General Appearance: No Apparent Distress, WD/WN, Chronically ill, Obese HEENT: PERRL/EOMI, Normal ENT Inspection, Pharynx Normal Neck: Full Range of Motion, Normal Inspection, Non Tender, Supple, Carotid Bruit Respiratory: Chest Non Tender, Lungs Clear, Normal Breath Sounds, No Accessory Muscle Use, No Respiratory Distress Cardiovascular: Regular Rate, Rhythm, No Edema, No Gallop, No JVD, No Murmur, Normal Peripheral Pulses Gastrointestinal: Normal Bowel Sounds, No Organomegaly, No Pulsatile Mass, Non Tender, Soft Back: Normal Inspection, No CVA Tenderness, No Vertebral Tenderness Extremity: Normal Capillary Refill, Normal Inspection, Normal Range of Motion, Non Tender, No Calf Tenderness, No Pedal Edema Neurologic/Psychiatric: Alert, Oriented x3, Abnormal Gait, Depressed Affect, Motor Weakness (left sidded 1/5) Skin: Normal Color, Warm/Dry Lymphatic: No Adenopathy Results/Procedures Lab Patient resulted labs reviewed. FIM Transfers Therapy Code Descriptions/Definitions Functional [place] Measure: 0=Not Assessed/NA 4=Minimal Assistance 1=Total Assistance 5=Supervision or Setup 2=Maximal Assistance 6=Modified [place] 3=Moderate Assistance 7=Complete IndependenceSCALE: Activities may be completed with or without assistive devices. 6-Psehlmwfui-lhefhgr completes the activity by him/herself with no assistance from a helper. 5-Set-up or Clean-up Assistance-helper sets up or cleans up; patient completes activity. [place] assists only prior to or following the activity. 4-Supervision or Touching Assistance-helper provides verbal cues and/or touching/steadying and/or contact guard assistance as patient completes activity. Assistance may be provided throughout the activity or intermittently. 3-Partial/Moderate Assistance-helper does LESS THAN HALF the effort. [place] lifts, holds or supports trunk or limbs, but provides less than half the effort. 2-Substantial/Maximal Assistance-helper does MORE THAN HALF the effort. [place] lifts or holds trunk or limbs and provides more than half the effort. 7-Dbfzjwkdh-xvejxh does ALL the effort. Patient does none of the effort to complete the activity. Or, the assistance of 2 or more helpers is required for the patient to complete the activity. If activity was not attempted, code reason: 7-Patient Refused. 9-Not Applicable-not attempted and the patient did not perform the activity before the current illness, exacerbation or injury. 10-Not Attempted due to Environmental Limitations-(lack of equipment, weather restraints, etc.). 88-Not Attempted due to Medical Conditions or Safety Concerns. Roll Left to Right (QC): 6 Sit to Lying (QC): 6 Sit to Stand (QC): 4 (CGA for safety; correct hand placment and sequencing. ) Chair/Cqk-vc-Xhaan Xfer(QC): 4 Car Transfer (QC): 3 Gait Training Does the Patient Walk?: Yes Distance: 120'x2 Walk 10 feet (QC): 4 Walk 50 ft with 2 Turns(QC): 4 Walk 150 ft (QC): 4 (CGA x 3 reps and then x 125 ft. ) Walking 10ft/uneven surface-QC: 88 Gait Persons Needed: 1 Gait Assistive Device: Cane Large Base Quad Wheelchair Training Does the Pt Use a Wheelchair?: Yes Distance: 120'x2 Wheel 50 ft with 2 turns (QC): 5 Wheel 150 ft (QC): 88 Type of Wheelchair: Manual Stair Training Stair Training: Handrails/: 1 handrail #of Steps: 12 1 Step (curb) (QC): 4 4 Steps (QC): 4 12 Steps (QC): 4 Stairs: Pattern: Step to Balance Picking up an Object (QC): 88 ADL-Treatment Eating (QC): 6 (IND per pt report, able to cut food, bring to mouth, and eat.) Oral Hygiene (QC): 6 (IND) Bathing Location: L Arm, R Arm, L Upper Leg, R Upper Leg, L Lower Leg (including foot), Chest, Abdomen, Buttocks, Perineal Area Shower/Bathe Self (QC): 4 (CGA in stand at grab bars. Pt able to wash/dry all parts using LH sponge.) Upper Body Dressing (QC): 4 (SBA, pt able to unbutton shirt 1 handed, required cue to doff RUE first. 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 s/p loop recorder 05/22/20 Left arm muscle spasms responded to Baclofen Smoker New onset HTN HLP Fall upon arrival to unit with in room Elevated LFT's with normal liver USG Plan: PT OT Statin ASA Lovenox Monitor closely IRF protocol 05/22/20: Remove wedding ring left finger OT for edema management of the left hand Loop recorder 05/23/20: Wedding ring removed OT PT Monitor BP 05/24/20: Patient refuses SCD's Monitor BP Fall risk 05/25/20: Monitor closely Ambulating well with kiana-cane Loop recorder 05/26/20: Statin BP control Monitor closely 05/27/20: USG liver Elevated LFT's will be monitored DC monster drinks and soda 05/28/20: Hold statin due to elevated LFT's Monitor closely IRF protocol 05/29/20: Baclofen HS Monitor for falls Hold statin 05/30/20: Hold statin DC Lovenox 05/31/20: Monitor for falls Works on stairs 06/01/20: Improved edema left hand Doing really well with therapy 06/02/20: Monitor BP DC statin due to elevated LFT's (1) CVA (cerebral vascular accident) (2) Essential (primary) hypertension (3) Tobacco abuse (4) Hyperlipidemia RADHA COPPOLA DO Jun 02, 2020 09:32
[2020-06-02] MEDS: DOCUSATE SODIUM 100 MG (COLACE) CAP PO SCH ×2 (09:52→21:16)
[2020-06-02] MEDS: SENNA W/DOCUSATE (SENOKOT S) TABLET PO SCH ×2 (09:52→21:16)
[2020-06-02] MEDS: polyethylene glycoL POWDER 17 GM (MIRALAX) PACK PO SCH ×2 (09:52→21:15)
[2020-06-02] MEDS: CALCIUM CARBONATE 500 MG (TUMS) TAB.CHEW PO PRN (09:57)
[2020-06-02 17:08] VITALS: BP 133/66
[2020-06-02] MEDS: MELATONIN 3 MG TABLET PO PRN (21:15)
[2020-06-02] MEDS: BACLOFEN 10 MG (LIORESAL) TAB PO PRN (21:16)
[2020-06-03 05:41] VITALS: BP 127/74
--- NOTE | 2020-06-03 05:47 | PM&R Progress Note ---
Subjective HPI/CC On Admission Date Seen by Provider: Jun 03, 2020 Time Seen by Provider: 08:30 Subjective/Events-last exam 06/03/20: Psych eval visit will be today Put on his AFO today Bowels moved yesterday 06/02/20: Patient doing well BM+ Tingling in arm at times reported BP ok Tired today 06/01/20: Patient doing well Left hand improved BM+ Slept hard and was stiff this morning 05/31/20: Patient doing well Balance is better Worked stairs today No falls 05/30/20: Pt doing very well Tens unit has really helped his left side of his face and arm Will fit him for an isotoner glove for edema Will DC Lovenox since it bothers him and he is ambulatory 05/29/20: Pt having no issues Psych evaluation will be at 1 PM Baclofen taken at night for muscle spasms in the left arm Overall doing well and eating and drinking well with no dysphasia 05/28/20: Lipitor stopped by Dr. Rios due to elevated liver enzymes Behavioral note will be evaluated Baclofen taken last night, doesnt know if it worked or not so maintain that and evaluate further Bowels moved yesterday 05/27/20: Pt doing very well Baclofen will be given for the left arm muscle spasms Elevated liver enzymes prompting abdominal ultrasound, ordered by Dr. 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 Rios BP 152/68 Swelling in his left hand, will get his wedding ring off today Very tearful at times Bowels moved four days ago so will initiate laxatives Review of Systems General: Fatigue Neurological: Weakness, Incoordination Objective Exam Vital Signs Vital Signs Date Time Temp Pulse Resp B/P (MAP) Pulse Ox O2 Delivery O2 Flow Rate FiO2 06/03/20 20:10 96 Room Air 06/03/20 17:03 37.2 71 18 131/72 (91) Capillary Refill : General Appearance: No Apparent Distress, WD/WN, Chronically ill, Obese HEENT: PERRL/EOMI, Normal ENT Inspection, Pharynx Normal Neck: Full Range of Motion, Normal Inspection, Non Tender, Supple, Carotid Bruit Respiratory: Chest Non Tender, Lungs Clear, Normal Breath Sounds, No Accessory Muscle Use, No Respiratory Distress Cardiovascular: Regular Rate, Rhythm, No Edema, No Gallop, No JVD, No Murmur, Normal Peripheral Pulses Gastrointestinal: Normal Bowel Sounds, No Organomegaly, No Pulsatile Mass, Non Tender, Soft Back: Normal Inspection, No CVA Tenderness, No Vertebral Tenderness Extremity: Normal Capillary Refill, Normal Inspection, Normal Range of Motion, Non Tender, No Calf Tenderness, No Pedal Edema Neurologic/Psychiatric: Alert, Oriented x3, Abnormal Gait, Depressed Affect, Motor Weakness (left sidded 1/5) Skin: Normal Color, Warm/Dry Lymphatic: No Adenopathy Results/Procedures Lab Laboratory Tests 06/03/20 05:40 Patient resulted labs reviewed. FIM Transfers Therapy Code Descriptions/Definitions Functional [place] Measure: 0=Not Assessed/NA 4=Minimal Assistance 1=Total Assistance 5=Supervision or Setup 2=Maximal Assistance 6=Modified [place] 3=Moderate Assistance 7=Complete IndependenceSCALE: Activities may be completed with or without assistive devices. 1-Miozvbxasj-mxltcck completes the activity by him/herself with no assistance from a helper. 5-Set-up or Clean-up Assistance-helper sets up or cleans up; patient completes activity. [place] assists only prior to or following the activity. 4-Supervision or Touching Assistance-helper provides verbal cues and/or touching/steadying and/or contact guard assistance as patient completes activity. Assistance may be provided throughout the activity or intermittently. 3-Partial/Moderate Assistance-helper does LESS THAN HALF the effort. [place] lifts, holds or supports trunk or limbs, but provides less than half the effort. 2-Substantial/Maximal Assistance-helper does MORE THAN HALF the effort. [place] lifts or holds trunk or limbs and provides more than half the effort. 2-Gqfyzmrdf-jfcpyn does ALL the effort. Patient does none of the effort to complete the activity. Or, the assistance of 2 or more helpers is required for the patient to complete the activity. If activity was not attempted, code reason: 7-Patient Refused. 9-Not Applicable-not attempted and the patient did not perform the activity before the current illness, exacerbation or injury. 10-Not Attempted due to Environmental Limitations-(lack of equipment, weather re straints, etc.). 88-Not Attempted due to Medical Conditions or Safety Concerns. Roll Left to Right (QC): 6 Sit to Lying (QC): 6 Sit to Stand (QC): 4 (CGA for safety; correct hand placment and sequencing. ) Chair/Hzn-sg-Elncd Xfer(QC): 4 Car Transfer (QC): 3 Gait Training Does the Patient Walk?: Yes Distance: 120'x2 Walk 10 feet (QC): 4 Walk 50 ft with 2 Turns(QC): 4 Walk 150 ft (QC): 4 (CGA x 3 reps and then x 125 ft. ) Walking 10ft/uneven surface-QC: 88 Gait Persons Needed: 1 Gait Assistive Device: Cane Large Base Quad Wheelchair Training Does the Pt Use a Wheelchair?: Yes Distance: 120'x2 Wheel 50 ft with 2 turns (QC): 5 Wheel 150 ft (QC): 88 Type of Wheelchair: Manual Stair Training Stair Training: Handrails/: 1 handrail #of Steps: 12 1 Step (curb) (QC): 4 4 Steps (QC): 4 12 Steps (QC): 4 Stairs: Pattern: Step to Balance Picking up an Object (QC): 88 ADL-Treatment Eating (QC): 6 (IND per pt report, able to cut food, bring to mouth, and eat.) Oral Hygiene (QC): 6 (IND) Bathing Location: L Arm, R Arm, L Upper Leg, R Upper Leg, L Lower Leg (including foot), Chest, Abdomen, Buttocks, Perineal Area Shower/Bathe Self (QC): 4 (CGA in stand at grab bars. Pt able to wash/dry all parts using LH sponge.) Upper Body Dressing (QC): 4 (SBA, pt able to unbutton shirt 1 handed, required cue to doff RUE first. 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 s/p loop recorder 05/22/20 Left arm muscle spasms responded to Baclofen Smoker New onset HTN HLP Fall upon arrival to unit with in room Elevated LFT's with normal liver USG Plan: PT OT Statin ASA Lovenox Monitor closely IRF protocol 05/22/20: Remove wedding ring left finger OT for edema management of the left hand Loop recorder 05/23/20: Wedding ring removed OT PT Monitor BP 05/24/20: Patient refuses SCD's Monitor BP Fall risk 05/25/20: Monitor closely Ambulating well with kiana-cane Loop recorder 05/26/20: Statin BP control Monitor closely 05/27/20: USG liver Elevated LFT's will be monitored DC monster drinks and soda 05/28/20: Hold statin due to elevated LFT's Monitor closely IRF protocol 05/29/20: Baclofen HS Monitor for falls Hold statin 05/30/20: Hold statin DC Lovenox 05/31/20: Monitor for falls Works on stairs 06/01/20: Improved edema left hand Doing really well with therapy 06/02/20: Monitor BP DC statin due to elevated LFT's 06/03/20: Monitor BP Intense therapy (1) CVA (cerebral vascular accident) (2) Essential (primary) hypertension (3) Tobacco abuse (4) Hyperlipidemia RADHA COPPOLA DO Jun 03, 2020 05:47
[2020-06-03 05:51] LABS: BASOPHILS # (AUTO) 0.1 10^3/uL (0.0-0.1); BASOPHILS % (AUTO) 1 % (0-10); EOSINOPHILS # (AUTO) 0.4 10^3/uL (0.0-0.3); EOSINOPHILS % (AUTO) 4 % (0-10); HEMATOCRIT 39 % (40-54); LYMPHOCYTES # (AUTO) 1.9 10^3/uL (1.0-4.0); LYMPHOCYTES % (AUTO) 19 % (12-44); MEAN CORPUSCULAR HEMOGLOBIN 29 pg (25-34); MEAN CORPUSCULAR HGB CONC 34 g/dL (32-36); MEAN CORPUSCULAR VOLUME 86 fL (80-99); MEAN PLATELET VOLUME 10.9 fL (9.0-12.2); MONOCYTES # (AUTO) 0.8 10^3/uL (0.0-1.0); MONOCYTES % (AUTO) 8 % (0-12); NEUTROPHILS # (AUTO) 6.9 10^3/uL (1.8-7.8); NEUTROPHILS % (AUTO) 69 % (42-75); PLATELET COUNT 303 10^3/uL (130-400); WHITE BLOOD COUNT 10.1 10^3/uL (4.3-11.0)
[2020-06-03 05:57] LABS: ALBUMIN 3.7 GM/DL (3.2-4.5); CHLORIDE 108 MMOL/L (98-107); POTASSIUM 4.4 MMOL/L (3.6-5.0); SODIUM 139 MMOL/L (135-145)
[2020-06-03 05:58] LABS: CALCIUM 8.7 MG/DL (8.5-10.1)
[2020-06-03 06:00] LABS: GLUCOSE 95 MG/DL (70-105); TOTAL PROTEIN 6.7 GM/DL (6.4-8.2)
[2020-06-03 06:01] LABS: BILIRUBIN,TOTAL 0.4 MG/DL (0.1-1.0); CARBON DIOXIDE 22 MMOL/L (21-32)
[2020-06-03 06:03] LABS: ALKALINE PHOSPHATASE 85 U/L (40-136); CREATININE SERUM 0.83 MG/DL (0.60-1.30); GFR ESTIMATED > 60
[2020-06-03 06:04] LABS: BUN/CREATININE RATIO 14
[2020-06-03 06:06] LABS: ALANINE AMINOTRANSFERASE 55 U/L (0-55)
[2020-06-03] MEDS: ASPIRIN 325 MG (5 GR) TABLET PO SCH (09:08)
[2020-06-03] MEDS: SENNA W/DOCUSATE (SENOKOT S) TABLET PO SCH ×2 (09:08→21:22)
[2020-06-03] MEDS: VALSARTAN 160 MG (DIOVAN) TABLET PO SCH (09:08)
[2020-06-03] MEDS: amLODIPine 10 MG (NORVASC) TAB PO SCH (09:08)
[2020-06-03] MEDS: DOCUSATE SODIUM 100 MG (COLACE) CAP PO SCH ×2 (09:09→21:22)
[2020-06-03] MEDS: polyethylene glycoL POWDER 17 GM (MIRALAX) PACK PO SCH ×2 (09:09→21:20)
--- NOTE | 2020-06-03 09:12 | Physical Therapy Daily Note ---
PT Daily Note-Current Subjective Patient in WC at bedside pre tx, agrees to PT, has no complaints of pain. Appearance Patient in WC post tx with nurse call, phone, tray, all needs met. Mental Status Patient Orientation: Normal For Age Transfers SCALE: Activities may be completed with or without assistive devices. 3-Bewyjosiqx-oxqzzrf completes the activity by him/herself with no assistance from a helper. 5-Set-up or Clean-up Assistance-helper sets up or cleans up; patient completes activity. [place] assists only prior to or following the activity. 4-Supervision or Touching Assistance-helper provides verbal cues and/or touching/steadying and/or contact guard assistance as patient completes activity. Assistance may be provided throughout the activity or intermittently. 3-Partial/Moderate Assistance-helper does LESS THAN HALF the effort. [place] lifts, holds or supports trunk or limbs, but provides less than half the effort. 2-Substantial/Maximal Assistance-helper does MORE THAN HALF the effort. [place] lifts or holds trunk or limbs and provides more than half the effort. 9-Pxzhmzcyy-auhixh does ALL the effort. Patient does none of the effort to complete the activity. Or, the assistance of 2 or more helpers is required for the patient to complete the activity. If activity was not attempted, code reason: 7-Patient Refused. 9-Not Applicable-not attempted and the patient did not perform the activity before the current illness, exacerbation or injury. 10-Not Attempted due to Environmental Limitations-(lack of equipment, weather restraints, etc.). 88-Not Attempted due to Medical Conditions or Safety Concerns. Sit to Stand (QC): 4 Chair/Uvq-nm-Hnppb Xfer(QC): 4 Weight Bearing Right Lower Extremity: Right Full Weight Bearing Left Lower Extremity: Left Weight Bearing/Tolerated Gait Training Distance: 150', 120', 20'x2 Walk 10 feet (QC): 4 Walk 50 ft with 2 Turns(QC): 4 Walk 150 ft (QC): 4 Gait Assistive Device: Cane Single Point Patient ambulated 150' and 120' with a SPC with CGA and also 20'x2 without an assistive device. Patient needs close CGA for ambulating w/o AD but had no LOB but some unsteadiness. Exercises LLE lunges 30 sec x2, step-ups with left leg x10, LAQ LLE with 2# ankle weight for 5 min, sit to stand 3 sets of 10 Treatments LE strengthening, transfers, ambulation Assessment Current Status: Fair Progress improving balance during ambulation PT Short Term Goals Short Term Goals Time Frame: May 28, 2020 Roll Left & Right: 6 Sit to lyin Lying to sitting on side of be: 3 Sit to stand: 4 (met) Chair/atn-ft-hfoti transfer: 3 Walk 10 feet: 3 (met) PT Director Of Quality Improvement Goals Alf Goals PT Alf Goals Time Frame: Jun 11, 2020 Roll Left & Right (QC): 6 Sit to Lying (QC): 6 Lying-Sitting on Side/Bed(QC): 6 Sit to Stand (QC): 5 Chair/Tmc-bc-Zcagj Xfer(QC): 4 Toilet Transfer (QC): 4 Car Transfer (QC): 4 Does the Patient Walk: Yes Walk 10 feet (QC): 4 Walk 50ft with 2 Turns (QC): 4 Walk 150 ft (QC): 88 Walking 10ft on Uneven Surface: 4 1 Step (curb) (QC): 3 4 Steps (QC): 3 12 Steps (QC): 88 Picking up an Object (QC): 3 Wheel 50 feet with 2 turns (QC: 6 Wheel 150 feet: 6 PT Plan Problem List Problem List: Activity Tolerance, Functional Strength, Safety, Balance, Gait, Transfer, Bed Mobility, ROM Treatment/Plan Treatment Plan: Continue Plan of Care Treatment Plan: Bed Mobility, Education, Functional Activity Rusty, Functional Strength, Group Therapy, Gait, Safety, Therapeutic Exercise, Transfers Treatment Duration: Jun 11, 2020 Frequency: At least 5 of 7 days/Wk (IRF) Estimated Hrs Per Day: 1.5 hours per day Patient and/or Family Agrees t: Yes Safety Risks/Education Patient Education: Gait Training, Transfer Techniques, Correct Positioning, Safety Issues Teaching Recipient: Patient Teaching Methods: Demonstration, Discussion Response to Teaching: Reinforcement Needed Time/GCodes Time In: 829 Time Out: 914 Total Billed Treatment Time: 45 Total Billed Treatment 1 visit EX 20' GT 25' IVY HYDE PT Jun 03, 2020 09:12
--- NOTE | 2020-06-03 11:00 | Occupational Ther Daily Note ---
OT Current Status-Daily Note Subjective Pt seated in w/c, agreeable to OT tx. Pt reports his hand/fingers flexing closed with yawning, previously extending at the wrist when he yawned. ADL-Treatment Therapy Code Descriptions/Definitions Functional [place] Measure: 0=Not Assessed/NA 4=Minimal Assistance 1=Total Assistance 5=Supervision or Setup 2=Maximal Assistance 6=Modified [place] 3=Moderate Assistance 7=Complete IndependenceSCALE: Activities may be completed with or without assistive devices. 3-Nbuwsjrjyo-spvwqlk completes the activity by him/herself with no assistance from a helper. 5-Set-up or Clean-up Assistance-helper sets up or cleans up; patient completes activity. [place] assists only prior to or following the activity. 4-Supervision or Touching Assistance-helper provides verbal cues and/or touching/steadying and/or contact guard assistance as patient completes activity. Assistance may be provided throughout the activity or intermittently. 3-Partial/Moderate Assistance-helper does LESS THAN HALF the effort. [place] lifts, holds or supports trunk or limbs, but provides less than half the effort. 2-Substantial/Maximal Assistance-helper does MORE THAN HALF the effort. [place] lifts or holds trunk or limbs and provides more than half the effort. 6-Cdeedrknx-ycemgb does ALL the effort. Patient does none of the effort to complete the activity. Or, the assistance of 2 or more helpers is required for the patient to complete the activity. If activity was not attempted, code reason: 7-Patient Refused. 9-Not Applicable-not attempted and the patient did not perform the activity before the current illness, exacerbation or injury. 10-Not Attempted due to Environmental Limitations-(lack of equipment, weather restraints, etc.). 88-Not Attempted due to Medical Conditions or Safety Concerns. Eating (QC): 6 Shower/Bathe Self (QC): 5 (set up, pt able to wash/dry all parts seated ) Upper Body Dressing (QC): 5 (set up) Lower Body Dressing (QC): 4 (SBA in stand. Pt able to doff/don pants and underwear) On/Off Footwear: 6 (IND with increased time. Pt doffed/donned socks/shoes/AFO) Other Treatment Pt seated in w/c, propelled self to bathroom, transferring to ID using GBs at SBA. Pt doffed clothes, completed shower, then transferred to w/ to don clothes. Pt used quad cane to go to closet, gathered clothes, then performed functional mobility to laundry room. Pt started laundry with SBA in standing, then ambulated back towards therapy gym, requiring 1 seated rest break. In order to increase dynamic standing balance and RUE fine motor coordination, as well as weight bearing through LUE in order to increase proprioceptive input/neuromuscualr reeducation of LUE, pt performed fine motor task standing at parallel bars. OT supported pt's L elbow/shoulder as pt performed weight bearing through LUE. Pt able to perform peg dominoes with RUE, matching colors without cues. Pt required a couple standing rest breaks with task, and a seated rest break after task. Pt then performed functional mobility back to his room, transferring to /. Pt's lunch tray arrived, pt able to eat independently. Post tx, pt seated in w/, call light in reach and all needs met. Education OT Patient Education: Correct positioning, Modified ADL techniques, Progress toward Goal/Update tx plan, Purpose of tx/functional activities Teaching Recipient: Patient Teaching Methods: Discussion Response to Teaching: Verbalize Understanding OT Short Term Goals Short Term Goals Time Frame: Jun 05, 2020 Shower/bathe self: 3 Lower body dressin Putting on/taking off footwear: 3 OT Angle Shear Operator Goals Intermediate Goals Time Frame: Jun 14, 2020 Eating (QC): 6 Oral Hygiene (QC): 6 Toileting Hygiene (QC): 6 Shower/Bathe Self (QC): 4 Upper Body Dressing (QC): 5 Lower Body Dressing (QC): 4 On/Off Footwear (QC): 5 Additional Goals: 1-Demonstrate ADL Tasks, 2-Verbalize Understanding, 3- ImproveStrength/Rusty 1=Demonstrate adherence to instructed precautions during ADL tasks. 2=Patient will verbalize/demonstrate understanding of assistive devices/modifications for ADL. 3=Patient will improve strength/tolerance for activity to enable patient to perform ADL's. OT Education/Plan Problem List/Assessment Assessment: Decreased Activ Tolerance, Decreased UE Strength, Impaired Funct Balance, Impaired I ADL's, Impaired Self-Care Skills, Restricted Funct UE ROM Discharge Recommendations Plan/Recommendations: Continue POC Treatment Plan/Plan of Care Patient would benefit from OT for education, treatment and training to promote independence in ADL's, mobility, safety and/or upper extremity function for ADL's. Plan of Care: ADL Retraining, Functional Mobility, Group Exercise/Act as Ind, UE Funct Exercise/Act Treatment Duration: Jun 14, 2020 Frequency: At least 5 of 7 days/Wk (IRF) Estimated Hrs Per Day: 1.5 hours per day Rehab Potential: Fair Time/GCodes Start Time: 10:45 Stop Time: 12:00 Total Time Billed (hr/min): 75 Billed Treatment Time 1, ADL 4 (60'), FA (15') TRACIE JAY OT Jun 03, 2020 11:00
--- NOTE | 2020-06-03 13:59 | Physical Therapy Daily Note ---
PT Daily Note-Current Subjective Patient in WC pre tx, agrees to PT, has no complaints of pain Appearance Patient in WC at bedside post tx with nurse call, phone, tray, all needs met. Mental Status Patient Orientation: Normal For Age Transfers SCALE: Activities may be completed with or without assistive devices. 4-Mlepgsbbet-vqinzsz completes the activity by him/herself with no assistance from a helper. 5-Set-up or Clean-up Assistance-helper sets up or cleans up; patient completes activity. [place] assists only prior to or following the activity. 4-Supervision or Touching Assistance-helper provides verbal cues and/or touching/steadying and/or contact guard assistance as patient completes activity. Assistance may be provided throughout the activity or intermittently. 3-Partial/Moderate Assistance-helper does LESS THAN HALF the effort. [place] lifts, holds or supports trunk or limbs, but provides less than half the effort. 2-Substantial/Maximal Assistance-helper does MORE THAN HALF the effort. [place] lifts or holds trunk or limbs and provides more than half the effort. 2-Zqakkpczi-gvngiq does ALL the effort. Patient does none of the effort to complete the activity. Or, the assistance of 2 or more helpers is required for the patient to complete the activity. If activity was not attempted, code reason: 7-Patient Refused. 9-Not Applicable-not attempted and the patient did not perform the activity before the current illness, exacerbation or injury. 10-Not Attempted due to Environmental Limitations-(lack of equipment, weather restraints, etc.). 88-Not Attempted due to Medical Conditions or Safety Concerns. Sit to Stand (QC): 4 Chair/Iiw-na-Mtfmz Xfer(QC): 4 CGA Weight Bearing Right Lower Extremity: Right Full Weight Bearing Left Lower Extremity: Left Weight Bearing/Tolerated Gait Training Distance: 120'x2 Walk 10 feet (QC): 4 Walk 50 ft with 2 Turns(QC): 4 Gait Persons Needed: 1 Gait Assistive Device: Cane Single Point CGA, no LOB but has to stop occasionally to regain balance Exercises NuStep Minutes: 15 NuStep Workload: 4 Treatments transfers, ambulation, functional strengthening Assessment Current Status: Fair Progress improving ambulation PT Short Term Goals Short Term Goals Time Frame: May 28, 2020 Roll Left & Right: 6 Sit to lyin Lying to sitting on side of be: 3 Sit to stand: 4 (met) Chair/jnt-rd-gwexx transfer: 3 Walk 10 feet: 3 (met) PT Nursing Home Goals Pay Clerk Goals PT Pay Clerk Goals Time Frame: Jun 11, 2020 Roll Left & Right (QC): 6 Sit to Lying (QC): 6 Lying-Sitting on Side/Bed(QC): 6 Sit to Stand (QC): 5 Chair/Bez-oc-Qsaej Xfer(QC): 4 Toilet Transfer (QC): 4 Car Transfer (QC): 4 Does the Patient Walk: Yes Walk 10 feet (QC): 4 Walk 50ft with 2 Turns (QC): 4 Walk 150 ft (QC): 88 Walking 10ft on Uneven Surface: 4 1 Step (curb) (QC): 3 4 Steps (QC): 3 12 Steps (QC): 88 Picking up an Object (QC): 3 Wheel 50 feet with 2 turns (QC: 6 Wheel 150 feet: 6 PT Plan Problem List Problem List: Activity Tolerance, Functional Strength, Safety, Balance, Gait, Transfer, Bed Mobility, ROM Treatment/Plan Treatment Plan: Continue Plan of Care Treatment Plan: Bed Mobility, Education, Functional Activity Rusty, Functional Strength, Group Therapy, Gait, Safety, Therapeutic Exercise, Transfers Treatment Duration: Jun 11, 2020 Frequency: At least 5 of 7 days/Wk (IRF) Estimated Hrs Per Day: 1.5 hours per day Patient and/or Family Agrees t: Yes Safety Risks/Education Patient Education: Gait Training, Transfer Techniques, Correct Positioning, Safety Issues Teaching Recipient: Patient Teaching Methods: Demonstration, Discussion Response to Teaching: Reinforcement Needed Time/GCodes Time In: 1330 Time Out: 1400 Total Billed Treatment Time: 30 Total Billed Treatment 1 visit EX 15' GT 15' IVY HYDE PT Jun 03, 2020 13:59
--- NOTE | 2020-06-03 14:01 | Speech Therapy Daily Note ---
Speech Daily Progress Note Subjective Date Seen by Provider: Jun 03, 2020 Time Seen by Provider: 00:30 Patient was resting in his wc following his PT session. He states he walked today without the cane. Objective Patient completed 25 minutes of vital stim at 8.0 while completing OME with minimal cues. Assessment Assessment Current Status: Good Progress Treatment Plan Continue Plan of Care Speech Short Term Goals Short Term Goals Short Term Goals 1) Patient will tolerate least restrictive diet level per physician's order at 90% or greater. 2) Patient/caregiver will utilize compensatory strategies as trained for safe oral intake at 90% or greater without cues. 3) Patient will complete OME as directed 4-5x per week. Speech Shelter Goals Shelter Goals Patient will improve swallowing and speech abilities to communicate better/easier with others. Speech-Plan Patient/Family Goals Patient/Family Goals: Patient plans on returning to his home where he lives with his and children. Treatment Plan Speech Therapy Treatment Plan: Continue Plan of Care Treatment Duration: Jun 07, 2020 Frequency: 4 times per week (Patient receives skilled ST 4-5x per week) Estimated Hrs Per Day: .5 hour per day Rehab Potential: Fair Barriers to Learning: Patient's recent CVA and debility Pt/Family Agrees to Plan: Yes Safety Risks/Education Teaching Recipient: Patient Teaching Methods: Demonstration, Discussion Response to Teaching: Verbalize Understanding, Return Demonstration Education Topics Provided: Continued safety within the ARU and with oral intake Time Speech Therapy Time In: 09:30 Speech Therapy Time Out: 10:00 Total Billed Time: 30 Billed Treatment Time 1, SLTS, DYST GAVI Limon Jun 03, 2020 14:01
[2020-06-03] MEDS: CALCIUM CARBONATE 500 MG (TUMS) TAB.CHEW PO PRN (14:02)
[2020-06-03 17:03] VITALS: BP 131/72
[2020-06-03] MEDS: MELATONIN 3 MG TABLET PO PRN (21:22)
[2020-06-03] MEDS: BACLOFEN 10 MG (LIORESAL) TAB PO PRN (21:22)
--- NOTE | 2020-06-04 05:20 | PM&R Progress Note ---
Subjective HPI/CC On Admission Date Seen by Provider: Jun 04, 2020 Time Seen by Provider: 09:00 Subjective/Events-last exam 06/04/20: Pt doing pretty well Psych evaluation did not recommend any further follow-up or medications Overall managing everything pretty well Walked without a cane yesterday 06/03/20: Psych eval visit will be today Put on his AFO today Bowels moved yesterday 06/02/20: Patient doing well BM+ Tingling in arm at times reported BP ok Tired today 06/01/20: Patient doing well Left hand improved BM+ Slept hard and was stiff this morning 05/31/20: Patient doing well Balance is better Worked stairs today No falls 05/30/20: Pt doing very well Tens unit has really helped his left side of his face and arm Will fit him for an isotoner glove for edema Will DC Lovenox since it bothers him and he is ambulatory 05/29/20: Pt having no issues Psych evaluation will be at 1 PM Baclofen taken at night for muscle spasms in the left arm Overall doing well and eating and drinking well with no dysphasia 05/28/20: Lipitor stopped by Dr. Rios due to elevated liver enzymes Behavioral note will be evaluated Baclofen taken last night, doesnt know if it worked or not so maintain that and evaluate further Bowels moved yesterday 05/27/20: Pt doing very well Baclofen will be given for the left arm muscle spasms Elevated liver enzymes prompting abdominal ultrasound, ordered by Dr. Rios Overall doing pretty well otherwise 05/26/20: Patient doing well Frustrated with his situation but we can only support him so he can adjust at bedside today TC 178 Pivoting is improved 05/25/20: Left arm remains flaccid Walked to the gym and did well patient tearful at times or on the verge when he talks about his arm BM today No pain reported Tendency for somatic issues 05/24/20: Patient in better mood Tearful at times BM+ Slight elevated in LFT's SCD's refused by patient Showered today 05/23/20: Tearful at times Sore from loop recorder yesterday Wedding ring will be removed today by nursing returns supervisor Labs stable BP ok 05/22/20: Loop recorder was placed today by Dr. Rios BP 152/68 Swelling in his left hand, will get his wedding ring off today Very tearful at times Bowels moved four days ago so will initiate laxatives Review of Systems Neurological: Weakness, Incoordination Objective Exam Vital Signs Vital Signs Date Time Temp Pulse Resp B/P (MAP) Pulse Ox O2 Delivery O2 Flow Rate FiO2 06/04/20 20:10 Room Air 06/04/20 17:23 36.6 71 18 120/68 (85) 97 Capillary Refill : General Appearance: No Apparent Distress, WD/WN, Chronically ill, Obese HEENT: PERRL/EOMI, Normal ENT Inspection, Pharynx Normal Neck: Full Range of Motion, Normal Inspection, Non Tender, Supple, Carotid Bruit Respiratory: Chest Non Tender, Lungs Clear, Normal Breath Sounds, No Accessory Muscle Use, No Respiratory Distress Cardiovascular: Regular Rate, Rhythm, No Edema, No Gallop, No JVD, No Murmur, Normal Peripheral Pulses Gastrointestinal: Normal Bowel Sounds, No Organomegaly, No Pulsatile Mass, Non Tender, Soft Back: Normal Inspection, No CVA Tenderness, No Vertebral Tenderness Extremity: Normal Capillary Refill, Normal Inspection, Normal Range of Motion, Non Tender, No Calf Tenderness, No Pedal Edema Neurologic/Psychiatric: Alert, Oriented x3, Abnormal Gait, Depressed Affect, Motor Weakness (left sidded 1/) Skin: Normal Color, Warm/Dry Lymphatic: No Adenopathy Results/Procedures Lab Patient resulted labs reviewed. FIM Transfers Therapy Code Descriptions/Definitions Functional [place] Measure: 0=Not Assessed/NA 4=Minimal Assistance 1=Total Assistance 5=Supervision or Setup 2=Maximal Assistance 6=Modified [place] 3=Moderate Assistance 7=Complete IndependenceSCALE: Activities may be completed with or without assistive devices. 0-Dbxinyuhmb-zbfcwjc completes the activity by him/herself with no assistance from a helper. 5-Set-up or Clean-up Assistance-helper sets up or cleans up; patient completes activity. [place] assists only prior to or following the activity. 4-Supervision or Touching Assistance-helper provides verbal cues and/or touching/steadying and/or contact guard assistance as patient completes activity. Assistance may be provided throughout the activity or intermittently. 3-Partial/Moderate Assistance-helper does LESS THAN HALF the effort. [place] lifts, holds or supports trunk or limbs, but provides less than half the effort. 2-Substantial/Maximal Assistance-helper does MORE THAN HALF the effort. [place] lifts or holds trunk or limbs and provides more than half the effort. 1-Ivljwadgn-syziyv does ALL the effort. Patient does none of the effort to complete the activity. Or, the assistance of 2 or more helpers is required for the patient to complete the activity. If activity was not attempted, code reason: 7-Patient Refused. 9-Not Applicable-not attempted and the patient did not perform the activity before the current illness, exacerbation or injury. 10-Not Attempted due to Environmental Limitations-(lack of equipment, weather restraints, etc.). 88-Not Attempted due to Medical Conditions or Safety Concerns. Roll Left to Right (QC): 6 Sit to Lying (QC): 6 Sit to Stand (QC): 4 Chair/Rzm-ti-Syzdl Xfer(QC): 4 Car Transfer (QC): 3 Gait Training Does the Patient Walk?: Yes Distance: 120'x2 Walk 10 feet (QC): 4 Walk 50 ft with 2 Turns(QC): 4 Walk 150 ft (QC): 4 Walking 10ft/uneven surface-QC: 88 Gait Persons Needed: 1 Gait Assistive Device: Cane Single Point Wheelchair Training Does the Pt Use a Wheelchair?: Yes Distance: 120'x2 Wheel 50 ft with 2 turns (QC): 5 Wheel 150 ft (QC): 88 Type of Wheelchair: Manual Stair Training Stair Training: Handrails/: 1 handrail #of Steps: 12 1 Step (curb) (QC): 4 4 Steps (QC): 4 12 Steps (QC): 4 Stairs: Pattern: Step to Balance Picking up an Object (QC): 88 ADL-Treatment Eating (QC): 6 Oral Hygiene (QC): 6 (IND) Bathing Location: L Arm, R Arm, L Upper Leg, R Upper Leg, L Lower Leg (including foot), Chest, Abdomen, Buttocks, Perineal Area Shower/Bathe Self (QC): 5 (set up, pt able to wash/dry all parts seated ) Upper Body Dressing (QC): 5 (set up) Lower Body Dressing (QC): 4 (SBA in stand. Pt able to doff/don pants and underwear) On/Off Footwear (QC): 6 (IND with increased time. 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 s/p loop recorder 05/22/20 Left arm muscle spasms responded to Baclofen Smoker New onset HTN HLP Fall upon arrival to unit with in room Elevated LFT's with normal liver USG Plan: PT OT Statin ASA Lovenox Monitor closely IRF protocol 05/22/20: Remove wedding ring left finger OT for edema management of the left hand Loop recorder 05/23/20: Wedding ring removed OT PT Monitor BP 05/24/20: Patient refuses SCD's Monitor BP Fall risk 05/25/20: Monitor closely Ambulating well with kiana-cane Loop recorder 05/26/20: Statin BP control Monitor closely 05/27/20: USG liver Elevated LFT's will be monitored DC monster drinks and soda 05/28/20: Hold statin due to elevated LFT's Monitor closely IRF protocol 05/29/20: Baclofen HS Monitor for falls Hold statin 05/30/20: Hold statin DC Lovenox 05/31/20: Monitor for falls Works on stairs 06/01/20: Improved edema left hand Doing really well with therapy 06/02/20: Monitor BP DC statin due to elevated LFT's 06/03/20: Monitor BP Intense therapy 06/04/20: Major improvement Continue monitoring closely (1) CVA (cerebral vascular accident) (2) Essential (primary) hypertension (3) Tobacco abuse (4) Hyperlipidemia RADHA COPPOLA DO Jun 04, 2020 05:20
[2020-06-04 06:00] VITALS: BP 119/67
[2020-06-04 08:00] VITALS: BP 127/64
--- NOTE | 2020-06-04 08:53 | Physical Therapy Daily Note ---
PT Daily Note-Current Subjective Patient in pre tx, agrees to PT, has no complaints of pain. Appearance Patient in post tx in room he is independent with mobility Mental Status Patient Orientation: Normal For Age Transfers SCALE: Activities may be completed with or without assistive devices. 7-Trqffcnbre-glolpfn completes the activity by him/herself with no assistance from a helper. 5-Set-up or Clean-up Assistance-helper sets up or cleans up; patient completes activity. [place] assists only prior to or following the activity. 4-Supervision or Touching Assistance-helper provides verbal cues and/or touching/steadying and/or contact guard assistance as patient completes activity. Assistance may be provided throughout the activity or intermittently. 3-Partial/Moderate Assistance-helper does LESS THAN HALF the effort. [place] lifts, holds or supports trunk or limbs, but provides less than half the effort. 2-Substantial/Maximal Assistance-helper does MORE THAN HALF the effort. [place] lifts or holds trunk or limbs and provides more than half the effort. 9-Qmqyrohvh-xntmww does ALL the effort. Patient does none of the effort to complete the activity. Or, the assistance of 2 or more helpers is required for the patient to complete the activity. If activity was not attempted, code reason: 7-Patient Refused. 9-Not Applicable-not attempted and the patient did not perform the activity before the current illness, exacerbation or injury. 10-Not Attempted due to Environmental Limitations-(lack of equipment, weather restraints, etc.). 88-Not Attempted due to Medical Conditions or Safety Concerns. Sit to Stand (QC): 4 Chair/Elj-xu-Fhton Xfer(QC): 4 Weight Bearing Right Lower Extremity: Right Full Weight Bearing Left Lower Extremity: Left Weight Bearing/Tolerated Gait Training Distance: 150', 120', 50'x2 Walk 10 feet (QC): 4 Walk 50 ft with 2 Turns(QC): 4 Walk 150 ft (QC): 4 Gait Assistive Device: Cane Single Point Patient ambulated twice 50' with CGA, he did have one instance when he needed steadying assist. Exercises Supine Ex: Bridging Supine Reps: 20 hooklying knee fallouts x20, hooklying hip abd with GTB x20 NuStep Minutes: 15 NuStep Workload: 4 Treatments transfers, ambulation, LE strengthening Assessment Current Status: Fair Progress improving balance during ambulation PT Short Term Goals Short Term Goals Time Frame: May 28, 2020 Roll Left & Right: 6 Sit to lyin Lying to sitting on side of be: 3 Sit to stand: 4 (met) Chair/akp-ps-udknb transfer: 3 Walk 10 feet: 3 (met) PT Ice Puller Goals Half-Way Goals PT Ice Puller Goals Time Frame: Jun 11, 2020 Roll Left & Right (QC): 6 Sit to Lying (QC): 6 Lying-Sitting on Side/Bed(QC): 6 Sit to Stand (QC): 5 Chair/Llk-rl-[place] Xfer(QC): 4 Toilet Transfer (QC): 4 Car Transfer (QC): 4 Does the Patient Walk: Yes Walk 10 feet (QC): 4 Walk 50ft with 2 Turns (QC): 4 Walk 150 ft (QC): 88 Walking 10ft on Uneven Surface: 4 1 Step (curb) (QC): 3 4 Steps (QC): 3 12 Steps (QC): 88 Picking up an Object (QC): 3 Wheel 50 feet with 2 turns (QC: 6 Wheel 150 feet: 6 PT Plan Problem List Problem List: Activity Tolerance, Functional Strength, Safety, Balance, Gait, Transfer, Bed Mobility, ROM Treatment/Plan Treatment Plan: Continue Plan of Care Treatment Plan: Bed Mobility, Education, Functional Activity Rusty, Functional Strength, Group Therapy, Gait, Safety, Therapeutic Exercise, Transfers Treatment Duration: Jun 11, 2020 Frequency: At least 5 of 7 days/Wk (IRF) Estimated Hrs Per Day: 1.5 hours per day Patient and/or Family Agrees t: Yes Safety Risks/Education Patient Education: Gait Training, Transfer Techniques, Correct Positioning, Safety Issues Teaching Recipient: Patient Teaching Methods: Demonstration, Discussion Response to Teaching: Reinforcement Needed Time/GCodes Time In: 0800 Time Out: 0900 Total Billed Treatment Time: 60 Total Billed Treatment 1 visit EX 30' GT 30' IVY HYDE PT Jun 04, 2020 08:53
[2020-06-04] MEDS: ACETAMINOPHEN 325 MG TABLET PO PRN (09:01)
[2020-06-04] MEDS: DOCUSATE SODIUM 100 MG (COLACE) CAP PO SCH ×2 (09:01→20:52)
[2020-06-04] MEDS: VALSARTAN 160 MG (DIOVAN) TABLET PO SCH (09:01)
[2020-06-04] MEDS: SENNA W/DOCUSATE (SENOKOT S) TABLET PO SCH ×2 (09:01→20:52)
[2020-06-04] MEDS: amLODIPine 10 MG (NORVASC) TAB PO SCH (09:01)
[2020-06-04] MEDS: ASPIRIN 325 MG (5 GR) TABLET PO SCH (09:01)
[2020-06-04] MEDS: polyethylene glycoL POWDER 17 GM (MIRALAX) PACK PO SCH ×2 (09:16→20:49)
--- NOTE | 2020-06-04 10:21 | Occupational Ther Daily Note ---
OT Current Status-Daily Note Subjective Pt alert, sitting in w/c. Pt agrees to therapy. No c/o pain at this time. Mental Status/Objective Patient Orientation: Person, Place, Time, Situation Attachments: Other-See Comments (AFO) ADL-Treatment Pt declined shower, changing clothing. Stated that he had already completed oral care. Therapy Code Descriptions/Definitions Functional [place] Measure: 0=Not Assessed/NA 4=Minimal Assistance 1=Total Assistance 5=Supervision or Setup 2=Maximal Assistance 6=Modified [place] 3=Moderate Assistance 7=Complete IndependenceSCALE: Activities may be completed with or without assistive devices. 6-Lwnxsrmkst-zuosngt completes the activity by him/herself with no assistance from a helper. 5-Set-up or Clean-up Assistance-helper sets up or cleans up; patient completes activity. [place] assists only prior to or following the activity. 4-Supervision or Touching Assistance-helper provides verbal cues and/or touching/steadying and/or contact guard assistance as patient completes activity. Assistance may be provided throughout the activity or intermittently. 3-Partial/Moderate Assistance-helper does LESS THAN HALF the effort. [place] fts, holds or supports trunk or limbs, but provides less than half the effort. 2-Substantial/Maximal Assistance-helper does MORE THAN HALF the effort. [place] lifts or holds trunk or limbs and provides more than half the effort. 0-Nngvwldhh-ulwwjp does ALL the effort. Patient does none of the effort to complete the activity. Or, the assistance of 2 or more helpers is required for the patient to complete the activity. If activity was not attempted, code reason: 7-Patient Refused. 9-Not Applicable-not attempted and the patient did not perform the activity before the current illness, exacerbation or injury. 10-Not Attempted due to Environmental Limitations-(lack of equipment, weather restraints, etc.). 88-Not Attempted due to Medical Conditions or Safety Concerns. Other Treatment Pt ambulated to therapy gym with CGA using SPC. Pt educated on EOB <--> supine going toward L side. Pt fearful of falling that direction, mod A to complete. PROM and stretch to L UE to increase ROM and body awareness of L UE. Pt stated that he felt tightness in pectorals, bicep, shldr girdle and wrist areas. Pt demonstrates limited movement with shldr elevation and retraction. Subluxation noted with relaxed position, as pt begins to attempt to move subluxation decreases. L shldr add limited movement noted. Pt then working on core strengthening and wt bearing with L UE in seated position when leaning toward left with assist to stabilize L elbow to reach for objects on L side with R UE and place on right side. Pt then completed modified sit up mat table, 2 sets 10 reps. Lynch and resistance eliminated movement for horizontal shldr abd/add, pt demonstrated movement. Muscle facilitation to bicep and wrist extensors demonstrated limited movement. Pt then ambulated back to room and transferred to w/c. After session, pt sitting in w/c with son present. Call light/phone in reach. All needs met in room. OT Short Term Goals Short Term Goals Time Frame: Jun 05, 2020 Shower/bathe self: 3 Lower body dressin Putting on/taking off footwear: 3 OT Fci Goals Fci Goals Time Frame: Jun 14, 2020 Eating (QC): 6 Oral Hygiene (QC): 6 Toileting Hygiene (QC): 6 Shower/Bathe Self (QC): 4 Upper Body Dressing (QC): 5 Lower Body Dressing (QC): 4 On/Off Footwear (QC): 5 Additional Goals: 1-Demonstrate ADL Tasks, 2-Verbalize Understanding, 3- ImproveStrength/Rusty 1=Demonstrate adherence to instructed precautions during ADL tasks. 2=Patient will verbalize/demonstrate understanding of assistive devices/modifications for ADL. 3=Patient will improve strength/tolerance for activity to enable patient to perform ADL's. OT Education/Plan Problem List/Assessment Assessment: Decreased Activ Tolerance, Decreased UE Strength, Restricted Funct UE ROM Discharge Recommendations Plan/Recommendations: Continue POC Treatment Plan/Plan of Care Patient would benefit from OT for education, treatment and training to promote independence in ADL's, mobility, safety and/or upper extremity function for ADL's. Plan of Care: ADL Retraining, Functional Mobility, Group Exercise/Act as Ind, UE Funct Exercise/Act Treatment Duration: Jun 14, 2020 Frequency: At least 5 of 7 days/Wk (IRF) Estimated Hrs Per Day: 1.5 hours per day Rehab Potential: Fair Time/GCodes Start Time: 09:00 Stop Time: 10:15 Total Time Billed (hr/min): 75 Billed Treatment Time 1 visit-LA 5 (75 min) EVELINE SANDERS Jun 04, 2020 10:21
--- NOTE | 2020-06-04 11:39 | Speech Therapy Daily Note ---
Speech Daily Progress Note Subjective Date Seen by Provider: Jun 04, 2020 Time Seen by Provider: 00:30 Patient was resting in his wc following his other therapies. His son was present for the session. Objective Patient completed 25 minutes of vital stim at 9.0. Patient completed OME while the vital stim was on. Assessment Assessment Current Status: Good Progress Treatment Plan Continue Plan of Care Speech Short Term Goals Short Term Goals Short Term Goals 1) Patient will tolerate least restrictive diet level per physician's order at 90% or greater. 2) Patient/caregiver will utilize compensatory strategies as trained for safe oral intake at 90% or greater without cues. 3) Patient will complete OME as directed 4-5x per week. Speech [employer] Teacher Goals [employer] Teacher Goals Patient will improve swallowing and speech abilities to communicate better/easier with others. Speech-Plan Patient/Family Goals Patient/Family Goals: Patient plans on returning to his home upon discharge. Treatment Plan Speech Therapy Treatment Plan: Continue Plan of Care Treatment Duration: Jun 07, 2020 Frequency: 4 times per week (Patient receives skilled ST 4-5x per week) Estimated Hrs Per Day: .5 hour per day Rehab Potential: Fair Barriers to Learning: Patient's recent CVA, although he has not had cognitive deficits Pt/Family Agrees to Plan: Yes Safety Risks/Education Teaching Recipient: Patient, Family Teaching Methods: Demonstration, Discussion Response to Teaching: Verbalize Understanding, Return Demonstration Education Topics Provided: Continued safety within his room and with oral intake Time Speech Therapy Time In: 10:30 Speech Therapy Time Out: 11:00 Total Billed Time: 30 Billed Treatment Time 1, GURWINDER, SLGAVI Muñiz Jun 04, 2020 11:39
--- NOTE | 2020-06-04 13:44 | Physical Therapy Daily Note ---
PT Daily Note-Current Subjective Patient in WC pre tx, agrees to PT, has no complaints of pain. Appearance Patient in WC at bedside post tx with nurse call, phone, tray, all needs met. Mental Status Patient Orientation: Normal For Age Transfers SCALE: Activities may be completed with or without assistive devices. 7-Ywqtzvgovk-xssimha completes the activity by him/herself with no assistance from a helper. 5-Set-up or Clean-up Assistance-helper sets up or cleans up; patient completes activity. [place] assists only prior to or following the activity. 4-Supervision or Touching Assistance-helper provides verbal cues and/or touching/steadying and/or contact guard assistance as patient completes activity. Assistance may be provided throughout the activity or intermittently. 3-Partial/Moderate Assistance-helper does LESS THAN HALF the effort. [place] lifts, holds or supports trunk or limbs, but provides less than half the effort. 2-Substantial/Maximal Assistance-helper does MORE THAN HALF the effort. [place] lifts or holds trunk or limbs and provides more than half the effort. 8-Tkuqckfwu-kgjtyn does ALL the effort. Patient does none of the effort to complete the activity. Or, the assistance of 2 or more helpers is required for the patient to complete the activity. If activity was not attempted, code reason: 7-Patient Refused. 9-Not Applicable-not attempted and the patient did not perform the activity before the current illness, exacerbation or injury. 10-Not Attempted due to Environmental Limitations-(lack of equipment, weather restraints, etc.). 88-Not Attempted due to Medical Conditions or Safety Concerns. Sit to Stand (QC): 4 Chair/Tsi-wr-Orsll Xfer(QC): 4 CGA Weight Bearing Right Lower Extremity: Right Full Weight Bearing Left Lower Extremity: Left Weight Bearing/Tolerated Gait Training Distance: 120'x2 Walk 10 feet (QC): 4 Walk 50 ft with 2 Turns(QC): 4 Gait Persons Needed: 1 Gait Assistive Device: None Patient ambulated 120'x2 with CGA without using an assistive device. Patient has unsteady moments but no LOB, slow ambulation, left foot is clearing the floor with stepping but is uncoordinated. Rest break between bout of ambulation Treatments transfers, ambulation Assessment Current Status: Fair Progress improving balance and ambulation PT Short Term Goals Short Term Goals Time Frame: May 28, 2020 Roll Left & Right: 6 Sit to lyin Lying to sitting on side of be: 3 Sit to stand: 4 (met) Chair/jki-gi-pjust transfer: 3 Walk 10 feet: 3 (met) PT Lockstitch Lining Setter Goals Fpc Goals PT Lockstitch Lining Setter Goals Time Frame: Jun 11, 2020 Roll Left & Right (QC): 6 Sit to Lying (QC): 6 Lying-Sitting on Side/Bed(QC): 6 Sit to Stand (QC): 5 Chair/Nbl-sv-Ywyyv Xfer(QC): 4 Toilet Transfer (QC): 4 Car Transfer (QC): 4 Does the Patient Walk: Yes Walk 10 feet (QC): 4 Walk 50ft with 2 Turns (QC): 4 Walk 150 ft (QC): 88 Walking 10ft on Uneven Surface: 4 1 Step (curb) (QC): 3 4 Steps (QC): 3 12 Steps (QC): 88 Picking up an Object (QC): 3 Wheel 50 feet with 2 turns (QC: 6 Wheel 150 feet: 6 PT Plan Problem List Problem List: Activity Tolerance, Functional Strength, Safety, Balance, Gait, Transfer, Bed Mobility, ROM Treatment/Plan Treatment Plan: Continue Plan of Care Treatment Plan: Bed Mobility, Education, Functional Activity Rusty, Functional Strength, Group Therapy, Gait, Safety, Therapeutic Exercise, Transfers Treatment Duration: Jun 11, 2020 Frequency: At least 5 of 7 days/Wk (IRF) Estimated Hrs Per Day: 1.5 hours per day Patient and/or Family Agrees t: Yes Safety Risks/Education Patient Education: Gait Training, Transfer Techniques, Correct Positioning, Safety Issues Teaching Recipient: Patient Teaching Methods: Demonstration, Discussion Response to Teaching: Reinforcement Needed Time/GCodes Time In: 1330 Time Out: 1345 Total Billed Treatment Time: 15 Total Billed Treatment 1 visit GT 15' IVY HYDE PT Jun 04, 2020 13:44
[2020-06-04 17:23] VITALS: BP 120/68
[2020-06-04] MEDS: MELATONIN 3 MG TABLET PO PRN (20:52)
[2020-06-04] MEDS: BACLOFEN 10 MG (LIORESAL) TAB PO PRN (20:52)
[2020-06-05 05:57] VITALS: BP 106/57
[2020-06-05 08:24] VITALS: BP 147/75
[2020-06-05] MEDS: SENNA W/DOCUSATE (SENOKOT S) TABLET PO SCH ×2 (08:25→20:55)
[2020-06-05] MEDS: DOCUSATE SODIUM 100 MG (COLACE) CAP PO SCH ×2 (08:26→20:55)
[2020-06-05] MEDS: amLODIPine 10 MG (NORVASC) TAB PO SCH (08:26)
[2020-06-05] MEDS: ASPIRIN 325 MG (5 GR) TABLET PO SCH (08:27)
[2020-06-05] MEDS: VALSARTAN 160 MG (DIOVAN) TABLET PO SCH (08:27)
[2020-06-05] MEDS: polyethylene glycoL POWDER 17 GM (MIRALAX) PACK PO SCH ×2 (08:28→21:10)
--- NOTE | 2020-06-05 08:35 | PM&R Progress Note ---
Subjective HPI/CC On Admission Date Seen by Provider: Jun 05, 2020 Time Seen by Provider: 08:30 Subjective/Events-last exam 06/05/20: Pt doing pretty well Moving his left arm a bit today No buggy runner in the left hand He is walking without a cane at times Bowels moving Needs and AFO customized No drooling anymore Family training will likely be required We will check his progress next week 06/04/20: Pt doing pretty well Psych evaluation did not recommend any further follow-up or medications Overall managing everything pretty well Walked without a cane yesterday 06/03/20: Psych eval visit will be today Put on his AFO today Bowels moved yesterday 06/02/20: Patient doing well BM+ Tingling in arm at times reported BP ok Tired today 06/01/20: Patient doing well Left hand improved BM+ Slept hard and was stiff this morning 05/31/20: Patient doing well Balance is better Worked stairs today No falls 05/30/20: Pt doing very well Tens unit has really helped his left side of his face and arm Will fit him for an isotoner glove for edema Will DC Lovenox since it bothers him and he is ambulatory 05/29/20: Pt having no issues Psych evaluation will be at 1 PM Baclofen taken at night for muscle spasms in the left arm Overall doing well and eating and drinking well with no dysphasia 05/28/20: Lipitor stopped by Dr. Rios due to elevated liver enzymes Behavioral note will be evaluated Baclofen taken last night, doesnt know if it worked or not so maintain that and evaluate further Bowels moved yesterday 05/27/20: Pt doing very well Baclofen will be given for the left arm muscle spasms Elevated liver enzymes prompting abdominal ultrasound, ordered by Dr. 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 Rios BP 152/68 Swelling in his left hand, will get his wedding ring off today Very tearful at times Bowels moved four days ago so will initiate laxatives Review of Systems Neurological: Weakness, Incoordination Objective Exam Vital Signs Vital Signs Date Time Temp Pulse Resp B/P (MAP) Pulse Ox O2 Delivery O2 Flow Rate FiO2 06/05/20 20:00 Room Air 06/05/20 17:11 37.0 68 18 116/64 (81) 95 Capillary Refill : General Appearance: No Apparent Distress, WD/WN, Chronically ill, Obese HEENT: PERRL/EOMI, Normal ENT Inspection, Pharynx Normal Neck: Full Range of Motion, Normal Inspection, Non Tender, Supple, Carotid Bruit Respiratory: Chest Non Tender, Lungs Clear, Normal Breath Sounds, No Accessory Muscle Use, No Respiratory Distress Cardiovascular: Regular Rate, Rhythm, No Edema, No Gallop, No JVD, No Murmur, Normal Peripheral Pulses Gastrointestinal: Normal Bowel Sounds, No Organomegaly, No Pulsatile Mass, Non Tender, Soft Back: Normal Inspection, No CVA Tenderness, No Vertebral Tenderness Extremity: Normal Capillary Refill, Normal Inspection, Normal Range of Motion, Non Tender, No Calf Tenderness, No Pedal Edema Neurologic/Psychiatric: Alert, Oriented x3, Abnormal Gait, Depressed Affect, Motor Weakness (left sided arm 1/5 left hand 0/5 left leg 4/5) Skin: Normal Color, Warm/Dry Lymphatic: No Adenopathy Results/Procedures Lab Patient resulted labs reviewed. FIM Transfers Therapy Code Descriptions/Definitions Functional [place] Measure: 0=Not Assessed/NA 4=Minimal Assistance 1=Total Assistance 5=Supervision or Setup 2=Maximal Assistance 6=Modified [place] 3=Moderate Assistance 7=Complete IndependenceSCALE: Activities may be completed with or without assistive devices. 0-Osgdwgicau-cbgocti completes the activity by him/herself with no assistance from a helper. 5-Set-up or Clean-up Assistance-helper sets up or cleans up; patient completes activity. [place] assists only prior to or following the activity. 4-Supervision or Touching Assistance-helper provides verbal cues and/or touching/steadying and/or contact guard assistance as patient completes activity. Assistance may be provided throughout the activity or intermittently. 3-Partial/Moderate Assistance-helper does LESS THAN HALF the effort. [place] lifts, holds or supports trunk or limbs, but provides less than half the effort. 2-Substantial/Maximal Assistance-helper does MORE THAN HALF the effort. [place] lifts or holds trunk or limbs and provides more than half the effort. 6-Uuufewipq-icywqp does ALL the effort. Patient does none of the effort to complete the activity. Or, the assistance of 2 or more helpers is required for the patient to complete the activity. If activity was not attempted, code reason: 7-Patient Refused. 9-Not Applicable-not attempted and the patient did not perform the activity before the current illness, exacerbation or injury. 10-Not Attempted due to Environmental Limitations-(lack of equipment, weather restraints, etc.). 88-Not Attempted due to Medical Conditions or Safety Concerns. Roll Left to Right (QC): 6 Sit to Lying (QC): 6 Sit to Stand (QC): 4 Chair/Tsv-cm-Vedqi Xfer(QC): 4 Car Transfer (QC): 3 Gait Training Does the Patient Walk?: Yes Distance: 120'x2 Walk 10 feet (QC): 4 Walk 50 ft with 2 Turns(QC): 4 Walk 150 ft (QC): 4 Walking 10ft/uneven surface-QC: 88 Gait Persons Needed: 1 Gait Assistive Device: None Wheelchair Training Does the Pt Use a Wheelchair?: Yes Distance: 120'x2 Wheel 50 ft with 2 turns (QC): 5 Wheel 150 ft (QC): 88 Type of Wheelchair: Manual Stair Training Stair Training: Handrails/: 1 handrail #of Steps: 12 1 Step (curb) (QC): 4 4 Steps (QC): 4 12 Steps (QC): 4 Stairs: Pattern: Step to Balance Picking up an Object (QC): 88 ADL-Treatment Eating (QC): 6 Oral Hygiene (QC): 6 (IND) Bathing Location: L Arm, R Arm, L Upper Leg, R Upper Leg, L Lower Leg (including foot), Chest, Abdomen, Buttocks, Perineal Area Shower/Bathe Self (QC): 5 (set up, pt able to wash/dry all parts seated ) Upper Body Dressing (QC): 5 (set up) Lower Body Dressing (QC): 4 (SBA in stand. Pt able to doff/don pants and underwear) On/Off Footwear (QC): 6 (IND with increased time. 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 s/p loop recorder 05/22/20 Left arm muscle spasms responded to Baclofen Smoker New onset HTN HLP Fall upon arrival to unit with in room Elevated LFT's with normal liver USG Plan: PT OT Statin ASA Lovenox Monitor closely IRF protocol 05/22/20: Remove wedding ring left finger OT for edema management of the left hand Loop recorder 05/23/20: Wedding ring removed OT PT Monitor BP 05/24/20: Patient refuses SCD's Monitor BP Fall risk 05/25/20: Monitor closely Ambulating well with kiana-cane Loop recorder 05/26/20: Statin BP control Monitor closely 05/27/20: USG liver Elevated LFT's will be monitored DC monster drinks and soda 05/28/20: Hold statin due to elevated LFT's Monitor closely IRF protocol 05/29/20: Baclofen HS Monitor for falls Hold statin 05/30/20: Hold statin DC Lovenox 05/31/20: Monitor for falls Works on stairs 06/01/20: Improved edema left hand Doing really well with therapy 06/02/20: Monitor BP DC statin due to elevated LFT's 06/03/20: Monitor BP Intense therapy 06/04/20: Major improvement Continue monitoring closely 06/05/20: Improved status AFO to be made Monitor for falls (1) CVA (cerebral vascular accident) (2) Essential (primary) hypertension (3) Tobacco abuse (4) Hyperlipidemia RADHA COPPOLA DO Jun 05, 2020 08:35
--- NOTE | 2020-06-05 09:47 | Occupational Ther Daily Note ---
OT Current Status-Daily Note Subjective Pt returning to room with PT, agreeable to OT tx with focus on showering. ADL-Treatment Therapy Code Descriptions/Definitions Functional [place] Measure: 0=Not Assessed/NA 4=Minimal Assistance 1=Total Assistance 5=Supervision or Setup 2=Maximal Assistance 6=Modified [place] 3=Moderate Assistance 7=Complete IndependenceSCALE: Activities may be completed with or without assistive devices. 1-Lzqjbmxkow-qiswzsy completes the activity by him/herself with no assistance from a helper. 5-Set-up or Clean-up Assistance-helper sets up or cleans up; patient completes activity. [place] assists only prior to or following the activity. 4-Supervision or Touching Assistance-helper provides verbal cues and/or touching/steadying and/or contact guard assistance as patient completes activity. Assistance may be provided throughout the activity or intermittently. 3-Partial/Moderate Assistance-helper does LESS THAN HALF the effort. [place] lifts, holds or supports trunk or limbs, but provides less than half the effort. 2-Substantial/Maximal Assistance-helper does MORE THAN HALF the effort. [place] lifts or holds trunk or limbs and provides more than half the effort. 1-Vsfickkup-kammci does ALL the effort. Patient does none of the effort to complete the activity. Or, the assistance of 2 or more helpers is required for the patient to complete the activity. If activity was not attempted, code reason: 7-Patient Refused. 9-Not Applicable-not attempted and the patient did not perform the activity before the current illness, exacerbation or injury. 10-Not Attempted due to Environmental Limitations-(lack of equipment, weather restraints, etc.). 88-Not Attempted due to Medical Conditions or Safety Concerns. Eating (QC): 6 (per pt report) Oral Hygiene (QC): 6 (Per pt report, he completes independently seated at sink.) Shower/Bathe Self (QC): 5 (set up assist, pt able to wash/dry all parts seated on SC.) Upper Body Dressing (QC): 5 (set up) Lower Body Dressing (QC): 4 (SBA in stand, pt able to doff/don pants/underwear) On/Off Footwear: 3 (Pt able to doff socks/shoes, assist LLE AFO. Pt has a different style of AFO from previous sessions.) Toileting Hygiene (QC): 4 (CGA in stand for clothing mangement, pt completes hygiene seated ) Toilet Transfer (QC): 4 (CGA on/off toilet using GBs.) Other Treatment Pt ambulating back to room with PT, OT took over tx. Pt took seated rest break on SC, then states he needs to use toilet. Pt uses SPC to transfer to toilet, CGA. Pt completes toileting, then uses SPC to return to SC. Pt doff clothes, completes shower, then dries off. Pt transfers to w/c at SBA using GBs, then dons clothes at w/c. Pt had a different AFO today due to prior AFO cracking. Pt required assistance donning/doffing AFO due to it not being rigid like the prior AFO. Pt used SPC to ambulate to large shower room, OT educated pt on bath bench vs chair, with recommendations of a bench. Pt able to transfer into/out of bathtub using tub transfer bench with SBA. Pt used SPC to return to his room, CGA, transferring to w/c. OT performed PROM at L shoulder for flexion, abduction and external rotation, pt states he is able to range other joints following his HEP. Post tx, pt seated in w/c, call light in reach and all needs met. Education OT Patient Education: Correct positioning, Exercise program, Modified ADL techniques, Progress toward Goal/Update tx plan, Purpose of tx/functional activities Teaching Recipient: Patient Teaching Methods: Discussion Response to Teaching: Verbalize Understanding OT Short Term Goals Short Term Goals Time Frame: Jun 05, 2020 Shower/bathe self: 3 Lower body dressin Putting on/taking off footwear: 3 OT Half-Way Goals Half-Way Goals Time Frame: Jun 14, 2020 Eating (QC): 6 Oral Hygiene (QC): 6 Toileting Hygiene (QC): 6 Shower/Bathe Self (QC): 4 Upper Body Dressing (QC): 5 Lower Body Dressing (QC): 4 On/Off Footwear (QC): 5 Additional Goals: 1-Demonstrate ADL Tasks, 2-Verbalize Understanding, 3- ImproveStrength/Rusty 1=Demonstrate adherence to instructed precautions during ADL tasks. 2=Patient will verbalize/demonstrate understanding of assistive devices/modifications for ADL. 3=Patient will improve strength/tolerance for activity to enable patient to perform ADL's. OT Education/Plan Problem List/Assessment Assessment: Decreased Activ Tolerance, Decreased UE Strength Discharge Recommendations Plan/Recommendations: Continue POC Treatment Plan/Plan of Care Patient would benefit from OT for education, treatment and training to promote independence in ADL's, mobility, safety and/or upper extremity function for ADL's. Plan of Care: ADL Retraining, Functional Mobility, Group Exercise/Act as Ind, U E Funct Exercise/Act Treatment Duration: Jun 14, 2020 Frequency: At least 5 of 7 days/Wk (IRF) Estimated Hrs Per Day: 1.5 hours per day Rehab Potential: Fair Time/GCodes Start Time: 09:15 Stop Time: 10:30 Total Time Billed (hr/min): 75 Billed Treatment Time 1, ADL 4 (60'), FA (20'), EX (10') TRACIE JAY OT Jun 05, 2020 09:47
--- NOTE | 2020-06-05 10:17 | Physical Therapy Daily Note ---
PT Daily Note-Current Subjective Pt sitting in [facility] in room upon arrival. Pt agrees to PT. Pt reports AFO has broken and asked for new one. Pain Location: No Pain Reported Mental Status Patient Orientation: Person, Place, Time, Situation Transfers SCALE: Activities may be completed with or without assistive devices. 7-Lruaurfkkh-kghnfym completes the activity by him/herself with no assistance from a helper. 5-Set-up or Clean-up Assistance-helper sets up or cleans up; patient completes activity. [place] assists only prior to or following the activity. 4-Supervision or Touching Assistance-helper provides verbal cues and/or touching/steadying and/or contact guard assistance as patient completes activity. Assistance may be provided throughout the activity or intermittently. 3-Partial/Moderate Assistance-helper does LESS THAN HALF the effort. [place] lifts, holds or supports trunk or limbs, but provides less than half the effort. 2-Substantial/Maximal Assistance-helper does MORE THAN HALF the effort. [place] lifts or holds trunk or limbs and provides more than half the effort. 2-Rusihyjbt-hjayxp does ALL the effort. Patient does none of the effort to complete the activity. Or, the assistance of 2 or more helpers is required for the patient to complete the activity. If activity was not attempted, code reason: 7-Patient Refused. 9-Not Applicable-not attempted and the patient did not perform the activity before the current illness, exacerbation or injury. 10-Not Attempted due to Environmental Limitations-(lack of equipment, weather restraints, etc.). 88-Not Attempted due to Medical Conditions or Safety Concerns. Sit to Stand (QC): 5 Weight Bearing Right Lower Extremity: Right Full Weight Bearing Left Lower Extremity: Left Weight Bearing/Tolerated Gait Training Does the Patient Walk?: Yes Distance: 100' x2 Walk 10 feet (QC): 4 Walk 50 ft with 2 Turns(QC): 4 Gait Persons Needed: 1 Gait Assistive Device: Cane Single Point Exercises NuStep Minutes: 20 NuStep Workload: 5 Treatments Pt reports broken AFO so LEGAL ASSISTANT assists with finding new AFO. Pt able to don new AFO and shoe then amb. in hallway. Pt uses NuStep for 20m at WL 5. Pt takes short RB then tries ankle support brace instead of AFO since new one rubbed foot and another one not available. Pt amb. in hallway to room and then rests on stool in shower. OT present and will continue tx. All needs met. Assessment Current Status: Good Progress Pt has zee LOB but able to regain balance and correct with LEGAL ASSISTANT's assistance. PT Short Term Goals Short Term Goals Time Frame: May 28, 2020 Roll Left & Right: 6 Sit to lyin Lying to sitting on side of be: 3 Sit to stand: 4 (met) Chair/kxb-pe-serne transfer: 3 Walk 10 feet: 3 (met) PT Care Home Goals Care Home Goals PT Care Home Goals Time Frame: Jun 11, 2020 Roll Left & Right (QC): 6 Sit to Lying (QC): 6 Lying-Sitting on Side/Bed(QC): 6 Sit to Stand (QC): 5 Chair/Gpk-lz-Hhvtb Xfer(QC): 4 Toilet Transfer (QC): 4 Car Transfer (QC): 4 Does the Patient Walk: Yes Walk 10 feet (QC): 4 Walk 50ft with 2 Turns (QC): 4 Walk 150 ft (QC): 88 Walking 10ft on Uneven Surface: 4 1 Step (curb) (QC): 3 4 Steps (QC): 3 12 Steps (QC): 88 Picking up an Object (QC): 3 Wheel 50 feet with 2 turns (QC: 6 Wheel 150 feet: 6 PT Plan Problem List Problem List: Activity Tolerance, Safety, Gait Treatment/Plan Treatment Plan: Continue Plan of Care Treatment Plan: Bed Mobility, Education, Functional Activity Rusty, Functional Strength, Group Therapy, Gait, Safety, Therapeutic Exercise, Transfers Treatment Duration: Jun 11, 2020 Frequency: At least 5 of 7 days/Wk (IRF) Estimated Hrs Per Day: 1.5 hours per day Patient and/or Family Agrees t: Yes Safety Risks/Education Patient Education: Gait Training, Correct Positioning, Safety Issues Teaching Recipient: Patient Teaching Methods: Discussion Response to Teaching: Verbalize Understanding Time/GCodes Time In: 830 Time Out: 915 Total Billed Treatment Time: 45 Total Billed Treatment 1, GT (15m), FA (10m) & EX (20m) GAEL LUCIO LEGAL ASSISTANT Jun 05, 2020 10:17
--- NOTE | 2020-06-05 11:11 | Speech Therapy Daily Note ---
Speech Daily Progress Note Subjective Date Seen by Provider: Jun 05, 2020 Time Seen by Provider: 00:30 Patient was resting in his wc and ordering his lunch when I entered his room. Objective Patient completed vital stim for 25 minutes with setting at 10.0. He completed OME during the stim at 10 sets each with minimal cues. Assessment Assessment Current Status: Good Progress Treatment Plan Continue Plan of Care Speech Short Term Goals Short Term Goals Short Term Goals 1) Patient will tolerate least restrictive diet level per physician's order at 90% or greater. 2) Patient/caregiver will utilize compensatory strategies as trained for safe oral intake at 90% or greater without cues. 3) Patient will complete OME as directed 4-5x per week. Speech Half-Way Goals [employer] Goals Patient will improve swallowing and speech abilities to communicate better/easier with others. Speech-Plan Patient/Family Goals Patient/Family Goals: Patient plans on returning to his home where he lives with his and children. Treatment Plan Speech Therapy Treatment Plan: Continue Plan of Care Treatment Duration: Jun 07, 2020 Frequency: 4 times per week (Patient receives skilled ST 4-5x per week) Estimated Hrs Per Day: .5 hour per day Rehab Potential: Fair Barriers to Learning: Patient's debility from CVA Pt/Family Agrees to Plan: Yes Safety Risks/Education Teaching Recipient: Patient Teaching Methods: Demonstration, Discussion Response to Teaching: Verbalize Understanding, Return Demonstration Education Topics Provided: Continued safety within his room and with oral intake Time Speech Therapy Time In: 10:30 Speech Therapy Time Out: 11:00 Total Billed Time: 30 Billed Treatment Time 1, DYST, SLGAVI Muñiz Jun 05, 2020 11:11
--- NOTE | 2020-06-05 15:20 | Physical Therapy Daily Note ---
PT Daily Note-Current Subjective Pt sitting in [facility] upon arrival. Pt agrees to PT. Pain Location: No Pain Reported Mental Status Patient Orientation: Person, Place, Time, Situation Transfers SCALE: Activities may be completed with or without assistive devices. 3-Wjpfvjuski-vcaqqzk completes the activity by him/herself with no assistance from a helper. 5-Set-up or Clean-up Assistance-helper sets up or cleans up; patient completes activity. [place] assists only prior to or following the activity. 4-Supervision or Touching Assistance-helper provides verbal cues and/or touching/steadying and/or contact guard assistance as patient completes activity. Assistance may be provided throughout the activity or intermittently. 3-Partial/Moderate Assistance-helper does LESS THAN HALF the effort. [place] lifts, holds or supports trunk or limbs, but provides less than half the effort. 2-Substantial/Maximal Assistance-helper does MORE THAN HALF the effort. [place] lifts or holds trunk or limbs and provides more than half the effort. 0-Tsnnrhgse-luknwh does ALL the effort. Patient does none of the effort to complete the activity. Or, the assistance of 2 or more helpers is required for the patient to complete the activity. If activity was not attempted, code reason: 7-Patient Refused. 9-Not Applicable-not attempted and the patient did not perform the activity before the current illness, exacerbation or injury. 10-Not Attempted due to Environmental Limitations-(lack of equipment, weather restraints, etc.). 88-Not Attempted due to Medical Conditions or Safety Concerns. Sit to Stand (QC): 4 Chair/Dgq-he-Nwurj Xfer(QC): 4 Weight Bearing Right Lower Extremity: Right Full Weight Bearing Left Lower Extremity: Left Weight Bearing/Tolerated Gait Training Does the Patient Walk?: Yes Distance: 150' x2 Walk 10 feet (QC): 4 Walk 50 ft with 2 Turns(QC): 4 Walk 150 ft (QC): 4 Gait Persons Needed: 1 Gait Assistive Device: Cane Single Point Treatments Pt amb in hallway with RB as needed. Pt returns to room at end of tx with all needs met, call light in hand. Assessment Current Status: Good Progress Pt is improving with muscle control but still could use AFO for improved DF. PT Short Term Goals Short Term Goals Time Frame: May 28, 2020 Roll Left & Right: 6 Sit to lyin Lying to sitting on side of be: 3 Sit to stand: 4 (met) Chair/crq-ty-vygpe transfer: 3 Walk 10 feet: 3 (met) PT Group Home Goals [place] Cutting Machine Operator Goals PT Group Home Goals Time Frame: Jun 11, 2020 Roll Left & Right (QC): 6 Sit to Lying (QC): 6 Lying-Sitting on Side/Bed(QC): 6 Sit to Stand (QC): 5 Chair/Dch-rm-Icrua Xfer(QC): 4 Toilet Transfer (QC): 4 Car Transfer (QC): 4 Does the Patient Walk: Yes Walk 10 feet (QC): 4 Walk 50ft with 2 Turns (QC): 4 Walk 150 ft (QC): 88 Walking 10ft on Uneven Surface: 4 1 Step (curb) (QC): 3 4 Steps (QC): 3 12 Steps (QC): 88 Picking up an Object (QC): 3 Wheel 50 feet with 2 turns (QC: 6 Wheel 150 feet: 6 PT Plan Problem List Problem List: Activity Tolerance, Functional Strength, Gait Treatment/Plan Treatment Plan: Continue Plan of Care Treatment Plan: Bed Mobility, Education, Functional Activity Rusty, Functional Strength, Group Therapy, Gait, Safety, Therapeutic Exercise, Transfers Treatment Duration: Jun 11, 2020 Frequency: At least 5 of 7 days/Wk (IRF) Estimated Hrs Per Day: 1.5 hours per day Patient and/or Family Agrees t: Yes Safety Risks/Education Patient Education: Gait Training, Correct Positioning, Safety Issues Teaching Recipient: Patient Teaching Methods: Discussion Response to Teaching: Verbalize Understanding Time/GCodes Time In: 1400 Time Out: 1430 Total Billed Treatment Time: 30 Total Billed Treatment 1, GT x2 (30m) GAEL LUCIO SALT MAKER Jun 05, 2020 15:20
[2020-06-05 17:11] VITALS: BP 116/64
[2020-06-05] MEDS: BACLOFEN 10 MG (LIORESAL) TAB PO PRN (20:55)
[2020-06-05] MEDS: MELATONIN 3 MG TABLET PO PRN (20:55)
[2020-06-06 05:37] VITALS: BP 140/66
--- NOTE | 2020-06-06 05:54 | PM&R Progress Note ---
Subjective HPI/CC On Admission Date Seen by Provider: Jun 06, 2020 Time Seen by Provider: 10:15 Subjective/Events-last exam 06/06/20: No major issues reported Walking better and better Stand by assist most of the time now 06/05/20: Pt doing pretty well Moving his left arm a bit today No sap bw bi developer in the left hand He is walking without a cane at times Bowels moving Needs and AFO customized No drooling anymore Family training will likely be required We will check his progress next week 06/04/20: Pt doing pretty well Psych evaluation did not recommend any further follow-up or medications Overall managing everything pretty well Walked without a cane yesterday 06/03/20: Psych eval visit will be today Put on his AFO today Bowels moved yesterday 06/02/20: Patient doing well BM+ Tingling in arm at times reported BP ok Tired today 06/01/20: Patient doing well Left hand improved BM+ Slept hard and was stiff this morning 05/31/20: Patient doing well Balance is better Worked stairs today No falls 05/30/20: Pt doing very well Tens unit has really helped his left side of his face and arm Will fit him for an isotoner glove for edema Will DC Lovenox since it bothers him and he is ambulatory 05/29/20: Pt having no issues Psych evaluation will be at 1 PM Baclofen taken at night for muscle spasms in the left arm Overall doing well and eating and drinking well with no dysphasia 05/28/20: Lipitor stopped by Dr. Rios due to elevated liver enzymes Behavioral note will be evaluated Baclofen taken last night, doesnt know if it worked or not so maintain that and evaluate further Bowels moved yesterday 05/27/20: Pt doing very well Baclofen will be given for the left arm muscle spasms Elevated liver enzymes prompting abdominal ultrasound, ordered by Dr. Rios Overall doing pretty well otherwise 05/26/20: Patient doing well Frustrated with his situation but we can only support him so he can adjust at bedside today TC 178 Pivoting is improved 05/25/20: Left arm remains flaccid Walked to the gym and did well patient tearful at times or on the verge when he talks about his arm BM today No pain reported Tendency for somatic issues 05/24/20: Patient in better mood Tearful at times BM+ Slight elevated in LFT's SCD's refused by patient Showered today 05/23/20: Tearful at times Sore from loop recorder yesterday Wedding ring will be removed today by nursing distribution center supervisor Labs stable BP ok 05/22/20: Loop recorder was placed today by Dr. Rios BP 152/68 Swelling in his left hand, will get his wedding ring off today Very tearful at times Bowels moved four days ago so will initiate laxatives Review of Systems Neurological: Weakness, Incoordination Objective Exam Vital Signs Vital Signs Date Time Temp Pulse Resp B/P (MAP) Pulse Ox O2 Delivery O2 Flow Rate FiO2 06/06/20 21:00 97 Room Air 06/06/20 16:00 36.8 62 16 132/70 (90) Capillary Refill : General Appearance: No Apparent Distress, WD/WN, Chronically ill, Obese HEENT: PERRL/EOMI, Normal ENT Inspection, Pharynx Normal Neck: Full Range of Motion, Normal Inspection, Non Tender, Supple, Carotid Bruit Respiratory: Chest Non Tender, Lungs Clear, Normal Breath Sounds, No Accessory Muscle Use, No Respiratory Distress Cardiovascular: Regular Rate, Rhythm, No Edema, No Gallop, No JVD, No Murmur, Normal Peripheral Pulses Gastrointestinal: Normal Bowel Sounds, No Organomegaly, No Pulsatile Mass, Non Tender, Soft Back: Normal Inspection, No CVA Tenderness, No Vertebral Tenderness Extremity: Normal Capillary Refill, Normal Inspection, Normal Range of Motion, Non Tender, No Calf Tenderness, No Pedal Edema Neurologic/Psychiatric: Alert, Oriented x3, Abnormal Gait, Depressed Affect, Motor Weakness (left sided arm 1/5 left hand 0/5 left leg 4/5) Skin: Normal Color, Warm/Dry Lymphatic: No Adenopathy Results/Procedures Lab Patient resulted labs reviewed. FIM Transfers Therapy Code Descriptions/Definitions Functional [place] Measure: 0=Not Assessed/NA 4=Minimal Assistance 1=Total Assistance 5=Supervision or Setup 2=Maximal Assistance 6=Modified [place] 3=Moderate Assistance 7=Complete IndependenceSCALE: Activities may be completed with or without assistive devices. 8-Gsfcddpynv-dokjktx completes the activity by him/herself with no assistance from a helper. 5-Set-up or Clean-up Assistance-helper sets up or cleans up; patient completes activity. [place] assists only prior to or following the activity. 4-Supervision or Touching Assistance-helper provides verbal cues and/or touching/steadying and/or contact guard assistance as patient completes activity. Assistance may be provided throughout the activity or intermittently. 3-Partial/Moderate Assistance-helper does LESS THAN HALF the effort. [place] lifts, holds or supports trunk or limbs, but provides less than half the effort. 2-Substantial/Maximal Assistance-helper does MORE THAN HALF the effort. [place] lifts or holds trunk or limbs and provides more than half the effort. 0-Yjdycgmzf-jzctad does ALL the effort. Patient does none of the effort to complete the activity. Or, the assistance of 2 or more helpers is required for the patient to complete the activity. If activity was not attempted, code reason: 7-Patient Refused. 9-Not Applicable-not attempted and the patient did not perform the activity before the current illness, exacerbation or injury. 10-Not Attempted due to Environmental Limitations-(lack of equipment, weather restraints, etc.). 88-Not Attempted due to Medical Conditions or Safety Concerns. Roll Left to Right (QC): 6 Sit to Lying (QC): 6 Sit to Stand (QC): 4 Chair/Rno-oz-Btuej Xfer(QC): 4 Car Transfer (QC): 3 Gait Training Does the Patient Walk?: Yes Distance: 150' x2 Walk 10 feet (QC): 4 Walk 50 ft with 2 Turns(QC): 4 Walk 150 ft (QC): 4 Walking 10ft/uneven surface-QC: 88 Gait Persons Needed: 1 Gait Assistive Device: Cane Single Point Wheelchair Training Does the Pt Use a Wheelchair?: Yes Distance: 120'x2 Wheel 50 ft with 2 turns (QC): 5 Wheel 150 ft (QC): 88 Type of Wheelchair: Manual Stair Training Stair Training: Handrails/: 1 handrail #of Steps: 12 1 Step (curb) (QC): 4 4 Steps (QC): 4 12 Steps (QC): 4 Stairs: Pattern: Step to Balance Picking up an Object (QC): 88 ADL-Treatment Eating (QC): 6 (per pt report) Oral Hygiene (QC): 6 (Per pt report, he completes independently seated at sink .) Bathing Location: L Arm, R Arm, L Upper Leg, R Upper Leg, L Lower Leg (including foot), Chest, Abdomen, Buttocks, Perineal Area Shower/Bathe Self (QC): 5 (set up assist, pt able to wash/dry all parts seated on SC.) Upper Body Dressing (QC): 5 (set up) Lower Body Dressing (QC): 4 (SBA in stand, pt able to doff/don pants/underwear) On/Off Footwear (QC): 3 (Pt able to doff socks/shoes, assist LLE AFO. 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 s/p loop recorder 05/22/20 Left arm muscle spasms responded to Baclofen Smoker New onset HTN HLP Fall upon arrival to unit with in room Elevated LFT's with normal liver USG Plan: PT OT Statin ASA Lovenox Monitor closely IRF protocol 05/22/20: Remove wedding ring left finger OT for edema management of the left hand Loop recorder 05/23/20: Wedding ring removed OT PT Monitor BP 05/24/20: Patient refuses SCD's Monitor BP Fall risk 05/25/20: Monitor closely Ambulating well with kiana-cane Loop recorder 05/26/20: Statin BP control Monitor closely 05/27/20: USG liver Elevated LFT's will be monitored DC monster drinks and soda 05/28/20: Hold statin due to elevated LFT's Monitor closely IRF protocol 05/29/20: Baclofen HS Monitor for falls Hold statin 05/30/20: Hold statin DC Lovenox 05/31/20: Monitor for falls Works on stairs 06/01/20: Improved edema left hand Doing really well with therapy 06/02/20: Monitor BP DC statin due to elevated LFT's 06/03/20: Monitor BP Intense therapy 06/04/20: Major improvement Continue monitoring closely 06/05/20: Improved status AFO to be made Monitor for falls 06/06/20: Monitor for falls BP good Improved status (1) CVA (cerebral vascular accident) (2) Essential (primary) hypertension (3) Tobacco abuse (4) Hyperlipidemia RADHA COPPOLA DO Jun 06, 2020 05:54
[2020-06-06] MEDS: VALSARTAN 160 MG (DIOVAN) TABLET PO SCH (08:43)
[2020-06-06] MEDS: amLODIPine 10 MG (NORVASC) TAB PO SCH (08:43)
[2020-06-06] MEDS: ASPIRIN 325 MG (5 GR) TABLET PO SCH (08:43)
[2020-06-06] MEDS: DOCUSATE SODIUM 100 MG (COLACE) CAP PO SCH ×2 (09:10→20:16)
[2020-06-06] MEDS: polyethylene glycoL POWDER 17 GM (MIRALAX) PACK PO SCH ×2 (09:10→20:17)
[2020-06-06] MEDS: SENNA W/DOCUSATE (SENOKOT S) TABLET PO SCH ×2 (09:10→20:17)
--- NOTE | 2020-06-06 10:10 | Physical Therapy Daily Note ---
PT Daily Note-Current Subjective Pt sitting in [facility] upon arrival. Pt agrees to PT. Pain Numeric Pain Scale: 5-Moderate Pain Location: Left Location Body Site: Knee Pain Description: Ache Mental Status Patient Orientation: Person, Place, Time, Situation Transfers SCALE: Activities may be completed with or without assistive devices. 9-Xujghezztp-gioxjub completes the activity by him/herself with no assistance from a helper. 5-Set-up or Clean-up Assistance-helper sets up or cleans up; patient completes activity. [place] assists only prior to or following the activity. 4-Supervision or Touching Assistance-helper provides verbal cues and/or touching/steadying and/or contact guard assistance as patient completes activity. Assistance may be provided throughout the activity or intermittently. 3-Partial/Moderate Assistance-helper does LESS THAN HALF the effort. [place] lifts, holds or supports trunk or limbs, but provides less than half the effort. 2-Substantial/Maximal Assistance-helper does MORE THAN HALF the effort. [place] lifts or holds trunk or limbs and provides more than half the effort. 4-Tggthcron-ecsgrl does ALL the effort. Patient does none of the effort to complete the activity. Or, the assistance of 2 or more helpers is required for the patient to complete the activity. If activity was not attempted, code reason: 7-Patient Refused. 9-Not Applicable-not attempted and the patient did not perform the activity before the current illness, exacerbation or injury. 10-Not Attempted due to Environmental Limitations-(lack of equipment, weather restraints, etc.). 88-Not Attempted due to Medical Conditions or Safety Concerns. Sit to Stand (QC): 5 Weight Bearing Right Lower Extremity: Right Full Weight Bearing Left Lower Extremity: Left Weight Bearing/Tolerated Gait Training Does the Patient Walk?: Yes Distance: 250' Walk 10 feet (QC): 4 Walk 50 ft with 2 Turns(QC): 4 Walk 150 ft (QC): 4 Gait Persons Needed: 1 Gait Assistive Device: Cane Single Point Exercises Standing: Hip Abduction, Heel/toe raises, Mini squats Standing Reps: 15 NuStep Minutes: 15 NuStep Workload: 6 Treatments TF to standing and amb. in hallway. Pt uses NuStep then short RB before Standing Ex at //bars. Pt asks to amb w/o AD and goes ~50' before needing SPC for increased stability due to fatigue. Pt amb. in hallway w/SPC before retu rning to room to rest in [facility]. All needs met, call in hand. Assessment Current Status: Good Progress Pt has increased muscle control but still fatigues when pushing himself. PT Short Term Goals Short Term Goals Time Frame: May 28, 2020 Roll Left & Right: 6 Sit to lyin Lying to sitting on side of be: 3 Sit to stand: 4 (met) Chair/sjo-zr-jlyty transfer: 3 Walk 10 feet: 3 (met) PT Operations Section Manager Goals Skilled Nursing Goals PT Operations Section Manager Goals Time Frame: Jun 11, 2020 Roll Left & Right (QC): 6 Sit to Lying (QC): 6 Lying-Sitting on Side/Bed(QC): 6 Sit to Stand (QC): 5 Chair/Pxr-hu-Xdfzg Xfer(QC): 4 Toilet Transfer (QC): 4 Car Transfer (QC): 4 Does the Patient Walk: Yes Walk 10 feet (QC): 4 Walk 50ft with 2 Turns (QC): 4 Walk 150 ft (QC): 88 Walking 10ft on Uneven Surface: 4 1 Step (curb) (QC): 3 4 Steps (QC): 3 12 Steps (QC): 88 Picking up an Object (QC): 3 Wheel 50 feet with 2 turns (QC: 6 Wheel 150 feet: 6 PT Plan Problem List Problem List: Activity Tolerance, Gait Treatment/Plan Treatment Plan: Continue Plan of Care Treatment Plan: Bed Mobility, Education, Functional Activity Rusty, Functional Strength, Group Therapy, Gait, Safety, Therapeutic Exercise, Transfers Treatment Duration: Jun 11, 2020 Frequency: At least 5 of 7 days/Wk (IRF) Estimated Hrs Per Day: 1.5 hours per day Patient and/or Family Agrees t: Yes Safety Risks/Education Patient Education: Gait Training, Correct Positioning, Safety Issues Teaching Recipient: Patient Teaching Methods: Discussion Response to Teaching: Verbalize Understanding Time/GCodes Time In: 900 Time Out: 945 Total Billed Treatment Time: 45 Total Billed Treatment 1, EXx2 (25m) & GT (20m) GAEL LUCIO MARBLE COPER Jun 06, 2020 10:10
--- NOTE | 2020-06-06 11:35 | Speech Therapy Daily Note ---
Speech Daily Progress Note Subjective Date Seen by Provider: Jun 06, 2020 Time Seen by Provider: 00:30 Patient was resting in his wc watching the rain when I entered his room. Objective Patient completed 25 minutes of vital stim while completed OME with setting at 10.0. Assessment Assessment Current Status: Good Progress Treatment Plan Continue Plan of Care Speech Short Term Goals Short Term Goals Short Term Goals 1) Patient will tolerate least restrictive diet level per physician's order at 90% or greater. 2) Patient/caregiver will utilize compensatory strategies as trained for safe oral intake at 90% or greater without cues. 3) Patient will complete OME as directed 4-5x per week. Speech Long-Term Goals Long-Term Goals Patient will improve swallowing and speech abilities to communicate be tter/easier with others. Speech-Plan Patient/Family Goals Patient/Family Goals: Patient will be returning to his home next week. Treatment Plan Speech Therapy Treatment Plan: Continue Plan of Care Treatment Duration: Jun 07, 2020 Frequency: 4 times per week (Patient receives skilled ST 4-5x per week) Estimated Hrs Per Day: .5 hour per day Rehab Potential: Fair Barriers to Learning: Patient's recent decline in function secondary to CVA Pt/Family Agrees to Plan: Yes Safety Risks/Education Teaching Recipient: Patient Teaching Methods: Demonstration, Discussion Response to Teaching: Verbalize Understanding, Return Demonstration Education Topics Provided: Continued safety within his room and with oral intake Time Speech Therapy Time In: 10:00 Speech Therapy Time Out: 10:30 Total Billed Time: 30 Billed Treatment Time 1GURWINDER SLTS No [place], BETHANIA ST Jun 06, 2020 11:35
--- NOTE | 2020-06-06 11:47 | Occupational Ther Daily Note ---
OT Current Status-Daily Note Subjective Pt seated in w/c, agreeable to OT Tx. Pt expresses desire to be able to transfer self bed <-> w/c <-> toilet, OT will discuss with PT ADL-Treatment Therapy Code Descriptions/Definitions Functional [place] Measure: 0=Not Assessed/NA 4=Minimal Assistance 1=Total Assistance 5=Supervision or Setup 2=Maximal Assistance 6=Modified [place] 3=Moderate Assistance 7=Complete IndependenceSCALE: Activities may be completed with or without assistive devices. 8-Oqnqztjgnv-sjhtxrj completes the activity by him/herself with no assistance from a helper. 5-Set-up or Clean-up Assistance-helper sets up or cleans up; patient completes activity. [place] assists only prior to or following the activity. 4-Supervision or Touching Assistance-helper provides verbal cues and/or touching/steadying and/or contact guard assistance as patient completes activity. Assistance may be provided throughout the activity or intermittently. 3-Partial/Moderate Assistance-helper does LESS THAN HALF the effort. [place] lifts, holds or supports trunk or limbs, but provides less than half the effort. 2-Substantial/Maximal Assistance-helper does MORE THAN HALF the effort. [place] lifts or holds trunk or limbs and provides more than half the effort. 2-Mncsftsjw-lfknya does ALL the effort. Patient does none of the effort to complete the activity. Or, the assistance of 2 or more helpers is required for the patient to complete the activity. If activity was not attempted, code reason: 7-Patient Refused. 9-Not Applicable-not attempted and the patient did not perform the activity before the current illness, exacerbation or injury. 10-Not Attempted due to Environmental Limitations-(lack of equipment, weather restraints, etc.). 88-Not Attempted due to Medical Conditions or Safety Concerns. Other Treatment Pt seated in w/c, locked w/c brakes, then used SPC to ambulate to therapy gym with CGA. OT tx with focus on neuromuscular reeducation of LUE. Pt on therapy mat, transferring supine to L side. PROM and stretch to L UE to increase ROM and body awareness of L UE. Pt sat up on edge of mat, and e-stim performed to shoulder girdle for shoulder abduction, and retraction. (No e-stim performed at elbow/wrist due to metal plates/screws in forearm). Pt tolerated x10 mins each location, x7 tasha-amps. Pt then completes towel slides x5 reps shoulder fle xion. Muscle facilitation to bicep and wrist extensors demonstrated limited movement. Weight bearing through extended elbow and through forearm performed to increase proprioceptive input to LUE x5 reps each. Pt able to maintain weight bearing ~15-30 seconds each. Pt then working on core strengthening and wt bearing with L UE in seated position when leaning toward left with assist to stabilize L elbow to reach for objects on L side with R UE and place on right side. Pt used SPC to return to room, CGA. Post tx, pt seated in recliner, call light in reach and all needs met. Education OT Patient Education: Correct positioning, Exercise program, Modified ADL techniques, Progress toward Goal/Update tx plan, Purpose of tx/functional activities Teaching Recipient: Patient Teaching Methods: Discussion Response to Teaching: Verbalize Understanding OT Short Term Goals Short Term Goals Time Frame: Jun 05, 2020 Shower/bathe self: 3 Lower body dressin Putting on/taking off footwear: 3 OT Jail Goals Franchise Sales Representative Goals Time Frame: Jun 14, 2020 Eating (QC): 6 Oral Hygiene (QC): 6 Toileting Hygiene (QC): 6 Shower/Bathe Self (QC): 4 Upper Body Dressing (QC): 5 Lower Body Dressing (QC): 4 On/Off Footwear (QC): 5 Additional Goals: 1-Demonstrate ADL Tasks, 2-Verbalize Understanding, 3- ImproveStrength/Rusty 1=Demonstrate adherence to instructed precautions during ADL tasks. 2=Patient will verbalize/demonstrate understanding of assistive devices/modifications for ADL. 3=Patient will improve strength/tolerance for activity to enable patient to perform ADL's. OT Education/Plan Problem List/Assessment Assessment: Decreased Activ Tolerance, Decreased UE Strength, Impaired Funct Balance, Impaired I ADL's, Impaired Self-Care Skills, Restricted Funct UE ROM Discharge Recommendations Plan/Recommendations: Continue POC Treatment Plan/Plan of Care Patient would benefit from OT for education, treatment and training to promote independence in ADL's, mobility, safety and/or upper extremity function for ADL's. Plan of Care: ADL Retraining, Functional Mobility, Group Exercise/Act as Ind, UE Funct Exercise/Act Treatment Duration: Jun 14, 2020 Frequency: At least 5 of 7 days/Wk (IRF) Estimated Hrs Per Day: 1.5 hours per day Rehab Potential: Fair Time/GCodes Start Time: 10:30 Stop Time: 11:45 Total Time Billed (hr/min): 75 Billed Treatment Time 1, NM 5 TRACIE JAY OT Jun 06, 2020 11:47
--- NOTE | 2020-06-06 15:01 | Physical Therapy Daily Note ---
PT Daily Note-Current Subjective Pt sitting in [facility] in room upon arrival. Pt agrees to PT. Pain Location: No Pain Reported Mental Status Patient Orientation: Person, Place, Time, Situation Transfers SCALE: Activities may be completed with or without assistive devices. 8-Gttalsbicb-qybnzsh completes the activity by him/herself with no assistance from a helper. 5-Set-up or Clean-up Assistance-helper sets up or cleans up; patient completes activity. [place] assists only prior to or following the activity. 4-Supervision or Touching Assistance-helper provides verbal cues and/or touching/steadying and/or contact guard assistance as patient completes activity. Assistance may be provided throughout the activity or intermittently. 3-Partial/Moderate Assistance-helper does LESS THAN HALF the effort. [place] lifts, holds or supports trunk or limbs, but provides less than half the effort. 2-Substantial/Maximal Assistance-helper does MORE THAN HALF the effort. [place] lifts or holds trunk or limbs and provides more than half the effort. 3-Crboungnl-phxwrf does ALL the effort. Patient does none of the effort to complete the activity. Or, the assistance of 2 or more helpers is required for the patient to complete the activity. If activity was not attempted, code reason: 7-Patient Refused. 9-Not Applicable-not attempted and the patient did not perform the activity before the current illness, exacerbation or injury. 10-Not Attempted due to Environmental Limitations-(lack of equipment, weather restraints, etc.). 88-Not Attempted due to Medical Conditions or Safety Concerns. Sit to Stand (QC): 5 Chair/Whq-bj-Wrqse Xfer(QC): 5 Weight Bearing Right Lower Extremity: Right Full Weight Bearing Left Lower Extremity: Left Weight Bearing/Tolerated Gait Training Does the Patient Walk?: Yes Distance: 150' Walk 10 feet (QC): 4 Walk 50 ft with 2 Turns(QC): 4 Walk 150 ft (QC): 4 Gait Persons Needed: 1 Gait Assistive Device: Cane Single Point Wheelchair Training Does the Pt Use a Wheelchair?: Yes Type of Wheelchair: Manual Treatments Pt practices TF from [facility] to Bed and back. Pt asked to be able to TF so pt can toilet self. After visiting w/OT & Nursing, agreed to let pt TF and toilet self but can call if needed. Pt amb. in hallway then returns to room to rest in [facility], all needs met. Assessment Current Status: Good Progress Pt fatigued by end of tx after multiple TF and ambulation. PT Short Term Goals Short Term Goals Time Frame: May 28, 2020 Roll Left & Right: 6 Sit to lyin Lying to sitting on side of be: 3 Sit to stand: 4 (met) Chair/ngy-fy-agein transfer: 3 Walk 10 feet: 3 (met) PT [facility] Goals Viscosity Tester Goals PT Viscosity Tester Goals Time Frame: Jun 11, 2020 Roll Left & Right (QC): 6 Sit to Lying (QC): 6 Lying-Sitting on Side/Bed(QC): 6 Sit to Stand (QC): 5 Chair/Szm-nj-Qkerd Xfer(QC): 4 Toilet Transfer (QC): 4 Car Transfer (QC): 4 Does the Patient Walk: Yes Walk 10 feet (QC): 4 Walk 50ft with 2 Turns (QC): 4 Walk 150 ft (QC): 88 Walking 10ft on Uneven Surface: 4 1 Step (curb) (QC): 3 4 Steps (QC): 3 12 Steps (QC): 88 Picking up an Object (QC): 3 Wheel 50 feet with 2 turns (QC: 6 Wheel 150 feet: 6 PT Plan Problem List Problem List: Activity Tolerance Treatment/Plan Treatment Plan: Continue Plan of Care Treatment Plan: Bed Mobility, Education, Functional Activity Rusty, Functional Strength, Group Therapy, Gait, Safety, Therapeutic Exercise, Transfers Treatment Duration: Jun 11, 2020 Frequency: At least 5 of 7 days/Wk (IRF) Estimated Hrs Per Day: 1.5 hours per day Patient and/or Family Agrees t: Yes Safety Risks/Education Patient Education: Transfer Techniques, Correct Positioning, Safety Issues Teaching Recipient: Patient Teaching Methods: Discussion Response to Teaching: Verbalize Understanding Time/GCodes Time In: 1400 Time Out: 1430 Total Billed Treatment Time: 30 Total Billed Treatment 1, FA (15m) & GT (15m) GAEL LUCIO BENDING MACHINE SET UP OPERATOR Jun 06, 2020 15:01
[2020-06-06 16:00] VITALS: BP 132/70
[2020-06-06] MEDS: MELATONIN 3 MG TABLET PO PRN (20:17)
[2020-06-06] MEDS: BACLOFEN 10 MG (LIORESAL) TAB PO PRN (20:17)
[2020-06-07 06:00] VITALS: BP 121/57
--- NOTE | 2020-06-07 06:15 | PM&R Progress Note ---
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 He is walking without a cane at times Bowels moving Needs and AFO customized No drooling anymore Family training will likely be required We will check his progress next week 06/04/20: Pt doing pretty well Psych evaluation did not recommend any further follow-up or medications Overall managing everything pretty well Walked without a cane yesterday 06/03/20: Psych eval visit will be today Put on his AFO today Bowels moved yesterday 06/02/20: Patient doing well BM+ Tingling in arm at times reported BP ok Tired today 06/01/20: Patient doing well Left hand improved BM+ Slept hard and was stiff this morning 05/31/20: Patient doing well Balance is better Worked stairs today No falls 05/30/20: Pt doing very well Tens unit has really helped his left side of his face and arm Will fit him for an isotoner glove for edema Will DC Lovenox since it bothers him and he is ambulatory 05/29/20: Pt having no issues Psych evaluation will be at 1 PM Baclofen taken at night for muscle spasms in the left arm Overall doing well and eating and drinking well with no dysphasia 05/28/20: Lipitor stopped by Dr. Rios due to elevated liver enzymes Behavioral note will be evaluated Baclofen taken last night, doesnt know if it worked or not so maintain that and evaluate further Bowels moved yesterday 05/27/20: Pt doing very well Baclofen will be given for the left arm muscle spasms Elevated liver enzymes prompting abdominal ultrasound, ordered by Dr. 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 Rios BP 152/68 Swelling in his left hand, will get his wedding ring off today Very tearful at times Bowels moved four days ago so will initiate laxatives Review of Systems General: Fatigue Neurological: Weakness Objective Exam Vital Signs Vital Signs Date Time Temp Pulse Resp B/P (MAP) Pulse Ox O2 Delivery O2 Flow Rate FiO2 06/08/20 05:20 36.6 66 20 139/77 (97) 98 Room Air Capillary Refill : General Appearance: No Apparent Distress, WD/WN, Chronically ill, Obese HEENT: PERRL/EOMI, Normal ENT Inspection, Pharynx Normal Neck: Full Range of Motion, Normal Inspection, Non Tender, Supple, Carotid Bruit Respiratory: Chest Non Tender, Lungs Clear, Normal Breath Sounds, No Accessory Muscle Use, No Respiratory Distress Cardiovascular: Regular Rate, Rhythm, No Edema, No Gallop, No JVD, No Murmur, Normal Peripheral Pulses Gastrointestinal: Normal Bowel Sounds, No Organomegaly, No Pulsatile Mass, Non Tender, Soft Back: Normal Inspection, No CVA Tenderness, No Vertebral Tenderness Extremity: Normal Capillary Refill, Normal Inspection, Normal Range of Motion, Non Tender, No Calf Tenderness, No Pedal Edema Neurologic/Psychiatric: Alert, Oriented x3, Abnormal Gait, Depressed Affect, Motor Weakness (left sided arm 1/5 left hand 0/5 left leg 4/5) Skin: Normal Color, Warm/Dry Lymphatic: No Adenopathy Results/Procedures Lab Patient resulted labs reviewed. FIM Transfers Therapy Code Descriptions/Definitions Functional [place] Measure: 0=Not Assessed/NA 4=Minimal Assistance 1=Total Assistance 5=Supervision or Setup 2=Maximal Assistance 6=Modified [place] 3=Moderate Assistance 7=Complete IndependenceSCALE: Activities may be completed with or without assistive devices. 8-Bavzzfymwx-jfdssyj completes the activity by him/herself with no assistance from a helper. 5-Set-up or Clean-up Assistance-helper sets up or cleans up; patient completes activity. [place] assists only prior to or following the activity. 4-Supervision or Touching Assistance-helper provides verbal cues and/or touching/steadying and/or contact guard assistance as patient completes activity. Assistance may be provided throughout the activity or intermittently. 3-Partial/Moderate Assistance-helper does LESS THAN HALF the effort. [place] lifts, holds or supports trunk or limbs, but provides less than half the effort. 2-Substantial/Maximal Assistance-helper does MORE THAN HALF the effort. [place] lifts or holds trunk or limbs and provides more than half the effort. 4-Abjakubup-qsanqb does ALL the effort. Patient does none of the effort to complete the activity. Or, the assistance of 2 or more helpers is required for the patient to complete the activity. If activity was not attempted, code reason: 7-Patient Refused. 9-Not Applicable-not attempted and the patient did not perform the activity before the current illness, exacerbation or injury. 10-Not Attempted due to Environmental Limitations-(lack of equipment, weather restraints, etc.). 88-Not Attempted due to Medical Conditions or Safety Concerns. Roll Left to Right (QC): 6 Sit to Lying (QC): 6 Sit to Stand (QC): 5 Chair/Dwi-lx-[place] Xfer(QC): 5 Car Transfer (QC): 3 Gait Training Does the Patient Walk?: Yes Distance: 150' Walk 10 feet (QC): 4 Walk 50 ft with 2 Turns(QC): 4 Walk 150 ft (QC): 4 Walking 10ft/uneven surface-QC: 88 Gait Persons Needed: 1 Gait Assistive Device: Cane Single Point Wheelchair Training Does the Pt Use a Wheelchair?: Yes Distance: 120'x2 Wheel 50 ft with 2 turns (QC): 5 Wheel 150 ft (QC): 88 Type of Wheelchair: Manual Stair Training Stair Training: Handrails/: 1 handrail #of Steps: 12 1 Step (curb) (QC): 4 4 Steps (QC): 4 12 Steps (QC): 4 Stairs: Pattern: Step to Balance Picking up an Object (QC): 88 ADL-Treatment Eating (QC): 6 (per pt report) Oral Hygiene (QC): 6 (Per pt report, he completes independently seated at sink.) Bathing Location: L Arm, R Arm, L Upper Leg, R Upper Leg, L Lower Leg (including foot), Chest, Abdomen, Buttocks, Perineal Area Shower/Bathe Self (QC): 5 (set up assist, pt able to wash/dry all parts seated on SC.) Upper Body Dressing (QC): 5 (set up) Lower Body Dressing (QC): 4 (SBA in stand, pt able to doff/don pants/underwear) On/Off Footwear (QC): 3 (Pt able to doff socks/shoes, assist LLE AFO. 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 s/p loop recorder 05/22/20 Left arm muscle spasms responded to Baclofen Smoker New onset HTN HLP Fall upon arrival to unit with in room Elevated LFT's with normal liver USG Plan: PT OT Statin ASA Lovenox Monitor closely IRF protocol 05/22/20: Remove wedding ring left finger OT for edema management of the left hand Loop recorder 05/23/20: Wedding ring removed OT PT Monitor BP 05/24/20: Patient refuses SCD's Monitor BP Fall risk 05/25/20: Monitor closely Ambulating well with kiana-cane Loop recorder 05/26/20: Statin BP control Monitor closely 05/27/20: USG liver Elevated LFT's will be monitored DC monster drinks and soda 05/28/20: Hold statin due to elevated LFT's Monitor closely IRF protocol 05/29/20: Baclofen HS Monitor for falls Hold statin 05/30/20: Hold statin DC Lovenox 05/31/20: Monitor for falls Works on stairs 06/01/20: Improved edema left hand Doing really well with therapy 06/02/20: Monitor BP DC statin due to elevated LFT's 06/03/20: Monitor BP Intense therapy 06/04/20: Major improvement Continue monitoring closely 06/05/20: Improved status AFO to be made Monitor for falls 06/06/20: Monitor for falls BP good Improved status 06/07/20: Monitor closely Improved status (1) CVA (cerebral vascular accident) (2) Essential (primary) hypertension (3) Tobacco abuse (4) Hyperlipidemia RADHA COPPOLA 12, 2021 06:15
--- NOTE | 2020-06-07 08:17 | Occupational Ther Daily Note ---
OT Current Status-Daily Note Subjective Pt agreeable to OT tx with focus on ADLs. ADL-Treatment Therapy Code Descriptions/Definitions Functional [place] Measure: 0=Not Assessed/NA 4=Minimal Assistance 1=Total Assistance 5=Supervision or Setup 2=Maximal Assistance 6=Modified [place] 3=Moderate Assistance 7=Complete IndependenceSCALE: Activities may be completed with or without assistive devices. 7-Gflphkkkfr-buejfdp completes the activity by him/herself with no assistance from a helper. 5-Set-up or Clean-up Assistance-helper sets up or cleans up; patient completes activity. [place] assists only prior to or following the activity. 4-Supervision or Touching Assistance-helper provides verbal cues and/or touching/steadying and/or contact guard assistance as patient completes activity. Assistance may be provided throughout the activity or intermittently. 3-Partial/Moderate Assistance-helper does LESS THAN HALF the effort. [place] lifts, holds or supports trunk or limbs, but provides less than half the effort. 2-Substantial/Maximal Assistance-helper does MORE THAN HALF the effort. [place] lifts or holds trunk or limbs and provides more than half the effort. 7-Eoxjeyqdl-gtzbdg does ALL the effort. Patient does none of the effort to complete the activity. Or, the assistance of 2 or more helpers is required for the patient to complete the activity. If activity was not attempted, code reason: 7-Patient Refused. 9-Not Applicable-not attempted and the patient did not perform the activity before the current illness, exacerbation or injury. 10-Not Attempted due to Environmental Limitations-(lack of equipment, weather restraints, etc.). 88-Not Attempted due to Medical Conditions or Safety Concerns. Eating (QC): 6 (Pt independent.) Oral Hygiene (QC): 6 (Pt completed prior to OT arrival) Shower/Bathe Self (QC): 5 (set up assist, pt able to wash/dry all parts, using AE as needed.) Upper Body Dressing (QC): 5 (set up, pt able to doff/don candy puller shirt.) Lower Body Dressing (QC): 4 (Supervision in stand, pt able to manage clothing) On/Off Footwear: 6 (IND donning/doffing socks/shoes.) Other Treatment [id number] OT Tx: Pt seated in w/c, transferred to CT using GBS and SPT at A. Pt completed shower, then transferred to w/c to complete dressing, supervision in stand. Pt able to put on deodorant and brush his hair independently. Pt gathered clothing from closet, then ambulated to laundry room using SPC wtih CGA, pt able to carry bag of clothes. Pt put clothes in washer, and start washer, supervision in stand. Pt used SPC to go to therapy gym, CGA, no rest breaks. On therapy mat, pt performed weight bearing through extended LUE elbow as OT supported wrist/elbow, and weight bearing through forearm on bent elbow. This was performed in order to increase proprioceptive input to LUE and for neuromuscular reeducation. [id number] OT/PT cotreat in order to focus on higher level balance activities, requiring the skill of 2 clinicians that a rehabilitation specialist could not perform. OT focused on UE placement, cues for sequencing/safety, and assistance with balance task, as PT focused on LE placement, gross overall movements, and dynamic standing balance. Pt stood in parallel bars, kicking a ball back and forth with OT, as he held onto parallel bar with RUE. Pt used RLE to kick, while standing on LLE. Pt completed task x2, with rest break between. Post tx, pt seated in gym with PT for continued tx, all needs met. Education OT Patient Education: Correct positioning, Exercise program, Modified ADL techniques, Progress toward Goal/Update tx plan, Purpose of tx/functional activities Teaching Recipient: Patient Teaching Methods: Discussion Response to Teaching: Verbalize Understanding OT Short Term Goals Short Term Goals Time Frame: Jun 05, 2020 Shower/bathe self: 3 Lower body dressin Putting on/taking off footwear: 3 OT Care Home Goals Gameplay Engineer Goals Time Frame: Jun 14, 2020 Eating (QC): 6 Oral Hygiene (QC): 6 Toileting Hygiene (QC): 6 Shower/Bathe Self (QC): 4 Upper Body Dressing (QC): 5 Lower Body Dressing (QC): 4 On/Off Footwear (QC): 5 Additional Goals: 1-Demonstrate ADL Tasks, 2-Verbalize Understanding, 3- ImproveStrength/Rusty 1=Demonstrate adherence to instructed precautions during ADL tasks. 2=Patient will verbalize/demonstrate understanding of assistive devices/modifications for ADL. 3=Patient will improve strength/tolerance for activity to enable patient to perform ADL's. OT Education/Plan Problem List/Assessment Assessment: Decreased Activ Tolerance, Decreased UE Strength, Impaired Funct Balance, Impaired I ADL's, Impaired Self-Care Skills, Restricted Funct UE ROM Discharge Recommendations Plan/Recommendations: Continue POC Treatment Plan/Plan of Care Patient would benefit from OT for education, treatment and training to promote independence in ADL's, mobility, safety and/or upper extremity function for ADL's. Plan of Care: ADL Retraining, Functional Mobility, Group Exercise/Act as Ind, UE Funct Exercise/Act Treatment Duration: Jun 14, 2020 Frequency: At least 5 of 7 days/Wk (IRF) Estimated Hrs Per Day: 1.5 hours per day Rehab Potential: Fair Time/GCodes Start Time: 08:00 Stop Time: 09:15 Total Time Billed (hr/min): 75 Billed Treatment Time [id number] OT tx, [id number] OT/PT cotreat 1, ADL 3 (45'), FA 2 (30') TRACIE JAY OT Jun 07, 2020 08:17
[2020-06-07] MEDS: CALCIUM CARBONATE 500 MG (TUMS) TAB.CHEW PO PRN (09:53)
[2020-06-07] MEDS: ASPIRIN 325 MG (5 GR) TABLET PO SCH (09:53)
[2020-06-07] MEDS: amLODIPine 10 MG (NORVASC) TAB PO SCH (09:53)
[2020-06-07] MEDS: VALSARTAN 160 MG (DIOVAN) TABLET PO SCH (09:53)
[2020-06-07] MEDS: DOCUSATE SODIUM 100 MG (COLACE) CAP PO SCH ×2 (09:53→20:12)
--- NOTE | 2020-06-07 09:53 | Physical Therapy Daily Note ---
PT Daily Note-Current Subjective Patient in therapy gym pre tx, agrees to PT, no complaints of pain, will be co- treating with OT for some higher level balance activities for a bit. Appearance Patient in WC in room post tx Mental Status Patient Orientation: Normal For Age Transfers SCALE: Activities may be completed with or without assistive devices. 6-Axznurliug-wqidtys completes the activity by him/herself with no assistance from a helper. 5-Set-up or Clean-up Assistance-helper sets up or cleans up; patient completes activity. [place] assists only prior to or following the activity. 4-Supervision or Touching Assistance-helper provides verbal cues and/or touching/steadying and/or contact guard assistance as patient completes activity. Assistance may be provided throughout the activity or intermittently. 3-Partial/Moderate Assistance-helper does LESS THAN HALF the effort. [place] lifts, holds or supports trunk or limbs, but provides less than half the effort. 2-Substantial/Maximal Assistance-helper does MORE THAN HALF the effort. [place] lifts or holds trunk or limbs and provides more than half the effort. 6-Ipphpqdhn-jobgbo does ALL the effort. Patient does none of the effort to complete the activity. Or, the assistance of 2 or more helpers is required for the patient to complete the activity. If activity was not attempted, code reason: 7-Patient Refused. 9-Not Applicable-not attempted and the patient did not perform the activity before the current illness, exacerbation or injury. 10-Not Attempted due to Environmental Limitations-(lack of equipment, weather restraints, etc.). 88-Not Attempted due to Medical Conditions or Safety Concerns. Sit to Stand (QC): 4 Chair/Toc-zm-Lkluh Xfer(QC): 4 Weight Bearing Right Lower Extremity: Right Full Weight Bearing Left Lower Extremity: Left Weight Bearing/Tolerated Gait Training Distance: 200'x2 Walk 10 feet (QC): 4 Walk 50 ft with 2 Turns(QC): 4 Walk 150 ft (QC): 4 Gait Assistive Device: Cane Single Point slight vaulting on the left leg, slight circumduction, but better balance Exercises NuStep Minutes: 15 NuStep Workload: 5 Neuromuscular co-treat standing balance activity with patient standing and kicking ball with right leg and bearing weight and balance training on the left leg. Treatments transfers, ambulation, functional strengthening, balance training Assessment Current Status: Fair Progress progressing balance during ambulation PT Short Term Goals Short Term Goals Time Frame: May 28, 2020 Roll Left & Right: 6 Sit to lyin Lying to sitting on side of be: 3 Sit to stand: 4 (met) Chair/qol-od-pstkz transfer: 3 Walk 10 feet: 3 (met) PT Online Banking Specialist Goals Custodial Goals PT Custodial Goals Time Frame: Jun 11, 2020 Roll Left & Right (QC): 6 Sit to Lying (QC): 6 Lying-Sitting on Side/Bed(QC): 6 Sit to Stand (QC): 5 Chair/Grr-qj-Brvnq Xfer(QC): 4 Toilet Transfer (QC): 4 Car Transfer (QC): 4 Does the Patient Walk: Yes Walk 10 feet (QC): 4 Walk 50ft with 2 Turns (QC): 4 Walk 150 ft (QC): 88 Walking 10ft on Uneven Surface: 4 1 Step (curb) (QC): 3 4 Steps (QC): 3 12 Steps (QC): 88 Picking up an Object (QC): 3 Wheel 50 feet with 2 turns (QC: 6 Wheel 150 feet: 6 PT Plan Problem List Problem List: Activity Tolerance, Functional Strength, Safety, Balance, Gait, Transfer, Bed Mobility, ROM Treatment/Plan Treatment Plan: Continue Plan of Care Treatment Plan: Bed Mobility, Education, Functional Activity Rusty, Functional Strength, Group Therapy, Gait, Safety, Therapeutic Exercise, Transfers Treatment Duration: Jun 11, 2020 Frequency: At least 5 of 7 days/Wk (IRF) Estimated Hrs Per Day: 1.5 hours per day Patient and/or Family Agrees t: Yes Safety Risks/Education Patient Education: Gait Training, Transfer Techniques, Correct Positioning, Safety Issues Teaching Recipient: Patient Teaching Methods: Demonstration, Discussion Response to Teaching: Reinforcement Needed Time/GCodes Time In: 0900 Time Out: 1000 Total Billed Treatment Time: 60 Total Billed Treatment 1 visit NM 15' EX 15' FA 30' IVY HYDE PT Jun 07, 2020 09:53
[2020-06-07] MEDS: SENNA W/DOCUSATE (SENOKOT S) TABLET PO SCH ×2 (09:57→20:12)
[2020-06-07] MEDS: polyethylene glycoL POWDER 17 GM (MIRALAX) PACK PO SCH ×2 (09:58→19:28)
--- NOTE | 2020-06-07 11:47 | Physical Therapy Daily Note ---
PT Daily Note-Current Subjective Patient in WC pre tx, agrees to PT, has no complaints of pain. Appearance Patient in WC at bedside post tx, has nurse call, phone, tray, all needs met Mental Status Patient Orientation: Normal For Age Transfers SCALE: Activities may be completed with or without assistive devices. 6-Oowdwpgsgw-fbllghn completes the activity by him/herself with no assistance from a helper. 5-Set-up or Clean-up Assistance-helper sets up or cleans up; patient completes activity. [place] assists only prior to or following the activity. 4-Supervision or Touching Assistance-helper provides verbal cues and/or touching/steadying and/or contact guard assistance as patient completes activity. Assistance may be provided throughout the activity or intermittently. 3-Partial/Moderate Assistance-helper does LESS THAN HALF the effort. [place] lifts, holds or supports trunk or limbs, but provides less than half the effort. 2-Substantial/Maximal Assistance-helper does MORE THAN HALF the effort. [place] lifts or holds trunk or limbs and provides more than half the effort. 1-Pcbzifshj-cdsuyk does ALL the effort. Patient does none of the effort to complete the activity. Or, the assistance of 2 or more helpers is required for the patient to complete the activity. If activity was not attempted, code reason: 7-Patient Refused. 9-Not Applicable-not attempted and the patient did not perform the activity before the current illness, exacerbation or injury. 10-Not Attempted due to Environmental Limitations-(lack of equipment, weather restraints, etc.). 88-Not Attempted due to Medical Conditions or Safety Concerns. Sit to Stand (QC): 4 Chair/Mdy-qd-Ebdma Xfer(QC): 4 Weight Bearing Right Lower Extremity: Right Full Weight Bearing Left Lower Extremity: Left Weight Bearing/Tolerated Gait Training Distance: 120'x2 Walk 10 feet (QC): 4 Walk 50 ft with 2 Turns(QC): 4 Gait Persons Needed: 1 Gait Assistive Device: None no AFO used, CGA, no LOB Exercises LLE LAQ for 5 min with 2# ankle weight Treatments LE strengthening, ambulation, transfers Assessment Current Status: Fair Progress improving balance during ambulation PT Short Term Goals Short Term Goals Time Frame: May 28, 2020 Roll Left & Right: 6 Sit to lyin Lying to sitting on side of be: 3 Sit to stand: 4 (met) Chair/hqy-br-qdzcu transfer: 3 Walk 10 feet: 3 (met) PT Mcfp Goals Computer Network Support Specialist Goals PT Mcfp Goals Time Frame: Jun 11, 2020 Roll Left & Right (QC): 6 Sit to Lying (QC): 6 Lying-Sitting on Side/Bed(QC): 6 Sit to Stand (QC): 5 Chair/Kng-db-Ephnq Xfer(QC): 4 Toilet Transfer (QC): 4 Car Transfer (QC): 4 Does the Patient Walk: Yes Walk 10 feet (QC): 4 Walk 50ft with 2 Turns (QC): 4 Walk 150 ft (QC): 88 Walking 10ft on Uneven Surface: 4 1 Step (curb) (QC): 3 4 Steps (QC): 3 12 Steps (QC): 88 Picking up an Object (QC): 3 Wheel 50 feet with 2 turns (QC: 6 Wheel 150 feet: 6 PT Plan Problem List Problem List: Activity Tolerance, Functional Strength, Safety, Balance, Gait, Transfer Treatment/Plan Treatment Plan: Continue Plan of Care Treatment Plan: Bed Mobility, Education, Functional Activity Rusty, Functional Strength, Group Therapy, Gait, Safety, Therapeutic Exercise, Transfers Treatment Duration: Jun 11, 2020 Frequency: At least 5 of 7 days/Wk (IRF) Estimated Hrs Per Day: 1.5 hours per day Patient and/or Family Agrees t: Yes Safety Risks/Education Patient Education: Gait Training, Transfer Techniques, Correct Positioning, Safety Issues Teaching Recipient: Patient Teaching Methods: Demonstration, Discussion Response to Teaching: Reinforcement Needed Time/GCodes Time In: 1130 Time Out: 1145 Total Billed Treatment Time: 15 Total Billed Treatment 1 visit GT 15' IVY HYDE PT Jun 07, 2020 11:47
--- NOTE | 2020-06-07 13:52 | Speech Therapy Daily Note ---
Speech Daily Progress Note Subjective Date Seen by Provider: Jun 07, 2020 Time Seen by Provider: 00:30 Patient was resting in his wc following his PT session. His daughter was present today. Objective Patient completed 25 minutes of vital stim on 10.0 setting while completing OME with good response. No cuing needed. Assessment Assessment Current Status: Good Progress Treatment Plan Continue Plan of Care Speech Short Term Goals Short Term Goals Short Term Goals 1) Patient will tolerate least restrictive diet level per physician's order at 90% or greater. 2) Patient/caregiver will utilize compensatory strategies as trained for safe oral intake at 90% or greater without cues. 3) Patient will complete OME as directed 4-5x per week. Speech Halfway Goals Halfway Goals Patient will improve swallowing and speech abilities to communicate better/easier with others. Speech-Plan Patient/Family Goals Patient/Family Goals: Patient plans on returning to his home where he lives with his and children. Treatment Plan Speech Therapy Treatment Plan: Continue Plan of Care Treatment Duration: Jun 14, 2020 Frequency: 4 times per week (Patient receives skilled ST 4-5x per week) Estimated Hrs Per Day: .5 hour per day Rehab Potential: Fair Barriers to Learning: Patient's recent functional status due to CVA Pt/Family Agrees to Plan: Yes Safety Risks/Education Teaching Recipient: Patient, Family Teaching Methods: Demonstration, Discussion Response to Teaching: Verbalize Understanding, Return Demonstration Education Topics Provided: Continued safety within his room and with oral intake Time Speech Therapy Time In: 11:00 Speech Therapy Time Out: 11:30 Total Billed Time: 30 Billed Treatment Time 1, GURWINDER, GAVI Steele Jun 07, 2020 13:52
--- NOTE | 2020-06-07 17:24 | Cardiology Progress Note ---
Subjective Date Seen by Provider: Jun 07, 2020 Time Seen by Provider: 17:23 Subjective/Events-last exam Patient is lying down in bed, seen and evaluated, blood pressure is better controlled, no new complaint Review of Systems General: No Chills, No Night Sweats, No Fatigue, No Malaise, No Appetite, No Other HEENT: No Head Aches, No Visual Changes, No Eye Pain, No Ear Pain, No D ysphasia, No Sinus Congestion, No Post Nasal Drip, No Sore Throat, No Other Pulmonary: No Dyspnea, No Cough, No Pleuritic Chest Pain, No Other Cardiovascular: No: Chest Pain, Palpitations, Orthopnea, Paroxysmal Noc. Dyspnea, Edema, Lt Headedness, Other Objective-Cardiology Exam Last Set of Vital Signs Vital Signs 06/07/20 06/07/20 06:00 09:00 Temp 36.8 Pulse 66 Resp 16 B/P (MAP) 121/57 (78) Pulse Ox 95 O2 Delivery Room Air Capillary Refill : I&O Intake and Output 06/07/20 00:00 Intake Total 1000 ml Output Total 1375 ml Balance -375 ml Intake Oral 1000 ml Output Urine Total 1375 ml # Voids 1 # Bowel Movements 1 General: Alert, Oriented X3, Cooperative HEENT: Atraumatic, PERRLA Neck: Supple, No JVD, No Thyromegaly Lungs: Clear to Auscultation, Normal Air Movement Heart: Regular Rate, Normal S1, Normal S2, No Murmurs Abdomen: Normal Bowel Sounds, Soft, No Tenderness, No Hepatosplenomegaly, No Masses Extremities: No Clubbing, No Cyanosis, No Edema, Normal Pulses, No Tenderness/Swelling Skin: No Rashes, No Breakdown, No Significant Lesion Neuro: Normal Speech, Sensation Intact, Other (left-sided deficit d/t stroke) Psych/Mental Status: Mental Status NL, Mood NL A/P-Cardiology Admission Diagnosis Cryptogenic CVA HTN HLP Tobaccoism Assessment/Plan 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 Telemetry revealing sinus rhythm. Loop monitor implantation done on 05/22/2020, site is healing well. Hypertension, controlled, continue on current medications and continue to monitor. HLP- Lipitor on hold secondary to elevated LFTs. Liver US WNL Tobaccoism, educated on the importance of smoking cessation Fam Hx LAURA LIM MD Jun 07, 2020 5:24 pm
[2020-06-07 18:04] VITALS: BP 130/78
[2020-06-07] MEDS: BACLOFEN 10 MG (LIORESAL) TAB PO PRN (20:12)
[2020-06-07] MEDS: MELATONIN 3 MG TABLET PO PRN (20:12)
[2020-06-08 05:20] VITALS: BP 139/77
[2020-06-08 08:00] VITALS: BP 129/69
[2020-06-08] MEDS: polyethylene glycoL POWDER 17 GM (MIRALAX) PACK PO SCH ×2 (08:19→19:14)
[2020-06-08] MEDS: amLODIPine 10 MG (NORVASC) TAB PO SCH (08:19)
[2020-06-08] MEDS: DOCUSATE SODIUM 100 MG (COLACE) CAP PO SCH ×2 (08:19→20:29)
[2020-06-08] MEDS: ASPIRIN 325 MG (5 GR) TABLET PO SCH (08:19)
[2020-06-08] MEDS: SENNA W/DOCUSATE (SENOKOT S) TABLET PO SCH ×2 (08:19→20:29)
[2020-06-08] MEDS: VALSARTAN 160 MG (DIOVAN) TABLET PO SCH (08:19)
--- NOTE | 2020-06-08 09:50 | Physical Therapy Daily Note ---
PT Daily Note-Current Subjective Pt sitting in [facility] in room upon arrival. Pt agrees to ambulating in hallway. Pain Location: No Pain Reported Mental Status Patient Orientation: Person, Place, Time, Situation Transfers SCALE: Activities may be completed with or without assistive devices. 3-Ynngorhzqu-ylivspk completes the activity by him/herself with no assistance from a helper. 5-Set-up or Clean-up Assistance-helper sets up or cleans up; patient completes activity. [place] assists only prior to or following the activity. 4-Supervision or Touching Assistance-helper provides verbal cues and/or touching/steadying and/or contact guard assistance as patient completes activity. Assistance may be provided throughout the activity or intermittently. 3-Partial/Moderate Assistance-helper does LESS THAN HALF the effort. [place] lifts, holds or supports trunk or limbs, but provides less than half the effort. 2-Substantial/Maximal Assistance-helper does MORE THAN HALF the effort. [place] lifts or holds trunk or limbs and provides more than half the effort. 3-Llpptgwzk-kdsykf does ALL the effort. Patient does none of the effort to complete the activity. Or, the assistance of 2 or more helpers is required for the patient to complete the activity. If activity was not attempted, code reason: 7-Patient Refused. 9-Not Applicable-not attempted and the patient did not perform the activity before the current illness, exacerbation or injury. 10-Not Attempted due to Environmental Limitations-(lack of equipment, weather restraints, etc.). 88-Not Attempted due to Medical Conditions or Safety Concerns. Sit to Stand (QC): 5 Weight Bearing Right Lower Extremity: Right Full Weight Bearing Left Lower Extremity: Left Weight Bearing/Tolerated Gait Training Does the Patient Walk?: Yes Distance: 150' x2 Walk 10 feet (QC): 4 Walk 50 ft with 2 Turns(QC): 4 Walk 150 ft (QC): 4 Gait Persons Needed: 1 Gait Assistive Device: Cane Single Point Pt fatigues quicker w/o use of AFO which has been ordered. Treatments TF to standing and ambulates in hallway before RB then amb. again. Pt returns to room to rest at end of tx in [facility]. All needs met, call light in hand. Assessment Current Status: Good Progress Pt is improving with muscle control, activity tolerance and safety with ambulation. PT Short Term Goals Short Term Goals Time Frame: May 28, 2020 Roll Left & Right: 6 Sit to lyin Lying to sitting on side of be: 3 Sit to stand: 4 (met) Chair/ezb-qh-mhtbd transfer: 3 Walk 10 feet: 3 (met) PT Bed Machine Operator Goals Mcc Goals PT Bed Machine Operator Goals Time Frame: Jun 11, 2020 Roll Left & Right (QC): 6 Sit to Lying (QC): 6 Lying-Sitting on Side/Bed(QC): 6 Sit to Stand (QC): 5 Chair/Dqo-vc-Spzss Xfer(QC): 4 Toilet Transfer (QC): 4 Car Transfer (QC): 4 Does the Patient Walk: Yes Walk 10 feet (QC): 4 Walk 50ft with 2 Turns (QC): 4 Walk 150 ft (QC): 88 Walking 10ft on Uneven Surface: 4 1 Step (curb) (QC): 3 4 Steps (QC): 3 12 Steps (QC): 88 Picking up an Object (QC): 3 Wheel 50 feet with 2 turns (QC: 6 Wheel 150 feet: 6 PT Plan Problem List Problem List: Activity Tolerance, Functional Strength, Gait Treatment/Plan Treatment Plan: Continue Plan of Care Treatment Plan: Bed Mobility, Education, Functional Activity Rusty, Functional Strength, Group Therapy, Gait, Safety, Therapeutic Exercise, Transfers Treatment Duration: Jun 11, 2020 Frequency: At least 5 of 7 days/Wk (IRF) Estimated Hrs Per Day: 1.5 hours per day Patient and/or Family Agrees t: Yes Safety Risks/Education Patient Education: Gait Training, Correct Positioning, Safety Issues Teaching Recipient: Patient Teaching Methods: Discussion Response to Teaching: Verbalize Understanding Time/GCodes Time In: 835 Time Out: 855 Total Billed Treatment Time: 20 Total Billed Treatment 1, GT (20m) GAEL LUCIO PTA Jun 08, 2020 09:50
--- NOTE | 2020-06-08 10:43 | Cardiology Progress Note ---
Subjective Date Seen by Provider: Jun 08, 2020 Time Seen by Provider: 10:43 Subjective/Events-last exam Patient was seen at bedside, sitting comfortably, denied any active pain. Review of Systems General: No Chills, No Night Sweats, No Fatigue, No Malaise, No Appetite, No O ther HEENT: No Head Aches, No Visual Changes, No Eye Pain, No Ear Pain, No Dysphasia, No Sinus Congestion, No Post Nasal Drip, No Sore Throat, No Other Pulmonary: No Dyspnea, No Cough, No Pleuritic Chest Pain, No Other Cardiovascular: No: Chest Pain, Palpitations, Orthopnea, Paroxysmal Noc. Dyspnea, Edema, Lt Headedness, Other Objective-Cardiology Exam Last Set of Vital Signs Vital Signs 06/08/20 05:20 Temp 36.6 Pulse 66 Resp 20 B/P (MAP) 139/77 (97) Pulse Ox 98 O2 Delivery Room Air Capillary Refill : I&O Intake and Output 06/08/20 00:00 Intake Total 1520 ml Output Total 600 ml Balance 920 ml Intake Oral 1520 ml Output Urine Total 600 ml # Voids 3 # Bowel Movements 1 General: Alert, Oriented X3, Cooperative HEENT: Atraumatic, PERRLA Neck: Supple, No JVD, No Thyromegaly Lungs: Clear to Auscultation, Normal Air Movement Heart: Regular Rate, Normal S1, Normal S2, No Murmurs Abdomen: Normal Bowel Sounds, Soft, No Tenderness, No Hepatosplenomegaly, No Masses Extremities: No Clubbing, No Cyanosis, No Edema, Normal Pulses, No Tenderness/Swelling Skin: No Rashes, No Breakdown, No Significant Lesion Neuro: Normal Speech, Sensation Intact, Other (left-sided deficit d/t stroke) Psych/Mental Status: Mental Status NL, Mood NL A/P-Cardiology Admission Diagnosis Cryptogenic CVA HTN HLP Tobaccoism Assessment/Plan 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 Telemetry revealing sinus rhythm. Loop monitor implantation done on 05/22/2020, site is healing well. Hypertension, better controlled, continue to monitor blood pressure Hyperlipidemia, Lipitor is on hold due to elevated liver enzymes, liver ultrasound is normal Tobaccoism, educated on the importance of smoking cessation Fam Hx CAD LAURA ORLANDO MD Jun 08, 2020 10:43 am
--- NOTE | 2020-06-08 12:21 | PM&R Progress Note ---
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 He is walking without a cane at times Bowels moving Needs and AFO customized No drooling anymore Family training will likely be required We will check his progress next week 06/04/20: Pt doing pretty well Psych evaluation did not recommend any further follow-up or medications Overall managing everything pretty well Walked without a cane yesterday 06/03/20: Psych eval visit will be today Put on his AFO today Bowels moved yesterday 06/02/20: Patient doing well BM+ Tingling in arm at times reported BP ok Tired today 06/01/20: Patient doing well Left hand improved BM+ Slept hard and was stiff this morning 05/31/20: Patient doing well Balance is better Worked stairs today No falls 05/30/20: Pt doing very well Tens unit has really helped his left side of his face and arm Will fit him for an isotoner glove for edema Will DC Lovenox since it bothers him and he is ambulatory 05/29/20: Pt having no issues Psych evaluation will be at 1 PM Baclofen taken at night for muscle spasms in the left arm Overall doing well and eating and drinking well with no dysphasia 05/28/20: Lipitor stopped by Dr. Rios due to elevated liver enzymes Behavioral note will be evaluated Baclofen taken last night, doesnt know if it worked or not so maintain that and evaluate further Bowels moved yesterday 05/27/20: Pt doing very well Baclofen will be given for the left arm muscle spasms Elevated liver enzymes prompting abdominal ultrasound, ordered by Dr. 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 Rios BP 152/68 Swelling in his left hand, will get his wedding ring off today Very tearful at times Bowels moved four days ago so will initiate laxatives Review of Systems Neurological: Weakness, Incoordination Objective Exam Vital Signs Vital Signs Date Time Temp Pulse Resp B/P (MAP) Pulse Ox O2 Delivery O2 Flow Rate FiO2 06/08/20 20:33 Room Air 06/08/20 17:39 36.8 71 18 131/65 (87) 97 Capillary Refill : General Appearance: No Apparent Distress, WD/WN, Chronically ill, Obese HEENT: PERRL/EOMI, Normal ENT Inspection, Pharynx Normal Neck: Full Range of Motion, Normal Inspection, Non Tender, Supple, Carotid Bruit Respiratory: Chest Non Tender, Lungs Clear, Normal Breath Sounds, No Accessory Muscle Use, No Respiratory Distress Cardiovascular: Regular Rate, Rhythm, No Edema, No Gallop, No JVD, No Murmur, Normal Peripheral Pulses Gastrointestinal: Normal Bowel Sounds, No Organomegaly, No Pulsatile Mass, Non Tender, Soft Back: Normal Inspection, No CVA Tenderness, No Vertebral Tenderness Extremity: Normal Capillary Refill, Normal Inspection, Normal Range of Motion, Non Tender, No Calf Tenderness, No Pedal Edema Neurologic/Psychiatric: Alert, Oriented x3, Abnormal Gait, Depressed Affect, Motor Weakness (left sided arm 1/5 left hand 0/5 left leg 4/5) Skin: Normal Color, Warm/Dry Lymphatic: No Adenopathy Results/Procedures Lab Patient resulted labs reviewed. FIM Transfers Therapy Code Descriptions/Definitions Functional [place] Measure: 0=Not Assessed/NA 4=Minimal Assistance 1=Total Assistance 5=Supervision or Setup 2=Maximal Assistance 6=Modified [place] 3=Moderate Assistance 7=Complete IndependenceSCALE: Activities may be completed with or without assistive devices. 8-Smkqbthywi-aluqxlu completes the activity by him/herself with no assistance from a helper. 5-Set-up or Clean-up Assistance-helper sets up or cleans up; patient completes activity. [place] assists only prior to or following the activity. 4-Supervision or Touching Assistance-helper provides verbal cues and/or touching/steadying and/or contact guard assistance as patient completes activity. Assistance may be provided throughout the activity or intermittently. 3-Partial/Moderate Assistance-helper does LESS THAN HALF the effort. [place] lifts, holds or supports trunk or limbs, but provides less than half the effort. 2-Substantial/Maximal Assistance-helper does MORE THAN HALF the effort. [place] lifts or holds trunk or limbs and provides more than half the effort. 5-Xulqxeolr-plcgux does ALL the effort. Patient does none of the effort to complete the activity. Or, the assistance of 2 or more helpers is required for the patient to complete the activity. If activity was not attempted, code reason: 7-Patient Refused. 9-Not Applicable-not attempted and the patient did not perform the activity before the current illness, exacerbation or injury. 10-Not Attempted due to Environmental Limitations-(lack of equipment, weather restraints, etc.). 88-Not Attempted due to Medical Conditions or Safety Concerns. Roll Left to Right (QC): 6 Sit to Lying (QC): 6 Sit to Stand (QC): 5 Chair/Bfj-oz-Ohgjj Xfer(QC): 4 Car Transfer (QC): 3 Gait Training Does the Patient Walk?: Yes Distance: 150' x2 Walk 10 feet (QC): 4 Walk 50 ft with 2 Turns(QC): 4 Walk 150 ft (QC): 4 Walking 10ft/uneven surface-QC: 88 Gait Persons Needed: 1 Gait Assistive Device: Cane Single Point Wheelchair Training Does the Pt Use a Wheelchair?: Yes Distance: 120'x2 Wheel 50 ft with 2 turns (QC): 5 Wheel 150 ft (QC): 88 Type of Wheelchair: Manual Stair Training Stair Training: Handrails/: 1 handrail #of Steps: 12 1 Step (curb) (QC): 4 4 Steps (QC): 4 12 Steps (QC): 4 Stairs: Pattern: Step to Balance Picking up an Object (QC): 88 ADL-Treatment Eating (QC): 6 (Pt independent.) Oral Hygiene (QC): 6 (Pt completed prior to OT arrival) Bathing Location: L Arm, R Arm, L Upper Leg, R Upper Leg, L Lower Leg (including foot), Chest, Abdomen, Buttocks, Perineal Area Shower/Bathe Self (QC): 5 (set up assist, pt able to wash/dry all parts, using AE as needed.) Upper Body Dressing (QC): 5 (set up, pt able to doff/don mold puller shirt.) Lower Body Dressing (QC): 4 (Supervision in stand, pt able to manage clothing) On/Off Footwear (QC): 6 (IND donning/doffing socks/shoes.) Toileting Hygiene (QC): 4 (CGA in stand for clothing mangement, pt completes hygiene seated ) Toilet Transfer (QC): 4 (CGA on/off toilet using GBs.) Assessment/Plan Assessment and Plan Assess & Plan/Chief Complaint Assessment: 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 s/p loop recorder 05/22/20 Left arm muscle spasms responded to Baclofen Smoker New onset HTN HLP Fall upon arrival to unit with in room Elevated LFT's with normal liver USG Plan: PT OT Statin ASA Lovenox Monitor closely IRF protocol 05/22/20: Remove wedding ring left finger OT for edema management of the left hand Loop recorder 05/23/20: Wedding ring removed OT PT Monitor BP 05/24/20: Patient refuses SCD's Monitor BP Fall risk 05/25/20: Monitor closely Ambulating well with kiana-cane Loop recorder 05/26/20: Statin BP control Monitor closely 05/27/20: USG liver Elevated LFT's will be monitored DC monster drinks and soda 05/28/20: Hold statin due to elevated LFT's Monitor closely IRF protocol 05/29/20: Baclofen HS Monitor for falls Hold statin 05/30/20: Hold statin DC Lovenox 05/31/20: Monitor for falls Works on stairs 06/01/20: Improved edema left hand Doing really well with therapy 06/02/20: Monitor BP DC statin due to elevated LFT's 06/03/20: Monitor BP Intense therapy 06/04/20: Major improvement Continue monitoring closely 06/05/20: Improved status AFO to be made Monitor for falls 06/06/20: Monitor for falls BP good Improved status 06/07/20: Monitor closely Improved status 06/08/20: Monitor BP Fall risk (1) CVA (cerebral vascular accident) (2) Essential (primary) hypertension (3) Tobacco abuse (4) Hyperlipidemia RADHA COPPOLA 13, 2021 12:21
[2020-06-08 17:39] VITALS: BP 131/65
[2020-06-08] MEDS: BACLOFEN 10 MG (LIORESAL) TAB PO PRN (20:29)
[2020-06-08] MEDS: MELATONIN 3 MG TABLET PO PRN (20:29)
[2020-06-09 05:08] VITALS: BP 116/59
[2020-06-09 08:00] VITALS: BP 132/63
[2020-06-09] MEDS: amLODIPine 10 MG (NORVASC) TAB PO SCH (08:22)
[2020-06-09] MEDS: ASPIRIN 325 MG (5 GR) TABLET PO SCH (08:22)
[2020-06-09] MEDS: DOCUSATE SODIUM 100 MG (COLACE) CAP PO SCH ×2 (08:22→20:10)
[2020-06-09] MEDS: SENNA W/DOCUSATE (SENOKOT S) TABLET PO SCH ×2 (08:22→20:10)
[2020-06-09] MEDS: VALSARTAN 160 MG (DIOVAN) TABLET PO SCH (08:22)
[2020-06-09] MEDS: polyethylene glycoL POWDER 17 GM (MIRALAX) PACK PO SCH ×2 (08:23→19:13)
--- NOTE | 2020-06-09 12:01 | PM&R Progress Note ---
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 He is walking without a cane at times Bowels moving Needs and AFO customized No drooling anymore Family training will likely be required We will check his progress next week 06/04/20: Pt doing pretty well Psych evaluation did not recommend any further follow-up or medications Overall managing everything pretty well Walked without a cane yesterday 06/03/20: Psych eval visit will be today Put on his AFO today Bowels moved yesterday 06/02/20: Patient doing well BM+ Tingling in arm at times reported BP ok Tired today 06/01/20: Patient doing well Left hand improved BM+ Slept hard and was stiff this morning 05/31/20: Patient doing well Balance is better Worked stairs today No falls 05/30/20: Pt doing very well Tens unit has really helped his left side of his face and arm Will fit him for an isotoner glove for edema Will DC Lovenox since it bothers him and he is ambulatory 05/29/20: Pt having no issues Psych evaluation will be at 1 PM Baclofen taken at night for muscle spasms in the left arm Overall doing well and eating and drinking well with no dysphasia 05/28/20: Lipitor stopped by Dr. Rios due to elevated liver enzymes Behavioral note will be evaluated Baclofen taken last night, doesnt know if it worked or not so maintain that and evaluate further Bowels moved yesterday 05/27/20: Pt doing very well Baclofen will be given for the left arm muscle spasms Elevated liver enzymes prompting abdominal ultrasound, ordered by Dr. 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 Rios BP 152/68 Swelling in his left hand, will get his wedding ring off today Very tearful at times Bowels moved four days ago so will initiate laxatives Review of Systems Neurological: Weakness, Incoordination Objective Exam Vital Signs Vital Signs Date Time Temp Pulse Resp B/P (MAP) Pulse Ox O2 Delivery O2 Flow Rate FiO2 06/09/20 17:01 37.0 70 18 141/73 (95) 97 Room Air Capillary Refill : General Appearance: No Apparent Distress, WD/WN, Chronically ill, Obese HEENT: PERRL/EOMI, Normal ENT Inspection, Pharynx Normal Neck: Full Range of Motion, Normal Inspection, Non Tender, Supple, Carotid Bruit Respiratory: Chest Non Tender, Lungs Clear, Normal Breath Sounds, No Accessory Muscle Use, No Respiratory Distress Cardiovascular: Regular Rate, Rhythm, No Edema, No Gallop, No JVD, No Murmur, Normal Peripheral Pulses Gastrointestinal: Normal Bowel Sounds, No Organomegaly, No Pulsatile Mass, Non Tender, Soft Back: Normal Inspection, No CVA Tenderness, No Vertebral Tenderness Extremity: Normal Capillary Refill, Normal Inspection, Normal Range of Motion, Non Tender, No Calf Tenderness, No Pedal Edema Neurologic/Psychiatric: Alert, Oriented x3, Abnormal Gait, Depressed Affect, Motor Weakness (left sided arm 1/5 left hand 0/5 left leg 4/5) Skin: Normal Color, Warm/Dry Lymphatic: No Adenopathy Results/Procedures Lab Patient resulted labs reviewed. FIM Transfers Therapy Code Descriptions/Definitions Functional [place] Measure: 0=Not Assessed/NA 4=Minimal Assistance 1=Total Assistance 5=Supervision or Setup 2=Maximal Assistance 6=Modified [place] 3=Moderate Assistance 7=Complete IndependenceSCALE: Activities may be completed with or without assistive devices. 1-Aorxxcentb-icccwda completes the activity by him/herself with no assistance from a helper. 5-Set-up or Clean-up Assistance-helper sets up or cleans up; patient completes activity. [place] assists only prior to or following the activity. 4-Supervision or Touching Assistance-helper provides verbal cues and/or touching/steadying and/or contact guard assistance as patient completes activity. Assistance may be provided throughout the activity or intermittently. 3-Partial/Moderate Assistance-helper does LESS THAN HALF the effort. [place] lifts, holds or supports trunk or limbs, but provides less than half the effort. 2-Substantial/Maximal Assistance-helper does MORE THAN HALF the effort. [place] lifts or holds trunk or limbs and provides more than half the effort. 4-Tlmaqefnx-fqufqu does ALL the effort. Patient does none of the effort to complete the activity. Or, the assistance of 2 or more helpers is required for the patient to complete the activity. If activity was not attempted, code reason: 7-Patient Refused. 9-Not Applicable-not attempted and the patient did not perform the activity before the current illness, exacerbation or injury. 10-Not Attempted due to Environmental Limitations-(lack of equipment, weather restraints, etc.). 88-Not Attempted due to Medical Conditions or Safety Concerns. Roll Left to Right (QC): 6 Sit to Lying (QC): 6 Sit to Stand (QC): 5 Chair/Xky-ix-Bdugd Xfer(QC): 4 Car Transfer (QC): 3 Gait Training Does the Patient Walk?: Yes Distance: 150' x2 Walk 10 feet (QC): 4 Walk 50 ft with 2 Turns(QC): 4 Walk 150 ft (QC): 4 Walking 10ft/uneven surface-QC: 88 Gait Persons Needed: 1 Gait Assistive Device: Cane Single Point Wheelchair Training Does the Pt Use a Wheelchair?: Yes Distance: 120'x2 Wheel 50 ft with 2 turns (QC): 5 Wheel 150 ft (QC): 88 Type of Wheelchair: Manual Stair Training Stair Training: Handrails/: 1 handrail #of Steps: 12 1 Step (curb) (QC): 4 4 Steps (QC): 4 12 Steps (QC): 4 Stairs: Pattern: Step to Balance Picking up an Object (QC): 88 ADL-Treatment Eating (QC): 6 (Pt independent.) Oral Hygiene (QC): 6 (Pt completed prior to OT arrival) Bathing Location: L Arm, R Arm, L Upper Leg, R Upper Leg, L Lower Leg (including foot), Chest, Abdomen, Buttocks, Perineal Area Shower/Bathe Self (QC): 5 (set up assist, pt able to wash/dry all parts, using AE as needed.) Upper Body Dressing (QC): 5 (set up, pt able to doff/don drum puller shirt.) Lower Body Dressing (QC): 4 (Supervision in stand, pt able to manage clothing) On/Off Footwear (QC): 6 (IND donning/doffing socks/shoes.) Toileting Hygiene (QC): 4 (CGA in stand for clothing mangement, pt completes hygiene seated ) Toilet Transfer (QC): 4 (CGA on/off toilet using GBs.) Assessment/Plan Assessment and Plan Assess & Plan/Chief Complaint Assessment: 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 s/p loop recorder 05/22/20 Left arm muscle spasms responded to Baclofen Smoker New onset HTN HLP Fall upon arrival to unit with in room Elevated LFT's with normal liver USG Plan: PT OT Statin ASA Lovenox Monitor closely IRF protocol 05/22/20: Remove wedding ring left finger OT for edema management of the left hand Loop recorder 05/23/20: Wedding ring removed OT PT Monitor BP 05/24/20: Patient refuses SCD's Monitor BP Fall risk 05/25/20: Monitor closely Ambulating well with kiana-cane Loop recorder 05/26/20: Statin BP control Monitor closely 05/27/20: USG liver Elevated LFT's will be monitored DC monster drinks and soda 05/28/20: Hold statin due to elevated LFT's Monitor closely IRF protocol 05/29/20: Baclofen HS Monitor for falls Hold statin 05/30/20: Hold statin DC Lovenox 05/31/20: Monitor for falls Works on stairs 06/01/20: Improved edema left hand Doing really well with therapy 06/02/20: Monitor BP DC statin due to elevated LFT's 06/03/20: Monitor BP Intense therapy 06/04/20: Major improvement Continue monitoring closely 06/05/20: Improved status AFO to be made Monitor for falls 06/06/20: Monitor for falls BP good Improved status 06/07/20: Monitor closely Improved status 06/08/20: Monitor BP Fall risk 06/09/20: Monitor closely Ambulating well (1) CVA (cerebral vascular accident) (2) Essential (primary) hypertension (3) Tobacco abuse (4) Hyperlipidemia RADHA COPPOLA DO Jun 09, 2020 12:01
--- NOTE | 2020-06-09 12:23 | Cardiology Progress Note ---
Subjective Date Seen by Provider: Jun 09, 2020 Time Seen by Provider: 12:22 Subjective/Events-last exam Patient is laying down in bed, feeling better today. No new complaint Review of Systems General: No Chills, No Night Sweats, No Fatigue, No Malaise, No Appetite, No Other HEENT: No Head Aches, No Visual Changes, No Eye Pain, No Ear Pain, No Dysphasia, No Sinus Congestion, No Post Nasal Drip, No Sore Throat, No Other Pulmonary: No Dyspnea, No Cough, No Pleuritic Chest Pain, No Other Cardiovascular: No: Chest Pain, Palpitations, Orthopnea, Paroxysmal Noc. Dyspnea, Edema, Lt Headedness, Other Objective-Cardiology Exam Last Set of Vital Signs Vital Signs 06/09/20 06/09/20 06/09/20 05:08 08:00 09:20 Temp 36.6 Pulse 70 Resp 18 B/P (MAP) 132/63 (86) Pulse Ox 96 O2 Delivery Room Air Capillary Refill : I&O Intake and Output 06/09/20 00:00 Intake Total 1430 ml Balance 1430 ml Intake Oral 1430 ml # Voids 4 # Bowel Movements 2 General: Alert, Oriented X3, Cooperative HEENT: Atraumatic, PERRLA Neck: Supple, No JVD, No Thyromegaly Lungs: Clear to Auscultation, Normal Air Movement Heart: Regular Rate, Normal S1, Normal S2, No Murmurs Abdomen: Normal Bowel Sounds, Soft, No Tenderness, No Hepatosplenomegaly, No Masses Extremities: No Clubbing, No Cyanosis, No Edema, Normal Pulses, No Tenderness/Swelling Skin: No Rashes, No Breakdown, No Significant Lesion Neuro: Normal Speech, Sensation Intact, Other (left-sided deficit d/t stroke) Psych/Mental Status: Mental Status NL, Mood NL A/P-Cardiology Admission Diagnosis Cryptogenic CVA HTN HLP Tobaccoism Assessment/Plan 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 Telemetry r evealing sinus rhythm. Loop monitor implantation done on 05/22/2020, site is healing well. Hypertension, better controlled, continue to monitor blood pressure Hyperlipidemia, Lipitor is on hold due to elevated liver enzymes, liver ultrasound is normal Tobaccoism, educated on the importance of smoking cessation Fam Hx CAD LAURA ORLANDO MD Jun 09, 2020 12:23
[2020-06-09 17:01] VITALS: BP 141/73
[2020-06-09] MEDS: BACLOFEN 10 MG (LIORESAL) TAB PO PRN (20:10)
[2020-06-09] MEDS: MELATONIN 3 MG TABLET PO PRN (20:10)
[2020-06-10 05:27] LABS: BASOPHILS # (AUTO) 0.1 10^3/uL (0.0-0.1); BASOPHILS % (AUTO) 1 % (0-10); EOSINOPHILS # (AUTO) 0.4 10^3/uL (0.0-0.3); EOSINOPHILS % (AUTO) 5 % (0-10); HEMATOCRIT 39 % (40-54); HEMOGLOBIN 13.2 g/dL (13.3-17.7); LYMPHOCYTES % (AUTO) 22 % (12-44); MEAN CORPUSCULAR HEMOGLOBIN 29 pg (25-34); MEAN CORPUSCULAR HGB CONC 34 g/dL (32-36); MEAN CORPUSCULAR VOLUME 87 fL (80-99); MEAN PLATELET VOLUME 10.7 fL (9.0-12.2); MONOCYTES # (AUTO) 0.8 10^3/uL (0.0-1.0); MONOCYTES % (AUTO) 9 % (0-12); NEUTROPHILS # (AUTO) 5.8 10^3/uL (1.8-7.8); NEUTROPHILS % (AUTO) 63 % (42-75); PLATELET COUNT 321 10^3/uL (130-400); WHITE BLOOD COUNT 9.2 10^3/uL (4.3-11.0)
[2020-06-10 05:48] VITALS: BP 135/71
[2020-06-10 06:01] LABS: ALANINE AMINOTRANSFERASE 46 U/L (0-55); ALBUMIN 3.6 GM/DL (3.2-4.5); ALKALINE PHOSPHATASE 87 U/L (40-136); BILIRUBIN,TOTAL 0.2 MG/DL (0.1-1.0); BUN/CREATININE RATIO 13; CALCIUM 8.8 MG/DL (8.5-10.1); CARBON DIOXIDE 22 MMOL/L (21-32); CHLORIDE 108 MMOL/L (98-107); CREATININE SERUM 0.82 MG/DL (0.60-1.30); GFR ESTIMATED > 60; GLUCOSE 93 MG/DL (70-105); POTASSIUM 4.3 MMOL/L (3.6-5.0); SODIUM 140 MMOL/L (135-145); TOTAL PROTEIN 6.5 GM/DL (6.4-8.2)
[2020-06-10 07:53] VITALS: BP 177/85
[2020-06-10] MEDS: VALSARTAN 160 MG (DIOVAN) TABLET PO SCH (07:58)
[2020-06-10] MEDS: SENNA W/DOCUSATE (SENOKOT S) TABLET PO SCH ×2 (07:58→20:31)
[2020-06-10] MEDS: DOCUSATE SODIUM 100 MG (COLACE) CAP PO SCH ×2 (07:58→20:31)
[2020-06-10] MEDS: ASPIRIN 325 MG (5 GR) TABLET PO SCH (07:58)
[2020-06-10] MEDS: amLODIPine 10 MG (NORVASC) TAB PO SCH (07:59)
--- NOTE | 2020-06-10 08:10 | Occupational Ther Daily Note ---
OT Current Status-Daily Note Subjective Pt seated up in w/c, agreeable to OT Tx. Pt does not verbalize any pain, reports he is able to move his arm better while laying down (gravity eliminated plane). Pt's daughter present while in therapy gym. ADL-Treatment Therapy Code Descriptions/Definitions Functional [place] Measure: 0=Not Assessed/NA 4=Minimal Assistance 1=Total Assistance 5=Supervision or Setup 2=Maximal Assistance 6=Modified [place] 3=Moderate Assistance 7=Complete IndependenceSCALE: Activities may be completed with or without assistive devices. 3-Jzcpwalpgc-afgbfzm completes the activity by him/herself with no assistance from a helper. 5-Set-up or Clean-up Assistance-helper sets up or cleans up; patient completes activity. [place] assists only prior to or following the activity. 4-Supervision or Touching Assistance-helper provides verbal cues and/or touching/steadying and/or contact guard assistance as patient completes activity. Assistance may be provided throughout the activity or intermittently. 3-Partial/Moderate Assistance-helper does LESS THAN HALF the effort. [place] lifts, holds or supports trunk or limbs, but provides less than half the effort. 2-Substantial/Maximal Assistance-helper does MORE THAN HALF the effort. [place] lifts or holds trunk or limbs and provides more than half the effort. 7-Avtjpimxd-dqoolw does ALL the effort. Patient does none of the effort to complete the activity. Or, the assistance of 2 or more helpers is required for the patient to complete the activity. If activity was not attempted, code reason: 7-Patient Refused. 9-Not Applicable-not attempted and the patient did not perform the activity before the current illness, exacerbation or injury. 10-Not Attempted due to Environmental Limitations-(lack of equipment, weather restraints, etc.). 88-Not Attempted due to Medical Conditions or Safety Concerns. Shower/Bathe Self (QC): 5 (setup, pt able to wash/dry all parts.) Upper Body Dressing (QC): 5 (set up, pt able to doff/don last puller shirt.) Lower Body Dressing (QC): 5 (set up, pt able to doff/don pants/underwear) On/Off Footwear: 6 (IND donning/doffing socks/shoes.) Other Treatment Pt seated in w/c, transferred to NH to doff clothes and complete showering. Pt transferred back to w/c to don clothes. Pt used SPC to ambulate to therapy gym with CGA, 1 LOB noted as pt was looking around room, min A to correct. Pt sat on therapy mat, performing weight bearing through LUE in order to increase proprioceptive input and for neuromuscular reeducation. Pt performed weight bearing through extended elbow, and on forearm. [id number] OT/PT cotreat due to skill of 2 clinicians required which a rehabilitator could not perform in order to focus on higher level balance activities, coordinate UE/LE with tasks, and decrease fall risk. OT focused on UE placement, cues for sequencing and safety while PT focused on LE placement, gross overall movement, and dynamic standing balance. Pt stood in parallel bars, kicking ball with RLE as he maintained balance through LLE and BUEs. Pt then hit balloon back and forth with OT, holding onto parallel bars with LUE. OT assisted pt with placement of LUE onto parallel bars with each task. Post tx, pt seated in therapy gym with PT, all needs met. Education OT Patient Education: Correct positioning, Modified ADL techniques, Progress toward Goal/Update tx plan, Purpose of tx/functional activities Teaching Recipient: Patient Teaching Methods: Discussion Response to Teaching: Verbalize Understanding OT Short Term Goals Short Term Goals Time Frame: Jun 05, 2020 Shower/bathe self: 3 Lower body dressin Putting on/taking off footwear: 3 OT Entry Level Assistant Manager Goals [place] Goals Time Frame: Jun 14, 2020 Eating (QC): 6 Oral Hygiene (QC): 6 Toileting Hygiene (QC): 6 Shower/Bathe Self (QC): 4 Upper Body Dressing (QC): 5 Lower Body Dressing (QC): 4 On/Off Footwear (QC): 5 Additional Goals: 1-Demonstrate ADL Tasks, 2-Verbalize Understanding, 3- ImproveStrength/Rusty 1=Demonstrate adherence to instructed precautions during ADL tasks. 2=Patient will verbalize/demonstrate understanding of assistive devices/modifications for ADL. 3=Patient will improve strength/tolerance for activity to enable patient to perform ADL's. OT Education/Plan Problem List/Assessment Assessment: Decreased Activ Tolerance, Decreased UE Strength, Impaired I ADL's, Impaired Self-Care Skills, Restricted Funct UE ROM Discharge Recommendations Plan/Recommendations: Continue POC Treatment Plan/Plan of Care Patient would benefit from OT for education, treatment and training to promote independence in ADL's, mobility, safety and/or upper extremity function for ADL's. Plan of Care: ADL Retraining, Functional Mobility, Group Exercise/Act as Ind, UE Funct Exercise/Act Treatment Duration: Jun 14, 2020 Frequency: At least 5 of 7 days/Wk (IRF) Estimated Hrs Per Day: 1.5 hours per day Rehab Potential: Fair Time/GCodes Start Time: 08:00 Stop Time: 09:15 Total Time Billed (hr/min): 75 Billed Treatment Time 8924-2715 OT tx, [id number] OT/PT cotreat 1, ADL 3 (45'), FA 2 (30') TRACIE JAY OT Jun 10, 2020 08:10
[2020-06-10] MEDS: polyethylene glycoL POWDER 17 GM (MIRALAX) PACK PO SCH ×2 (08:34→20:31)
--- NOTE | 2020-06-10 09:07 | PM&R Progress Note ---
Subjective HPI/CC On Admission Date Seen by Provider: Jun 10, 2020 Time Seen by Provider: 09:15 Subjective/Events-last exam 06/10/20: Patient doing well BM+ No pain reported 06/09/20: Patient has no issues No pain reported Walking well Left arm moving more 06/08/20: No issues No pain Improved walking No falls 06/07/20: Patient gaining independence No issues Daughter visiting today No pain reported 06/06/20: No major issues reported Walking better and better Stand by assist most of the time now 06/05/20: Pt doing pretty well Moving his left arm a bit today No frame wirer in the left hand He is walking without a cane at times Bowels moving Needs and AFO customized No drooling anymore Family training will likely be required We will check his progress next week 06/04/20: Pt doing pretty well Psych evaluation did not recommend any further follow-up or medications Overall managing everything pretty well Walked without a cane yesterday 06/03/20: Psych eval visit will be today Put on his AFO today Bowels moved yesterday 06/02/20: Patient doing well BM+ Tingling in arm at times reported BP ok Tired today 06/01/20: Patient doing well Left hand improved BM+ Slept hard and was stiff this morning 05/31/20: Patient doing well Balance is better Worked stairs today No falls 05/30/20: Pt doing very well Tens unit has really helped his left side of his face and arm Will fit him for an isotoner glove for edema Will DC Lovenox since it bothers him and he is ambulatory 05/29/20: Pt having no issues Psych evaluation will be at 1 PM Baclofen taken at night for muscle spasms in the left arm Overall doing well and eating and drinking well with no dysphasia 05/28/20: Lipitor stopped by Dr. Rios due to elevated liver enzymes Behavioral note will be evaluated Baclofen taken last night, doesnt know if it worked or not so maintain that and evaluate further Bowels moved yesterday 05/27/20: Pt doing very well Baclofen will be given for the left arm muscle spasms Elevated liver enzymes prompting abdominal ultrasound, ordered by Dr. Rios Overall doing pretty well otherwise 05/26/20: Patient doing well Frustrated with his situation but we can only support him so he can adjust at bedside today TC 178 Pivoting is improved 05/25/20: Left arm remains flaccid Walked to the gym and did well patient tearful at times or on the verge when he talks about his arm BM today No pain reported Tendency for somatic issues 05/24/20: Patient in better mood Tearful at times BM+ Slight elevated in LFT's SCD's refused by patient Showered today 05/23/20: Tearful at times Sore from loop recorder yesterday Wedding ring will be removed today by nursing supervisor public message service Labs stable BP ok 05/22/20: Loop recorder was placed today by Dr. Rios BP 152/68 Swelling in his left hand, will get his wedding ring off today Very tearful at times Bowels moved four days ago so will initiate laxatives Review of Systems General: Fatigue, Malaise Neurological: Weakness Objective Exam Vital Signs Vital Signs Date Time Temp Pulse Resp B/P (MAP) Pulse Ox O2 Delivery O2 Flow Rate FiO2 06/10/20 21:21 Room Air 06/10/20 16:28 36.7 75 16 135/68 (90) 95 Capillary Refill : General Appearance: No Apparent Distress, WD/WN, Chronically ill, Obese HEENT: PERRL/EOMI, Normal ENT Inspection, Pharynx Normal Neck: Full Range of Motion, Normal Inspection, Non Tender, Supple, Carotid Bruit Respiratory: Chest Non Tender, Lungs Clear, Normal Breath Sounds, No Accessory Muscle Use, No Respiratory Distress Cardiovascular: Regular Rate, Rhythm, No Edema, No Gallop, No JVD, No Murmur, Normal Peripheral Pulses Gastrointestinal: Normal Bowel Sounds, No Organomegaly, No Pulsatile Mass, Non Tender, Soft Back: Normal Inspection, No CVA Tenderness, No Vertebral Tenderness Extremity: Normal Capillary Refill, Normal Inspection, Normal Range of Motion, Non Tender, No Calf Tenderness, No Pedal Edema Neurologic/Psychiatric: Alert, Oriented x3, Abnormal Gait, Depressed Affect, Motor Weakness (left sided arm 1/5 left hand 0/5 left leg 4/5) Skin: Normal Color, Warm/Dry Lymphatic: No Adenopathy Results/Procedures Lab Laboratory Tests 06/10/20 05:00 Patient resulted labs reviewed. FIM Transfers Therapy Code Descriptions/Definitions Functional [place] Measure: 0=Not Assessed/NA 4=Minimal Assistance 1=Total Assistance 5=Supervision or Setup 2=Maximal Assistance 6=Modified [place] 3=Moderate Assistance 7=Complete IndependenceSCALE: Activities may be completed with or without assistive devices. 8-Svivjpyzcp-ndrnyih completes the activity by him/herself with no assistance from a helper. 5-Set-up or Clean-up Assistance-helper sets up or cleans up; patient completes activity. [place] assists only prior to or following the activity. 4-Supervision or Touching Assistance-helper provides verbal cues and/or touching/steadying and/or contact guard assistance as patient completes activity. Assistance may be provided throughout the activity or intermittently. 3-Partial/Moderate Assistance-helper does LESS THAN HALF the effort. [place] lifts, holds or supports trunk or limbs, but provides less than half the effort. 2-Substantial/Maximal Assistance-helper does MORE THAN HALF the effort. [place] lifts or holds trunk or limbs and provides more than half the effort. 8-Zjsoacbsy-jmfwjp does ALL the effort. Patient does none of the effort to complete the activity. Or, the assistance of 2 or more helpers is required for the patient to complete the activity. If activity was not attempted, code reason: 7-Patient Refused. 9-Not Applicable-not attempted and the patient did not perform the activity before the current illness, exacerbation or injury. 10-Not Attempted due to Environmental Limitations-(lack of equipment, weather restraints, etc.). 88-Not Attempted due to Medical Conditions or Safety Concerns. Roll Left to Right (QC): 6 Sit to Lying (QC): 6 Sit to Stand (QC): 5 Chair/Hmu-uj-Ufpmc Xfer(QC): 4 Car Transfer (QC): 3 Gait Training Does the Patient Walk?: Yes Distance: 150' x2 Walk 10 feet (QC): 4 Walk 50 ft with 2 Turns(QC): 4 Walk 150 ft (QC): 4 Walking 10ft/uneven surface-QC: 88 Gait Persons Needed: 1 Gait Assistive Device: Cane Single Point Wheelchair Training Does the Pt Use a Wheelchair?: Yes Distance: 120'x2 Wheel 50 ft with 2 turns (QC): 5 Wheel 150 ft (QC): 88 Type of Wheelchair: Manual Stair Training Stair Training: Handrails/: 1 handrail #of Steps: 12 1 Step (curb) (QC): 4 4 Steps (QC): 4 12 Steps (QC): 4 Stairs: Pattern: Step to Balance Picking up an Object (QC): 88 ADL-Treatment Eating (QC): 6 (Pt independent.) Oral Hygiene (QC): 6 (Pt completed prior to OT arrival) Bathing Location: L Arm, R Arm, L Upper Leg, R Upper Leg, L Lower Leg (including foot), Chest, Abdomen, Buttocks, Perineal Area Shower/Bathe Self (QC): 5 (setup, pt able to wash/dry all parts.) Upper Body Dressing (QC): 5 (set up, pt able to doff/don boat puller shirt.) Lower Body Dressing (QC): 5 (set up, pt able to doff/don pants/underwear) On/Off Footwear (QC): 6 (IND donning/doffing socks/shoes.) Toileting Hygiene (QC): 4 (CGA in stand for clothing mangement, pt completes hygiene seated ) Toilet Transfer (QC): 4 (CGA on/off toilet using GBs.) Assessment/Plan Assessment and Plan Assess & Plan/Chief Complaint Assessment: 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 s/p loop recorder 05/22/20 Left arm muscle spasms responded to Baclofen Smoker New onset HTN HLP Fall upon arrival to unit with in room Elevated LFT's with normal liver USG Plan: PT OT Statin ASA Lovenox Monitor closely IRF protocol 05/22/20: Remove wedding ring left finger OT for edema management of the left hand Loop recorder 05/23/20: Wedding ring removed OT PT Monitor BP 05/24/20: Patient refuses SCD's Monitor BP Fall risk 05/25/20: Monitor closely Ambulating well with kiana-cane Loop recorder 05/26/20: Statin BP control Monitor closely 05/27/20: USG liver Elevated LFT's will be monitored DC monster drinks and soda 05/28/20: Hold statin due to elevated LFT's Monitor closely IRF protocol 05/29/20: Baclofen HS Monitor for falls Hold statin 05/30/20: Hold statin DC Lovenox 05/31/20: Monitor for falls Works on stairs 06/01/20: Improved edema left hand Doing really well with therapy 06/02/20: Monitor BP DC statin due to elevated LFT's 06/03/20: Monitor BP Intense therapy 06/04/20: Major improvement Continue monitoring closely 06/05/20: Improved status AFO to be made Monitor for falls 06/06/20: Monitor for falls BP good Improved status 06/07/20: Monitor closely Improved status 06/08/20: Monitor BP Fall risk 06/09/20: Monitor closely Ambulating well 06/10/20: Monitor closely Intense therapy (1) CVA (cerebral vascular accident) (2) Essential (primary) hypertension (3) Tobacco abuse (4) Hyperlipidemia RADHA COPPOLA DO Jun 10, 2020 09:06
--- NOTE | 2020-06-10 09:57 | Physical Therapy Daily Note ---
PT Daily Note-Current Subjective Patient in therapy gym pre tx, agrees to PT, has no complaints of pain, will be co-treating with OT for more advanced balance activities. Appearance Patient in WC in room post tx with daughter, has nurse call Mental Status Patient Orientation: Normal For Age Transfers SCALE: Activities may be completed with or without assistive devices. 3-Zyugmsnxxt-llknsee completes the activity by him/herself with no assistance from a helper. 5-Set-up or Clean-up Assistance-helper sets up or cleans up; patient completes activity. [place] assists only prior to or following the activity. 4-Supervision or Touching Assistance-helper provides verbal cues and/or touching/steadying and/or contact guard assistance as patient completes activity. Assistance may be provided throughout the activity or intermittently. 3-Partial/Moderate Assistance-helper does LESS THAN HALF the effort. [place] lifts, holds or supports trunk or limbs, but provides less than half the effort. 2-Substantial/Maximal Assistance-helper does MORE THAN HALF the effort. [place] lifts or holds trunk or limbs and provides more than half the effort. 6-Jnxugxfmx-vvpjux does ALL the effort. Patient does none of the effort to complete the activity. Or, the assistance of 2 or more helpers is required for the patient to complete the activity. If activity was not attempted, code reason: 7-Patient Refused. 9-Not Applicable-not attempted and the patient did not perform the activity before the current illness, exacerbation or injury. 10-Not Attempted due to Environmental Limitations-(lack of equipment, weather restraints, etc.). 88-Not Attempted due to Medical Conditions or Safety Concerns. Sit to Stand (QC): 4 Chair/Fkj-nz-Zkzos Xfer(QC): 4 Weight Bearing Right Lower Extremity: Right Full Weight Bearing Left Lower Extremity: Left Weight Bearing/Tolerated Gait Training Distance: 200'x2 Walk 10 feet (QC): 4 Walk 50 ft with 2 Turns(QC): 4 Walk 150 ft (QC): 4 Gait Assistive Device: Cane Single Point 2 trips, once with a SPC and once without an assistive device, both were CGA, has unsteady moments but no zee LOB Exercises step-ups sideways on left leg x10, sideways lunges left side 2x30 sec, SLS left side 2x30 sec NuStep Minutes: 15 NuStep Workload: 5 Neuromuscular standing balance activities kicking ball with right leg and bearing weight on left leg and hitting balloon with right hand Treatments PT performed transfers, ambulation, functional strengthening, standing balance during balance activity, OT worked on balance activity, UE activity Assessment Current Status: Fair Progress slowly progressing balance during ambulation PT Short Term Goals Short Term Goals Time Frame: May 28, 2020 Roll Left & Right: 6 Sit to lyin Lying to sitting on side of be: 3 Sit to stand: 4 (met) Chair/ihk-ic-gfbqq transfer: 3 Walk 10 feet: 3 (met) PT Senior Care Goals Hand Twister Goals PT Senior Care Goals Time Frame: Jun 11, 2020 Roll Left & Right (QC): 6 Sit to Lying (QC): 6 Lying-Sitting on Side/Bed(QC): 6 Sit to Stand (QC): 5 Chair/Dnt-gl-Kobdr Xfer(QC): 4 Toilet Transfer (QC): 4 Car Transfer (QC): 4 Does the Patient Walk: Yes Walk 10 feet (QC): 4 Walk 50ft with 2 Turns (QC): 4 Walk 150 ft (QC): 88 Walking 10ft on Uneven Surface: 4 1 Step (curb) (QC): 3 4 Steps (QC): 3 12 Steps (QC): 88 Picking up an Object (QC): 3 Wheel 50 feet with 2 turns (QC: 6 Wheel 150 feet: 6 PT Plan Problem List Problem List: Activity Tolerance, Functional Strength, Safety, Balance, Gait, Transfer, Bed Mobility, ROM Treatment/Plan Treatment Plan: Continue Plan of Care Treatment Plan: Bed Mobility, Education, Functional Activity Rusty, Functional Strength, Group Therapy, Gait, Safety, Therapeutic Exercise, Transfers Treatment Duration: Jun 11, 2020 Frequency: At least 5 of 7 days/Wk (IRF) Estimated Hrs Per Day: 1.5 hours per day Patient and/or Family Agrees t: Yes Safety Risks/Education Patient Education: Gait Training, Transfer Techniques, Correct Positioning, Safety Issues Teaching Recipient: Patient Teaching Methods: Demonstration, Discussion Response to Teaching: Reinforcement Needed Time/GCodes Time In: 0900 Time Out: 1000 Total Billed Treatment Time: 60 Total Billed Treatment 1 visit NM 15' EX 30' GT 15' IVY HYDE PT Jun 10, 2020 09:57
--- NOTE | 2020-06-10 10:20 | Cardiology Progress Note ---
Subjective Date Seen by Provider: Jun 10, 2020 Time Seen by Provider: 10:19 Subjective/Events-last exam Patient was seen during physical therapy session. No new complaint Review of Systems General: No Chills, No Night Sweats, No Fatigue, No Malaise, No Appetite, No Other HEENT: No Head Aches, No Visual Changes, No Eye Pain, No Ear Pain, No Dysphasia, No Sinus Congestion, No Post Nasal Drip, No Sore Throat, No Other Pulmonary: No Dyspnea, No Cough, No Pleuritic Chest Pain, No Other Cardiovascular: No: Chest Pain, Palpitations, Orthopnea, Paroxysmal Noc. Dyspnea, Edema, Lt Headedness, Other Objective-Cardiology Exam Last Set of Vital Signs Vital Signs 06/10/20 06/10/20 06/10/20 05:48 07:53 08:28 Temp 36.6 Pulse 69 Resp 18 B/P (MAP) 177/85 (115) Pulse Ox 98 O2 Delivery Room Air Capillary Refill : I&O Intake and Output 06/10/20 00:00 Intake Total 1210 ml Balance 1210 ml Intake Oral 1210 ml # Voids 6 # Bowel Movements 2 General: Alert, Oriented X3, Cooperative HEENT: Atraumatic, PERRLA Neck: Supple, No JVD, No Thyromegaly Lungs: Clear to Auscultation, Normal Air Movement Heart: Regular Rate, Normal S1, Normal S2, No Murmurs Abdomen: Normal Bowel Sounds, Soft, No Tenderness, No Hepatosplenomegaly, No M asses Extremities: No Clubbing, No Cyanosis, No Edema, Normal Pulses, No Tende rness/Swelling Skin: No Rashes, No Breakdown, No Significant Lesion Neuro: Normal Speech, Sensation Intact, Other (left-sided deficit d/t stroke) Psych/Mental Status: Mental Status NL, Mood NL Results Lab Laboratory Tests 06/10/20 05:00 A/P-Cardiology Admission Diagnosis Cryptogenic CVA HTN HLP Tobaccoism Assessment/Plan 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 Telemetry revealing sinus rhythm. Loop monitor implantation done on 05/22/2020, site is healing well. Hypertension, elevated reading today. Continue to monitor blood pressure, no changes are recommended Hyperlipidemia, Lipitor is on hold due to elevated liver enzymes, liver ultrasound is normal Tobaccoism, educated on the importance of smoking cessation Fam Hx CAD LAURA ORLANDO MD Jun 10, 2020 10:20
--- NOTE | 2020-06-10 10:20 | Progress Note ---
ISAIAH NGUYEN [facility] 06/10/20 1020: Progress Note Patient was sitting in his chair and in a great mood. Overall he has greatly improved since starting rehab. He feels he is getting more mobility and strength in his left hand. His labs are stable. He is working with PT/OT. Should start to consider D/C date and outpatient PT and rehab when appropriate. ADAMARIS FOSTER DO 06/11/20 0509: Supervisory-Addendum Brief Verification & Attestation Participated in pt care: history, MDM, physical Personally performed: exam, history, MDM, supervision of care Care discussed with: Medical Student Procedures: n/a Results interpretation: Verified all documentation Verification and Attestation of Medical Student E/M Service A medical student performed and documented this service in my presence. I reviewed and verified all information documented by the medical student and made modifications to such information, when appropriate. I personally performed the physical exam and medical decision making. Adamaris Foster Jun 11, 2020,05:09 ISAIAH NGUYEN [facility] Jun 10, 2020 10:20 ADAMARIS FOSTER DO Jun 11, 2020 05:09
--- NOTE | 2020-06-10 11:57 | Occ Therapy Rehab Re-Cert ---
OT Re-Certification Form Plan of Care: ADL Retraining, Functional Mobility, Group Exercise/Act as Ind, UE Funct Exercise/Act, UE Neuromus Re-Ed/Coord POC updated with goals advanced to independent level with all ADLS. Frequency: At least 5 of 7 days/Wk (IRF) Estimated Hrs Per Day: 1.5 hours per day Rehab Potential: Good OT Short Term Goals Short Term Goals Time Frame: Jun 05, 2020 Shower/bathe self: 3 Lower body dressin Putting on/taking off footwear: 3 OT Correction Goals Market Development Manager Goals Time Frame: Jun 21, 2020 Eating (QC): 6 Oral Hygiene (QC): 6 Toileting Hygiene (QC): 6 Shower/Bathe Self (QC): 6 Upper Body Dressing (QC): 6 Lower Body Dressing (QC): 6 On/Off Footwear (QC): 6 Additional Goals: 1-Demonstrate ADL Tasks, 2-Verbalize Understanding, 3- ImproveStrength/Rusty 1=Demonstrate adherence to instructed precautions during ADL tasks. 2=Patient will verbalize/demonstrate understanding of assistive devices/modifications for ADL. 3=Patient will improve strength/tolerance for activity to enable patient to perform ADL's. TRACIE JAY OT Jun 10, 2020 11:57
--- NOTE | 2020-06-10 12:53 | Physical Therapy Daily Note ---
PT Daily Note-Current Subjective Patient in pre tx, agrees to PT, has no complaints of pain. Appearance Patient in post tx in room, he is independent in his room from level, has nurse call Mental Status Patient Orientation: Normal For Age Transfers SCALE: Activities may be completed with or without assistive devices. 6-Vvjkyvccpj-qzbwuoi completes the activity by him/herself with no assistance from a helper. 5-Set-up or Clean-up Assistance-helper sets up or cleans up; patient completes activity. [place] assists only prior to or following the activity. 4-Supervision or Touching Assistance-helper provides verbal cues and/or t ouching/steadying and/or contact guard assistance as patient completes activity. Assistance may be provided throughout the activity or intermittently. 3-Partial/Moderate Assistance-helper does LESS THAN HALF the effort. [place] lifts, holds or supports trunk or limbs, but provides less than half the effort. 2-Substantial/Maximal Assistance-helper does MORE THAN HALF the effort. [place] lifts or holds trunk or limbs and provides more than half the effort. 4-Cabbdrmof-khcqas does ALL the effort. Patient does none of the effort to complete the activity. Or, the assistance of 2 or more helpers is required for the patient to complete the activity. If activity was not attempted, code reason: 7-Patient Refused. 9-Not Applicable-not attempted and the patient did not perform the activity before the current illness, exacerbation or injury. 10-Not Attempted due to Environmental Limitations-(lack of equipment, weather restraints, etc.). 88-Not Attempted due to Medical Conditions or Safety Concerns. Sit to Stand (QC): 4 Chair/Iya-cj-Neypq Xfer(QC): 4 Weight Bearing Right Lower Extremity: Right Full Weight Bearing Left Lower Extremity: Left Weight Bearing/Tolerated Gait Training Distance: 150', 120' Walk 10 feet (QC): 4 Walk 50 ft with 2 Turns(QC): 4 Walk 150 ft (QC): 4 Gait Assistive Device: None CGA, has moments of unsteadiness but no LOB, stops occasionally to regain balance, less foot clearance when not using an AD Stair Training Stair Training: Handrails/: 1 handrail #of Steps: 12 1 Step (curb) (QC): 4 4 Steps (QC): 4 12 Steps (QC): 4 Stairs: Pattern: Step to CGA, occasional cues for foot placement or safety Treatments transfers, ambulation, stairs Assessment Current Status: Fair Progress improving general mobility PT Short Term Goals Short Term Goals Time Frame: May 28, 2020 Roll Left & Right: 6 Sit to lyin Lying to sitting on side of be: 3 Sit to stand: 4 (met) Chair/hsq-zr-dkvbp transfer: 3 Walk 10 feet: 3 (met) PT Senior Living Goals Ribbon Hand Goals PT Senior Living Goals Time Frame: Jun 11, 2020 Roll Left & Right (QC): 6 Sit to Lying (QC): 6 Lying-Sitting on Side/Bed(QC): 6 Sit to Stand (QC): 5 Chair/Fwu-sn-Pobax Xfer(QC): 4 Toilet Transfer (QC): 4 Car Transfer (QC): 4 Does the Patient Walk: Yes Walk 10 feet (QC): 4 Walk 50ft with 2 Turns (QC): 4 Walk 150 ft (QC): 88 Walking 10ft on Uneven Surface: 4 1 Step (curb) (QC): 3 4 Steps (QC): 3 12 Steps (QC): 88 Picking up an Object (QC): 3 Wheel 50 feet with 2 turns (QC: 6 Wheel 150 feet: 6 PT Plan Problem List Problem List: Activity Tolerance, Functional Strength, Safety, Balance, Gait, Transfer, Bed Mobility, ROM Treatment/Plan Treatment Plan: Continue Plan of Care Treatment Plan: Bed Mobility, Education, Functional Activity Rusty, Functional Strength, Group Therapy, Gait, Safety, Therapeutic Exercise, Transfers Treatment Duration: Jun 11, 2020 Frequency: At least 5 of 7 days/Wk (IRF) Estimated Hrs Per Day: 1.5 hours per day Patient and/or Family Agrees t: Yes Safety Risks/Education Patient Education: Gait Training, Transfer Techniques, Steps, Correct Positioning, Safety Issues Teaching Recipient: Patient Teaching Methods: Demonstration, Discussion Response to Teaching: Reinforcement Needed Time/GCodes Time In: 1135 Time Out: 1150 Total Billed Treatment Time: 15 Total Billed Treatment 1 visit GT 15' IVY HYDE PT Jun 10, 2020 12:53
--- NOTE | 2020-06-10 13:15 | Speech Therapy Daily Note ---
Speech Daily Progress Note Subjective Date Seen by Provider: Jun 10, 2020 Time Seen by Provider: 00:30 Patient was resting in his wc with his youngest daughter present. Patient said he walked a very long way today without the cane. Objective Patient completed 25 minutes of vital stim set on 10 with 20 sets of OME as directed. Assessment Assessment Current Status: Good Progress Treatment Plan Continue Plan of Care Speech Short Term Goals Short Term Goals Short Term Goals 1) Patient will tolerate least restrictive diet level per physician's order at 90% or greater. 2) Patient/caregiver will utilize compensatory strategies as trained for safe oral intake at 90% or greater without cues. 3) Patient will complete OME as directed 4-5x per week. Speech Bottom Precipitator Operator Goals Detention Goals Patient will improve swallowing and speech abilities to communicate better/easier with others. Speech-Plan Patient/Family Goals Patient/Family Goals: Patient plans on returning home where he lives with his and children. Treatment Plan Speech Therapy Treatment Plan: Continue Plan of Care Treatment Duration: Jun 14, 2020 Frequency: 4 times per week (Patient receives skilled ST 4-5x per week) Estimated Hrs Per Day: .5 hour per day Rehab Potential: Good Barriers to Learning: Patient's recent CVA, although speech issues have mostly resolved Pt/Family Agrees to Plan: Yes Safety Risks/Education Teaching Recipient: Patient Teaching Methods: Demonstration, Discussion Response to Teaching: Verbalize Understanding, Return Demonstration Education Topics Provided: Continued safety within his room and with oral intake Time Speech Therapy Time In: 11:00 Speech Therapy Time Out: 11:30 Total Billed Time: 30 Billed Treatment Time 1, GURWINDER, SLGAVI Muñiz Jun 10, 2020 13:15
[2020-06-10 16:28] VITALS: BP 135/68
[2020-06-10] MEDS: MELATONIN 3 MG TABLET PO PRN (20:31)
[2020-06-10] MEDS: BACLOFEN 10 MG (LIORESAL) TAB PO PRN (20:31)
[2020-06-11 06:15] VITALS: BP 126/71
--- NOTE | 2020-06-11 08:17 | Cardiology Progress Note ---
Subjective Date Seen by Provider: Jun 11, 2020 Time Seen by Provider: 07:50 Subjective/Events-last exam Doing well today, denies CP, SOB, or dizziness. Notes occasional LE swelling that improves with elevation. No redness or pain. BP this morning is 126/71. Review of Systems General: No Chills, No Night Sweats, No Fatigue, No Malaise, No Appetite, No Other Pulmonary: No Dyspnea, No Cough, No Pleuritic Chest Pain, No Other Cardiovascular: No: Chest Pain, Palpitations, Orthopnea, Paroxysmal Noc. Dyspnea, Edema, Lt Headedness, Other Objective-Cardiology Exam Last Set of Vital Signs Vital Signs 06/11/20 06/11/20 06/11/20 06:15 08:22 09:00 Temp 36.0 Pulse 67 Resp 16 B/P (MAP) 134/79 (97) Pulse Ox 95 O2 Delivery Room Air Capillary Refill : I&O Intake and Output 06/11/20 00:00 Intake Total 1090 ml Balance 1090 ml Intake Oral 1090 ml # Voids 4 # Bowel Movements 1 General: Alert, Oriented X3, Cooperative, No Acute Distress HEENT: Atraumatic, PERRLA Neck: Supple, No JVD, No Thyromegaly Lungs: Clear to Auscultation, Normal Air Movement Heart: Regular Rate, Normal S1, Normal S2, No Murmurs, Other (loop recorder incision site well-healing, c/d/i) Abdomen: Soft, No Tenderness, No Hepatosplenomegaly, No Masses Extremities: No Clubbing, No Cyanosis, No Edema, Normal Pulses, No Tenderness/Swelling Skin: No Rashes, No Breakdown, No Significant Lesion Neuro: Normal Speech, Sensation Intact, Other (left-sided deficit d/t stroke) Psych/Mental Status: Mental Status NL, Mood NL A/P-Cardiology Admission Diagnosis Cryptogenic CVA HTN HLP Tobaccoism Assessment/Plan 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 Telemetry revealing sinus rhythm. Loop monitor implantation done on 05/22/2020, site is healing well. Hypertension, BP normal today, continue to monitor, no changes are recommended Hyperlipidemia, Lipitor is on hold due to elevated liver enzymes, liver ultrasound is normal Tobaccoism Fam Hx CAD Supervisory-Addendum Brief Supervisory Addendum Participated in pt care: history, MDM, physical Personally performed: exam, history, MDM Care discussed with: Medical Student Notes: patient was seen at bedside, feeling better Some improvement with physical therapy Blood pressure is better controlled Loop monitor site is healing well. Continue to monitor KIRILL GLASER MED STUDENT Jun 11, 2020 08:17 LAURA ORLANDO MD Jun 11, 2020 12:30
[2020-06-11 08:22] VITALS: BP 134/79
[2020-06-11] MEDS: DOCUSATE SODIUM 100 MG (COLACE) CAP PO SCH ×2 (08:22→20:40)
[2020-06-11] MEDS: amLODIPine 10 MG (NORVASC) TAB PO SCH (08:22)
[2020-06-11] MEDS: SENNA W/DOCUSATE (SENOKOT S) TABLET PO SCH ×2 (08:22→20:40)
[2020-06-11] MEDS: ASPIRIN 325 MG (5 GR) TABLET PO SCH (08:22)
[2020-06-11] MEDS: VALSARTAN 160 MG (DIOVAN) TABLET PO SCH (08:22)
[2020-06-11] MEDS: polyethylene glycoL POWDER 17 GM (MIRALAX) PACK PO SCH ×2 (09:00→19:44)
--- NOTE | 2020-06-11 09:50 | PM&R Progress Note ---
Subjective HPI/CC On Admission Date Seen by Provider: Jun 11, 2020 Time Seen by Provider: 08:45 Subjective/Events-last exam 06/11/20: No issues Patient feels good 06/10/20: Patient doing well BM+ No pain reported 06/09/20: Patient has no issues No pain reported Walking well Left arm moving more 06/08/20: No issues No pain Improved walking No falls 06/07/20: Patient gaining independence No issues Daughter visiting today No pain reported 06/06/20: No major issues reported Walking better and better Stand by assist most of the time now 06/05/20: Pt doing pretty well Moving his left arm a bit today 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 He is walking without a cane at times Bowels moving Needs and AFO customized No drooling anymore Family training will likely be required We will check his progress next week 06/04/20: Pt doing pretty well Psych evaluation did not recommend any further follow-up or medications Overall managing everything pretty well Walked without a cane yesterday 06/03/20: Psych eval visit will be today Put on his AFO today Bowels moved yesterday 06/02/20: Patient doing well BM+ Tingling in arm at times reported BP ok Tired today 06/01/20: Patient doing well Left hand improved BM+ Slept hard and was stiff this morning 05/31/20: Patient doing well Balance is better Worked stairs today No falls 05/30/20: Pt doing very well Tens unit has really helped his left side of his face and arm Will fit him for an isotoner glove for edema Will DC Lovenox since it bothers him and he is ambulatory 05/29/20: Pt having no issues Psych evaluation will be at 1 PM Baclofen taken at night for muscle spasms in the left arm Overall doing well and eating and drinking well with no dysphasia 05/28/20: Lipitor stopped by Dr. Rios due to elevated liver enzymes Behavioral note will be evaluated Baclofen taken last night, doesnt know if it worked or not so maintain that and evaluate further Bowels moved yesterday 05/27/20: Pt doing very well Baclofen will be given for the left arm muscle spasms Elevated liver enzymes prompting abdominal ultrasound, ordered by Dr. 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 Rios BP 152/68 Swelling in his left hand, will get his wedding ring off today Very tearful at times Bowels moved four days ago so will initiate laxatives Review of Systems General: Fatigue, Malaise Neurological: Weakness, Incoordination Objective Exam Vital Signs Vital Signs Date Time Temp Pulse Resp B/P (MAP) Pulse Ox O2 Delivery O2 Flow Rate FiO2 06/11/20 20:10 Room Air 06/11/20 16:04 36.8 73 16 115/61 (79) 94 Capillary Refill : General Appearance: No Apparent Distress, WD/WN, Chronically ill, Obese HEENT: PERRL/EOMI, Normal ENT Inspection, Pharynx Normal Neck: Full Range of Motion, Normal Inspection, Non Tender, Supple, Carotid Bruit Respiratory: Chest Non Tender, Lungs Clear, Normal Breath Sounds, No Accessory Muscle Use, No Respiratory Distress Cardiovascular: Regular Rate, Rhythm, No Edema, No Gallop, No JVD, No Murmur, Normal Peripheral Pulses Gastrointestinal: Normal Bowel Sounds, No Organomegaly, No Pulsatile Mass, Non Tender, Soft Back: Normal Inspection, No CVA Tenderness, No Vertebral Tenderness Extremity: Normal Capillary Refill, Normal Inspection, Normal Range of Motion, Non Tender, No Calf Tenderness, No Pedal Edema Neurologic/Psychiatric: Alert, Oriented x3, Abnormal Gait, Depressed Affect, Motor Weakness (left sided arm 1/5 left hand 0/5 left leg 4/5) Skin: Normal Color, Warm/Dry Lymphatic: No Adenopathy Results/Procedures Lab Patient resulted labs reviewed. FIM Transfers Therapy Code Descriptions/Definitions Functional [place] Measure: 0=Not Assessed/NA 4=Minimal Assistance 1=Total Assistance 5=Supervision or Setup 2=Maximal Assistance 6=Modified [place] 3=Moderate Assistance 7=Complete IndependenceSCALE: Activities may be completed with or without assistive devices. 2-Swnyeqssqu-ekdpbem completes the activity by him/herself with no assistance from a helper. 5-Set-up or Clean-up Assistance-helper sets up or cleans up; patient completes activity. [place] assists only prior to or following the activity. 4-Supervision or Touching Assistance-helper provides verbal cues and/or touching/steadying and/or contact guard assistance as patient completes activity. Assistance may be provided throughout the activity or intermittently. 3-Partial/Moderate Assistance-helper does LESS THAN HALF the effort. [place] lifts, holds or supports trunk or limbs, but provides less than half the effort. 2-Substantial/Maximal Assistance-helper does MORE THAN HALF the effort. [place] lifts or holds trunk or limbs and provides more than half the effort. 1-Tfukzxlcx-ztnyam does ALL the effort. Patient does none of the effort to complete the activity. Or, the assistance of 2 or more helpers is required for the patient to complete the activity. If activity was not attempted, code reason: 7-Patient Refused. 9-Not Applicable-not attempted and the patient did not perform the activity before the current illness, exacerbation or injury. 10-Not Attempted due to Environmental Limitations-(lack of equipment, weather restraints, etc.). 88-Not Attempted due to Medical Conditions or Safety Concerns. Roll Left to Right (QC): 6 Sit to Lying (QC): 6 Sit to Stand (QC): 4 Chair/Wjw-kq-Tjsfr Xfer(QC): 4 Car Transfer (QC): 3 Gait Training Does the Patient Walk?: Yes Distance: 150', 120' Walk 10 feet (QC): 4 Walk 50 ft with 2 Turns(QC): 4 Walk 150 ft (QC): 4 Walking 10ft/uneven surface-QC: 88 Gait Persons Needed: 1 Gait Assistive Device: None Wheelchair Training Does the Pt Use a Wheelchair?: Yes Distance: 120'x2 Wheel 50 ft with 2 turns (QC): 5 Wheel 150 ft (QC): 88 Type of Wheelchair: Manual Stair Training Stair Training: Handrails/: 1 handrail #of Steps: 12 1 Step (curb) (QC): 4 4 Steps (QC): 4 12 Steps (QC): 4 Stairs: Pattern: Step to Balance Picking up an Object (QC): 88 ADL-Treatment Eating (QC): 6 (Pt independent.) Oral Hygiene (QC): 6 (Pt completed prior to OT arrival) Bathing Location: L Arm, R Arm, L Upper Leg, R Upper Leg, L Lower Leg (including foot), Chest, Abdomen, Buttocks, Perineal Area Shower/Bathe Self (QC): 5 (setup, pt able to wash/dry all parts.) Upper Body Dressing (QC): 5 (set up, 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.) Lower Body Dressing (QC): 5 (set up, pt able to doff/don pants/underwear) On/Off Footwear (QC): 6 (IND donning/doffing socks/shoes.) Toileting Hygiene (QC): 4 (CGA in stand for clothing mangement, pt completes hygiene seated ) Toilet Transfer (QC): 4 (CGA on/off toilet using GBs.) Assessment/Plan Assessment and Plan Assess & Plan/Chief Complaint Assessment: 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 s/p loop recorder 05/22/20 Left arm muscle spasms responded to Baclofen Smoker New onset HTN HLP Fall upon arrival to unit with in room Elevated LFT's with normal liver USG Plan: PT OT Statin ASA Lovenox Monitor closely IRF protocol 05/22/20: Remove wedding ring left finger OT for edema management of the left hand Loop recorder 05/23/20: Wedding ring removed OT PT Monitor BP 05/24/20: Patient refuses SCD's Monitor BP Fall risk 05/25/20: Monitor closely Ambulating well with kiana-cane Loop recorder 05/26/20: Statin BP control Monitor closely 05/27/20: USG liver Elevated LFT's will be monitored DC monster drinks and soda 05/28/20: Hold statin due to elevated LFT's Monitor closely IRF protocol 05/29/20: Baclofen HS Monitor for falls Hold statin 05/30/20: Hold statin DC Lovenox 05/31/20: Monitor for falls Works on stairs 06/01/20: Improved edema left hand Doing really well with therapy 06/02/20: Monitor BP DC statin due to elevated LFT's 06/03/20: Monitor BP Intense therapy 06/04/20: Major improvement Continue monitoring closely 06/05/20: Improved status AFO to be made Monitor for falls 06/06/20: Monitor for falls BP good Improved status 06/07/20: Monitor closely Improved status 06/08/20: Monitor BP Fall risk 06/09/20: Monitor closely Ambulating well 06/10/20: Monitor closely Intense therapy 06/11/20: DC planning (1) CVA (cerebral vascular accident) (2) Essential (primary) hypertension (3) Tobacco abuse (4) Hyperlipidemia RADHA COPPOLA DO Jun 11, 2020 09:50
[2020-06-11] MEDS: CALCIUM CARBONATE 500 MG (TUMS) TAB.CHEW PO PRN (10:06)
--- NOTE | 2020-06-11 10:36 | Physical Therapy Daily Note ---
PT Daily Note-Current Subjective Patient in WC pre tx, agrees to PT, has no complaints of pain. Appearance Patient in WC post tx with nurse call, at bedside Mental Status Patient Orientation: Normal For Age Transfers SCALE: Activities may be completed with or without assistive devices. 9-Ydxgsjnfbd-hmznidt completes the activity by him/herself with no assistance from a helper. 5-Set-up or Clean-up Assistance-helper sets up or cleans up; patient completes activity. [place] assists only prior to or following the activity. 4-Supervision or Touching Assistance-helper provides verbal cues and/or touching/steadying and/or contact guard assistance as patient completes activity. Assistance may be provided throughout the activity or intermittently. 3-Partial/Moderate Assistance-helper does LESS THAN HALF the effort. [place] lifts, holds or supports trunk or limbs, but provides less than half the effort. 2-Substantial/Maximal Assistance-helper does MORE THAN HALF the effort. [place] lifts or holds trunk or limbs and provides more than half the effort. 3-Xomzvrxdd-zxrpld does ALL the effort. Patient does none of the effort to complete the activity. Or, the assistance of 2 or more helpers is required for the patient to complete the activity. If activity was not attempted, code reason: 7-Patient Refused. 9-Not Applicable-not attempted and the patient did not perform the activity before the current illness, exacerbation or injury. 10-Not Attempted due to Environmental Limitations-(lack of equipment, weather restraints, etc.). 88-Not Attempted due to Medical Conditions or Safety Concerns. Sit to Stand (QC): 4 Chair/Xhf-hc-Lcsvc Xfer(QC): 4 Weight Bearing Right Lower Extremity: Right Full Weight Bearing Left Lower Extremity: Left Weight Bearing/Tolerated Gait Training Distance: 150', 120' Walk 10 feet (QC): 4 Walk 50 ft with 2 Turns(QC): 4 Walk 150 ft (QC): 4 Gait Assistive Device: Cane Single Point no AFO used, he is able to clear his left foot but still has foot drop, keeps both knees flexed Exercises Standing: Hip Abduction, Marching, Mini squats Standing Reps: 20 sit to stand 3 sets of 10, LAQ left side 5 min with 2# ankle weights, walking/turning activity without AD retrieving cones NuStep Minutes: 15 NuStep Workload: 4 Treatments transfers, ambulation, LE strengthening Assessment Current Status: Fair Progress improving ambulation, better stability with turning PT Short Term Goals Short Term Goals Time Frame: May 28, 2020 Roll Left & Right: 6 Sit to lyin Lying to sitting on side of be: 3 Sit to stand: 4 (met) Chair/lue-tk-owhlt transfer: 3 Walk 10 feet: 3 (met) 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 [facility] Goals PT [facility] Goals Time Frame: Jun 11, 2020 Roll Left & Right (QC): 6 Sit to Lying (QC): 6 Lying-Sitting on Side/Bed(QC): 6 Sit to Stand (QC): 5 Chair/Ymq-kt-Hdbtg Xfer(QC): 4 Toilet Transfer (QC): 4 Car Transfer (QC): 4 Does the Patient Walk: Yes Walk 10 feet (QC): 4 Walk 50ft with 2 Turns (QC): 4 Walk 150 ft (QC): 88 Walking 10ft on Uneven Surface: 4 1 Step (curb) (QC): 3 4 Steps (QC): 3 12 Steps (QC): 88 Picking up an Object (QC): 3 Wheel 50 feet with 2 turns (QC: 6 Wheel 150 feet: 6 PT Plan Problem List Problem List: Activity Tolerance, Functional Strength, Safety, Balance, Gait, Transfer, Bed Mobility, ROM Treatment/Plan Treatment Plan: Continue Plan of Care Treatment Plan: Bed Mobility, Education, Functional Activity Rusty, Functional Strength, Group Therapy, Gait, Safety, Therapeutic Exercise, Transfers Treatment Duration: Jun 11, 2020 Frequency: At least 5 of 7 days/Wk (IRF) Estimated Hrs Per Day: 1.5 hours per day Patient and/or Family Agrees t: Yes Safety Risks/Education Patient Education: Gait Training, Transfer Techniques, Correct Positioning, Safety Issues Teaching Recipient: Patient Teaching Methods: Demonstration, Discussion Response to Teaching: Reinforcement Needed Time/GCodes Time In: 0900 Time Out: 1000 Total Billed Treatment Time: 60 Total Billed Treatment 1 visit GT 15' EX 45' IVY HYDE PT Jun 11, 2020 10:36
--- NOTE | 2020-06-11 11:29 | Occupational Ther Daily Note ---
OT Current Status-Daily Note Subjective Pt seated in w/, agreeable to OT Tx. Pt denies pain, states ability to slightly move wrist on this date. Daughter present throughout tx. ADL-Treatment Therapy Code Descriptions/Definitions Functional [place] Measure: 0=Not Assessed/NA 4=Minimal Assistance 1=Total Assistance 5=Supervision or Setup 2=Maximal Assistance 6=Modified [place] 3=Moderate Assistance 7=Complete IndependenceSCALE: Activities may be completed with or without assistive devices. 5-Gyvzqtpsbs-viflvhh completes the activity by him/herself with no assistance from a helper. 5-Set-up or Clean-up Assistance-helper sets up or cleans up; patient completes activity. [place] assists only prior to or following the activity. 4-Supervision or Touching Assistance-helper provides verbal cues and/or touching/steadying and/or contact guard assistance as patient completes activity. Assistance may be provided throughout the activity or intermittently. 3-Partial/Moderate Assistance-helper does LESS THAN HALF the effort. [place] lifts, holds or supports trunk or limbs, but provides less than half the effort. 2-Substantial/Maximal Assistance-helper does MORE THAN HALF the effort. [place] lifts or holds trunk or limbs and provides more than half the effort. 5-Retqwuzov-wrwold does ALL the effort. Patient does none of the effort to complete the activity. Or, the assistance of 2 or more helpers is required for the patient to complete the activity. If activity was not attempted, code reason: 7-Patient Refused. 9-Not Applicable-not attempted and the patient did not perform the activity before the current illness, exacerbation or injury. 10-Not Attempted due to Environmental Limitations-(lack of equipment, weather restraints, etc.). 88-Not Attempted due to Medical Conditions or Safety Concerns. Other Treatment Pt seated in w/c, used SPC to ambulate to therapy gym, [facility]. Pt sat on therapy mat. OT Tx with focus on neuromuscular reeducation in order to increase functional use of LUE. OT performed PROM/stretching to LUE for the following: elbow flexion/extension and shoulder flexion. Pt performed weight bearing through LUE, with extended elbow, and onto bent forearm, in order to increase proprioceptive input of LUE. E-stim performed to shoulder girdle for shoulder abduction, and retraction. (No e-stim performed at elbow/wrist due to metal plates/screws in forearm). Pt tolerated x10 mins each location, x7 tasha-amps. Pt then performed AROM in gravity eliminated plane, with towel to decrease friction. Pt completed x10 elbow flexion/extension, and x10 wrist flexion/extension. Pt had difficulty with wrist flexion/extension, fatiguing quickly, some movement noted at elbow and wrist, but not full movement. Pt used SPC to return to room, CGA and to w/c. Post tx, pt seated in w/c, call light in reach and all needs met, daughter present. 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 2=Patient will verbalize/demonstrate understanding of assistive d evices/modifications for ADL. 3=Patient will improve strength/tolerance for activity to enable patient to perform ADL's. OT Education/Plan Problem List/Assessment Assessment: Decreased Activ Tolerance, Decreased UE Strength, Impaired Funct Balance, Impaired I ADL's, Impaired Self-Care Skills, Restricted Funct UE ROM Discharge Recommendations Plan/Recommendations: Continue POC Treatment Plan/Plan of Care Patient would benefit from OT for education, treatment and training to promote independence in ADL's, mobility, safety and/or upper extremity function for ADL's. Plan of Care: ADL Retraining, Functional Mobility, Group Exercise/Act as Ind, UE Funct Exercise/Act, UE Neuromus Re-Ed/Coord Treatment Duration: Jun 14, 2020 Frequency: At least 5 of 7 days/Wk (IRF) Estimated Hrs Per Day: 1.5 hours per day Rehab Potential: Good Time/GCodes Start Time: 10:00 Stop Time: 11:15 Total Time Billed (hr/min): 75 Billed Treatment Time 1, NM 5 TRACIE JAY OT Jun 11, 2020 11:29
--- NOTE | 2020-06-11 11:40 | Physical Therapy Daily Note ---
PT Daily Note-Current Subjective Pt laying in supine pre tx, and consented to participate in PT. Pt had mild pain complaints, rating 2/10 in feet and sacral area. Appearance Pt left in bed to eat lunch post tx, with call button placed within reach. Mental Status Patient Orientation: Person, Place, Eyes Open, Situation Attachments: IV Transfers SCALE: Activities may be completed with or without assistive devices. 3-Auszwcimqa-hwsvzak completes the activity by him/herself with no assistance f rom a helper. 5-Set-up or Clean-up Assistance-helper sets up or cleans up; patient completes activity. [place] assists only prior to or following the activity. 4-Supervision or Touching Assistance-helper provides verbal cues and/or touching/steadying and/or contact guard assistance as patient completes activity. Assistance may be provided throughout the activity or intermittently. 3-Partial/Moderate Assistance-helper does LESS THAN HALF the effort. [place] lifts, holds or supports trunk or limbs, but provides less than half the effort. 2-Substantial/Maximal Assistance-helper does MORE THAN HALF the effort. [place] lifts or holds trunk or limbs and provides more than half the effort. 1-Fahvajjyt-ksjopu does ALL the effort. Patient does none of the effort to complete the activity. Or, the assistance of 2 or more helpers is required for the patient to complete the activity. If activity was not attempted, code reason: 7-Patient Refused. 9-Not Applicable-not attempted and the patient did not perform the activity before the current illness, exacerbation or injury. 10-Not Attempted due to Environmental Limitations-(lack of equipment, weather restraints, etc.). 88-Not Attempted due to Medical Conditions or Safety Concerns. Roll Left & Right (QC): 4 Weight Bearing Right Lower Extremity: Right Full Weight Bearing Left Lower Extremity: Left Weight Bearing/Tolerated Exercises Supine Ex: Ankle pumps, Quad Set, Glut sets, Heel Slides, Short Arc Quads (Large blue bolster under knees), Straight leg raise (AAROM), Hip abd/add Supine Reps: 15 Treatments Bed mobility, LE ROM and strengthening Assessment Current Status: Fair Progress Pt demonstrated improved pain tolerance and endurance with bed mobility exercises, and required fewer rest breaks during each set. PT Short Term Goals Short Term Goals Time Frame: May 28, 2020 Roll Left & Right: 6 Sit to lyin Lying to sitting on side of be: 3 Sit to stand: 4 (met) Chair/cqu-md-ujfgi transfer: 3 Walk 10 feet: 3 (met) PT Research And Development Technician Goals Shelter Goals PT Research And Development Technician Goals Time Frame: Jun 11, 2020 Roll Left & Right (QC): 6 Sit to Lying (QC): 6 Lying-Sitting on Side/Bed(QC): 6 Sit to Stand (QC): 5 Chair/Jur-bf-Dyasj Xfer(QC): 4 Toilet Transfer (QC): 4 Car Transfer (QC): 4 Does the Patient Walk: Yes Walk 10 feet (QC): 4 Walk 50ft with 2 Turns (QC): 4 Walk 150 ft (QC): 88 Walking 10ft on Uneven Surface: 4 1 Step (curb) (QC): 3 4 Steps (QC): 3 12 Steps (QC): 88 Picking up an Object (QC): 3 Wheel 50 feet with 2 turns (QC: 6 Wheel 150 feet: 6 PT Plan Problem List Problem List: Activity Tolerance, Functional Strength, Safety, Balance, Gait, Transfer, Bed Mobility, ROM Treatment/Plan Treatment Plan: Continue Plan of Care Treatment Plan: Bed Mobility, Education, Functional Activity Rusty, Functional Strength, Group Therapy, Gait, Safety, Therapeutic Exercise, Transfers Treatment Duration: Jun 11, 2020 Frequency: At least 5 of 7 days/Wk (IRF) Estimated Hrs Per Day: 1.5 hours per day Patient and/or Family Agrees t: Yes Safety Risks/Education Patient Education: Correct Positioning, Safety Issues Teaching Recipient: Patient Teaching Methods: Demonstration, Discussion Response to Teaching: Verbalize Understanding Time/GCodes Time In: 1110 Time Out: 1125 Total Billed Treatment Time: 15 Total Billed Treatment 1 visit Ther ex: 15 min IVY HYDE PT Jun 11, 2020 11:40
--- NOTE | 2020-06-11 13:14 | Speech Therapy Daily Note ---
Speech Daily Progress Note Subjective Date Seen by Provider: Jun 11, 2020 Time Seen by Provider: 00:30 Patient was sitting up in his wc waiting on ST with his daughter present. Objective Patient completed 25 minutes of vital stim with setting on 10.0. Patient completed 20 sets of OME while vital stim was on. Assessment Assessment Current Status: Good Progress Treatment Plan Continue Plan of Care Speech Short Term Goals Short Term Goals Short Term Goals 1) Patient will tolerate least restrictive diet level per physician's order at 90% or greater. 2) Patient/caregiver will utilize compensatory strategies as trained for safe oral intake at 90% or greater without cues. 3) Patient will complete OME as directed 4-5x per week. Speech Manager Restaurant Goals Manager Restaurant Goals Patient will improve swallowing and speech abilities to communicate better/easier with others. Speech-Plan Patient/Family Goals Patient/Family Goals: Patient will discharge to his home where he lives with his and children. Treatment Plan Speech Therapy Treatment Plan: Continue Plan of Care Treatment Duration: Jun 14, 2020 Frequency: 4 times per week (Patient receives skilled ST 4-5x per week) Estimated Hrs Per Day: .5 hour per day Rehab Potential: Good Barriers to Learning: Patient's recent CVA, although he does not have any cognitive deficits Pt/Family Agrees to Plan: Yes Safety Risks/Education Teaching Recipient: Patient, Family Teaching Methods: Demonstration, Discussion Response to Teaching: Verbalize Understanding, Return Demonstration Education Topics Provided: Continued safety within his room and with all oral intake Time Speech Therapy Time In: 11:30 Speech Therapy Time Out: 12:00 Total Billed Time: 30 Billed Treatment Time 1, SLTS, DYST GAVI Limon Jun 11, 2020 13:14
--- NOTE | 2020-06-11 14:04 | Physical Therapy Daily Note ---
PT Daily Note-Current Subjective Pt was lying in bed pre-tx, and gave consent to begin PT. Pt reported noted fatigue from previous session earlier that morning. Appearance Post-tx patient was lying in bed with call button in reach. Pt noted LE fatigue at end of tx session. Mental Status Patient Orientation: Person, Place, Time, Normal For Age Transfers SCALE: Activities may be completed with or without assistive devices. 8-Lwovyefcvz-dcxenng completes the activity by him/herself with no assistance from a helper. 5-Set-up or Clean-up Assistance-helper sets up or cleans up; patient completes activity. [place] assists only prior to or following the activity. 4-Supervision or Touching Assistance-helper provides verbal cues and/or touching/steadying and/or contact guard assistance as patient completes activity. Assistance may be provided throughout the activity or intermittently. 3-Partial/Moderate Assistance-helper does LESS THAN HALF the effort. [place] lifts, holds or supports trunk or limbs, but provides less than half the effort. 2-Substantial/Maximal Assistance-helper does MORE THAN HALF the effort. [place] lifts or holds trunk or limbs and provides more than half the effort. 2-Iuwwsldql-tknivy does ALL the effort. Patient does none of the effort to comp lete the activity. Or, the assistance of 2 or more helpers is required for the patient to complete the activity. If activity was not attempted, code reason: 7-Patient Refused. 9-Not Applicable-not attempted and the patient did not perform the activity before the current illness, exacerbation or injury. 10-Not Attempted due to Environmental Limitations-(lack of equipment, weather restraints, etc.). 88-Not Attempted due to Medical Conditions or Safety Concerns. Roll Left & Right (QC): 6 Sit to Lying (QC): 6 Lying to Sitting/Side of Bed(Q: 6 Sit to Stand (QC): 5 Chair/Jit-aq-Bdkht Xfer(QC): 4 Pt demonstrated improved stability with sit <> stand transfers. Weight Bearing Right Lower Extremity: Right Full Weight Bearing Left Lower Extremity: Left Weight Bearing/Tolerated Gait Training Does the Patient Walk?: Yes Distance: 300' Walk 10 feet (QC): 4 Walk 50 ft with 2 Turns(QC): 4 Walk 150 ft (QC): 4 Gait Persons Needed: 1 Gait Assistive Device: Cane Single Point Pt improved walking distance with no increased instances of loss of balance. One standing rest break. Treatments Gait training, endurance, LE strengthening Assessment Current Status: Fair Progress Pt demonstrated improved endurance with gait training, and continues to demonstrate improved stability during gait pattern. PT Short Term Goals Short Term Goals Time Frame: May 28, 2020 Roll Left & Right: 6 Sit to lyin Lying to sitting on side of be: 3 Sit to stand: 4 (met) Chair/cqo-wa-gmkdh transfer: 3 Walk 10 feet: 3 (met) PT Worm Packer Goals Worm Packer Goals PT Mcfp Goals Time Frame: Jun 11, 2020 Roll Left & Right (QC): 6 Sit to Lying (QC): 6 Lying-Sitting on Side/Bed(QC): 6 Sit to Stand (QC): 5 Chair/Inp-qy-Mlsil Xfer(QC): 4 Toilet Transfer (QC): 4 Car Transfer (QC): 4 Does the Patient Walk: Yes Walk 10 feet (QC): 4 Walk 50ft with 2 Turns (QC): 4 Walk 150 ft (QC): 88 Walking 10ft on Uneven Surface: 4 1 Step (curb) (QC): 3 4 Steps (QC): 3 12 Steps (QC): 88 Picking up an Object (QC): 3 Wheel 50 feet with 2 turns (QC: 6 Wheel 150 feet: 6 PT Plan Problem List Problem List: Activity Tolerance, Functional Strength, Safety, Balance, Gait, Transfer, ROM Treatment/Plan Treatment Plan: Continue Plan of Care Treatment Plan: Education, Functional Activity Rusty, Functional Strength, Group Therapy, Gait, Safety, Therapeutic Exercise, Transfers Treatment Duration: Jun 11, 2020 Frequency: At least 5 of 7 days/Wk (IRF) Estimated Hrs Per Day: 1.5 hours per day Patient and/or Family Agrees t: Yes Safety Risks/Education Patient Education: Gait Training, Transfer Techniques, Correct Positioning, Safety Issues Teaching Recipient: Patient Teaching Methods: Demonstration, Discussion Response to Teaching: Reinforcement Needed Time/GCodes Time In: 1330 Time Out: 1345 Total Billed Treatment Time: 15 Total Billed Treatment 1 visit GT 15' IVY HYDE PT Jun 11, 2020 14:04
[2020-06-11 16:04] VITALS: BP 115/61
[2020-06-11] MEDS: BACLOFEN 10 MG (LIORESAL) TAB PO PRN (20:40)
[2020-06-11] MEDS: MELATONIN 3 MG TABLET PO PRN (20:40)
[2020-06-12 05:03] VITALS: BP 139/85
[2020-06-12 07:58] VITALS: BP 157/77
[2020-06-12] MEDS: amLODIPine 10 MG (NORVASC) TAB PO SCH (07:59)
[2020-06-12] MEDS: DOCUSATE SODIUM 100 MG (COLACE) CAP PO SCH ×2 (07:59→20:31)
[2020-06-12] MEDS: SENNA W/DOCUSATE (SENOKOT S) TABLET PO SCH ×2 (07:59→20:30)
[2020-06-12] MEDS: VALSARTAN 160 MG (DIOVAN) TABLET PO SCH (07:59)
[2020-06-12] MEDS: ASPIRIN 325 MG (5 GR) TABLET PO SCH (07:59)
[2020-06-12] MEDS: polyethylene glycoL POWDER 17 GM (MIRALAX) PACK PO SCH ×2 (08:16→20:23)
--- NOTE | 2020-06-12 09:28 | Speech Therapy Daily Note ---
Speech Daily Progress Note Subjective Date Seen by Provider: Jun 12, 2020 Time Seen by Provider: 00:30 Patient states he is in hopes of returning home tomorrow. Objective Patient completed 25 minutes of vital stim at max setting of 10.0 while completing OME without cuing. Assessment Assessment Current Status: Good Progress Treatment Plan Continue Plan of Care Speech Short Term Goals Short Term Goals Short Term Goals 1) Patient will tolerate least restrictive diet level per physician's order at 90% or greater. 2) Patient/caregiver will utilize compensatory strategies as trained for safe oral intake at 90% or greater without cues. 3) Patient will complete OME as directed 4-5x per week. Speech Assistant Paralegal Goals [facility] Goals Patient will improve swallowing and speech abilities to communicate better/easier with others. Speech-Plan Patient/Family Goals Patient/Family Goals: Patient is returning to his home where he lives with his and children. Treatment Plan Speech Therapy Treatment Plan: Continue Plan of Care Treatment Duration: Jun 14, 2020 Frequency: 4 times per week (Patient receives skilled ST 4-5x per week) Estimated Hrs Per Day: .5 hour per day Rehab Potential: Good Barriers to Learning: None at this time Pt/Family Agrees to Plan: Yes Safety Risks/Education Teaching Recipient: Patient, Family Teaching Methods: Demonstration, Discussion Response to Teaching: Verbalize Understanding, Return Demonstration Education Topics Provided: Continued safety with oral intake upon his return home. Time Speech Therapy Time In: 10:45 Speech Therapy Time Out: 11:15 Total Billed Time: 30 Billed Treatment Time 1, SLTS, DYST No QUALITY CODES: EXPRESSION OF IDEAS/WANTS: 4 UNDERSTANDING VERBAL CONTENT: 4 BRIEF INTERVIEW MENTAL STATUS: YES REPETITION OF 3 WORDS: 3 TEMPORAL ORIENTATION: YEAR: CORRECT, MONTH: CORRECT: DAY: CORRECT RECALL: SOCK: YES, COLOR: YES, BED: YES MEMORY/RECALL ABILITY GAVI CROWE Jun 12, 2020 09:28
--- NOTE | 2020-06-12 09:37 | PM&R Progress Note ---
Subjective HPI/CC On Admission Date Seen by Provider: Jun 12, 2020 Time Seen by Provider: 09:30 Subjective/Events-last exam 06/12/20: Patient ready for DC BM+ AFO Rx reviewed 06/11/20: No issues Patient feels good 06/10/20: Patient doing well BM+ No pain reported 06/09/20: Patient has no issues No pain reported Walking well Left arm moving more 06/08/20: No issues No pain Improved walking No falls 06/07/20: Patient gaining independence No issues Daughter visiting today No pain reported 06/06/20: No major issues reported Walking better and better Stand by assist most of the time now 06/05/20: Pt doing pretty well Moving his left arm a bit today No resident care provider in the left hand He is walking without a cane at times Bowels moving Needs and AFO customized No drooling anymore Family training will likely be required We will check his progress next week 06/04/20: Pt doing pretty well Psych evaluation did not recommend any further follow-up or medications Overall managing everything pretty well Walked without a cane yesterday 06/03/20: Psych eval visit will be today Put on his AFO today Bowels moved yesterday 06/02/20: Patient doing well BM+ Tingling in arm at times reported BP ok Tired today 06/01/20: Patient doing well Left hand improved BM+ Slept hard and was stiff this morning 05/31/20: Patient doing well Balance is better Worked stairs today No falls 05/30/20: Pt doing very well Tens unit has really helped his left side of his face and arm Will fit him for an isotoner glove for edema Will DC Lovenox since it bothers him and he is ambulatory 05/29/20: Pt having no issues Psych evaluation will be at 1 PM Baclofen taken at night for muscle spasms in the left arm Overall doing well and eating and drinking well with no dysphasia 05/28/20: Lipitor stopped by Dr. Rios due to elevated liver enzymes Behavioral note will be evaluated Baclofen taken last night, doesnt know if it worked or not so maintain that and evaluate further Bowels moved yesterday 05/27/20: Pt doing very well Baclofen will be given for the left arm muscle spasms Elevated liver enzymes prompting abdominal ultrasound, ordered by Dr. Rios Overall doing pretty well otherwise 05/26/20: Patient doing well Frustrated with his situation but we can only support him so he can adjust at bedside today TC 178 Pivoting is improved 05/25/20: Left arm remains flaccid Walked to the gym and did well patient tearful at times or on the verge when he talks about his arm BM today No pain reported Tendency for somatic issues 05/24/20: Patient in better mood Tearful at times BM+ Slight elevated in LFT's SCD's refused by patient Showered today 05/23/20: Tearful at times Sore from loop recorder yesterday Wedding ring will be removed today by nursing seismic prospecting supervisor Labs stable BP ok 05/22/20: Loop recorder was placed today by Dr. Rios BP 152/68 Swelling in his left hand, will get his wedding ring off today Very tearful at times Bowels moved four days ago so will initiate laxatives Review of Systems Musculoskeletal: leg pain, foot pain Objective Exam Vital Signs Vital Signs Date Time Temp Pulse Resp B/P (MAP) Pulse Ox O2 Delivery O2 Flow Rate FiO2 06/12/20 20:10 Room Air 06/12/20 16:55 37.0 81 18 143/82 (102) 97 Capillary Refill : General Appearance: No Apparent Distress, WD/WN, Chronically ill, Obese HEENT: PERRL/EOMI, Normal ENT Inspection, Pharynx Normal Neck: Full Range of Motion, Normal Inspection, Non Tender, Supple, Carotid Bruit Respiratory: Chest Non Tender, Lungs Clear, Normal Breath Sounds, No Accessory Muscle Use, No Respiratory Distress Cardiovascular: Regular Rate, Rhythm, No Edema, No Gallop, No JVD, No Murmur, Normal Peripheral Pulses Gastrointestinal: Normal Bowel Sounds, No Organomegaly, No Pulsatile Mass, Non Tender, Soft Back: Normal Inspection, No CVA Tenderness, No Vertebral Tenderness Extremity: Normal Capillary Refill, Normal Inspection, Normal Range of Motion, Non Tender, No Calf Tenderness, No Pedal Edema Neurologic/Psychiatric: Alert, Oriented x3, Abnormal Gait, Depressed Affect, Motor Weakness (left sided arm 1/5 left hand 0/5 left leg 4/5) Skin: Normal Color, Warm/Dry Lymphatic: No Adenopathy Results/Procedures Lab Patient resulted labs reviewed. FIM Transfers Therapy Code Descriptions/Definitions Functional [place] Measure: 0=Not Assessed/NA 4=Minimal Assistance 1=Total Assistance 5=Supervision or Setup 2=Maximal Assistance 6=Modified [place] 3=Moderate Assistance 7=Complete IndependenceSCALE: Activities may be completed with or without assistive devices. 0-Glwmboybbd-kolqjfd completes the activity by him/herself with no assistance from a helper. 5-Set-up or Clean-up Assistance-helper sets up or cleans up; patient completes activity. [place] assists only prior to or following the activity. 4-Supervision or Touching Assistance-helper provides verbal cues and/or touching/steadying and/or contact guard assistance as patient completes activity. Assistance may be provided throughout the activity or intermittently. 3-Partial/Moderate Assistance-helper does LESS THAN HALF the effort. [place] lifts, holds or supports trunk or limbs, but provides less than half the effort. 2-Substantial/Maximal Assistance-helper does MORE THAN HALF the effort. [place] lifts or holds trunk or limbs and provides more than half the effort. 5-Uqhrcdswn-uxhrku does ALL the effort. Patient does none of the effort to complete the activity. Or, the assistance of 2 or more helpers is required for the patient to complete the activity. If activity was not attempted, code reason: 7-Patient Refused. 9-Not Applicable-not attempted and the patient did not perform the activity before the current illness, exacerbation or injury. 10-Not Attempted due to Environmental Limitations-(lack of equipment, weather restraints, etc.). 88-Not Attempted due to Medical Conditions or Safety Concerns. Roll Left to Right (QC): 6 Sit to Lying (QC): 6 Sit to Stand (QC): 5 Chair/Mzq-sa-Qytpc Xfer(QC): 4 Car Transfer (QC): 3 Gait Training Does the Patient Walk?: Yes Distance: 300' Walk 10 feet (QC): 4 Walk 50 ft with 2 Turns(QC): 4 Walk 150 ft (QC): 4 Walking 10ft/uneven surface-QC: 88 Gait Persons Needed: 1 Gait Assistive Device: Cane Single Point Wheelchair Training Does the Pt Use a Wheelchair?: Yes Distance: 120'x2 Wheel 50 ft with 2 turns (QC): 5 Wheel 150 ft (QC): 88 Type of Wheelchair: Manual Stair Training Stair Training: Handrails/: 1 handrail #of Steps: 12 1 Step (curb) (QC): 4 4 Steps (QC): 4 12 Steps (QC): 4 Stairs: Pattern: Step to Balance Picking up an Object (QC): 88 ADL-Treatment Eating (QC): 6 (Pt independent.) Oral Hygiene (QC): 6 (Pt completed prior to OT arrival) Bathing Location: L Arm, R Arm, L Upper Leg, R Upper Leg, L Lower Leg (including foot), Chest, Abdomen, Buttocks, Perineal Area Shower/Bathe Self (QC): 5 (setup, pt able to wash/dry all parts.) Upper Body Dressing (QC): 5 (set up, pt able to doff/don pull tab dealer shirt.) Lower Body Dressing (QC): 5 (set up, pt able to doff/don pants/underwear) On/Off Footwear (QC): 6 (IND donning/doffing socks/shoes.) Toileting Hygiene (QC): 4 (CGA in stand for clothing mangement, pt completes hygiene seated ) Toilet Transfer (QC): 4 (CGA on/off toilet using GBs.) Assessment/Plan Assessment and Plan Assess & Plan/Chief Complaint Assessment: 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 s/p loop recorder 05/22/20 Left arm muscle spasms responded to Baclofen Smoker New onset HTN HLP Fall upon arrival to unit with in room Elevated LFT's with normal liver USG Plan: PT OT Statin ASA Lovenox Monitor closely IRF protocol 05/22/20: Remove wedding ring left finger OT for edema management of the left hand Loop recorder 05/23/20: Wedding ring removed OT PT Monitor BP 05/24/20: Patient refuses SCD's Monitor BP Fall risk 05/25/20: Monitor closely Ambulating well with kiana-cane Loop recorder 05/26/20: Statin BP control Monitor closely 05/27/20: USG liver Elevated LFT's will be monitored DC monster drinks and soda 05/28/20: Hold statin due to elevated LFT's Monitor closely IRF protocol 05/29/20: Baclofen HS Monitor for falls Hold statin 05/30/20: Hold statin DC Lovenox 05/31/20: Monitor for falls Works on stairs 06/01/20: Improved edema left hand Doing really well with therapy 06/02/20: Monitor BP DC statin due to elevated LFT's 06/03/20: Monitor BP Intense therapy 06/04/20: Major improvement Continue monitoring closely 06/05/20: Improved status AFO to be made Monitor for falls 06/06/20: Monitor for falls BP good Improved status 06/07/20: Monitor closely Improved status 06/08/20: Monitor BP Fall risk 06/09/20: Monitor closely Ambulating well 06/10/20: Monitor closely Intense therapy 06/11/20: DC planning 06/12/20: Monitor closely DC tomorrow (1) CVA (cerebral vascular accident) (2) Essential (primary) hypertension (3) Tobacco abuse (4) Hyperlipidemia RADHA COPPOLA DO Jun 12, 2020 09:37
--- NOTE | 2020-06-12 10:33 | Occupational Ther Daily Note ---
OT Current Status-Daily Note Subjective Pt seated up in w/c, agreeable to OT tx. Pt's daughter joined session, educated on pt's assistance level required with ADLs. ADL-Treatment Therapy Code Descriptions/Definitions Functional [place] Measure: 0=Not Assessed/NA 4=Minimal Assistance 1=Total Assistance 5=Supervision or Setup 2=Maximal Assistance 6=Modified [place] 3=Moderate Assistance 7=Complete IndependenceSCALE: Activities may be completed with or without assistive devices. 5-Bgiuzsjpyq-ohuzdto completes the activity by him/herself with no assistance from a helper. 5-Set-up or Clean-up Assistance-helper sets up or cleans up; patient completes activity. [place] assists only prior to or following the activity. 4-Supervision or Touching Assistance-helper provides verbal cues and/or touching/steadying and/or contact guard assistance as patient completes activity. Assistance may be provided throughout the activity or intermittently. 3-Partial/Moderate Assistance-helper does LESS THAN HALF the effort. [place] lifts, holds or supports trunk or limbs, but provides less than half the effort. 2-Substantial/Maximal Assistance-helper does MORE THAN HALF the effort. [place] lifts or holds trunk or limbs and provides more than half the effort. 6-Labvfebio-nhxiym does ALL the effort. Patient does none of the effort to complete the activity. Or, the assistance of 2 or more helpers is required for the patient to complete the activity. If activity was not attempted, code reason: 7-Patient Refused. 9-Not Applicable-not attempted and the patient did not perform the activity before the current illness, exacerbation or injury. 10-Not Attempted due to Environmental Limitations-(lack of equipment, weather restraints, etc.). 88-Not Attempted due to Medical Conditions or Safety Concerns. Eating (QC): 6 Oral Hygiene (QC): 6 (IND seated.) Shower/Bathe Self (QC): 6 (Pt able to wash/dry all parts seated on SC, AE as needed) Upper Body Dressing (QC): 6 (IND, pt gathered clothing from closet prior to tx) Lower Body Dressing (QC): 4 (supervision in stand. Pt gathered clothes from closet prior to tx.) On/Off Footwear: 6 (INd donning/doffing socks/shoes) Toileting Hygiene (QC): 6 Other Treatment Pt seated in w/c, transferred onto SC. Pt completed showering, then transferred to chair to don clothes. Pt's daughter educated on pt's assistance level required with ADLS. Pt used SPC to ambulate to therapy gym, pt's daughter educated on using gait belt, then she assisted pt with walking to therapy gym. Pt required CGA with ambulation. On therapy mat, pt performed weight bearing through extended elbow and on bent forearm in order to increase proprioceptive input and neuromuscular reeducation of LUE. Pt returned to room using SPC, CGA. Post tx, pt seated in w/c, call light in reach and all needs met, daughter present. Education OT Patient Education: Correct positioning, Modified ADL techniques, Progress toward Goal/Update tx plan, Purpose of tx/functional activities Teaching Recipient: Patient Teaching Methods: Discussion Response to Teaching: Verbalize Understanding OT Short Term Goals Short Term Goals Time Frame: Jun 05, 2020 Shower/bathe self: 3 Lower body dressin Putting on/taking off footwear: 3 OT Penitentiary Goals Penitentiary Goals Time Frame: Jun 21, 2020 Eating (QC): 6 (met) Oral Hygiene (QC): 6 (met) Toileting Hygiene (QC): 6 (met) Shower/Bathe Self (QC): 6 (not met, supervision) Upper Body Dressing (QC): 6 (met) Lower Body Dressing (QC): 6 (met) On/Off Footwear (QC): 6 (met) Additional Goals: 1-Demonstrate ADL Tasks, 2-Verbalize Understanding, 3- ImproveStrength/Rusty 1=Demonstrate adherence to instructed precautions during ADL tasks. 2=Patient will verbalize/demonstrate understanding of assistive devices/modifications for ADL. 3=Patient will improve strength/tolerance for activity to enable patient to perform ADL's. OT Education/Plan Problem List/Assessment Assessment: Decreased Activ Tolerance, Decreased UE Strength, Impaired Funct Balance, Impaired I ADL's, Restricted Funct UE ROM Discharge Recommendations Plan/Recommendations: Continue POC Treatment Plan/Plan of Care Patient would benefit from OT for education, treatment and training to promote independence in ADL's, mobility, safety and/or upper extremity function for ADL's. Plan of Care: ADL Retraining, Functional Mobility, Group Exercise/Act as Ind, UE Funct Exercise/Act, UE Neuromus Re-Ed/Coord Treatment Duration: Jun 14, 2020 Frequency: At least 5 of 7 days/Wk (IRF) Estimated Hrs Per Day: 1.5 hours per day Rehab Potential: Good Time/GCodes Start Time: 08:00 Stop Time: 09:15 Total Time Billed (hr/min): 75 Billed Treatment Time 1, ADL 4 (60'), FA (15') TRACIE JAY OT Jun 12, 2020 10:33
--- NOTE | 2020-06-12 10:56 | Physical Therapy Daily Note ---
PT Daily Note-Current Subjective Pt. is jovial and states he is ready to DC. Dtr present and supportive, here for training. Pt. states he is beginning to get his DF back on right foot Pain Location: No Pain Reported Mental Status Patient Orientation: Normal For Age Attachments: Other-See Comments (mask) Transfers SCALE: Activities may be completed with or without assistive devices. 4-Arydjtyqdu-mvzyoqe completes the activity by him/herself with no assistance from a helper. 5-Set-up or Clean-up Assistance-helper sets up or cleans up; patient completes activity. [place] assists only prior to or following the activity. 4-Supervision or Touching Assistance-helper provides verbal cues and/or touching/steadying and/or contact guard assistance as patient completes activity. Assistance may be provided throughout the activity or intermittently. 3-Partial/Moderate Assistance-helper does LESS THAN HALF the effort. [place] lifts, holds or supports trunk or limbs, but provides less than half the effort. 2-Substantial/Maximal Assistance-helper does MORE THAN HALF the effort. [place] lifts or holds trunk or limbs and provides more than half the effort. 7-Qfavpxgkv-cdwquj does ALL the effort. Patient does none of the effort to complete the activity. Or, the assistance of 2 or more helpers is required for the patient to complete the activity. If activity was not attempted, code reason: 7-Patient Refused. 9-Not Applicable-not attempted and the patient did not perform the activity before the current illness, exacerbation or injury. 10-Not Attempted due to Environmental Limitations-(lack of equipment, weather restraints, etc.). 88-Not Attempted due to Medical Conditions or Safety Concerns. Roll Left & Right (QC): 6 Sit to Lying (QC): 6 Lying to Sitting/Side of Bed(Q: 6 Sit to Stand (QC): 6 Chair/Qus-jl-Dofqj Xfer(QC): 6 Toilet Transfer (QC): 6 Car Transfer (QC): 6 pt. with safe TRF habits Weight Bearing Right Lower Extremity: Right Full Weight Bearing Left Lower Extremity: Left Weight Bearing/Tolerated Gait Training Does the Patient Walk?: Yes Walk 10 feet (QC): 5 Walk 50 ft with 2 Turns(QC): 5 Walk 150 ft (QC): 5 Walking 10ft/uneven surface-QC: 5 Gait Persons Needed: 1 Gait Assistive Device: Cane Single Point (tripod hurry style cane tip) 150ft x 4 turns, some backing, chair approaches, over uneven surface, all SBA to CGA Stair Training Stair Training: Handrails/: 1 handrail #of Steps: 4 1 Step (curb) (QC): 4 4 Steps (QC): 4 12 Steps (QC): 88 Stairs: Pattern: Step to pt. needs some reminder of sequence, dtr present ad trained in step ascending and descending Balance Picking up an Object (QC): 88 Exercises Supine Ex: Bridging, Ankle pumps, Quad Set, Rolling, Glut sets, Heel Slides, Short Arc Quads, Scooting, Straight leg raise, Hip abd/add Supine Reps: 20 Seated Therapy Exercises: Ankle pumps, Sit to stand, Long arc quads, Hip flexion Seated Reps: 20 Standing: Hip Abduction, Marching Standing Reps: 10 NuStep Minutes: 15 NuStep Workload: 5 Assessment Current Status: Good Progress PT Short Term Goals Short Term Goals Time Frame: May 28, 2020 Roll Left & Right: 6 Sit to lyin Lying to sitting on side of be: 3 Sit to stand: 4 (met) Chair/cpw-uh-ltapx transfer: 3 Walk 10 feet: 3 (met) PT Mcc Goals Mcc Goals PT [employer] Goals Time Frame: Jun 11, 2020 Roll Left & Right (QC): 6 Sit to Lying (QC): 6 Lying-Sitting on Side/Bed(QC): 6 Sit to Stand (QC): 5 Chair/Klc-bl-Rackf Xfer(QC): 4 Toilet Transfer (QC): 4 Car Transfer (QC): 4 Does the Patient Walk: Yes Walk 10 feet (QC): 4 Walk 50ft with 2 Turns (QC): 4 Walk 150 ft (QC): 88 Walking 10ft on Uneven Surface: 4 1 Step (curb) (QC): 3 4 Steps (QC): 3 12 Steps (QC): 88 Picking up an Object (QC): 3 Wheel 50 feet with 2 turns (QC: 6 Wheel 150 feet: 6 PT Plan Treatment/Plan Treatment Plan: Continue Plan of Care Treatment Plan: Education, Functional Activity Rusty, Functional Strength, Group Therapy, Gait, Safety, Therapeutic Exercise, Transfers Treatment Duration: Jun 11, 2020 Frequency: At least 5 of 7 days/Wk (IRF) Estimated Hrs Per Day: 1.5 hours per day Patient and/or Family Agrees t: Yes Safety Risks/Education Patient Education: Gait Training, Transfer Techniques, Steps, Correct Positioning, Instructions to Caregiver, Disease Process, Safety Issues Teaching Recipient: Patient, Family Teaching Methods: Demonstration, Discussion Response to Teaching: Verbalize Understanding, Return Demonstration, Reinforcement Needed Time/GCodes Time In: 930 Time Out: 1045 Total Billed Treatment Time: 75 Total Billed Treatment 1,GT20m,FA30m,EX25m [facility] Jun 12, 2020 10:56
[2020-06-12] MEDS: CALCIUM CARBONATE 500 MG (TUMS) TAB.CHEW PO PRN (11:53)
[2020-06-12 16:55] VITALS: BP 143/82
[2020-06-12] MEDS: BACLOFEN 10 MG (LIORESAL) TAB PO PRN (20:30)
[2020-06-12] MEDS: MELATONIN 3 MG TABLET PO PRN (20:30)
[2020-06-13] MEDS ORDERED: ASPI-808 PO (05:07)
[2020-06-13] MEDS ORDERED: VALS160T29 PO (05:07)
[2020-06-13] MEDS ORDERED: BACL10TA PO (05:07)
[2020-06-13] MEDS ORDERED: OXC5T PO (05:07)
[2020-06-13] MEDS ORDERED: AMLO-251 PO (05:07)
[2020-06-13] MEDS ORDERED: MTP25TSR PO (05:07)
--- NOTE | 2020-06-13 05:08 | Discharge Summary ---
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 s/p loop recorder 05/22/20 Left arm muscle spasms responded to Baclofen Smoker New onset HTN HLP Fall upon arrival to unit with in room Elevated LFT's with normal liver USG Plan: PT OT Statin ASA Lovenox Monitor closely IRF protocol 05/22/20: Remove wedding ring left finger OT for edema management of the left hand Loop recorder 05/23/20: Wedding ring removed OT PT Monitor BP 05/24/20: Patient refuses SCD's Monitor BP Fall risk 05/25/20: Monitor closely Ambulating well with kiana-cane Loop recorder 05/26/20: Statin BP control Monitor closely 05/27/20: USG liver Elevated LFT's will be monitored DC monster drinks and soda 05/28/20: Hold statin due to elevated LFT's Monitor closely IRF protocol 05/29/20: Baclofen HS Monitor for falls Hold statin 05/30/20: Hold statin DC Lovenox 05/31/20: Monitor for falls Works on stairs 06/01/20: Improved edema left hand Doing really well with therapy 06/02/20: Monitor BP DC statin due to elevated LFT's 06/03/20: Monitor BP Intense therapy 06/04/20: Major improvement Continue monitoring closely 06/05/20: Improved status AFO to be made Monitor for falls 06/06/20: Monitor for falls BP good Improved status 06/07/20: Monitor closely Improved status 06/08/20: Monitor BP Fall risk 06/09/20: Monitor closely Ambulating well 06/10/20: Monitor closely Intense therapy 06/11/20: DC planning 06/12/20: Monitor closely DC tomorrow (1) CVA (cerebral vascular accident) (2) Essential (primary) hypertension (3) Tobacco abuse (4) Hyperlipidemia Discharge Summary Discharge Physical Examination Allergies: Coded Allergies: naproxen (Verified Allergy, Unknown, 05/19/20) Vitals & I&Os Vital Signs Date Time Temp Pulse Resp B/P (MAP) Pulse Ox O2 Delivery O2 Flow Rate FiO2 06/13/20 14:12 36.4 70 20 138/84 96 Room Air General Appearance: Alert, Oriented X3, Cooperative Respiratory: Clear to Auscultation Cardiovascular: Regular Rate Neuro: Normal Gait, Normal Speech, Strength at 5/5 X4 Ext (except left arm/hand) Hospital Course Was the Problem List Reviewed?: Yes Lengthy course in IRF after transferring from 4th floor after subacute CVA on presentation to the ER. Left sided weakness was catastrophic but he was able to receive benefit from aggressive PT and OT in order to recover a significant amount of function. Psych evaluation was required due to severe grief reaction but did not require any meds. BP meds were started and statin was started but statin was held due to severe elevation in LFT's causing hepatitis with normal USG of the liver si he was unable to tolerate and that med was DC. Loop recorder placed by Dr Rios. Overall he remained stable during hospital course and overall he was ready for DC with outpatient PT and OT. Labs (last 24 hrs) Laboratory Tests 05/22/20 05:15: White Blood Count 8.8, Red Blood Count 4.93, Hemoglobin 14.5, Hematocrit 42, Mean Corpuscular Volume 86, Mean Corpuscular Hemoglobin 29, Mean Corpuscular Hemoglobin Concent 34, Red Cell Distribution Width 12.6, Platelet Count 255, Mean Platelet Volume 10.5, Immature Granulocyte % (Auto) 0, Neutrophils (%) (Auto) 64, Lymphocytes (%) (Auto) 22, Monocytes (%) (Auto) 10, Eosinophils (%) (Auto) 4, Basophils (%) (Auto) 1, Neutrophils # (Auto) 5.6, Lymphocytes # (Auto) 1.9, Monocytes # (Auto) 0.9, Eosinophils # (Auto) 0.3, Basophils # (Auto) 0.1, Immature Granulocyte # (Auto) 0.0, Sodium Level 139, Potassium Level 3.9, Chloride Level 111H, Carbon Dioxide Level 21, Anion Gap 7, Blood Urea Nitrogen 13, Creatinine 0.85, Estimat Glomerular Filtration Rate > 60, BUN/Creatinine Ratio 15, Glucose Level 91, Calcium Level 8.6, Corrected Calcium 8.7, Total Bilirubin 0.7, Aspartate Amino Transf (AST/SGOT) 33, Alanine Aminotransferase (ALT/SGPT) 39, Alkaline Phosphatase 84, Total Protein 6.8, Albumin 3.9 05/27/20 05:25: White Blood Count 9.6, Red Blood Count 4.68, Hemoglobin 13.8, Hematocrit 41, Mean Corpuscular Volume 87, Mean Corpuscular Hemoglobin 30, Mean Corpuscular Hemoglobin Concent 34, Red Cell Distribution Width 12.1, Platelet Count 246, Mean Platelet Volume 11.3, Immature Granulocyte % (Auto) 0, Neutrophils (%) (Auto) 70, Lymphocytes (%) (Auto) 17, Monocytes (%) (Auto) 9, Eosinophils (%) (Auto) 3, Basophils (%) (Auto) 1, Neutrophils # (Auto) 6.7, Lymphocytes # (Auto) 1.7, Monocytes # (Auto) 0.9, Eosinophils # (Auto) 0.3, Basophils # (Auto) 0.1, Immature Granulocyte # (Auto) 0.0, Sodium Level 139, Potassium Level 4.3, Chloride Level 111H, Carbon Dioxide Level 19L, Anion Gap 9, Blood Urea Nitrogen 15, Creatinine 0.83, Estimat Glomerular Filtration Rate > 60, BUN/Creatinine Ratio 18, Glucose Level 91, Calcium Level 8.5, Corrected Calcium 8.7, Total Bilirubin 0.4, Aspartate Amino Transf (AST/SGOT) 80H, Alanine Aminotransferase (ALT/SGPT) 128H, Alkaline Phosphatase 84, Total Protein 6.2L, Albumin 3.8 06/03/20 05:40: White Blood Count 10.1, Red Blood Count 4.48, Hemoglobin 13.0L, Hematocrit 39L, Mean Corpuscular Volume 86, Mean Corpuscular Hemoglobin 29, Mean Corpuscular Hemoglobin Concent 34, Red Cell Distribution Width 11.6, Platelet Count 303, Me an Platelet Volume 10.9, Immature Granulocyte % (Auto) 0, Neutrophils (%) (Auto) 69, Lymphocytes (%) (Auto) 19, Monocytes (%) (Auto) 8, Eosinophils (%) (Auto) 4, Basophils (%) (Auto) 1, Neutrophils # (Auto) 6.9, Lymphocytes # (Auto) 1.9, Monocytes # (Auto) 0.8, Eosinophils # (Auto) 0.4H, Basophils # (Auto) 0.1, Immature Granulocyte # (Auto) 0.0, Sodium Level 139, Potassium Level 4.4, Chloride Level 108H, Carbon Dioxide Level 22, Anion Gap 9, Blood Urea Nitrogen 12, Creatinine 0.83, Estimat Glomerular Filtration Rate > 60, BUN/Creatinine Ratio 14, Glucose Level 95, Calcium Level 8.7, Corrected Calcium 8.9, Total Bilirubin 0.4, Aspartate Amino Transf (AST/SGOT) 22, Alanine Aminotransferase (ALT/SGPT) 55, Alkaline Phosphatase 85, Total Protein 6.7, Albumin 3.7 06/10/20 05:00: White Blood Count 9.2, Red Blood Count 4.51, Hemoglobin 13.2L, Hematocrit 39L, Mean Corpuscular Volume 87, Mean Corpuscular Hemoglobin 29, Mean Corpuscular Hemoglobin Concent 34, Red Cell Distribution Width 11.6, Platelet Count 321, Mean Platelet Volume 10.7, Immature Granulocyte % (Auto) 0, Neutrophils (%) (Auto) 63, Lymphocytes (%) (Auto) 22, Monocytes (%) (Auto) 9, Eosinophils (%) (Auto) 5, Basophils (%) (Auto) 1, Neutrophils # (Auto) 5.8, Lymphocytes # (Auto) 2.0, Monocytes # (Auto) 0.8, Eosinophils # (Auto) 0.4H, Basophils # (Auto) 0.1, Immature Granulocyte # (Auto) 0.0, Sodium Level 140, Potassium Level 4.3, Chloride Level 108H, Carbon Dioxide Level 22, Anion Gap 10, Blood Urea Nitrogen 11, Creatinine 0.82, Estimat Glomerular Filtration Rate > 60, BUN/Creatinine Ratio 13, Glucose Level 93, Calcium Level 8.8, Corrected Calcium 9.1, Total Bilirubin 0.2, Aspartate Amino Transf (AST/SGOT) 23, Alanine Aminotransferase (ALT/SGPT) 46, Alkaline Phosphatase 87, Total Protein 6.5, Albumin 3.6 Pending Labs Laboratory Tests 05/22/20 05:15: White Blood Count 8.8, Red Blood Count 4.93, Hemoglobin 14.5, Hematocrit 42, Mean Corpuscular Volume 86, Mean Corpuscular Hemoglobin 29, Mean Corpuscular Hemoglobin Concent 34, Red Cell Distribution Width 12.6, Platelet Count 255, Mean Platelet Volume 10.5, Immature Granulocyte % (Auto) 0, Neutrophils (%) (Auto) 64, Lymphocytes (%) (Auto) 22, Monocytes (%) (Auto) 10, Eosinophils (%) (Auto) 4, Basophils (%) (Auto) 1, Neutrophils # (Auto) 5.6, Lymphocytes # (Auto) 1.9, Monocytes # (Auto) 0.9, Eosinophils # (Auto) 0.3, Basophils # (Auto) 0.1, Immature Granulocyte # (Auto) 0.0, Sodium Level 139, Potassium Level 3.9, Chloride Level 111, Carbon Dioxide Level 21, Anion Gap 7, Blood Urea Nitrogen 13, Creatinine 0.85, Estimat Glomerular Filtration Rate > 60, BUN/Creatinine Ratio 15, Glucose Level 91, Calcium Level 8.6, Corrected Calcium 8.7, Total Bilirubin 0.7, Aspartate Amino Transf (AST/SGOT) 33, Alanine Aminotransferase (ALT/SGPT) 39, Alkaline Phosphatase 84, Total Protein 6.8, Albumin 3.9 05/27/20 05:25: White Blood Count 9.6, Red Blood Count 4.68, Hemoglobin 13.8, Hematocrit 41, Mean Corpuscular Volume 87, Mean Corpuscular Hemoglobin 30, Mean Corpuscular Hemoglobin Concent 34, Red Cell Distribution Width 12.1, Platelet Count 246, Mean Platelet Volume 11.3, Immature Granulocyte % (Auto) 0, Neutrophils (%) (Auto) 70, Lymphocytes (%) (Auto) 17, Monocytes (%) (Auto) 9, Eosinophils (%) (Auto) 3, Basophils (%) (Auto) 1, Neutrophils # (Auto) 6.7, Lymphocytes # (Auto) 1.7, Monocytes # (Auto) 0.9, Eosinophils # (Auto) 0.3, Basophils # (Auto) 0.1, Immature Granulocyte # (Auto) 0.0, Sodium Level 139, Potassium Level 4.3, Chloride Level 111, Carbon Dioxide Level 19, Anion Gap 9, Blood Urea Nitrogen 15, Creatinine 0.83, Estimat Glomerular Filtration Rate > 60, BUN/Creatinine Ratio 18, Glucose Level 91, Calcium Level 8.5, Corrected Calcium 8.7, Total Bilirubin 0.4, Aspartate Amino Transf (AST/SGOT) 80, Alanine Aminotransferase (ALT/SGPT) 128, Alkaline Phosphatase 84, Total Protein 6.2, Albumin 3.8 06/03/20 05:40: White Blood Count 10.1, Red Blood Count 4.48, Hemoglobin 13.0, Hematocrit 39, Mean Corpuscular Volume 86, Mean Corpuscular Hemoglobin 29, Mean Corpuscular Hemoglobin Concent 34, Red Cell Distribution Width 11.6, Platelet Count 303, Mean Platelet Volume 10.9, Immature Granulocyte % (Auto) 0, Neutrophils (%) (Auto) 69, Lymphocytes (%) (Auto) 19, Monocytes (%) (Auto) 8, Eosinophils (%) (Auto) 4, Basophils (%) (Auto) 1, Neutrophils # (Auto) 6.9, Lymphocytes # (Auto) 1.9, Monocytes # (Auto) 0.8, Eosinophils # (Auto) 0.4, Basophils # (Auto) 0.1, Immature Granulocyte # (Auto) 0.0, Sodium Level 139, Potassium Level 4.4, Chloride Level 108, Carbon Dioxide Level 22, Anion Gap 9, Blood Urea Nitrogen 12, Creatinine 0.83, Estimat Glomerular Filtration Rate > 60, BUN/Creatinine Ratio 14, Glucose Level 95, Calcium Level 8.7, Corrected Calcium 8.9, Total Bilirubin 0.4, Aspartate Amino Transf (AST/SGOT) 22, Alanine Aminotransferase (ALT/SGPT) 55, Alkaline Phosphatase 85, Total Protein 6.7, Albumin 3.7 06/10/20 05:00: White Blood Count 9.2, Red Blood Count 4.51, Hemoglobin 13.2, Hematocrit 39, Mean Corpuscular Volume 87, Mean Corpuscular Hemoglobin 29, Mean Corpuscular Hemoglobin Concent 34, Red Cell Distribution Width 11.6, Platelet Count 321, Mean Platelet Volume 10.7, Immature Granulocyte % (Auto) 0, Neutrophils (%) (Auto) 63, Lymphocytes (%) (Auto) 22, Monocytes (%) (Auto) 9, Eosinophils (%) (Auto) 5, Basophils (%) (Auto) 1, Neutrophils # (Auto) 5.8, Lymphocytes # (Auto) 2.0, Monocytes # (Auto) 0.8, Eosinophils # (Auto) 0.4, Basophils # (Auto) 0.1, Immature Granulocyte # (Auto) 0.0, Sodium Level 140, Potassium Level 4.3, Chloride Level 108, Carbon Dioxide Level 22, Anion Gap 10, Blood Urea Nitrogen 11, Creatinine 0.82, Estimat Glomerular Filtration Rate > 60, BUN/Creatinine Ratio 13, Glucose Level 93, Calcium Level 8.8, Corrected Calcium 9.1, Total Bilirubin 0.2, Aspartate Amino Transf (AST/SGOT) 23, Alanine Aminotransferase (ALT/SGPT) 46, Alkaline Phosphatase 87, Total Protein 6.5, Albumin 3.6 Discharge Home Medications: Active Scripts Active Oxyir Tablet (Oxycodone HCl) 5 Mg Tab 5-10 Mg PO Q4H PRN Aspirin 325 Mg Tablet 325 Mg PO DAILY Valsartan 160 Mg Tablet 160 Mg PO DAILY Amlodipine Besylate 10 Mg Tablet 10 Mg PO DAILY Metoprolol Succinate 25 Mg Tab.er.24h 25 Mg PO DAILY Baclofen 10 Mg Tablet 10 Mg PO TID PRN Instructions to patient/family Please see electronic discharge instructions given to patient. Diagnosis/Problems Diagnosis/Problems (1) CVA (cerebral vascular accident) (2) Essential (primary) hypertension (3) Tobacco abuse (4) Hyperlipidemia RADHA COPPOLA DO Jun 13, 2020 05:08
[2020-06-13 06:06] VITALS: BP 129/60
[2020-06-13 08:00] VITALS: BP 138/84
--- NOTE | 2020-06-13 09:10 | Therapy Team Discharge Summary ---
Therapy Discharge Summary Discharge Recommendations Date of Discharge Physical Therapy Patient came to rehab following a CVA. Upon evaluation patient performed bed mobility with min assist, supine <-> sit mod assist, sit <-> stand min assist, transfer min assist, car transfer mod assist, ambulated 6' in the parallel bars with min assist, and propelled a manual WC 120' with min assist. Patient has been performing bed mobility and transfer training, balance and endurance training, functional strengthening, stair training, gait training, and education. Patient has made good progress and has met all of his mcc goals. Now, patient performs bed mobility and transfers with independence, car transfer independent, ambulates 150' with a SPC with CGA (including 50' with at least 2 turns of 90 degrees and 10' over an uneven surface), and can go up and down 12 steps using 1 handrails with CGA. Patient is discharging from this facility today and will be discharged from PT at this time. Occupational Therapy Decreased Activ Tolerance, Decreased UE Strength, Impaired Funct Balance, Impaired I ADL's, Restricted Funct UE ROM PT Half-Way Goals It Quality Analyst Goals PT It Quality Analyst Goals Time Frame: Jun 11, 2020 Roll Left to Right (QC): 6 Sit to Lying (QC): 6 Lying-Sitting on Side/Bed(QC): 6 Sit to Stand (QC): 5 Chair/Xmc-px-Iehxn Xfer(QC): 4 Car Transfer (QC): 4 Does the Patient Walk: Yes Walk 10 feet (QC): 4 Walk 10ft-Uneven Surface(QC): 4 Walk 50ft with 2 Turns (QC): 4 Walk 150 ft (QC): 88 Wheel 50 feet with 2 turns (QC: 6 1 Step (curb) (QC): 3 4 Steps (QC): 3 12 Steps (QC): 88 Picking up an Object (QC): 3 OT Half-Way Goals It Quality Analyst Goals Time Frame: Jun 21, 2020 Eating (FIM): 6 Eating (QC): 6 (met) Oral Hygiene (QC): 6 (met) Shower/Bathe Self (QC): 6 (not met, supervision) Upper Body Dressing (QC): 6 (met) Lower Body Dressing (QC): 6 (met) On/Off Footwear (QC): 6 (met) Toileting(FIM): 6 Toileting Hygiene (QC): 6 (met) Toilet/Commode Transfer (QC): 4 Additional Goals: 1-Demonstrate ADL Tasks, 2-Verbalize Understanding, 3- ImproveStrength/Rusty 1=Demonstrate adherence to instructed precautions during ADL tasks. 2=Patient will verbalize/demonstrate understanding of assistive devices/modifications for ADL. 3=Patient will improve strength/tolerance for activity to enable patient to perform ADL's. Speech Half-Way Goals Half-Way Goals Patient will improve swallowing and speech abilities to communicate better/easier with others. IVY HYDE PT Jun 13, 2020 09:10
[2020-06-13] MEDS: amLODIPine 10 MG (NORVASC) TAB PO SCH (09:12)
[2020-06-13] MEDS: DOCUSATE SODIUM 100 MG (COLACE) CAP PO SCH (09:12)
[2020-06-13] MEDS: ASPIRIN 325 MG (5 GR) TABLET PO SCH (09:12)
[2020-06-13] MEDS: polyethylene glycoL POWDER 17 GM (MIRALAX) PACK PO SCH (09:12)
[2020-06-13] MEDS: SENNA W/DOCUSATE (SENOKOT S) TABLET PO SCH (09:12)
[2020-06-13] MEDS: VALSARTAN 160 MG (DIOVAN) TABLET PO SCH (09:12)
--- NOTE | 2020-06-13 12:14 | Therapy Team Discharge Summary ---
Therapy Discharge Summary Discharge Recommendations Date of Discharge Occupational Therapy Decreased Activ Tolerance, Decreased UE Strength, Impaired Funct Balance, Impaired I ADL's, Restricted Funct UE ROM Speech-Language Pathology Patient was admitted to the ARU s/p CVA. Patient was evaluated upon admission by ST for cognitive status which was within normal limits. He did have some swallowing and speech deficits for which he received vital stim each session with good response and built up to tolerance of maximum stimuli. Patient made progress and has met all ST goals. He is discharging to his home today where he lives with his and family. PT Supervisor Propellant Charge Loading Goals Supervisor Propellant Charge Loading Goals PT Intermediate Goals Time Frame: Jun 11, 2020 Roll Left to Right (QC): 6 Sit to Lying (QC): 6 Lying-Sitting on Side/Bed(QC): 6 Sit to Stand (QC): 5 Chair/Tfb-dt-Yqweq Xfer(QC): 4 Car Transfer (QC): 4 Does the Patient Walk: Yes Walk 10 feet (QC): 4 Walk 10ft-Uneven Surface(QC): 4 Walk 50ft with 2 Turns (QC): 4 Walk 150 ft (QC): 88 Wheel 50 feet with 2 turns (QC: 6 1 Step (curb) (QC): 3 4 Steps (QC): 3 12 Steps (QC): 88 Picking up an Object (QC): 3 OT Supervisor Propellant Charge Loading Goals Intermediate Goals Time Frame: Jun 21, 2020 Eating (FIM): 6 Eating (QC): 6 (met) Oral Hygiene (QC): 6 (met) Shower/Bathe Self (QC): 6 (not met, supervision) Upper Body Dressing (QC): 6 (met) Lower Body Dressing (QC): 6 (met) On/Off Footwear (QC): 6 (met) Toileting(FIM): 6 Toileting Hygiene (QC): 6 (met) Toilet/Commode Transfer (QC): 4 Additional Goals: 1-Demonstrate ADL Tasks, 2-Verbalize Understanding, 3- ImproveStrength/Rusty 1=Demonstrate adherence to instructed precautions during ADL tasks. 2=Patient will verbalize/demonstrate understanding of assistive devices/modifications for ADL. 3=Patient will improve strength/tolerance for activity to enable patient to perform ADL's. Speech Intermediate Goals Intermediate Goals Patient will improve swallowing and speech abilities to communicate better/easier with others. SEBASTIEN,GAVI ST Jun 13, 2020 12:14
[2020-06-13 14:12] VITALS: BP 138/84
--- NOTE | 2020-06-14 10:32 | Therapy Team Discharge Summary ---
Therapy Discharge Summary Discharge Recommendations Date of Discharge Jun 13, 2020 at 09:45 Occupational Therapy Pt admitted to ARU s/p CVA. At PLOF, pt was independent with all ADLS and fun ctional mobility without AD/AE. Upon initial evaluation, pt required set up assistance with eating, mod A oral care, min A showering, max A upper body dressing, max A lower body dressing, and total assist with toileting. OT txs focused on increasing safety and independence with ADLs, increasing functional use LUE, neuromuscular reeducation of LUE. At discharge pt was independent with eating, oral care, showering, upper body dressing, footwear and toileting, required supervision with lower body dressing. Pt met all LTGs except lower body dressing. OT recommends extended bath bench. Pt discharged from facility, d/c from OT Decreased Activ Tolerance, Decreased UE Strength, Impaired Funct Balance, Impaired I ADL's, Restricted Funct UE ROM PT Cytology Technologist Goals Fdc Goals PT Fdc Goals Time Frame: Jun 11, 2020 Roll Left to Right (QC): 6 Sit to Lying (QC): 6 Lying-Sitting on Side/Bed(QC): 6 Sit to Stand (QC): 5 Chair/Lag-qi-Xudjp Xfer(QC): 4 Car Transfer (QC): 4 Does the Patient Walk: Yes Walk 10 feet (QC): 4 Walk 10ft-Uneven Surface(QC): 4 Walk 50ft with 2 Turns (QC): 4 Walk 150 ft (QC): 88 Wheel 50 feet with 2 turns (QC: 6 1 Step (curb) (QC): 3 4 Steps (QC): 3 12 Steps (QC): 88 Picking up an Object (QC): 3 OT Fdc Goals Cytology Technologist Goals Time Frame: Jun 21, 2020 Eating (FIM): 6 Eating (QC): 6 (met) Oral Hygiene (QC): 6 (met) Shower/Bathe Self (QC): 6 (not met, supervision) Upper Body Dressing (QC): 6 (met) Lower Body Dressing (QC): 6 (met) On/Off Footwear (QC): 6 (met) Toileting(FIM): 6 Toileting Hygiene (QC): 6 (met) Toilet/Commode Transfer (QC): 4 Additional Goals: 1-Demonstrate ADL Tasks, 2-Verbalize Understanding, 3- ImproveStrength/Rusty 1=Demonstrate adherence to instructed precautions during ADL tasks. 2=Patient will verbalize/demonstrate understanding of assistive devices/modifications for ADL. 3=Patient will improve strength/tolerance for activity to enable patient to perform ADL's. Speech Cytology Technologist Goals Cytology Technologist Goals Patient will improve swallowing and speech abilities to communicate better/easier with others. TRACIE JAY OT Jun 14, 2020 10:31
== END 2020-06-13 09:45 | disposition home or self-care (01) | DRG 57 ==
PROVIDERS: ADMIT Internal Medicine; ATTEND Internal Medicine
DX: I69.354 Hemiplegia and hemiparesis following cerebral infarction affecting left non-dominant side (principal); I69.320 Aphasia following cerebral infarction; I10 Essential (primary) hypertension; E78.5 Hyperlipidemia, unspecified; F17.210 Nicotine dependence, cigarettes, uncomplicated; M62.838 Other muscle spasm; F43.20 Adjustment disorder, unspecified; K75.9 Inflammatory liver disease, unspecified; Z79.82 Long term (current) use of aspirin; Z88.6 Allergy status to analgesic agent; Z82.49 Family history of ischemic heart disease and other diseases of the circulatory system
CPT/HCPCS: 36415; 76705; 80053; 85025; 94664

== ENCOUNTER → 2020-05-22 | Day surgery (SDC) | payer BC ==
[~2020-05-22] MED LIST changes: -ACETAMINOPHEN 500 MG TAB (TYLENOL) PO PRN; -ALPRAZolam 0.25 MG (XANAX) TAB PO PRN; -BISACODYL 10 MG SUPP (DULCOLAX) PR PRN; -DOCUSATE SODIUM 100 MG (COLACE) CAP PO PRN; -FLEET ENEMA ADULT 1 EA BTL PR PRN; -LACTULOSE SYRUP 10GM/15ML (ENULOSE) 30ML UDC PO PRN; +LIDOCAINE 1% INJ 20 ML 20 ML VIAL INJ ONE; +LIDOCAINE 1% INJ 20 ML 20 ML VIAL ONE; -LOPERAMIDE 2 MG (IMODIUM) TABLET PO PRN; -MELATONIN 3 MG TABLET PO PRN; -ONDANSETRON 4 MG (ZOFRAN) ORAL DISSOLVE TAB PO PRN; -diphenhydrAMINE 25 MG TAB (BENADRYL) PO PRN; -guaiFENesin/CODEINE (ROBITUSSIN AC) 10ML UDC PO PRN
--- NOTE | 2020-05-30 11:30 | Behavioral Health Consult ---
Consult- Consult Date Seen by Provider: May 29, 2020 Time Seen by Provider: 13:00 Date: 05-29-20 Referral: Dr. Foster [facility]#: [id number] CPT Code: 16432 Psychodiagnostic Examination, 1 unit(s) Start Time: 1:00 pm Stop Time: 1: Chief Complaint: emotional after stroke Referral: Jonathan Sanchez is a 45-year-old, , male referred by Dr. Foster for a clinical diagnostic assessment. Information for this evaluation was gathered from self-report and clinical observation. Presenting Problem: Jonathan reported he had a stroke about a week and a half ago and since then, has had some odd emotions. He reported he will sometimes start laughing uncontrollably or crying and feels his head is out of whack for 30 seconds to a minute. He reported this happens a few times a day and denied having any specific triggers for those emotions. He denied any similar behaviors before his stroke. He reported he has been asked by hospital staff about feeling depressed or anxious and he denied feeling that way. He reported he has felt very frustrated with not being able to move his body when he wants since his stroke. He reported he has not been able to move one arm and leg since the stroke. He reported he has talked with his about his emotions and will often either cry or try to hold his tears in and will sometimes end up laughing. He reported he has always been very calm and positive, so this has been very different and difficult for him. Jonathan denied feeling depressed or anxious but stated he has felt very confused and frustrated. He reported he is not sleeping well and wakes up every 3 hours. He denied normally being a good sleeper but stated his sleep has worsened since being in the hospital. He denied any feelings of worthlessness or guilt and stated he is a happy person who is an optimist. He reported he is a very chill, just go with it person. He denied any changes in weight or appetite or any past or present suicidal or homicidal ideation. He reported he has had less energy but feels that it is due to not being able to use all of his body. He denied any problems with anxiety or being anxious about anything. He denied feeling overwhelmed or having any specific worries, but eventually stated he does sometimes worry about not being able regain movement in his arm and leg and that thought also makes him very sad. He reported he has been trying to focus on the positive, but he has been struggling more with that recently and worrying about what life would be like if he does not get better. Jonathan reported the staff at the hospital have been very positive about the progress he has made, and he was able to start walking on his own for the first time yesterday. Jonathan reported his and children have been very supportive and will talk with him daily and have seen him when they have been able to, due to the covid restrictions. He reported his has been more worried and that has made him feel a bit guilty. He also reported his jgfqpo-iu-ipd just over the weekend, so his is having to deal with a lot on her own. Jonathan stated he is worried about having to go home before he is ready but stated he has had several staff ask him his opinion and thoughts. He said he will be ready to go home when he can walk without falling. Observations/Mental Status: Jonathan arrived on time for the appointment and was alone. He was seen via telehealth due to covid restrictions. Overall appearance was appropriate and indicated adequate self-care. Jonathan appeared to be a fair historian. Observed gait and gross motor movements indicated no clinically significant difficulties. Donnie general approach to the evaluation indicated interest. Orientation was intact for person, place, time, and situation. Jonathan evidenced fair understanding of the reason for the appointment. Donnie in- session behavior was cooperative. The predominant mood was depressed with affect appropriate to expressed concerns and presenting problem. Immediate attention and concentration was unremarkable clinically during the interview. Memory functioning appeared to be intact. Level of intellectual functioning compared to same age peers was estimated to be in the average range. Thought processes were found to be generally logical, coherent and goal directed. Thought content appeared normal. Psychomotor functioning was within normal limits. Tone of voice was normal and controlled. Expressive speech was marked by fluent speech and language. Eye contact was fair. Insight was fair. Overall, style of interacting during the appointment was appropriate and motivated. Current/Previous Mental Health Treatment: Past psychiatric history was denied any past treatment or medications. History of self or other harm was denied. Family psychiatric history was reported as unremarkable. Recreational Drug Usage: Substance abuse history was drinks alcohol in moderation and denied any history of substance abuse. Family history of alcohol or drug abuse was reported as not reported. 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 He reported his boss went through a stroke a few years ago and has been very understanding about his recent stroke. Family and Social Histories: Jonathan reported he has been for 22 years and they have two children in the home with them. He reported they are 15 and 18 years old and has an 18-year-old and 22-year-old who do not live in the home. He reported he has a good relationship with his kids and with his . Social contacts were reported as poor. He reported he is an introvert and does not do much with others outside of his family. Summary of Assessment Information/Prognosis: Jonathan is a 45-year-old male. Following current assessment, presenting problem and symptoms appear consistent with a preliminary diagnosis of F43.23 Adjustment disorder with mixed anxiety and depressed mood, due to his recent stroke. Overall, prognosis is estimated to be good. Therapist expressed to him that having several emotions especially after a significant health scare is very normal. We discussed his feelings and he was encouraged to continue to do so with his to help him process his new feelings of grief and worry since his stroke. Therapist discussed with him how worrying about returning to normal or previous functioning would be expected and that focusing on the progress he is making would be helpful. Therapist also suggested meeting again in a few days to assess his current functioning and to see how his emotions are at that time. Diagnostic Impressions: F43.23 Adjustment disorder with mixed anxiety and depressed mood. Initial Treatment Plan/Recommendations: The recommendations at this time include the following: continue with physical therapy and other therapies recom mended by the hospital; continue to take prescribed medications by hospital; meet with provider in a few days to assess current functioning and any improvements. Jonathan is recommended to return within one week for follow-up. Further disposition will be made at that time. Jonathan verbalized understanding of these recommendations and an intention to comply with the proposed treatment plan and course of treatment. STEFFANIE BLACK [facility] May 30, 2020 11:30
== END ==
LOC: CATH 11:19
PROVIDERS: ATTEND Internal Medicine Cardiovascular Disease
DX: I63.9 Cerebral infarction, unspecified (principal); I10 Essential (primary) hypertension; E78.5 Hyperlipidemia, unspecified; F17.210 Nicotine dependence, cigarettes, uncomplicated; Z79.899 Other long term (current) drug therapy; Z88.5 Allergy status to narcotic agent; Z83.3 Family history of diabetes mellitus
CPT/HCPCS: 33285; C1764

== ENCOUNTER → 2020-12-11 | Outpatient (CLI) | payer BC ==
[~2020-12-11] MED LIST changes: +BACL10TA PO; -LIDOCAINE 1% INJ 20 ML 20 ML VIAL INJ ONE; -LIDOCAINE 1% INJ 20 ML 20 ML VIAL ONE; +MTP25TSR PO; +OXC5T PO; +VALS160T29 PO
--- NOTE | 2020-12-11 14:28 | Diagnostic Imaging Report ---
EXAMINATION: Magnetic resonance imaging of the left shoulder without contrast. DATE: December 11, 2020. COMPARISON: None. HISTORY: 45-year-old male, left shoulder pain. TECHNIQUE: Magnetic Resonance Imaging sequences were performed of the shoulder without contrast. FINDINGS: ROTATOR CUFF, LIGAMENTS, TENDONS, AND MUSCLES: The supraspinatus, infraspinatus, teres minor, and subscapularis tendons and muscles are intact. There is normal rotator cuff muscle bulk and signal. LONG HEAD OF BICEPS: The biceps labral attachment and long head of the biceps tendon is intact. The long head of the biceps tendon is normally positioned within the bicipital groove. GLENOHUMERAL JOINT: The humeral head is well positioned relative to the glenoid. The labrum is grossly intact. There is no identified paralabral cyst. The articular cartilage is grossly intact. There is no joint effusion. ACROMIOCLAVICULAR JOINT: The acromioclavicular joint is normally aligned. The coracoclavicular and coracoacromial ligaments are intact. There are no degenerative changes of the acromioclavicular joint. BONE: There is no os acromiale. There is no Hill-Sachs deformity. There is no acute fracture, bone contusion, or evidence of osteonecrosis. BURSAE AND SOFT TISSUES: The bursae and soft tissue surrounding the shoulder are unremarkable. IMPRESSION: 1. Intact rotator cuff and proximal long head of biceps tendon. 2. Grossly intact labrum and unremarkable additional glenohumeral joint assessment. 3. Intact acromioclavicular joint. 4. No acute fracture, bone contusion, or other notable bone marrow signal abnormality. Dictated by: Dictated on workstation # [id number]
== END ==
LOC: RAD 13:20
PROVIDERS: ATTEND Nurse Practitioner Family
DX: M25.512 Pain in left shoulder (principal)
CPT/HCPCS: 73221

== ENCOUNTER → 2021-05-07 | Outpatient (CLI) | payer BC ==
[~2021-05-07] MED LIST changes: +CATHETER FLUSH 10 ML SYR IV PRN; +REGADENOSON 0.4 MG/5 ML SYR (LEXISCAN) IV ONE
[2021-05-07 09:39] VITALS: BP 139/81
--- NOTE | 2021-05-07 12:51 | Cardiology Stress Test Report ---
Stress Test Report Date of Procedure/Referring: Date of Procedure: May 07, 2021 Abby Larson Admitting Physician No,Local Physician Indications: HTN Baseline Heart Rate: 58 Baseline Blood Pressure: Blood Pressure Systolic: 139 Blood Pressure Diastolic: 81 Baseline Vitals Vital Signs Date Time Temp Pulse Resp B/P (MAP) Pulse Ox O2 Delivery O2 Flow Rate FiO2 05/07/21 09:39 58 139/81 (100) Baseline EKG: Baseline EKG: NSR Summary After explaining the procedure to the patient, he signed a consent and then brought to the stress nuclear laboratory. Patient received 0.4 mg Lexiscan for stress test, ECG, heart rate and blood pressure were monitored continuously. Resting and stress dose of radio tracer w ere injected, imaging was acquired and reviewed in short axis, horizontal long axis and vertical long axis views. TID: 1.04 SSS: 6 SDS: 0 EF: 66 1. Patient tolerated Lexiscan well 2. Diaphragmatic attenuation with fixed defect involving the basal to mid inferolateral wall, no significant ischemia or infarction was seen 3. Normal left ventricular size, EF 66% LAURA ORLANDO MD May 07, 2021 12:51
== END ==
LOC: CARD 08:00
PROVIDERS: ATTEND Physician Assistant
DX: I10 Essential (primary) hypertension (principal)
CPT/HCPCS: 78452; 93017; A9502

== ENCOUNTER 2021-05-14 08:00 | Day surgery (SDC) | payer BC ==
[2021-05-14] VITALS (8 sets, daily range): BP systolic 102–143; BP diastolic 69–82
[~2021-05-14] VITALS: Ht 190.5 cm; Wt 120.6 kg
[2021-05-14 07:24] LABS: HEMATOCRIT 42 % (40-54); HEMOGLOBIN 14.4 g/dL (13.3-17.7); MEAN CORPUSCULAR HEMOGLOBIN 29 pg (25-34); MEAN CORPUSCULAR HGB CONC 34 g/dL (32-36); MEAN CORPUSCULAR VOLUME 84 fL (80-99); MEAN PLATELET VOLUME 10.5 fL (9.0-12.2); PLATELET COUNT 307 10^3/uL (130-400); WHITE BLOOD COUNT 8.7 10^3/uL (4.3-11.0)
--- NOTE | 2021-05-14 07:37 | Diagnostic Imaging Report ---
EXAMINATION: Chest 1 view HISTORY: Abnormal stress test COMPARISON: 05/19/2020 FINDINGS: The lungs are clear without edema or pneumonia. No pleural effusion or pneumothorax. Heart size is normal. Loop recorder projects over the chest. IMPRESSION: 1. Clear lungs. Dictated by: Dictated on workstation # [id number]
[2021-05-14 07:42] LABS: ALBUMIN 4.1 GM/DL (3.2-4.5); BILIRUBIN,TOTAL 0.5 MG/DL (0.1-1.0); CALCIUM 9.1 MG/DL (8.5-10.1); CREATININE SERUM 0.93 MG/DL (0.60-1.30); POTASSIUM 4.1 MMOL/L (3.6-5.0); PROTHROMBIN TIME PATIENT 13.1 SEC (12.2-14.7); TOTAL PROTEIN 7.3 GM/DL (6.4-8.2)
[~2021-05-14 08:00] MED LIST changes: +APIX5TAB PO; -CATHETER FLUSH 10 ML SYR IV PRN; +HEParin (CATH LAB) 2,000 ML IV ONE; +HEParin 1000 UNIT/ML (10ML VIAL) FOR BOLUS ONE; +LIDOCAINE 1% INJ 20 ML VIAL ONE; +METO50TA7 PO; +MIDAZOLAM 5 MG/5 ML (VERSED) VIAL ONE; +NITRO DRIP 25000 MCG/D5W 250 ML IV ONE; +NS IV 1000 ML 1,000 ML IV SCH; +NS IV 1000 ML 1,000 ML ONE; -REGADENOSON 0.4 MG/5 ML SYR (LEXISCAN) IV ONE; +VERAPAMIL 5 MG/2 ML (CALAN) VIAL IV ONE; +fentaNYL INJ 100 MCG/2 ML AMP ONE
--- NOTE | 2021-05-14 08:24 | Conscious Sedation/ASA ---
Conscious Sedation Pre-Proced Time 08:24 ASA Score 3 For ASA 3 and 4: Consider anesthesia and medical clearance. Also, for patients with a history of failed moderate sedation consider anesthesia. Airway Lungs Heart ASA score ASA 1: a normal healthy patient ASA 2: a patient with a mild systemic disease (mid diabetes, controlled hypertension, obesity x ASA 3: a patient with a severe systemic disease that limits activity (angina, COPD, prior Myocardial infarction) ASA 4: a patient with an incapacitating disease that is a constant threat to life (CHF, renal failure) ASA 5: a moribund patient not expected to survive 24 hrs. (ruptured aneurysm) ASA 6: a declared brain- patient whose organs are being harvested. For emergent operations, add the letter E after the classification Mallampati Classification Grade 3 Sedation Plan Analgesia, Amnesia, Plan communicated to team members, Discussed options with patient/fam, Discussed risks with patient/fam The patient is an appropriate candidate to undergo the planned procedure, sedation, and anesthesia. The patient immediately re-assessed prior to indication. LAURA ORLANDO MD May 14, 2021 08:24
--- NOTE | 2021-05-14 09:06 | Cardiac Cath Report ---
Cardiac Cath Report Physician (s)/Dental Ceramist (s) Physician LAURA ORLANDO MD Pre-Procedure Diagnosis Pre-Procedure Diagnosis: Coronary artery disease Post-Procedure Note Procedure Start Date: May 14, 2021 Name of Procedure: Left heart catheterization Findings/Procedure Note PROCEDURE NOTE: 46 years old gentleman with paroxysmal atrial fibrillation, had borderline stress test, requiring cardiac catheterization prior to initiating class Ic antiarrhythmic medication for his atrial fibrillation. After explaining the procedure to the patient, all pros and cons were explained, all questions were answered. The patient signed the consent and then he was placed on the cardiac catheterization laboratory. Groin was prepped SL fashion local anesthesia was used. Sheath placed in the right radial artery, Fertile catheter was advanced to the left ventricular cavity, pressure was measured, pullback LV to aorta was done, engaged the right coronary artery and angiogram was done. I was unable to engage the left system. I exchanged the catheter and used Elias catheter and I was able to engage the left system, angiogram was done. At the end of the procedure the sheath was removed. Vascular band was used FINDINGS: Hemodynamics LV 96/18, end-diastolic pressure of 18 Aorta 92/63 mean of 78 ANATOMY: Left Main is free of obstructive disease Left Anterior Descending has mild disease nonobstructive disease Left Circumflex is large dominant artery with mild disease nonobstructive disease Right Coronary Artery is nondominant artery with 40 to 50% stenosis at the midportion nonobstructive disease LV Gram was not done, pressure was measured CONCLUSION: 1. Mild to moderate coronary artery disease nonobstructive disease 2. Normal left ventricular end-diastolic pressure DISCUSSION AND RECOMMENDATION: Patient will be starting on flecainide, abnormal stress test is probably due to extracardiac attenuation Anesthesia Type: Conscious Sedation Estimated blood loss (mL): 10 ml Contrast Amount: 71 ml Total Radiation Dose: 707 mGy Post-Procedure Diagnosis Post-operative diagnosis: Atrial fibrillation Coronary artery disease Hypertension Hyperlipidemia LAURA ORLANDO MD May 14, 2021 09:06
[2021-05-14] MEDS ORDERED: FLEC50TA PO (09:09)
[2021-05-14] MEDS ORDERED: ATOR10TA PO (09:09)
--- NOTE | 2021-05-14 09:10 | Discharge Inst-Post CATH ---
Discharge Inst-CATH/EP Problems Reviewed?: Yes Post Cardiac Cath/EP D/C Inst Follow Up/Plan Appointment with Dr. Rios's office in 1 to 2 weeks <b>CARDIAC CATH/EP PROCEDURE DISCHARGE INSTRUCTIONS</b> ACTIVITY * Go Home directly and rest. * Limit activity of the leg (or wrist if it was used) for 7 days including aer obics, swimming, jogging, bicycling, etc. * Restrict stair-climbing for 7 days if possible, if not, climb up with your non-cath leg, then bring together on the same step. * Avoid lifting, pushing, pulling or excessive movement of the affected extremi ty for 7 days. * Customary sexual activity may be resumed after 2 days-use caution not to use a position that strains or causes pain to the affected extremity. * No driving for 24 hours. * NO SMOKING. * Avoid straining for bowel movements for 7 days. * Gentle walking on level ground is allowed. * Returning to work will depend on the type of procedure and the results. Your doctor will discuss this with you. CALL YOUR DOCTOR FOR ANY OF THE FOLLOWING: *If bleeding from the puncture site occurs- Apply gentle pressure to site with clean cloth and call your doctor or EMS. * If a knot or lump forms under the skin, increases in size, or causes pain. * If bruising appears to be worsening or moving further down your leg instead of disappearing. * Temperature above 101 F. CARE OF YOUR GROIN INCISION; * Bruising or purple discoloration of the skin near the puncture site is common. * You may shower only, no bathtub bathing for 5 days. Be careful to avoid slipping as your leg may feel stiff. * If a closure device was used on your femoral artery, please see the attached guide regarding care of the device and your leg. * Leave dressing on FOR 24 hours. CARE OF YOUR WRIST INCISION; * Bruising or purple discoloration of the skin near the puncture site is common. * You may shower. * DO NOT submerge wrist. * Leave dressing on FOR 24 hours. LAURA RIOS MD May 14, 2021 09:09
[2021-05-14] MEDS ORDERED: NS IV 1000 ML 1,000 ML IV SCH (09:15)
== END 2021-05-14 11:45 | disposition home or self-care (01) ==
LOC: CATH 08:00
PROVIDERS: ATTEND Internal Medicine Cardiovascular Disease
DX: I48.0 Paroxysmal atrial fibrillation (principal); I25.10 Atherosclerotic heart disease of native coronary artery without angina pectoris; E78.5 Hyperlipidemia, unspecified; I11.9 Hypertensive heart disease without heart failure; I69.354 Hemiplegia and hemiparesis following cerebral infarction affecting left non-dominant side; F17.210 Nicotine dependence, cigarettes, uncomplicated; Z79.899 Other long term (current) drug therapy; Z79.01 Long term (current) use of anticoagulants; Z79.82 Long term (current) use of aspirin
CPT/HCPCS: 71045; 80053; 80061; 85027; 85610; 85730; 87081; 93005; 93458; C1894; 36415

== ENCOUNTER 2021-05-28 09:00 | Day surgery (SDC) | payer BC ==
[~2021-05-28] VITALS: Ht 190.5 cm; Wt 119.6 kg
[2021-05-28] MEDS: NS IV 1000 ML 1,000 ML IV SCH ×3 (07:25→22:00)
[2021-05-28 07:30] VITALS: BP 145/84
[2021-05-28 07:42] LABS: HEMATOCRIT 40 % (40-54); HEMOGLOBIN 13.6 g/dL (13.3-17.7); MEAN CORPUSCULAR HEMOGLOBIN 29 pg (25-34); MEAN CORPUSCULAR HGB CONC 34 g/dL (32-36); MEAN CORPUSCULAR VOLUME 86 fL (80-99); MEAN PLATELET VOLUME 10.6 fL (9.0-12.2); PLATELET COUNT 303 10^3/uL (130-400); WHITE BLOOD COUNT 9.7 10^3/uL (4.3-11.0)
--- NOTE | 2021-05-28 07:53 | Conscious Sedation/ASA ---
Conscious Sedation Pre-Proced Time 07:53 ASA Score 3 For ASA 3 and 4: Consider anesthesia and medical clearance. Also, for patients with a history of failed moderate sedation consider anesthesia. Airway Lungs Heart ASA score ASA 1: a normal healthy patient ASA 2: a patient with a mild systemic disease (mid diabetes, controlled hypertension, obesity x ASA 3: a patient with a severe systemic disease that limits activity (angina, COPD, prior Myocardial infarction) ASA 4: a patient with an incapacitating disease that is a constant threat to life (CHF, renal failure) ASA 5: a moribund patient not expected to survive 24 hrs. (ruptured aneurysm) ASA 6: a declared brain- patient whose organs are being harvested. For emergent operations, add the letter E after the classification Mallampati Classification Grade 3 Sedation Plan Analgesia, Amnesia, Plan communicated to team members, Discussed options with patient/fam, Discussed risks with patient/fam The patient is an appropriate candidate to undergo the planned procedure, sedation, and anesthesia. The patient immediately re-assessed prior to indication. LAURA ORLANDO MD May 28, 2021 07:53
--- NOTE | 2021-05-28 07:57 | Diagnostic Imaging Report ---
INDICATION: Pacemaker placement FINDINGS: There is cardiomegaly. Lungs are clear. There is no pleural effusion or pneumothorax. The mediastinum is unremarkable. IMPRESSION: No acute cardiopulmonary abnormality Cardiomegaly. Dictated by: Dictated on workstation # [id number]
[2021-05-28 08:07] LABS: ALBUMIN 4.2 GM/DL (3.2-4.5); BILIRUBIN,TOTAL 0.7 MG/DL (0.1-1.0); CALCIUM 9.2 MG/DL (8.5-10.1); CREATININE SERUM 0.9 MG/DL (0.60-1.30); TOTAL PROTEIN 7.1 GM/DL (6.4-8.2)
[~2021-05-28 09:00] MED LIST changes: +ATOR10TA PO; +ATOR10TA66 PO; +FLEC50TA PO; +HEParin (CATH LAB) 1,000 ML IV ONE; -HEParin (CATH LAB) 2,000 ML IV ONE; -HEParin 1000 UNIT/ML (10ML VIAL) FOR BOLUS ONE; -LIDOCAINE 1% INJ 20 ML VIAL ONE; +LIDOCAINE 1% INJ 50 ML (XYLOCAINE) VIAL ONE; -NITRO DRIP 25000 MCG/D5W 250 ML IV ONE; +NS (IVPB) 50 ML ONE; -NS IV 1000 ML 1,000 ML IV SCH; +TRAM50TA3 PO; -VERAPAMIL 5 MG/2 ML (CALAN) VIAL IV ONE; +ceFAZolin INJECTION 1,000 MG ONE; +ceFAZolin INJECTION 1,000 MG VIAL IV ONE
[2021-05-28] MEDS ORDERED: NS IV 1000 ML 1,000 ML IV SCH (09:45)
[2021-05-28] MEDS ORDERED: PATIENT MAY USE OWN MEDS, ALL PO SCH (09:45)
--- NOTE | 2021-05-28 09:48 | Permanent Pacemaker Implant ---
Dual Chamber Pacemaker Implant PROCEDURE PHYSICIAN: Laura Rios DUAL CHAMBER PACEMAKER IMPLANTATION: DATE OF PROCEDURE: 05/28/21 INDICATION: Sinus node dysfunction, syncope PREOPERATIVE DIAGNOSIS: Sinus node dysfunction POSTOPERATIVE DIAGNOSIS: Sinus node dysfunction HISTORY: Dual-chamber permanent pacemaker was recommended. PROCEDURE PERFORMED: 1. Dual-chamber permanent pacemaker implantation. 2. Fluoroscopy. 3. Central venous access. ANESTHESIA: Local anesthesia, conscious sedation. COMPLICATIONS: None. ESTIMATED BLOOD LOSS:20 mL. SPECIMENS: None. ORAL ANTICOAGULATION: None. FLUOROSCOPY TIME: FLUOROSCOPY DOSE: CONTRAST DOSE: PROCEDURE DETAILS: The patient is a 46 male with history of syncope, had a loop monitor implanted showing episode of syncope associated with 17-second sinus pause. Patient had multiple syncopal episodes in the past. We decided to proceed with dual-chamber pacemaker implant. And after all of the patients questions were answered, the patient was brought to the EP Lab. The patient's left chest was prepped and draped in sterile fashion. A 2 inch horizontal incision was made 1 cm below the clavicle and dissection carried down to the pectoralis fascia. Using the modified Seldinger technique and under fluoroscopy guidance, the anterior aspect of the left axillary vein was accessed 2 times. The J wires were secured to the drapes with a mosquito clamp. A 7-Hungarian sheath was introduced over one of the J-wires. The RV lead was then inserted. The RV lead was directed across the tricuspid valve to the apical septal portion of the right ventricle. The position was checked in [place] and [place] views. The screw was deployed and the lead connected to the senior mainframe programmer analyst. Close sensing and pacing thresholds were obtained. Diaphragmatic pacing was ruled out. The lead was secured with 2-0 silk ties to the underlying muscle and fascia. Next, a 7-Hungarian sheath was introduced through the remaining J-wire. An atrial lead was then introduced and guided to the level of the right appendage. The screw was deployed and the lead was connected to the interrogator. Good sensing and pacing thresholds were obtained. Diaphragmatic pacing was ruled out. The leads were secured with 2-0 silk ties to the underlying muscle and fascia. The leads were connected to the device in a hermetic fashion. The device and leads were placed in the pocket. Aggressive irrigation with saline solution was done. The device was secured to the underlying muscle and fascia with a 2-0 silk tie. interrogation of the device revealed good integrity of all the leads and good connections. The wound was then closed using 2 layers. The first layer was interrupted 2-0 absorbable Vicryl suture. The last layer was a single subcuticular layer with 4- 0 Vicryl suture. Half inch Steri-Strips and a small dressing were then applied to the wound. The patient tolerated the procedure well and was returned to the recovery room in stable condition with stable vital signs. DEVICE INFORMATION: JESSICA XT DR MRI [id number] RA LEAD: [id number] RV LEAD: [id number] PER-OPERATIVE DEVICE INTERROGATION: Good sensing and capture activity IMMEDIATE POSTOPERATIVE DEVICE INTERROGATION: Atrial lead, threshold 0.4 at 1.0 V, P wave 3.5 mV, impedance 418 Ventricular lead 0.4 at 0.5 V, R wave 10.9 mV, impedance 646 PLAN: The patient transferred to the ICU. We will continue with two more doses of IV antibiotics. We will check a chest x-ray and interrogate the device in the morning. The patient will continue on oral antibiotics for 5 days. CONCLUSION: Successful implantation of dual chamber pacemaker with no complication FINAL DIAGNOSIS: Sinus node dysfunction Cardioinhibitory syncope Bradycardia Coronary artery disease LAURA RIOS MD May 28, 2021 09:48
--- NOTE | 2021-05-28 10:10 | Cardiac Procedure Note ---
Cardiology Procedures Date of Procedure 05/28/21 Extraction of the loop monitor. Patient has a loop monitor implanted for syncope, after dual-chamber pacemaker implantation we decided to extract the loop monitor. He was still sedated from the pacemaker, local anesthesia applied, skin incision was made and the loop monitor device was extracted. Skin was closed with suture and dressing was placed. Conclusion Successful excision and extraction of a loop monitor LAURA ORLANDO MD May 28, 2021 10:10
[2021-05-28 11:01] VITALS: BP 127/72
--- NOTE | 2021-05-28 11:04 | Diagnostic Imaging Report ---
INDICATION: Pacemaker placement. TIME OF EXAM: 10:39 AM Correlation is made with prior chest from earlier the same day. There has been placement of a dual lead left subclavian cardiac pacemaker. Lead tips are in the region of right atrium and right ventricle. No pneumothorax is detected. The heart is enlarged. Lungs are clear. There is no effusion. IMPRESSION: Pacemaker placement, as described. No complicating features are detected. Dictated by: Dictated on workstation # [id number]
[2021-05-28 12:00] VITALS: BP 124/74
[2021-05-28] MEDS ORDERED: BACLOFEN 10 MG (LIORESAL) TAB PO PRN (12:30)
[2021-05-28] MEDS ORDERED: ceFAZolin INJECTION 1,000 MG in NS (IVPB) 50 ML IV SCH (14:00)
[2021-05-28 16:00] VITALS: BP 115/65
[2021-05-28] MEDS: ceFAZolin INJECTION 1,000 MG in NS (IVPB) 50 ML IV SCH ×2 (16:09→22:00)
[2021-05-28 19:42] VITALS: BP 149/84
[2021-05-28] MEDS: APIXABAN 5 MG (ELIQUIS) TABLET PO SCH (20:35)
[2021-05-28] MEDS: FLECAINIDE 100 MG (TAMBOCOR) TAB PO SCH (20:35)
[2021-05-28] MEDS ORDERED: NON-FORMULARY MEDICATION 1 EA EA (Flecainide Acetate 50 MG) PO SCH (21:00)
[2021-05-29] MEDS: ceFAZolin INJECTION 1,000 MG in NS (IVPB) 50 ML IV SCH (05:32)
[2021-05-29] MEDS ORDERED: CEFU500T63 PO (06:19)
--- NOTE | 2021-05-29 06:20 | Discharge Inst-Post CATH ---
Discharge Inst-CATH/EP Problems Reviewed?: Yes Post Cardiac Cath/EP D/C Inst Follow Up/Plan Appointment with Dr Rios next week for wound check <b>CARDIAC CATH/EP PROCEDURE DISCHARGE INSTRUCTIONS</b> ACTIVITY * Go Home directly and rest. * Limit activity of the leg (or wrist if it was used) for 7 days including aer obics, swimming, jogging, bicycling, etc. * Restrict stair-climbing for 7 days if possible, if not, climb up with your non-cath leg, then bring together on the same step. * Avoid lifting, pushing, pulling or excessive movement of the affected extremi ty for 7 days. * Customary sexual activity may be resumed after 2 days-use caution not to use a position that strains or causes pain to the affected extremity. * No driving for 24 hours. * NO SMOKING. * Avoid straining for bowel movements for 7 days. * Gentle walking on level ground is allowed. * Returning to work will depend on the type of procedure and the results. Your doctor will discuss this with you. CALL YOUR DOCTOR FOR ANY OF THE FOLLOWING: *If bleeding from the puncture site occurs- Apply gentle pressure to site with clean cloth and call your doctor or EMS. * If a knot or lump forms under the skin, increases in size, or causes pain. * If bruising appears to be worsening or moving further down your leg instead of disappearing. * Temperature above 101 F. CARE OF YOUR GROIN INCISION; * Bruising or purple discoloration of the skin near the puncture site is common. * You may shower only, no bathtub bathing for 5 days. Be careful to avoid slipping as your leg may feel stiff. * If a closure device was used on your femoral artery, please see the attached guide regarding care of the device and your leg. * Leave dressing on FOR 24 hours. CARE OF YOUR WRIST INCISION; * Bruising or purple discoloration of the skin near the puncture site is common. * You may shower. * DO NOT submerge wrist. * Leave dressing on FOR 24 hours. LAURA RIOS MD May 29, 2021 06:20
[2021-05-29 07:36] VITALS: BP 124/87
[2021-05-29] MEDS: FLECAINIDE 100 MG (TAMBOCOR) TAB PO SCH (08:28)
[2021-05-29] MEDS: APIXABAN 5 MG (ELIQUIS) TABLET PO SCH (08:30)
--- NOTE | 2021-05-29 08:55 | Cardiology Progress Note ---
Subjective Date Seen by Provider: May 29, 2021 Time Seen by Provider: 08:53 Subjective/Events-last exam Patient is laying down in bed, complaining of pain at the surgical sites. Review of Systems General: No Chills, No Night Sweats, No Fatigue, No Malaise, No Appetite, No Ot her HEENT: No Head Aches, No Visual Changes, No Eye Pain, No Ear Pain, No Dysphasia, No Sinus Congestion, No Post Nasal Drip, No Sore Throat, No Other Pulmonary: No Dyspnea, No Cough, No Pleuritic Chest Pain, No Other Cardiovascular: No: Chest Pain, Palpitations, Orthopnea, Paroxysmal Noc. Dyspnea, Edema, Lt Headedness, Other Objective-Cardiology Exam Last Set of Vital Signs Vital Signs 05/29/21 07:36 Temp 36.2 Pulse 72 Resp 14 B/P (MAP) 124/87 (99) Pulse Ox 93 O2 Delivery Room Air I&O Intake and Output 05/29/21 00:00 Intake Total 1120 ml Output Total 600 ml Balance 520 ml Intake Oral 520 ml IV Total 600 ml Output Urine Total 600 ml # Voids 2 General: Alert, Oriented X3, Cooperative HEENT: Atraumatic, PERRLA Neck: Supple, No JVD, No Thyromegaly Lungs: Clear to Auscultation, Normal Air Movement Heart: Regular Rate, Normal S1, Normal S2, No Murmurs Abdomen: Normal Bowel Sounds, Soft, No Tenderness, No Hepatosplenomegaly, No Masses Extremities: No Clubbing, No Cyanosis, No Edema, Normal Pulses, No Tenderness/Swelling Skin: No Rashes, No Breakdown, No Significant Lesion Neuro: Normal Gait, Normal Speech, Strength at 5/5 X4 Ext, Normal Tone, Sensation Intact Psych/Mental Status: Mental Status NL, Mood NL A/P-Cardiology Admission Diagnosis Sinus node dysfunction Bradycardia Syncope Hypertension Assessment/Plan Sinus node dysfunction, severe bradycardia with sinus pauses up to 17-second with syncope, status post dual-chamber pacemaker implantation, site is healing well. We will proceed with interrogation today then discharged home Status post loop monitor removal. Hypertension, monitor blood pressure Hyperlipidemia, continue current medication Planning for discharge today LAURA ORLANDO MD May 29, 2021 08:55
[2021-05-29] MEDS ORDERED: AtorvaSTATin TABLET 10 MG TABLET PO SCH (09:00)
[2021-05-29] MEDS ORDERED: VALSARTAN 160 MG TAB PO SCH (09:00)
[2021-05-29] MEDS ORDERED: NON-FORMULARY MEDICATION 1 EA EA (Valsartan 160 MG) PO SCH (09:00)
[2021-05-29] MEDS ORDERED: VALSARTAN 80 MG (DIOVAN) TAB PO SCH (09:00)
[2021-05-29] MEDS ORDERED: amLODIPine 10 MG (NORVASC) TAB PO SCH (09:00)
== END 2021-05-29 11:32 | disposition home or self-care (01) ==
LOC: CATH 09:00 → CSD 10:51 → CATH 05-29 11:32
PROVIDERS: ATTEND Internal Medicine Cardiovascular Disease
DX: I25.10 Atherosclerotic heart disease of native coronary artery without angina pectoris (principal); I10 Essential (primary) hypertension; I49.5 Sick sinus syndrome; R55 Syncope and collapse; E78.5 Hyperlipidemia, unspecified; Z95.0 Presence of cardiac pacemaker
CPT/HCPCS: 33208; 33286; 71045; 80053; 85027; 85610; 85730; 87081; C1785; C1898 ×2; 36415

== ENCOUNTER → 2021-12-22 | Outpatient (CLI) | payer OTHER ==
[~2021-12-22] MED LIST changes: +CEFU500T63 PO; -HEParin (CATH LAB) 1,000 ML IV ONE; -LIDOCAINE 1% INJ 50 ML (XYLOCAINE) VIAL ONE; -MIDAZOLAM 5 MG/5 ML (VERSED) VIAL ONE; -NS (IVPB) 50 ML ONE; -NS IV 1000 ML 1,000 ML ONE; -ceFAZolin INJECTION 1,000 MG ONE; -ceFAZolin INJECTION 1,000 MG VIAL IV ONE; -fentaNYL INJ 100 MCG/2 ML AMP ONE
[2021-12-22 09:56] LABS: ALBUMIN 4.2 GM/DL (3.2-4.5); BILIRUBIN,TOTAL 0.4 MG/DL (0.1-1.0); CALCIUM 9.1 MG/DL (8.5-10.1); CREATININE SERUM 0.83 MG/DL (0.60-1.30); POTASSIUM 4.7 MMOL/L (3.6-5.0); TOTAL PROTEIN 7.2 GM/DL (6.4-8.2)
== END ==
LOC: LAB FS 08:48
PROVIDERS: ATTEND Internal Medicine Cardiovascular Disease
DX: I10 Essential (primary) hypertension (principal); E78.2 Mixed hyperlipidemia; I65.23 Occlusion and stenosis of bilateral carotid arteries; I48.0 Paroxysmal atrial fibrillation
CPT/HCPCS: 36415; 80053; 80061

== ENCOUNTER → 2021-12-23 | Outpatient (CLI) | payer BC, OTHER | LOC: CARDFS 12:24 | PROVIDERS: ATTEND Internal Medicine Cardiovascular Disease | DX: I11.9 Hypertensive heart disease without heart failure (principal) | CPT/HCPCS: 93306 ==